=== PATIENT | male | born 1945 | race Caucasian/White ===

== ENCOUNTER → 2016-09-26 | Outpatient (CLI) | payer BC ==
[~2016-09-26] MED LIST: ADVICOR PO; ASPI81TA28 PO; FENO145T26 PO; FLUT0.15 NAE; INSDGI SC; LEVO75TA33 PO; LISI-787 PO; LISI40TA PO; LOVA20TA4 PO; METF-384 PO; METO25TA3 PO; METO25TA56 PO; NTRGSL/4 SL; NVLGI SQ; OXYC-57 PO; PRLSR20 PO
--- NOTE | 2016-09-26 08:46 | DIAGNOSTIC IMAGING REPORT ---
CT ANGIO ABD/PELVIS COMBO CT DOSE: 3469.07 mGy.cm CLINICAL HISTORY: Abdominal aortic aneurysm TECHNIQUE: Unenhanced images were obtained through the abdomen and pelvis. Images were then reacquired in a dynamic helical fashion during intravenous administration 119 cc Optiray 320. COMPARISON STUDY: May 2010 FINDINGS: The heart is enlarged. Subtle increased groundglass attenuation the lungs, is likely atelectatic. No hepatic masses are visualized this arterial phase study. The gallbladder is surgically absent. No splenic masses are visualized. Masses are visualized. No adrenal masses are visualized. No renal masses are visualized. There is no hydronephrosis. There is no evidence of hemodynamically significant celiac, superior mesenteric artery stenosis, or renal artery stenosis. There are 2 left renal arteries. The inferior mesenteric artery is patent. There is no evidence of pathologic bowel dilatation. There is a fusiform infrarenal abdominal aortic aneurysm which measures 4.2 x 3.9 cm in maximal transverse and AP diameter. The aneurysm has no true proximal neck as it gradually tapers. The diameter of the aorta 2 cm inferior to the left renal artery is 25 mm. The aneurysm extends to the bifurcation. There is aneurysmal dilatation left common iliac artery which measures 3 cm. The right common iliac artery measures 21 mm. The external iliac and common femoral arteries are without evidence of focal stenosis. No abnormal pelvic masses are visualized. Left internal iliac lymph nodes are at the upper limits of normal in diameter. IMPRESSION: Fusiform infrarenal abdominal aortic aneurysm measuring 4.2 x 3.9 cm in maximal transverse and AP diameter. The aneurysm extends to the bifurcation, with dilatation of the left common iliac artery measuring 3 cm, and mild dilatation right common iliac artery which measures 2.1 cm. Electronically signed by: Salo Andrea M.D. 09/26/2016 8:44 AM Dictated Date/Time: 09/26/2016 8:35 AM
== END | disposition home or self-care (01) ==
LOC: C.CTS 07:11
PROVIDERS: ATTEND Surgery Vascular Surgery
DX: I71.4 Abdominal aortic aneurysm, without rupture (principal)

== ENCOUNTER 2016-10-24 05:14 | Inpatient (IN) | payer BC, OTHER ==
[2016-10-16 08:55] VITALS: BMI 39.0
--- NOTE | 2016-10-16 09:38 | PAT Medication Instructions ---
Service Date Oct 16, 2016. Current Home Medication List Aspirin (Aspirin Ec), 81 MG PO QAM Fenofibrate (Tricor ), 145 MG PO QAM Fluticasone Propionate (Nasal) (Flonase Allergy Relief), 1 SPRAY LAVERNE BID Insulin Aspart (Novolog), 0 SQ UD Insulin Glargine (Lantus), 80 U SC BID Levothyroxine (Levoxyl), 0.075 MG PO QAM Lisinopril/Hctz (Zestoretic 20MG/12.5MG), 2 TAB PO QAM Lovastatin (Mevacor), 20 MG PO HS Metformin Hcl (Glucophage), 1,000 MG PO BID Metoprolol Succinate (Toprol Xl), 25 MG PO QAM Nitroglycerin (Nitrostat), 1 TAB SL UD PRN for CHEST PAIN Omeprazole (Prilosec), 20 MG PO QAM Medication Instructions For Your Scheduled Surgery - Continue as directed: Nitroglycerin (Nitrostat), 1 TAB SL UD PRN for CHEST PAIN - Hold the following medications 48 hours prior to surgery: Metformin Hcl (Glucophage), 1,000 MG PO BID - Hold the following medications the morning of surgery: Fenofibrate (Tricor ), 145 MG PO QAM Insulin Aspart (Novolog), 0 SQ UD Lisinopril/Hctz (Zestoretic 20MG/12.5MG), 2 TAB PO QAM - Take the following medications the morning of surgery with a sip of water: Fluticasone Propionate (Nasal) (Flonase Allergy Relief), 1 SPRAY LAVERNE BID Aspirin (Aspirin Ec), 81 MG PO QAM (okay to continue per surgeon) Levothyroxine (Levoxyl), 0.075 MG PO QAM Omeprazole (Prilosec), 20 MG PO QAM Metoprolol Succinate (Toprol Xl), 25 MG PO QAM - Take the following medications as scheduled the night before surgery: Fluticasone Propionate (Nasal) (Flonase Allergy Relief), 1 SPRAY LAVERNE BID Insulin Glargine (Lantus), 80 U SC BID Lovastatin (Mevacor), 20 MG PO HS - For Insulin Dependent Diabetic patients: Test blood sugar A.M. of surgery. - If Blood Sugar is GREATER THAN 150, take HALF of your regular dose of: Insulin Glargine (Lantus) - If Blood Sugar is LESS THAN 150, DO NOT TAKE ANY: Insulin Glargine ( Lantus) If you have any questions please call us at [phone] or [phone] or [phone]
--- NOTE | 2016-10-16 10:19 | DIAGNOSTIC IMAGING REPORT ---
CHEST PREADMISSION(PA/LAT) CLINICAL HISTORY: Preoperative evaluation. COMPARISON STUDY: Chest radiograph June 02, 2010. FINDINGS: There are median sternotomy wires and clips from bypass grafting. Moderate cardiomegaly is noted. There is no evidence of pulmonary edema. No consolidation is evident. There is no pneumothorax or pleural effusion. IMPRESSION: 1. No acute cardiopulmonary findings. 2. Moderate cardiomegaly. Electronically signed by: Raulito Edouard M.D. 10/16/2016 10:17 AM Dictated Date/Time: 10/16/2016 10:16 AM
[2016-10-16 10:25] LABS: BASO % 0.4 %; BASO ABS # 0.03 K/uL (0-0.2); COMPLETE YES; EOS % 2.4 %; HEMATOCRIT 37.1 % (42-52); IG% 0.7 %; LYMPH % 17.9 %; LYMPH ABS # 1.24 K/uL (1.2-3.4); MEAN CELL VOLUME 79.4 fL (80-100); MEAN CORPUSCULAR HEMOGLOBIN 26.8 pg (25-34); MEAN CORPUSCULAR HGB CONC 33.7 g/dl (32-36); MEAN PLATELET VOLUME 12.1 fL (7.4-10.4); MONO % 7.9 %; NEUT % 70.7 %; PLATELET COUNT 168 K/uL (130-400); RED BLOOD COUNT 4.67 M/uL (4.7-6.1); WHITE BLOOD COUNT 6.94 K/uL (4.8-10.8)
[2016-10-16 10:39] LABS: PROTHROMBIN TIME (PATIENT) 10.9 SECONDS (9.0-12.0)
[2016-10-16 10:50] LABS: BUN/CREATININE RATIO 15.2 (10-20); CALCIUM 9.6 mg/dl (8.5-10.1); CREATININE 1.1 mg/dl (0.60-1.40); POTASSIUM 4.2 mmol/L (3.5-5.1)
[~2016-10-24] VITALS: Ht 177.8 cm; Wt 121.0 kg
[2016-10-24] VITALS (10 sets, daily range): BP systolic 122–165; BP diastolic 56–81; PULSE 67–84; TEMP 36.6–37.2; O2SAT 93–96; Ht 177.8 cm; Wt 121.0 kg
[~2016-10-24 05:14] MED LIST changes: -ADVICOR PO; -LISI40TA PO; -METO25TA56 PO; -OXYC-57 PO
[2016-10-24] MEDS ORDERED: LACTATED RINGER'S 1000ML 1,000 ML IV SCH (06:00)
--- NOTE | 2016-10-24 06:22 | History and Physical ---
History & Physical Date Oct 24, 2016. Chief Complaint Abdominal aortic and iliac aneurysms History of Present Illness The patient is a 71 year old male we have been following for an abdominal aortic and iliac artery aneurysms. He did have a CTA which showed his left iliac to be 3-3.2 cm in size. The aorta itself was only 4.2. Being that the left iliac has grown and is significantly dilated, we recommend that we repair this via the endovascular technique. We will fix the aorta at the same time using the regular endograft. We will unfortunately have to embolize the left internal iliac artery. We will keep you informed as to his results. Allergies Coded Allergies: No Known Allergies (Verified , 10/24/16) Home Medications Scheduled Aspirin (Aspirin Ec), 81 MG PO QAM Fenofibrate (Tricor ), 145 MG PO QAM Fluticasone Propionate (Nasal) (Flonase Allergy Relief), 1 SPRAY LAVERNE BID Insulin Aspart (Novolog), 0 SQ UD Insulin Glargine (Lantus), 80 U SC BID Levothyroxine (Levoxyl), 0.075 MG PO QAM Lisinopril/Hctz (Zestoretic 20MG/12.5MG), 2 TAB PO QAM Lovastatin (Mevacor), 20 MG PO HS Metformin Hcl (Glucophage), 1,000 MG PO BID Metoprolol Succinate (Toprol Xl), 25 MG PO QAM Omeprazole (Prilosec), 20 MG PO QAM Scheduled PRN Nitroglycerin (Nitrostat), 1 TAB SL UD PRN for CHEST PAIN Surgical / Medical History Hx Cardiac Surgery: Yes (CATH...TRIPLE BYPASS ) Hx Abdominal Surgery: Yes (LAP BAKARI AND HERNIA REPAIR, APPENDECTOMY ) Hx Cancer Surgery: No Hx Thoracic Surgery: No Hx Orthopedic: No Hx Urinary Tract Surgery: No HX Other Surgery: Yes Past Medical/Surgical History: Diabetes, Heart Disease, High Cholesterol, Hypertension, Kidney Disease, Neurological Disorder, Thyroid Disease, Other ([place]) Social History Smoking Status: Never Smoker Hx Tobacco Use In Past Year?: No (QUIT 40 YRS, SMOKED FOR 15 YRS ) Hx Alcohol Use - Type & Amnt: No Hx Substance Use -Type & Amnt: No Review of Systems Constitutional: No chills, No diaphoresis, No fatigue, No fever, No malaise, No problem reported, No sweats, No weakness, No weight gain, No weight loss ENMT: No dental pain, No ear discharge, No ear pain, No epistaxis, No gum swelling, No loss of hearing, No mouth pain, No mouth swelling, No nasal congestion, No nasal pain, No problem reported, No rhinorrhea, No sore throat, No stridor, No throat swelling, No tinnitus Respiratory: No NIELSEN, No PND, No cough, No cyanosis, No dyspnea, No hemoptysis, No orthopnea, No problem reported, No short of breath, No sputum production, No stridor, No wheezing Cardiovascular: No chest pain, No chest pressure, No chest tightness, No cyanosis, No diaphoresis, No edema, No intermittent claudication, No lightheadedness, No mumur, No orthopnea, No palpitations, No paroxysmal nocturnal dyspnea, No problem reported, No syncope Gastrointestinal: + heartburn, + indigestion Genitourinary - Male: No difficulty urinating, No hematuria, No impotence, No penile discharge, No penile itching, No problem reported, No rash, No testicular pain, No testicular swelling Musculoskeletal: No back pain, No gout, No joint pain, No joint swelling, No muscle pain, No muscle stiffness, No muscle weakness, No neck pain, No problem reported Neurologic: + problem reported (peripheral neuropathy) Psychiatric: No alcohol abuse, No anxiety, No auditory hallucinations, No depression, No drug abuse, No homicidal ideation, No mood changes, No problem reported, No suicidal ideation, No visual hallucinations Physical Exam Constitutional: General Apperance: heathly-appearing, well-nourished, well-developed Level of Distress: NAD Ambulation: ambulating normally Psychiatric: Mental Status: active & alert, normal mood, normal affect Orientation: oriented except where noted, to time, to place, to person Memory: recent memory normal, remote memory normal Head: normocephalic ENMT: normal ENT inspection Neck: supple Lungs: Auscultation: breath sounds normal Cardiovascular: Heart Auscultation: RRR Peripheral Pulses: Radial Pulse: normal on the left, normal on the right Femoral Pulse: normal on the left, normal on the right Posterior Tibialis Pulse: decreased on the left, decreased on the right Dorsalis Pedis Pulse: decreased on the left, decreased on the right Abdomen: Inspection & Palpation: soft Musculoskeletal: normal Extremities: Upper Right: no cyanosis, no edema, no varicosities, no palpable cord, no clubbing, no ulcers, no mottling Upper Left: no cyanosis, no edema, no varicosities, no palpable cord, no clubbing, no ulcers, no mottling Lower Right: no cyanosis, no edema, no varicosities, no palpable cord, no clubbing, no ulcers, no mottling Lower Left: no cyanosis, no edema, no varicosities, no palpable cord, no clubbing, no ulcers, no mottling Neurologic: Cranial Nerves: grossly intact Sensation: grossly intact Assessment and Plan Imp: Abdominal aortic and iliac artery aneurysms. Plan: Patient is admitted for an endovascular repair of his aneurysms. I have discussed the risks options and benefits of the procedure with the patient. The patient understands the risks options and benefits and agrees to the procedure.
[2016-10-24] MEDS: SODIUM CHLORIDE 0.9% 1000ML 1,000 ML IV SCH ×2 (06:27→15:54)
[2016-10-24] MEDS ORDERED: PROPOFOL IV EMULSION 10 MG/ML 20 ML VIAL IV ONE ×2 (06:54→09:26)
[2016-10-24] MEDS ORDERED: FENTANYL CITRATE INJ 50 MCG/1 ML 2 ML VIAL ONE ×2 (06:54→08:51)
[2016-10-24] MEDS ORDERED: MIDAZOLAM HCL 1 MG/ML 2ML VIAL ONE ×2 (06:54→08:45)
[2016-10-24] MEDS ORDERED: HEPARIN SOD (PORCINE) 5000 UNIT/ML 1 ML VIAL ONE (07:03)
[2016-10-24] MEDS ORDERED: SODIUM CHLORIDE 0.9% INJ 10 ML VIAL ONE (07:04)
[2016-10-24] MEDS ORDERED: BUPIVACAINE/EPINEPHRINE 0.5% MPF 1:200,000 30 ML VIAL ONE (07:09)
[2016-10-24] MEDS ORDERED: LIDOCAINE HCL 2% JELLY 30 ML TUBE EXT ONE (07:22)
[2016-10-24] MEDS: CEFAZOLIN 3000 MG/65 ML D5W IV SCH ×2 (07:57→08:40)
[2016-10-24] MEDS ORDERED: LIDOCAINE 2% TOP ONE (08:37)
[2016-10-24] MEDS ORDERED: [UNRECOGNIZED DRUG - OTHER] TOP ONE (08:37)
[2016-10-24] MEDS ORDERED: HydrALAZINE HCL 20 MG/ML VIAL ONE (08:54)
[2016-10-24] MEDS ORDERED: LABETALOL HCL IV 5 MG/ML 20ML ONE (08:54)
[2016-10-24] MEDS ORDERED: ESMOLOL HCL 10 MG/ML 10 ML VIAL ONE (09:26)
[2016-10-24] MEDS: D5W AND 1/2NSS 1,000 ML IV SCH ×2 (09:37→15:57)
[2016-10-24] MEDS ORDERED: MoRPHine SULFATE 4 MG/ML 1 ML CARP\\VIAL IV PRN ×2 (09:45→10:00)
[2016-10-24] MEDS ORDERED: GLUCOSE 10 TABS/TUBE PO PRN (09:45)
[2016-10-24] MEDS ORDERED: GLUCAGON FOR INJ 1 MG VIAL SQ PRN (09:45)
[2016-10-24] MEDS ORDERED: DEXTROSE 50% 50 ML SYR IV PRN (09:45)
[2016-10-24] MEDS ORDERED: OXYCODONE/ACETAMINOPHEN 5-325 TAB PO PRN (09:45)
[2016-10-24] MEDS ORDERED: ONDANSETRON INJ 2 MG/ML 2 ML VIAL IV PRN (09:45)
[2016-10-24] MEDS ORDERED: GLUCOSE 40% GEL 15 GM TUBE PO PRN (09:45)
[2016-10-24] MEDS ORDERED: NITROGLYCERIN 0.4 MG SL PER TAB CHARGE SL PRN (09:45)
[2016-10-24] MEDS ORDERED: IODIXANOL (VISIPAQUE) 270 MG/ML 150ML XX ONE (09:47)
[2016-10-24] MEDS ORDERED: BUPIVACAINE/EPINEPHRINE 0.25% 1:200,000 30 ML VIAL INFIL ONE (09:49)
--- NOTE | 2016-10-24 09:49 | [facility] Post Operative Brief Note ---
Immediate Operative Summary Operative Date Oct 24, 2016. Pre-Operative Diagnosis Abdominal Aortic Aneurysm Post-Operative Diagnosis Same Procedure(s) Performed Percutaneous Endovascular Aneurysm Repair, Right Distal Iliac Extension, Left Distal Iliac Extension, Bilateral Cannulation of Aorta, Mechanical closure of Bilateral Femoral Arteries Surgeon Dr. Montalvo Manager Technical Support Surgeon(s) None Estimated Blood Loss 50 Findings no endoleak seen Specimens None Anesthesia MAC Complication(s) None Disposition Recovery Room / PACU
[2016-10-24] MEDS ORDERED: MoRPHine SULFATE 2 MG/ML CARP IV PRN ×2 (10:00)
--- NOTE | 2016-10-24 10:10 | Anesthesiology Progress Note ---
Anesthesia Post Op Note Date & Time Oct 24, 2016 at 10:10 Vital Signs Pain Intensity: 0 Vital Signs Past 12 Hours Date Time Temp Pulse Resp B/P Pulse Ox O2 Delivery O2 Flow Rate FiO2 10/24/16 06:03 36.6 67 18 148/81 94 Room Air 155/76 Notes Mental Status: alert / awake / arousable, participated in evaluation Pt Amnestic to Procedure: Yes Nausea / Vomiting: adequately controlled Pain: adequately controlled Airway Patency, RR, SpO2: stable & adequate BP & HR: stable & adequate Hydration State: stable & adequate Anesthetic Complications: no major complications apparent
[2016-10-24] MEDS ORDERED: ATROPINE SULFATE 0.1 MG/ML 5ML SYR IV PRN (10:15)
[2016-10-24] MEDS ORDERED: EpHEDrine SULFATE INJ 50 MG/ML AMP IV PRN (10:15)
[2016-10-24 10:39] LABS: HEMATOCRIT 30.8 % (42-52)
[2016-10-24] MEDS ORDERED: PANTOprazole INJ 40 MG in SYRINGE 0 ML IV SCH (11:00)
[2016-10-24] MEDS: ACETAMINOPHEN 325 MG TAB PO PRN ×2 (15:42→23:29)
[2016-10-24] MEDS: CEFAZOLIN IV 3,000 MG in DEXTROSE 5% 50ML 50 ML IV SCH ×2 (16:20→23:29)
[2016-10-24] MEDS: INSULIN HUMAN REGULAR SC SCH ×2 (17:19→20:42)
--- NOTE | 2016-10-24 19:14 | CRITICAL CARE CONSULTATION ---
DATE OF CONSULTATION: 10/24/2016 CHIEF COMPLAINT: Aneurysm. HISTORY OF PRESENT ILLNESS: The patient is a very nice 71-year-old gentleman with a known left iliac artery aneurysm. He underwent CT angiogram on September 26 of this year, which showed a fusiform infrarenal abdominal aortic aneurysm measuring 4.2 x 3.9 cm extending to the bifurcation with dilatation of the left common iliac artery measuring 3 cm and mild dilatation of the right common iliac artery measuring 2.1 cm. He was seen by Dr. Montalvo who took him to the operating room for a percutaneous endovascular aneurysm repair with right and left distal iliac extension. There were no reported intraoperative complications and he received 1.3 liters of IV fluids, had 50 mL of blood loss and 225 mL of urine output. He was not intubated for the procedure, which lasted about an hour and 45 minutes. He was transferred to the PACU and remained there for many hours because there were no beds in the intensive care unit. He has an arterial line, but has not had any blood pressure issues. Prior to seeing him, he had already eaten lunch and was out of bed and into the chair. He denies pain, shortness of breath, nausea or vomiting. He says he feels good and is ready to go home. PAST MEDICAL HISTORY: Diabetes mellitus, hypothyroidism, hypertension, hyperlipidemia, coronary artery disease status post myocardial infarction. Preoperative stress echocardiogram on 10/11/2016 was negative. Hyperlipidemia, peripheral neuropathy, nephrolithiasis, gastroesophageal reflux disease. PAST SURGICAL HISTORY: Status post CABG x3 in 1976, laparoscopic cholecystectomy, hernia repair, appendectomy, cystoscopy with TURP. ALLERGIES: No known drug allergies. OUTPATIENT MEDICATIONS: Aspirin 81 mg daily, Tricor 145 mg every morning, Flonase 1 spray b.i.d., sliding scale insulin, Lantus 80 units subQ b.i.d., levothyroxine 0.075 mg daily, lisinopril/hydrochlorothiazide 20 mg/12.5 mg 2 tabs in the morning, lovastatin 20 mg at bedtime, metformin 1 gram b.i.d., Toprol-XL 25 mg q.a.m., Nitrostat p.r.n., omeprazole 20 mg q.a.m. SOCIAL HISTORY: He quit smoking in 1976 after a [id number]-[id number] history. He does not drink any alcohol. FAMILY HISTORY: Significant for coronary artery disease. REVIEW OF SYSTEMS: He reports that he gets an earache in his right ear when there is too much wind or breeze, outside or if he is near a vent inside. For that reason, he is actually wearing an earmuff. He denies visual changes, weight loss, weight gain, nausea, vomiting, shortness of breath, chest pain, abdominal pain, diarrhea, hematochezia, melena, falls, bruising, bleeding. Additional review of systems is negative or noncontributory in a 12-point system. PHYSICAL EXAMINATION: VITAL SIGNS: Temperature 37.2, heart rate 88, respiratory rate 17, blood pressure 122/66, oxygen saturation 94% on 1 liter nasal cannula. HEENT: Pupils are equally round and reactive to light. Oral mucosa is moist. Posterior pharynx is clear. NECK: No adenopathy, trachea midline. LUNGS: Clear to auscultation. No rales, rhonchi or wheezes. HEART: Regular rate and rhythm. No murmurs, gallops, rubs. Chest has symmetric expansion. ABDOMEN: Limited due to his seated position but is obese, firm, nontender. Active bowel sounds. Groin dressings are clean, dry and intact. EXTREMITIES: Warm. No edema. POSTOPERATIVE LABORATORY DATA: White blood cell count 6.94, hemoglobin 12.5, hematocrit 37.1, and platelets 168; follow up hemoglobin 10.2, hematocrit 30.8. Sodium 141, potassium 4.2, chloride 104, CO2 26, BUN 17, creatinine 1.1. Blood sugar 165-187. PT, PTT, INR within normal limits. IMAGING DATA: Preoperative chest x-ray done on October 16 shows no acute cardiopulmonary findings and moderate cardiomegaly. IMPRESSION: 1. Status post percutaneous endovascular aneurysm repair with right and left distal iliac extension. 2. History of myocardial infarction and coronary artery bypass grafting x3 with negative stress echo preop. 3. History of hypertension. 4. Diabetes mellitus with hyperglycemia. 5. History of hyperlipidemia. 6. Anemia, no signs of active bleeding presently. PLAN: 1. Continue neurovascular checks. 2. Resume postop medications, consider holding the metformin until discharge. 3. Provide adequate analgesia should he require it. 4. Consider discontinuing the arterial line tonight. 5. Follow up labs in the morning. Thank you for asking me to see this nice gentleman. Please call me with any questions or concerns.
[2016-10-24] MEDS: ENOXAPARIN 30 MG/0.3 ML SYR SQ SCH (20:40)
[2016-10-24] MEDS: FLUTICASONE PROPIONATE NA SPR 16 GM BTL NAE SCH (20:40)
[2016-10-24] MEDS ORDERED: LOVASTATIN 20 MG TAB PO SCH (21:00)
[2016-10-24] MEDS ORDERED: NURSING VERBAL MED ORDER ONE (23:30)
[2016-10-25] VITALS (12 sets, daily range): BP systolic 133–178; BP diastolic 55–88; PULSE 63–88; TEMP 36.7–36.8; O2SAT 92–96
[2016-10-25] MEDS ORDERED: LEVOTHYROXINE 75 MCG TAB PO SCH (06:00)
[2016-10-25 06:40] LABS: HEMATOCRIT 34.6 % (42-52)
[2016-10-25 07:18] LABS: BUN/CREATININE RATIO 12.8 (10-20); CALCIUM 8.8 mg/dl (8.5-10.1); CREATININE 1.1 mg/dl (0.60-1.40); POTASSIUM 3.9 mmol/L (3.5-5.1)
[2016-10-25] MEDS: ENOXAPARIN 30 MG/0.3 ML SYR SQ SCH (07:30)
[2016-10-25] MEDS: FLUTICASONE PROPIONATE NA SPR 16 GM BTL NAE SCH (07:30)
[2016-10-25] MEDS: INSULIN HUMAN REGULAR SC SCH (07:35)
--- NOTE | 2016-10-25 07:41 | Anesthesiology Progress Note ---
Anesthesia Post Op Note Date & Time Oct 25, 2016 at 07:41 Vital Signs Pain Intensity: 3.0 Vital Signs Past 12 Hours Date Time Temp Pulse Resp B/P Pulse Ox O2 Delivery O2 Flow Rate FiO2 10/25/16 06:32 78 14 133/70 93 10/25/16 06:30 83 27 163/65 93 10/25/16 05:58 75 25 178/88 92 173/68 10/25/16 05:00 78 30 176/66 92 10/25/16 04:00 36.8 10/25/16 04:00 94 Humidified Oxygen 1.5 10/25/16 03:58 77 20 161/72 95 159/61 10/25/16 03:00 63 18 152/55 96 10/25/16 01:58 74 24 163/65 96 169/67 10/25/16 01:00 72 22 152/64 94 10/25/16 00:00 73 24 160/62 94 10/24/16 23:59 93 Humidified Oxygen 2.0 10/24/16 23:58 71 18 157/66 95 165/65 10/24/16 23:27 37.2 10/24/16 23:00 81 18 159/56 95 10/24/16 22:00 78 22 155/59 93 Nasal Cannula 2.0 10/24/16 20:00 36.9 69 14 129/64 95 Nasal Cannula 2.0 10/24/16 20:00 96 Nasal Cannula 2.0 Notes Mental Status: alert / awake / arousable, participated in evaluation Pt Amnestic to Procedure: Yes Nausea / Vomiting: adequately controlled Pain: adequately controlled Airway Patency, RR, SpO2: stable & adequate BP & HR: stable & adequate Hydration State: stable & adequate Anesthetic Complications: no major complications apparent
[2016-10-25] MEDS ORDERED: OXYC-57 PO (08:53)
[2016-10-25] MEDS ORDERED: PANTOprazole SOD 40 MG TAB PO SCH (09:00)
[2016-10-25] MEDS ORDERED: ASPIRIN 81 MG ECTAB PO SCH (09:00)
[2016-10-25] MEDS ORDERED: LISINOPRIL/HCTZ 20/12.5MG TAB PO SCH (09:00)
[2016-10-25] MEDS ORDERED: FENOFIBRATE 145 MG TAB PO SCH (09:00)
[2016-10-25] MEDS ORDERED: METOPROLOL SUCC 25MG EXT REL TAB PO SCH (09:00)
--- NOTE | 2016-10-25 09:05 | Discharge Instructions ---
Discharge Instructions Admission Reason for Admission: Abdominal Aortoiliac Aneruysm Discharge Discharge Diagnosis / Problem: s/p Endovascular Aneurysm Repair, AAA Discharge Goals Goal(s): Therapeutic intervention Activity Recommendations Activity Limitations: per Instructions/Follow-up section Lifting Limitations: gradually increase as tolerated Exercise/Sports Limitations: rest today May Resume Sexual Activity: when tolerated . Instructions / Follow-Up Instructions / Follow-Up PT to follow up with Dr Montalvo or Mishel Webb PA-C in 2 weeks. Call [phone] for appt. SPECIAL CARE INSTRUCTIONS: Medications: * Continue to take your medications as directed. Incision/Puncture Site Care: * You will have an incision or puncture in each of your groins. Liquid glue will be used to seal your incisions/puncture site. This will lift off as the incisions/ puncture sites heal. * If Liquid glue is not used, there will be small dressings covering your incisions. After you get home, you may remove the dressings and shower - allowing the warm soapy water to run over it. * Be sure to dry the sites well and keep them dry. * DO NOT SOAK IN A TUB/POOL/etc. UNTIL ALL SURGICAL SITES ARE HEALED. DO NOT REMOVE THE GLUE UNTIL THE INCISIONS HEAL. Restrictions: * Limit yourself to chemist organic activity for the first week. * You may walk and go up and down steps. * Avoid excessive bending or movement at the level of the incisions or punctures. Risks and Possible Complications: * Infection/Drainage/Bleeding - Drainage or bleeding from the incisions/ puncture site should be minimal. If you have excessive bleeding or drainage, call our office ([phone]) right away. * Pain/Numbness - You may experience some mild pain or soreness at your incision sites. You may also have some numbness around the incisions or into the insides of your thighs. Bruising is normal and should resolve within 2 weeks. * Changes in Appetite or Bowel Habits - Mostly related to anesthesia and pain medication, some patients have reported decreased appetite and/or problems with constipation. These symptoms usually improve over a few weeks. Remembering to take an [id number] stool softener, as directed, will help you to avoid constipation. Call our office and seek emergent treatment if you develop: * Fever or chills * Have a temperature greater than 101 degrees F * Any redness or purulent drainage from your incisions or punctures * Severe abdominal, chest or back pain SKIN IRRITATION: * You may experience some redness and/or swelling in the area where radiation was administered. If any skin irritation occurs, please contact your family physician. You will be receiving a call from the Vascular Surgery Nurse after you are discharged. FOLLOW UP VISIT: It is important for you to keep your follow up appointments with your medical provider. Keep any scheduled doctor appointments. Current Hospital Diet Patient's current hospital diet: AHA Diet (Heart Healthy), Diabetes Type 2 Diet Discharge Diet Recommended Diet: AHA Diet (Heart Healthy) Procedures Procedures Performed: Percutaneous Endovascular Aneurysm Repair, Right Distal Iliac Extension, Left Distal Iliac Extension, Bilateral Cannulation of Aorta, Mechanical closure of Bilateral Femoral Arteries Pending Studies Studies pending at discharge: no Medical Emergencies . Who to Call and When: Medical Emergencies: If at any time you feel your situation is an emergency, please call 911 immediately. . Non-Emergent Contact Non-Emergency issues call your: Primary Care Provider . "Provider Documentation" section prepared by Mishel Webb. VTE Core Measure Inpt VTE Proph given/why not?: Enoxaparin (Lovenox)SQ, SCD's [place] Drug Monitoring Program Search Results: patient reviewed within database, no issues identified
--- NOTE | 2016-10-25 09:15 | Progress Note ---
Progress Note Date of Service: Oct 25, 2016. Subjective 71 yo m POD #1 after uncomplicated PEVAR, seen in f/u today. Pt states feeling well. Admits mild groin discomfort. Ambulating well. Taking PO. Denies dizziness, chest pain, SOB, abd pain, N/V, leg pain, other complaints. Objective Vital Signs Vital Signs Past 12 Hours Date Time Temp Pulse Resp B/P Pulse Ox O2 Delivery O2 Flow Rate FiO2 10/25/16 08:00 Room Air 10/25/16 07:41 36.7 88 22 146/75 93 Room Air 10/25/16 06:32 78 14 133/70 93 10/25/16 06:30 83 27 163/65 93 10/25/16 05:58 75 25 178/88 92 173/68 10/25/16 05:00 78 30 176/66 92 10/25/16 04:00 36.8 10/25/16 04:00 94 Humidified Oxygen 1.5 10/25/16 03:58 77 20 161/72 95 159/61 10/25/16 03:00 63 18 152/55 96 10/25/16 01:58 74 24 163/65 96 169/67 10/25/16 01:00 72 22 152/64 94 10/25/16 00:00 73 24 160/62 94 10/24/16 23:59 93 Humidified Oxygen 2.0 10/24/16 23:58 71 18 157/66 95 165/65 10/24/16 23:27 37.2 10/24/16 23:00 81 18 159/56 95 10/24/16 22:00 78 22 155/59 93 Nasal Cannula 2.0 Exam CONST: A&O x 4, NAD, obese, generally healthy appearing male CHEST: RRR lungs decreased, but ctab ABD: soft, nontender, + bs x 4 quad EXT: BL groin punctures C/D/I. + mild local ecchymosis, soft edema, and tenderness. + distal pulses. Intake & Output 8-Hour Column 10/24/16 10/25/16 10/25/16 16:00 00:00 08:00 Intake Total 1700 ml 450 ml 550 ml Output Total 750 ml 750 ml 1450 ml Balance 950 ml -300 ml -900 ml 24-Hour Column 10/25/16 08:00 Intake Total 2700 ml Output Total 2950 ml Balance -250 ml Laboratory and Microbiology Results Past 24 Hours Test 10/24/16 09:59 10/24/16 10:32 10/24/16 12:15 10/24/16 16:18 Range/Units Bedside Glucose 238 230 187 70-99 mg/dl Hemoglobin 10.2 14.0-18.0 g/dL Hematocrit 30.8 42-52 % Test 10/24/16 20:34 10/25/16 06:05 Range/Units Bedside Glucose 204 288 70-99 mg/dl Hemoglobin 11.4 14.0-18.0 g/dL Hematocrit 34.6 42-52 % Sodium Level 136 136-145 mmol/L Potassium Level 3.9 3.5-5.1 mmol/L Chloride Level 102 98-107 mmol/L Carbon Dioxide Level 22 21-32 mmol/L Anion Gap 12.0 3-11 mmol/L Blood Urea Nitrogen 14 7-18 mg/dl Creatinine 1.10 0.60-1.40 mg/dl Est Creatinine Clear Calc Drug Dose 82.7 ml/min Estimated GFR () 79.0 Estimated GFR (Non- 68.1 BUN/Creatinine Ratio 12.8 10-20 Random Glucose 286 70-99 mg/dl Calcium Level 8.8 8.5-10.1 mg/dl Hepatitis C Antibody Screen NEG NEG Microbiology Results 10/24/16 MRSA DNA Surveillance Screen - Final, Complete Specimen Negative for MRSA by DNA Probe ASSESSMENT and PLAN: s/p PEVAR AAA Pt doing well post op. D/C home today. Will see in office in 2 weeks.
--- NOTE | 2016-10-27 15:07 | DISCHARGE SUMMARY ---
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 DISCHARGE DIAGNOSES: 1. Status post percutaneous endovascular aneurysm repair with bilateral iliac artery extension. 2. 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 DISCHARGE CONDITION: Stable. CONSULTATIONS IN THE HOSPITAL: Included critical care. PROCEDURES IN THE HOSPITAL: Included his percutaneous endovascular aneurysm repair with the bilateral iliac artery extensions performed on 10/24/2016 without any significant complications and an EBL of 50 mL. HISTORY OF PRESENT ILLNESS: Mr. Cope is a 71-year-old male who had been followed by Dr. Montalvo for a period of time regarding his aortoiliac artery aneurysms. He had a CTA which demonstrated a large left iliac aneurysm which had grown significantly. The aortic aneurysm was 4.2 cm. Due to the significant increase in size and his iliac artery and the fact that he also had abdominal aorta enlargement, he was recommended to undergo percutaneous endovascular aneurysm repair. The procedure, risks, benefits and alternatives were discussed at length with the patient. He expressed understanding and agreement to proceed. HOSPITAL COURSE: The patient was admitted on 10/24/2016 after undergoing his percutaneous endovascular aneurysm repair. As I said, this was performed without significant complications and an EBL of 50 mL. His hemoglobin remained essentially stable. Chemistries remained stable as well. His vital signs were stable. Postoperatively, the patient was eating, drinking and ambulating without significant difficulty and was felt to be stable enough for discharge on postop day 1. PHYSICAL EXAMINATION: VITAL SIGNS: On day of discharge, vital signs as follows: Temperature of 36.7, pulse of 88, respiratory rate of 22, blood pressure of 146/75 with a pulse oximetry of 93% on room air. CONSTITUTIONAL AND GENERAL: The patient is an obese, but generally healthy for age appearing, well-nourished, well-developed elderly male in no acute distress. He ambulated without assistance and is active, alert and oriented x4 with normal recent and remote memory. HEAD: Normocephalic and atraumatic. EYES: EOMI. ENMT: Exam demonstrates no hearing loss, rhinorrhea or pharyngeal erythema. NECK: Supple, nontender with a midline trachea without masses or crepitus. LUNGS: Exam demonstrated no dyspnea. They are decreased throughout but clear bilaterally. ABDOMEN: Soft, nontender with normoactive bowel sounds in all 4 quadrants without guarding or rebound. There is no flank or CVA tenderness. EXTREMITIES: The patient demonstrates normal pulses unless otherwise noted. Specifically, they are normal in his carotid, brachial, and radial pulses. His femorals are tender but palpable and his lower extremity distal pulses were +1 and easily found with Doppler. His bilateral upper extremities demonstrate no cyanosis, edema, clubbing, varicosities or ulcers. His bilateral lower extremities demonstrate some mild edema at his sides and groin area. His puncture sites are mildly tender to palpation and appear to have some mild local ecchymosis. There does not appear to be any large hematoma and there is no active bleeding noted. There is no pulsatile mass there and no erythema. NEUROLOGIC: The patient has grossly intact cranial nerves and grossly intact sensation. DIET UPON DISCHARGE: Should be a low-cholesterol AHA diet. MEDICATIONS UPON DISCHARGE: Were reconciled in the chart and are as per his discharge instructions. FOLLOWUP: Should be with Dr. Montalvo or his PA, Mishel Webb, in the office within 2 weeks for evaluation. Advised to call the office with any other questions.
--- NOTE | 2016-11-08 08:55 | OPERATIVE REPORT ---
DATE OF OPERATION: 10/24/2016 PREOPERATIVE DIAGNOSIS: Abdominal aortic aneurysm. POSTOPERATIVE DIAGNOSIS: Same. PROCEDURE: 1. Percutaneous endovascular repair of abdominal aortic aneurysm. 2. Bilateral cannulation of the aorta. 3. Right iliac extension. 4. Left iliac extension. 5. Mechanical closure of bilateral femoral arteries. SURGEON: Dr. Montalvo. ANESTHETIC: MAC. PROCEDURE INDICATIONS: The patient is a 71-year-old gentleman with a large abdominal aortic aneurysm. Repair was recommended. He understood the risks, options and benefits, and agreed to have this procedure. The patient was taken to the operating room and placed in supine position. After both groins and abdomen were prepped and draped in a sterile manner, local anesthetic was administered to both groins. Percutaneous puncture was then made of the right common femoral artery. A 5-Sammarinese sheath was inserted. Injection through the sheath showed the cannulation to be anterior and in the common femoral artery. A 0.035 wire was inserted. Two Perclose devices were used to preclose the right groin puncture site and then an 8-Sammarinese sheath was inserted. Same procedure was done on the left side until the 8-Sammarinese sheath was inserted on the left side. A 0.035 guidewire was then passed up through the sheaths. Once they were in place in the suprarenal aorta, Kumpe catheter was used to exchange for a Lunderquist wire. At that point, a pigtail was inserted through the left. At that point, the 8-Sammarinese sheaths were exchanged. On the right side, the puncture site was dilated and an 18-Sammarinese DrySeal was inserted. On the left side, the puncture site was dilated and a 16-Sammarinese DrySeal sheath was inserted. Once they were in place, the pigtail was passed up the left side. A 28.5 x 14-1/2 x 12 C3 aortic graft trunk was then inserted through the right. Arteriography was performed marking the renal arteries. The graft was then deployed. Once the graft was opened, another injection was done confirming that the graft was just below the renal artery on the left side. On the right side, the renal artery was higher. The hooks were then deployed. The graft was deployed down to the gate. The pigtail was then pulled down into the aneurysm sac. Using the Kumpe catheter and 0.035 wire, the gate was cannulated. Once it was cannulated, the pigtail was reinserted. Hand injection was performed. The length of the contralateral limb was determined. We used a 27 x 14-1/2 contra limb. The pigtail was removed. The dilator was reinserted and the sheath was advanced up into the gate. The limb was then inserted through the sheath. It was deployed without difficulty. The right limb was then further deployed. We then placed a 23 x 10 extension on the right side. This landed flush with the bifurcation. Q50 balloon was then used to expand all overlaps and junctions. Completion angiogram was then performed which showed a type 1 endoleak through the left side. This left limb was then extended with a 32 x 4-1/2 aortic cuff. This came right down to the iliac bifurcation. It was then ballooned with the Q50. Completion angio showed no endoleaks at that time. Graft looked good with again no endoleaks noted. The sheaths were then pulled. Perclose devices were tied and adequate hemostasis was seen in both groins. Dressings were applied and the patient left the operating room in satisfactory condition, having tolerated the procedure well. I attest to the content of the Intraoperative Record and any orders documented therein. Any exceptio ns are noted below.
== END 2016-10-25 09:45 | disposition home or self-care (01) | DRG 269 ==
LOC: ENRESERVTM → ENRESERVDT → C.ACU 05:14 → C.MSICU 09:47
PROVIDERS: ADMIT Surgery Vascular Surgery; ATTEND Surgery Vascular Surgery
PROC: 04V03DZ Restriction of Abdominal Aorta with Intraluminal Device, Percutaneous Approach (ICD-10-PCS; principal; 2016-10-24 07:30)
DX: I71.4 Abdominal aortic aneurysm, without rupture (principal); I72.3 Aneurysm of iliac artery; E11.9 Type 2 diabetes mellitus without complications; E03.9 Hypothyroidism, unspecified; I10 Essential (primary) hypertension; E78.5 Hyperlipidemia, unspecified; I25.10 Atherosclerotic heart disease of native coronary artery without angina pectoris; K21.9 Gastro-esophageal reflux disease without esophagitis; Z79.4 Long term (current) use of insulin; Z79.82 Long term (current) use of aspirin; Z79.899 Other long term (current) drug therapy; I25.2 Old myocardial infarction; Z95.1 Presence of aortocoronary bypass graft; Z87.891 Personal history of nicotine dependence; Z82.49 Family history of ischemic heart disease and other diseases of the circulatory system

== ENCOUNTER → 2016-12-21 | Outpatient (CLI) | payer BC ==
[~2016-12-21] MED LIST changes: +OPTIRAY 320 IV PRN; +OXYC-57 PO
--- NOTE | 2016-12-21 09:01 | DIAGNOSTIC IMAGING REPORT ---
CT ANGIOGRAM OF THE ABDOMEN AND PELVIS COMBO CLINICAL HISTORY: Abdominal aortic aneurysm status post endovascular repair. COMPARISON STUDY: CT angiogram of the abdomen and pelvis dated 09/26/2016. TECHNIQUE: Before and following the IV administration of 118 cc of Optiray 320, CT angiogram of the abdomen and pelvis was performed from the lung bases the proximal femora using a stent graft protocol. Images are reviewed in the axial, sagittal, and coronal planes. 3-D MIPS images are created and assessed. IV contrast was administered without complication. CT DOSE: 5032.96 mGy.cm FINDINGS: Lower chest: The patient is status post midline sternotomy. The heart is enlarged and without pericardial effusion. The coronary arteries are densely calcified. There is diminished attenuation of the cardiac blood pool as compared to the myocardium suggesting anemia. No airspace consolidation or pleural effusion is identified. There is a small hiatal hernia. Liver: The contrast-enhanced liver is enlarged, measuring 22 cm in length. The liver demonstrates diffusely diminished attenuation consistent with severe hepatic steatosis. There is no intrahepatic or ductal dilatation. The main portal veins appear patent. Gallbladder: Surgically absent noting clips in the gallbladder fossa. Spleen: The spleen is mildly enlarged, measuring 14.0 cm in length. Pancreas: Unremarkable. Adrenal glands: Unremarkable. Kidneys: No renal calculi are identified on the unenhanced series. The contrast enhanced kidneys are normal in size and without hydronephrosis. The kidneys enhance symmetrically. Abdominal aorta and iliac arteries: There is advanced atherosclerotic calcification of the abdominal aorta. There are postoperative changes from aortobiiliac stent graft repair of an infrarenal abdominal aortic aneurysm. The residual aneurysm sac measures 4.2 cm in AP diameter and 4.2 cm in transverse diameter. No endoleak is identified. The stent graft is widely patent, as are the iliac arteries. A small left internal iliac artery aneurysm measures up to 1.5 cm as seen on image #368. There is mild aneurysmal dilatation of the right common femoral artery as seen on image #456. This measures up to 1.7 cm. Major branches of the abdominal aorta: The celiac trunk and superior mesenteric arteries are widely patent. 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 This fills via retrograde flow. Hepatic arterial anatomy is conventional. The splenic artery is patent. The renal arteries are widely patent bilaterally. A small accessory renal artery seen on the left on axial image #175. Bowel: The small bowel and colon are normal in course and caliber. There is mild to moderate colonic fecal retention. The appendix is not identified and reported surgically absent. Peritoneum: There is no intraperitoneal free air or abdominal ascites. Lymphadenopathy: None. Pelvic viscera: There is mild median lobe hypertrophy of the prostate gland. The bladder wall appears thickened and trabeculated suggesting chronic bladder outlet obstruction. Skeletal structures: There is mild lumbosacral spondylosis. No destructive bony lesions are seen. IMPRESSION: 1. There are postoperative changes from aortobiiliac stent graft repair of an infrarenal abdominal aortic aneurysm. The residual aneurysm sac measures 4.2 x 4.2 cm, and no endoleak is identified. The stent graft is widely patent. 2. There are small aneurysms of the left internal iliac artery and the right common femoral artery as above. 3. Hepatomegaly and severe hepatic steatosis. 4. Splenomegaly. 5. Cardiomegaly. 6. The appearance of the bladder is consistent with chronic outlet obstruction. 7. Additional findings as above. Electronically signed by: Sam Brock M.D. 12/21/2016 8:59 AM Dictated Date/Time: 12/21/2016 8:45 AM
== END | disposition home or self-care (01) ==
LOC: C.CTS 08:09
PROVIDERS: ATTEND Physician Assistant
DX: I71.4 Abdominal aortic aneurysm, without rupture (principal); I72.3 Aneurysm of iliac artery; Z95.828 Presence of other vascular implants and grafts; R16.2 Hepatomegaly with splenomegaly, not elsewhere classified; K76.0 Fatty (change of) liver, not elsewhere classified; I51.7 Cardiomegaly

== ENCOUNTER → 2017-04-05 | Day surgery (SDC) | payer BC ==
[~2017-04-05] VITALS: Ht 177.8 cm; Wt 122.3 kg
[~2017-04-05] MED LIST changes: +FENTANYL CITRATE INJ 50 MCG/1 ML 2 ML VIAL ONE; +LIDOCAINE HCL 2% 2 ML VIAL (20MG/ML) ONE; -OPTIRAY 320 IV PRN; +PROPOFOL IV EMULSION 10 MG/ML 20 ML VIAL IV ONE; +SODIUM CHLORIDE 0.9% 500ML 500 ML IV ONE
[2017-04-05 12:31] VITALS: Ht 177.8 cm; Wt 122.3 kg
--- NOTE | 2017-04-05 13:20 | Endo History and Physical ---
History & Physical Date of Service: Apr 05, 2017. Chief Complaint: HX OF POLYPS >10 YEARS Referring Physician: DR. ROSSI History of Present Illness hx polyp Past Surgical History Hx Cardiac Surgery: Yes Hx Internal Defibrillator: No Hx Pacemaker: No Hx Abdominal Surgery: Yes (APPENDIX GALL BLADDER AAA CABG HERNIA) Hx of Implantable Prosthesis: No Hx Post-Op Nausea and Vomiting: No Hx Cancer Surgery: No Hx Thoracic Surgery: No Hx Orthopedic: No Hx Urinary Tract Surgery: Yes Family History Polyp Social History Smoking Status: Former Smoker Hx Substance Use: No Hx Alcohol Use: No Allergies Coded Allergies: No Known Allergies (Verified , 04/05/17) Current Medications Reported Home Medications Medications Dose Route/Sig Max Daily Dose Days Date Category Dose Instructions Nitrostat (Nitroglycerin) 0.4 Mg Tab 1 Tab SL UD PRN 10/16/16 Reported Toprol Xl (Metoprolol Succinate) 25 Mg Tabcr 25 Mg PO QAM 10/16/16 Reported Glucophage (Metformin Hcl) 1,000 Mg Tab 1,000 Mg PO BID 10/16/16 Reported restart tomorrow Mevacor (Lovastatin) 20 Mg Tab 20 Mg PO HS 10/16/16 Reported Flonase Allergy Relief (Fluticasone Propionate (Nasal)) 50 Mcg/Act Spr 1 [place] LAVERNE BID 10/16/16 Reported Aspirin Ec (Aspirin) 81 Mg Tab 81 Mg PO QAM 10/16/16 Reported Zestoretic 20MG/12.5MG (HCTZ/Lisinopril) Tab 2 Tab PO QAM 10/16/16 Reported Prilosec (Omeprazole) 20 Mg Capcr 20 Mg PO QAM 06/01/10 Reported Novolog (Insulin Aspart) Inj 0 SQ UD 03/31/09 Reported SLIDING SCALE COVERAGE Lantus (Insulin Glargine) Vial 80 U SC BID 03/29/09 Reported Levoxyl (Levothyroxine Sodium) 0.075 Mg Tab 0.075 Mg PO QAM 03/29/09 Reported Tricor (Fenofibrate) 145 Mg Tab 145 Mg PO QAM 03/29/09 Reported Vital Signs Weight (Kilograms): 122.27 Height (Feet): 5 Height (Inches): 10 Date Time Temp Pulse Resp B/P (MAP) Pulse Ox O2 Delivery O2 Flow Rate FiO2 04/05/17 12:58 36.6 97 20 132/78 (96) 96 Room Air Physical Exam AAOx3 Nls1s2 CTA Abd soft NT/ND + BS -CCE Assessment and Plan colonoscopy
--- NOTE | 2017-04-05 13:49 | Discharge Instructions ---
Endoscopy Patient Instructions Date / Procedure(s) Performed Apr 05, 2017. Colonoscopy Allergy Information Coded Allergies: No Known Allergies (Verified , 04/05/17) Discharge Date / Findings Apr 05, 2017. polyps removed by snare Medication Instructions Stopped Medication(s): NO NATHAN SOLO OFFICE STATED TO STOP ASA Restart Stopped Medication(s): Reported Home Medications Medications Dose Route/Sig Max Daily Dose Days Date Category Dose Instructions Nitrostat (Nitroglycerin) 0.4 Mg Tab 1 Tab SL UD PRN 10/16/16 Reported Toprol Xl (Metoprolol Succinate) 25 Mg Tabcr 25 Mg PO QAM 10/16/16 Reported Glucophage (Metformin Hcl) 1,000 Mg Tab 1,000 Mg PO BID 10/16/16 Reported restart tomorrow Mevacor (Lovastatin) 20 Mg Tab 20 Mg PO HS 10/16/16 Reported Flonase Allergy Relief (Fluticasone Propionate (Nasal)) 50 Mcg/Act Spr 1 [place] LAVERNE BID 10/16/16 Reported Aspirin Ec (Aspirin) 81 Mg Tab 81 Mg PO QAM 10/16/16 Reported Zestoretic 20MG/12.5MG (HCTZ/Lisinopril) Tab 2 Tab PO QAM 10/16/16 Reported Prilosec (Omeprazole) 20 Mg Capcr 20 Mg PO QAM 06/01/10 Reported Novolog (Insulin Aspart) Inj 0 SQ UD 03/31/09 Reported SLIDING SCALE COVERAGE Lantus (Insulin Glargine) Vial 80 U SC BID 03/29/09 Reported Levoxyl (Levothyroxine Sodium) 0.075 Mg Tab 0.075 Mg PO QAM 03/29/09 Reported Tricor (Fenofibrate) 145 Mg Tab 145 Mg PO QAM 03/29/09 Reported Reported Home Medications Medications Dose Route/Sig Max Daily Dose Days Date Category Dose Instructions Nitrostat (Nitroglycerin) 0.4 Mg Tab 1 Tab SL UD PRN 10/16/16 Reported Toprol Xl (Metoprolol Succinate) 25 Mg Tabcr 25 Mg PO QAM 10/16/16 Reported Glucophage (Metformin Hcl) 1,000 Mg Tab 1,000 Mg PO BID 10/16/16 Reported restart tomorrow Mevacor (Lovastatin) 20 Mg Tab 20 Mg PO HS 10/16/16 Reported Flonase Allergy Relief (Fluticasone Propionate (Nasal)) 50 Mcg/Act Spr 1 [place] LAVERNE BID 10/16/16 Reported Aspirin Ec (Aspirin) 81 Mg Tab 81 Mg PO QAM 10/16/16 Reported Zestoretic 20MG/12.5MG (HCTZ/Lisinopril) Tab 2 Tab PO QAM 10/16/16 Reported Prilosec (Omeprazole) 20 Mg Capcr 20 Mg PO QAM 06/01/10 Reported Novolog (Insulin Aspart) Inj 0 SQ UD 03/31/09 Reported SLIDING SCALE COVERAGE Lantus (Insulin Glargine) Vial 80 U SC BID 03/29/09 Reported Levoxyl (Levothyroxine Sodium) 0.075 Mg Tab 0.075 Mg PO QAM 03/29/09 Reported Tricor (Fenofibrate) 145 Mg Tab 145 Mg PO QAM 03/29/09 Reported Provider Instructions Activity Restrictions - No exercising or heavy lifting for 24 hours. - Do not drink alcohol the day of the procedure. - Do not drive a car or operate machinery until the day after the procedure. - Do not make any important decisions or sign important papers in 24 hours after the procedure. Following Day: - Return to full activity which may include returning to work/school. Diet Start your diet with liquids and light foods (jello, soup, juice, toast). Then eat your usual diet if not nauseated. Treatment For Common After Affects For mild abdominal pain, bloating, or excessive gas: - Rest - Eat lightly - Lie on right side Follow-Up Information Follow-up with DR. ROSSI as scheduled Anesthesia Information What You Should Know You have had a procedure that required some medicine to reduce anxiety and discomfort. This treatment is called moderate sedation. After receiving the treatment, you may be sleepy, but you will be able to breathe on your own. The effects of the treatment may last for several hours. Follow these instructions along with Activity/Diet recommendations noted above: * Do NOT do anything where dizziness or clumsiness would be dangerous. * Rest quietly at home today, then you can be up and about tomorrow. * Have a responsible person stay with you the rest of today. * You may have had an I.V. today. If so, you may take the dressing off later today. Recommendations Call your doctor if: * Trouble breathing * Continuous vomiting for more than 24 hours * Temperature above 101 degrees * Severe abdominal pain or bloating * Pain not relieved by pain medicine ordered * There is increased drainage or redness from any incision * A large amount of rectal bleeding greater than 2-3 tablespoons. (If you had a polyp/s removed or have hemorrhoids, a small amount of blood - from the rectum is to be expected.) * You have any unanswered questions or concerns. IN THE EVENT OF A SERIOUS EMERGENCY, GO TO THE NEAREST EMERGENCY ROOM Your discharge instructions were prepared by provider Randy Serrato. Patient Instructions Signature Page Sage Cope Patient (or Guardian) Signature/Date: I have read and understand the instructions given to me by my caregivers. Caregiver/RN/Doctor Signature/Date: The above-named patient and/or guardian has received patient instructions on this date. + Original Patient Signature Page (only) stays with chart. Please make copy for patient.
--- NOTE | 2017-04-05 13:53 | GI REPORT ---
Procedure Date: 04/05/2017 1:06 PM Procedure: Colonoscopy Indications: High risk colon cancer surveillance: Personal history of colonic polyps Medicines: Propofol per Anesthesia Complications: No immediate complications. Estimated blood loss: Minimal. Estimated Blood Loss: Estimated blood loss was minimal. Procedure: Pre-Anesthesia Assessment: - Prior to the procedure, a History and Physical was performed, and patient medications and allergies were reviewed. The patient's tolerance of previous anesthesia was also reviewed. The risks and benefits of the procedure and the sedation options and risks were discussed with the patient. All questions were answered, and informed consent was obtained. Prior Anticoagulants: The patient has taken no previous anticoagulant or antiplatelet agents. ASA Grade Assessment: III - A patient with severe systemic disease. After reviewing the risks and benefits, the patient was deemed in satisfactory condition to undergo the procedure. After I obtained informed consent, the scope was passed under direct vision. Throughout the procedure, the patient's blood pressure, pulse, and oxygen saturations were monitored continuously. The scope was introduced through the anus and advanced to the terminal ileum, with identification of the appendiceal orifice and IC valve. The colonoscopy was performed without difficulty. The patient tolerated the procedure well. The quality of the bowel preparation was good. Findings: The perianal and digital rectal examinations were normal. Pertinent negatives include normal sphincter tone, no palpable rectal lesions and no anal lesion or abnormality was detected. A 3 mm polyp was found in the cecum. The polyp was sessile. The polyp was removed with a cold snare. Resection and retrieval were complete. Estimated blood loss was minimal. Verification of patient identification for the specimen was done by the physician and cytogenetic technician using the patient's name and medical record number. Two sessile polyps were found at 30 cm proximal to the anus. The polyps were 4 to 6 mm in size. These polyps were removed with a cold snare. Resection and retrieval were complete. Estimated blood loss was minimal. Verification of patient identification for the specimen was done by the physician and cytogenetic technician using the patient's name and medical record number. A 6 mm polyp was found in the rectum. The polyp was sessile. The polyp was removed with a cold snare. Resection and retrieval were complete. Estimated blood loss was minimal. Verification of patient identification for the specimen was done by the physician and cytogenetic technician using the patient's name and medical record number. A few small-mouthed diverticula were found in the sigmoid colon. The retroflexed view of the distal rectum and anal verge was normal and showed no anal or rectal abnormalities. The terminal ileum appeared normal. Impression: - One 3 mm polyp in the cecum, removed with a cold snare. Resected and retrieved. - Two 4 to 6 mm polyps at 30 cm proximal to the anus, removed with a cold snare. Resected and retrieved. - One 6 mm polyp in the rectum, removed with a cold snare. Resected and retrieved. - Diverticulosis in the sigmoid colon. - The distal rectum and anal verge are normal on retroflexion view. - The examined portion of the ileum was normal. Recommendation: - Discharge patient to home (ambulatory). - Resume regular diet. - Continue present medications. - Await pathology results. - Repeat colonoscopy for surveillance based on pathology results. - Return to referring physician as previously scheduled. MD Randy Gambino MD 04/05/2017 1:53:31 PM This report has been signed electronically. Note Initiated On: 04/05/2017 1:06 PM I attest to the content of the Intraoperative Record and orders documented therein, exceptions below
[2017-04-05 14:06] VITALS: BP 113/66; PULSE 86; O2SAT 94
--- NOTE | 2017-04-05 14:20 | Anesthesiology Progress Note ---
Anesthesia Post Op Note Date & Time Apr 05, 2017 at 14:20 Vital Signs Pain Intensity: 0 Vital Signs Past 12 Hours Date Time Temp Pulse Resp B/P (MAP) Pulse Ox O2 Delivery O2 Flow Rate FiO2 04/05/17 14:06 86 20 113/66 (82) 94 Room Air 04/05/17 13:59 84 20 121/68 (85) 95 Room Air 04/05/17 13:49 88 20 108/63 (78) 94 Room Air 04/05/17 12:58 36.6 97 20 132/78 (96) 96 Room Air Notes Mental Status: alert / awake / arousable, participated in evaluation Pt Amnestic to Procedure: Yes Nausea / Vomiting: adequately controlled Pain: adequately controlled Airway Patency, RR, SpO2: stable & adequate BP & HR: stable & adequate Hydration State: stable & adequate Anesthetic Complications: no major complications apparent
== END | disposition home or self-care (01) ==
LOC: C.GI 12:09
PROVIDERS: ATTEND Internal Medicine Gastroenterology
DX: Z12.11 Encounter for screening for malignant neoplasm of colon (principal); D12.0 Benign neoplasm of cecum; K62.0 Anal polyp; K62.1 Rectal polyp; K57.30 Diverticulosis of large intestine without perforation or abscess without bleeding; Z86.010 Personal history of colon polyps; Z83.79 Family history of other diseases of the digestive system; Z87.891 Personal history of nicotine dependence; Z79.4 Long term (current) use of insulin; Z79.899 Other long term (current) drug therapy

== ENCOUNTER → 2018-01-01 | Outpatient (CLI) | payer BC ==
[~2018-01-01] MED LIST changes: -FENTANYL CITRATE INJ 50 MCG/1 ML 2 ML VIAL ONE; -LIDOCAINE HCL 2% 2 ML VIAL (20MG/ML) ONE; -METO25TA3 PO; +METO25TA4 PO; -OXYC-57 PO; -PROPOFOL IV EMULSION 10 MG/ML 20 ML VIAL IV ONE; -SODIUM CHLORIDE 0.9% 500ML 500 ML IV ONE
== END | disposition home or self-care (01) ==
LOC: C.PATHSPEC 17:07
PROVIDERS: ATTEND Dentist Oral and Maxillofacial Surgery
DX: L43.9 Lichen planus, unspecified (principal)

== ENCOUNTER 2024-04-16 14:07 | Inpatient (IN) ==
--- NOTE | 2024-04-16 14:25 | Emergency Department Note ---
Impression & Plan ACS (acute coronary syndrome), Elevated troponin ED Provider Note CHIEF COMPLAINT: Chest pain, through to the back. HISTORY OF PRESENT ILLNESS: This 78-year-old male patient presents to the emergency department with complaints of chest pain that started about an hour ago while driving. He states the pain radiates through to his upper back and between his shoulder blades. He complains of numbness in the right palm of his hand but no other arm discomfort. He is not experiencing jaw pain or shortness of breath. He does have a history of triple bypass procedure 30 years ago. He is a type II diabetic with history of AAA, hypertension, dyslipidemia, obesity. He denies any other intervention since his bypass procedure, denies any coronary stents in place. Of note he states his is admitted to the hospital at this time. patient did arrive by ambulance, received aspirin prior to arrival as well as 2 nitroglycerin tablets. REVIEW OF SYSTEMS: A review of systems was performed with positives and pertinent negatives listed in the history of present illness. 10 systems were reviewed and are otherwise negative. ALLERGIES: see below MEDICATIONS: see below PMH: see below SOCIAL HISTORY: see below DDx: acute coronary syndrome, congestive heart failure, pneumonia, cardiac arrhythmia, PE, pleural effusion, aortic dissection, among others. PHYSICAL EXAM: Vital signs reviewed. General: Well-appearing 78-year-old male, in no significant distress. HEENT: No scleral icterus, PERRLA, neck supple. Atraumatic. Cardiovascular: Regular rate and rhythm, no extra sounds. Pulmonary: Clear to auscultation bilaterally, normal work of breathing. Abdomen: Soft, obese, nontender, nondistended, positive bowel sounds. Musculoskeletal: Atraumatic, no peripheral edema. Neurologic: Patient awake alert and oriented x 3, speech is clear Skin: Warm, dry, no rash EMERGENCY DEPARTMENT COURSE/MDM: This patient was evaluated and appeared to be in no significant distress. IV access was obtained and laboratory work was drawn. The patient was placed on the rn cardiac cath and noted to be in a NSR. Initial EKG reveals a RBBB with repolarization changes when compared to previous in 2017. Initial HS trop is negative. Pt was given ASA in route by KAY. Pt was Medicated with IV morphine 4 mg Times to, IV Zofran 4 mg times one. He continue to complain of pain fair he did receive 10 mg of IV hydralazine for hypertension. Patient did have improvement in his pain, but it was not resolved. Case was discussed for the hospitalist service who agreed to evaluate the patient for admission. Dr. Hester repeated an EKG during his evaluation and there was concern for STEMI, although the RBBB muddies the picture. Case was discussed with Dr. Milton of Interventional cardiology was contacted and wanted to take the patient to the catheterization lab. A heart alert was called. Second troponin is 1200. Patient was informed on the findings and plan at the bedside. He was taken to the laborer cheesemaking for further management. MONITORING: An order for cardiac monitoring was placed and the patient is noted to be in a NSR at 65 beats per minute. RADIOLOGY: chest x-ray to my interpretation reveals cardiomegaly without significant focal lung consolidation or failure. Post-sternotomy changes noted. Chest CT per radiology reveals no evidence of PE or dissection. EKG: to my interpretation reveals a normal sinus rhythm at 74 bpm. Right bundle branch block. Repolarization abnormality in the anterior leads. When compared to previous dated October 16, 2016, RBBB is new. EKG #2 to my interpretation reveals a normal sinus rhythm at 70 bpm. Right bundle branch block. Repolarization changes noted, ST depression in the anterior leads, ST elevation noted in 1 and aVL EKG #3 to my interpretation reveals a normal sinus rhythm at 72 bpm with a right bundle branch block, continued ST depression in the anterior leads, ST elevation noted in 1 and aVL. No significant changes when compared to Most recent previous. DISPOSITION: Admit I have personally spent 40 minutes of critical care time in the direct management of this patient. This was a life/limb threatening event. This 40 minutes is in excess of all separately billable procedures. 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 STAGE "WORKING 40%" GERD (gastroesophageal reflux disease) Diabetes mellitus, type 2 Hypothyroidism Peripheral neuropathy Myocardial Infarction 30+YEARS AGO Hypertension Hyperlipidemia Chronic obstructive pulmonary disease Vitamin D deficiency Surgical History History of cataract surgery RT H/O colonoscopy with polypectomy History of AAA (abdominal aortic aneurysm) repair H/O hernia repair History of tooth extraction History of tonsillectomy History of cardiac cath + 30 YEARS AGO/NO STENTS Hx of cholecystectomy Hx of CABG 3 VESSELS 30+ YEARS AGO AT [place] Hx of appendectomy Family History Mother Diabetes Hypertension Father Diabetes Heart disease Hypertension Grandfather (Paternal) Heart disease Other No family history of adverse response to anesthesia Social History Smoking Status: Former smoker Tobacco Type: Cigarettes Cigarettes Per Day: 45+ YEARS AGO; Smoking End Date: 40 yrs ago; Second Hand Exposure: No; Do You Dip or Chew Tobacco: No; Tobacco Cessation Education Requested by Patient: No Hx Alcohol Use: Yes Alcohol type: beer Hx Substance Use: No Preferred Language: [place] Islander Communication Ability: Effective Clinical Lab Specialist Required: No Beliefs That Will Affect Care: None marital status: Current Living Situation: Alone current occupational status: retired Other Information That Helps Us Care for You: No Feels Safe at Home: Yes Safety Concerns: Feels Safe At This Time Assistive Devices: Cane and Walker Allergies Allergies Allergy/AdvReac Type Severity Reaction Status Date / Time canagliflozin [From Invokana] Allergy Mild rash Verified 04/16/24 18:57 semaglutide [From Ozempic] AdvReac Mild Altered Verified 04/16/24 18:57 Sense of Taste Home Meds Home Medications Medication Instructions Recorded Confirmed aspirin 81 mg tablet,delayed 81 mg PO QAM 05/08/19 04/16/24 release cyanocobalamin (vitamin B-12) 1,000 mcg PO DAILY 05/08/19 04/16/24 1,000 mcg tablet,extended release fluticasone propionate 50 2 sprays intranasal DAILY 05/08/19 04/16/24 mcg/actuation nasal spray,suspension metoprolol tartrate 25 mg tablet 25 mg PO BID 05/08/19 04/16/24 omeprazole 20 mg capsule,delayed 20 mg PO QAM 05/08/19 04/16/24 release cholecalciferol (vitamin D3) 125 2,500 unit PO DAILY 05/11/23 04/16/24 mcg (5,000 unit) capsule Previous Rx's Medication Instructions Recorded blood sugar diagnostic (Prodigy No #200 ea 07/11/21 Coding strips) lisinopril 20 1 tab PO HS #30 tabs 07/24/22 mg-hydrochlorothiazide 12.5 mg tablet pen needle, diabetic 31 gauge x #100 ea 10/02/2209/06" (Comfort EZ Pen [place]) levothyroxine 125 mcg tablet 125 mcg PO .COMPLEX 30 days #30 05/16/23 tabs fenofibrate micronized 134 mg 134 mg PO DAILY 30 days #30 caps 09/06/23 capsule insulin regular hum U-500 conc 500 See Rx Instructions .Route 01/31/24 unit/mL(3 mL) subcut pen (Humulin .COMPLEX #60 mL R U-500 (Conc) Insulin Kwikpen) atorvastatin 80 mg tablet 80 mg PO DAILY #30 tabs 03/17/24 metformin 1,000 mg tablet 1,000 mg PO BID 30 days #60 tabs 04/15/24 spironolactone 25 mg tablet 25 mg PO DAILY #30 tabs 04/15/24 (Aldactone) Results & Data (ED) Vital Signs Vital Signs - 24 hr 04/16/24 14:20 04/16/24 14:20 04/16/24 14:20 Temperature 36.8 C Temperature Source Oral Pulse Rate 72 Pulse Rate [Finger] 72 Pulse Rate from SpO2 Sensor Pulse Rhythm Regular Pulse Strength Normal Respiratory Rate 20 20 Respiratory Effort / Characteristics Non-Labored Spontaneous Respiratory Depth Normal Blood Pressure 144/70 H Blood Pressure [Left Arm] 148/70 H Blood Pressure Mean 94 Blood Pressure Mean [Left Arm] 96 Blood Pressure Position Sitting Pulse Oximetry 95 95 95 Oxygen Delivery Method Room Air Room Air Room Air Sepsis Recent Fever Within 48 Hours No Sepsis New/Unexplained Change in Mental Status N/A Sepsis Action Taken by Nursing No Action Required 04/16/24 14:31 04/16/24 14:47 04/16/24 14:47 Temperature Temperature Source Pulse Rate 65 Pulse Rate [Finger] Pulse Rate from SpO2 Sensor Pulse Rhythm Pulse Strength Respiratory Rate Respiratory Effort / Characteristics Respiratory Depth Blood Pressure 193/107 H 193/107 H Blood Pressure [Left Arm] Blood Pressure Mean 131 131 Blood Pressure Mean [Left Arm] Blood Pressure Position Pulse Oximetry Oxygen Delivery Method Sepsis Recent Fever Within 48 Hours Sepsis New/Unexplained Change in Mental Status Sepsis Action Taken by Nursing 04/16/24 14:51 04/16/24 15:03 04/16/24 15:12 Temperature Temperature Source Pulse Rate 71 Pulse Rate [Finger] Pulse Rate from SpO2 Sensor 71 73 67 Pulse Rhythm Pulse Strength Respiratory Rate 14 Respiratory Effort / Characteristics Respiratory Depth Blood Pressure Blood Pressure [Left Arm] Blood Pressure Mean Blood Pressure Mean [Left Arm] Blood Pressure Position Pulse Oximetry 96 97 98 Oxygen Delivery Method Sepsis Recent Fever Within 48 Hours Sepsis New/Unexplained Change in Mental Status Sepsis Action Taken by Nursing 04/16/24 15:15 04/16/24 15:15 04/16/24 15:30 Temperature Temperature Source Pulse Rate Pulse Rate [Finger] Pulse Rate from SpO2 Sensor 60 Pulse Rhythm Pulse Strength Respiratory Rate Respiratory Effort / Characteristics Respiratory Depth Blood Pressure 179/95 H 179/95 H Blood Pressure [Left Arm] Blood Pressure Mean 103 103 Blood Pressure Mean [Left Arm] Blood Pressure Position Pulse Oximetry 99 Oxygen Delivery Method Sepsis Recent Fever Within 48 Hours Sepsis New/Unexplained Change in Mental Status Sepsis Action Taken by Nursing 04/16/24 15:31 04/16/24 15:31 04/16/24 15:31 Temperature Temperature Source Pulse Rate Pulse Rate [Finger] Pulse Rate from SpO2 Sensor Pulse Rhythm Pulse Strength Respiratory Rate Respiratory Effort / Characteristics Respiratory Depth Blood Pressure 202/130 H 202/130 H 202/130 H Blood Pressure [Left Arm] Blood Pressure Mean 156 156 156 Blood Pressure Mean [Left Arm] Blood Pressure Position Pulse Oximetry Oxygen Delivery Method Sepsis Recent Fever Within 48 Hours Sepsis New/Unexplained Change in Mental Status Sepsis Action Taken by Nursing 04/16/24 15:36 04/16/24 15:36 04/16/24 15:36 Temperature Temperature Source Pulse Rate 64 Pulse Rate [Finger] Pulse Rate from SpO2 Sensor 66 Pulse Rhythm Pulse Strength Respiratory Rate 11 L Respiratory Effort / Characteristics Respiratory Depth Blood Pressure 158/80 H 158/80 H Blood Pressure [Left Arm] Blood Pressure Mean 110 110 Blood Pressure Mean [Left Arm] Blood Pressure Position Pulse Oximetry 98 Oxygen Delivery Method Sepsis Recent Fever Within 48 Hours Sepsis New/Unexplained Change in Mental Status Sepsis Action Taken by Nursing 04/16/24 15:45 04/16/24 16:00 04/16/24 16:01 Temperature Temperature Source Pulse Rate 66 Pulse Rate [Finger] Pulse Rate from SpO2 Sensor 61 Pulse Rhythm Pulse Strength Respiratory Rate 22 Respiratory Effort / Characteristics Respiratory Depth Blood Pressure 144/102 H 164/79 H Blood Pressure [Left Arm] Blood Pressure Mean 113 109 Blood Pressure Mean [Left Arm] Blood Pressure Position Pulse Oximetry 100 Oxygen Delivery Method Sepsis Recent Fever Within 48 Hours Sepsis New/Unexplained Change in Mental Status Sepsis Action Taken by Nursing 04/16/24 16:01 04/16/24 16:06 04/16/24 16:15 Temperature Temperature Source Pulse Rate 66 Pulse Rate [Finger] Pulse Rate from SpO2 Sensor 55 L Pulse Rhythm Pulse Strength Respiratory Rate 10 L Respiratory Effort / Characteristics Respiratory Depth Blood Pressure 164/79 H 174/94 H Blood Pressure [Left Arm] Blood Pressure Mean 109 134 Blood Pressure Mean [Left Arm] Blood Pressure Position Pulse Oximetry 100 Oxygen Delivery Method Sepsis Recent Fever Within 48 Hours Sepsis New/Unexplained Change in Mental Status Sepsis Action Taken by Nursing 04/16/24 16:15 04/16/24 18:05 04/16/24 18:22 Temperature Temperature Source Pulse Rate 83 Pulse Rate [Finger] 70 Pulse Rate from SpO2 Sensor Pulse Rhythm Pulse Strength Respiratory Rate 20 Respiratory Effort / Characteristics Non-Labored Spontaneous Respiratory Depth Normal Blood Pressure 174/94 H Blood Pressure [Left Arm] 119/53 L Blood Pressure Mean 134 Blood Pressure Mean [Left Arm] 75 Blood Pressure Position Pulse Oximetry 95 Oxygen Delivery Method Room Air Sepsis Recent Fever Within 48 Hours Sepsis New/Unexplained Change in Mental Status Sepsis Action Taken by [facility] Medications Current Medication List: was personally reviewed by me Laboratory Data Attestation: I reviewed the patient's lab results. 04/19/24 05:36 04/19/24 05:36 Lab Results 04/16/24 04/16/24 04/16/24 Range/Units 14:25 14:28 18:03 WBC 8.34 (4.8-10.8) K/ul RBC 4.66 L (4.70-6.10) M/uL Hgb 12.5 L (14.0-18.0) g/dl POC Hgb 12.2 L (14.0-18.0) g/dl Hct 38.4 L (42.0-52.0) % POC Hct 36 L (42-52) % MCV 82.4 (80.0-100.0) fL MCH 26.8 (25.0-34.0) pg MCHC 32.6 (32.0-36.0) g/dL RDW Std Deviation 42.7 (36.4-46.3) fL RDW Coeff of Isaac 14.4 (11.5-14.5) % Plt Count 185 (130-400) K/uL MPV 12.4 (9.4-12.4) fL Immature Gran % (Auto) 1.3 % Neut % (Auto) 72.9 % Lymph % (Auto) 13.5 % [place] % (Auto) 8.6 % Eos % (Auto) 3.1 % Baso % (Auto) 0.6 % Neut # (Auto) 6.07 (1.40-6.50) K/uL Lymph # (Auto) 1.13 L (1.20-3.40) K/uL [place] # (Auto) 0.72 H (0.11-0.59) K/uL Eos # (Auto) 0.26 (0.00-0.50) K/uL Baso # (Auto) 0.05 (0.00-0.20) K/uL Immature Gran # (Auto) 0.11 (0.01-0.20) K/uL PT 10.9 (9.0-12.0) Seconds INR 1.0 (0.9-1.1) APTT 24 (21-31) Seconds PTT Ratio 0.9 POC Sodium 137 (135-144) mmol/L Sodium 135 L (136-145) mmol/L POC Potassium 4.5 (3.3-5.0) mmol/L Potassium 4.0 (3.5-5.1) mmol/L POC Chloride 101 (101-112) mmol/L Chloride 102 (98-107) mmol/L Carbon Dioxide 24 (21-32) mmol/L POC Total CO2 24 (24-31) mmol/L Anion Gap 9 (3-11) POC Anion Gap 17.0 (16-25) mmol/L POC BUN 20 H (7-18) mg/dl BUN 18 (6-23) mg/dl Creatinine 1.15 (0.6-1.4) mg/dl POC Creatinine 1.2 (0.6-1.3) mg/dl Est Cr Clr Drug Dosing 72.7 ml/min Est GFR ( Amer) 71.2 ml/min Est GFR (Non-Af Amer) 61.5 ml/min BUN/Creatinine Ratio 15.7 (10-20) Glucose 261 H (70-99(Fasting)) mg/dl POC Glucose (other) 253 H (70-99) mg/dl Calcium 9.8 (8.6-10.3) mg/dl POC Ioniz Calcium Tone 1.23 (1.12-1.32) mmol/l Total Bilirubin 0.5 (0.2-1.0) mg/dl AST 25 (13-39) U/L ALT 20 (7-52) U/L Alkaline Phosphatase 61 (34-104) U/L Troponin I High Sens 10.1 1156.4 H* D (0-20) pg/ml Total Protein 6.6 (6.0-8.3) gm/dl Albumin 4.3 (3.4-5.0) gm/dl Globulin 2.3 L (2.5-4.0) gm/dl Albumin/Globulin Ratio 1.9 (0.9-2) Lipase 13 (11-82) U/L Administered Medications Acetaminophen (Acetaminophen 325 Mg Tab) 650 mg PO Q4H PRN PRN Reason: Pain or Fever Stop: 05/16/24 20:22 Last Admin: 04/17/24 04:44 Dose: 650 mg Documented By: Admin: 04/16/24 22:30 Dose: 650 mg Documented By: JOSELUIS Atorvastatin Calcium (Atorvastatin 40 Mg Tab) 80 mg PO DAILY [facility] Stop: 05/17/24 08:59 Last Admin: 04/19/24 08:48 Dose: 80 mg Documented By: Admin: 04/18/24 08:53 Dose: 80 mg Documented By: Admin: 04/17/24 09:09 Dose: 80 mg Documented By: SHANA Clopidogrel Bisulfate (Clopidogrel Bisulfate 75 Mg Tab) [facility] Stop: 05/17/24 08:59 Last Admin: 04/19/24 08:48 Dose: 75 mg Documented By: Admin: 04/18/24 08:52 Dose: 75 mg Documented By: Admin: 04/17/24 09:10 Dose: 75 mg Documented By: SHANA Lisinopril/HCTZ (Lisinopril/Hctz 20/12.5mg 1 Tab Tab) 1 tab PO QAM [facility] Stop: 05/17/24 13:29 Last Admin: 04/19/24 08:48 Dose: 1 tab Documented By: Admin: 04/18/24 08:52 Dose: 1 tab Documented By: Admin: 04/17/24 14:37 Dose: 1 tab Documented By: SHANA Insulin Aspart (Insulin Aspart Per Unit Charge) 0 units SC ACHS [facility] Stop: 05/16/24 20:59 Last Admin: 04/19/24 11:52 Dose: 26 units Documented By: SHANA Co-signed By: Admin: 04/19/24 07:58 Dose: 40 units Documented By: SHANA Co-signed By: CLEO Admin: 04/18/24 21:50 Dose: 10 units Documented By: JAROD Co-signed By: JUAN Admin: 04/18/24 16:53 Dose: 9 units Documented By: SHANA Co-signed By: MARISSA Admin: 04/18/24 11:48 Dose: 22 units Documented By: SHANA Co-signed By: MARISSA Admin: 04/18/24 08:04 Dose: 22 units Documented By: SHANA Co-signed By: MARISSA Admin: 04/17/24 21:45 Dose: 8 units Documented By: HM Co-signed By: CR Admin: 04/17/24 16:46 Dose: 7 units Documented By: SHANA Co-signed By: MARISSA Admin: 04/17/24 11:56 Dose: 7 units Documented By: SHANA Co-signed By: CA Admin: 04/17/24 09:08 Dose: 6 units Documented By: SHANA Co-signed By: MARISSA Admin: 04/16/24 21:52 Dose: Not Given Documented By: AMM Levothyroxine Sodium (Levothyroxine Sodium 125 Mcg Tablet) 125 mcg PO DAILYBB [facility] Stop: 05/17/24 06:29 Last Admin: 04/19/24 06:47 Dose: 125 mcg Documented By: Admin: 08/16/24 06:07 Dose: 125 mcg Documented By: Admin: 04/17/24 04:45 Dose: 125 mcg Documented By: JOSELUIS Metoprolol Tartrate (Metoprolol Tartrate 25 Mg Tab) 25 mg PO Q8H [facility] Stop: 05/18/24 15:29 Last Admin: 04/19/24 08:48 Dose: 25 mg Documented By: Admin: 04/18/24 21:51 Dose: 25 mg Documented By: Admin: 04/18/24 16:52 Dose: 25 mg Documented By: SHANA Pantoprazole Sodium (Pantoprazole 40 Mg Tab) 40 mg PO QAM [facility]; Protocol Stop: 05/17/24 08:59 Last Admin: 04/19/24 08:48 Dose: 40 mg Documented By: Admin: 04/18/24 08:53 Dose: 40 mg Documented By: Admin: 04/17/24 09:09 Dose: 40 mg Documented By: SHANA Spironolactone (Spironolactone 25 Mg Tab) 25 mg PO DAILY [facility] Stop: 05/17/24 08:59 Last Admin: 04/19/24 08:48 Dose: 25 mg Documented By: Admin: 04/18/24 08:53 Dose: 25 mg Documented By: Admin: 04/17/24 09:10 Dose: 25 mg Documented By: SHANA Discontinued Medications Fentanyl Citrate (Fentanyl Citrate Pf 100 Mcg/2 Ml Vial) Confirm Administered Dose 100 mcg .ROUTE .STK-MED ONE Stop: 04/16/24 18:38 Last Increment: 04/16/24 20:00 Dose: 50 mcg Documented By: ART Furosemide (Furosemide 40 Mg/4 Ml Vial) 40 mg IV ONE ONE Stop: 04/17/24 13:27 Last Admin: 04/17/24 14:37 Dose: 40 mg Documented By: SHANA Gadoxetate Disodium (Gadoxetate Disodium) 10 ml IV ONCE ONE Stop: 04/18/24 20:36 Last Admin: 04/18/24 20:36 Dose: 10 ml Documented By: Heparin Sodium (Porcine) (Heparin (Porcine) 1000 Unit/Ml 10 Ml (Automation Software Engineer Use Only)) Confirm Administered Dose 10,000 units .ROUTE .STK-MED ONE Stop: 04/16/24 18:38 Last Admin: 04/16/24 20:00 Dose: 9,000 units Documented By: ART Heparin Sodium/Dextrose (Heparin Iv Adult Wt-Based Standard *No* Initial Bolus Protocol) 1 each IV NOW STA; Protocol Stop: 04/16/24 20:50 Last Admin: 04/16/24 22:28 Dose: 1 each Documented By: JOSELUIS Heparin Sodium/Sodium Chloride (Heparin In Nss Infusion 1000 Unit/500 Ml (2 U/Ml) Bag) Confirm Administered Dose 3,000 units IV .STK-MED ONE Stop: 04/16/24 18:39 Last Admin: 04/16/24 19:12 Dose: 3,000 units Documented By: ART Hydralazine HCl (Hydralazine Hcl 25 Mg Tab) 25 mg PO NOW STA Stop: 04/16/24 16:57 Last Admin: 04/16/24 17:18 Dose: Not Given Documented By: GARTH Hydralazine HCl (Hydralazine Hcl 20 Mg/Ml Vial) 10 mg IV NOW STA Stop: 04/16/24 17:00 Last Admin: 04/16/24 17:04 Dose: 10 mg Documented By: AKHIL Famotidine (Pepcid 20mg Iv Push) 20 mg in 5 mls @ 2.5 mls/min IV NOW STA Stop: 04/16/24 15:50 Last Admin: 04/16/24 15:55 Dose: 2.5 mls/min Documented By: AKHIL Heparin Sodium/Dextrose (Heparin Sodium/Dextrose) 25,000 units in 500 mls @ 34 mls/hr IV .[id number] [facility]; Protocol Stop: 05/16/24 20:59 Last Titration: 04/18/24 19:48 Dose: Infused Documented By: JAROD Co-signed By: JUAN Titration: 04/18/24 15:22 Dose: 0 units/hr, 0 mls/hr Documented By: SHANA Co-signed By: MARISSA Titration: 04/18/24 06:52 Dose: 1,700 units/hr, 34 mls/hr Documented By: SHANA Co-signed By: HEIDI Admin: 04/18/24 06:08 Dose: 1,700 units/hr, 34 mls/hr Documented By: HEIDI Co-signed By: LEVI Titration: 04/18/24 05:27 Dose: Infused Documented By: HEIDI Co-signed By: LEVI Titration: 04/17/24 19:12 Dose: 1,700 units/hr, 34 mls/hr Documented By: SHANA Co-signed By: SIOMARA Admin: 04/17/24 14:44 Dose: 1,700 units/hr, 34 mls/hr Documented By: SHANA Co-signed By: DTT Titration: 04/17/24 13:07 Dose: Infused Documented By: SHANA Co-signed By: DTT Titration: 04/17/24 07:07 Dose: 1,700 units/hr, 34 mls/hr Documented By: JOSELUIS Co-signed By: SHANA Titration: 04/17/24 05:26 Dose: 1,700 units/hr, 34 mls/hr Documented By: JOSELUIS Co-signed By: JIL Admin: 04/16/24 22:24 Dose: 1,700 units/hr, 34 mls/hr Documented By: JOSELUIS Co-signed By: JIL Insulin Glargine (Lantus Per Unit Charge) 8 units SQ BID [facility] Stop: 05/16/24 20:59 Last Admin: 04/16/24 21:52 Dose: 8 units Documented By: JOSELUIS Co-signed By: JIL Insulin Glargine (Lantus Per Unit Charge) 12 units SQ BID [facility] Stop: 05/17/24 08:59 Last Admin: 04/17/24 09:07 Dose: 12 units Documented By: SHANA Co-signed By: MARISSA Insulin Glargine (Lantus Per Unit Charge) 20 units SQ BID [facility] Stop: 05/17/24 20:59 Last Admin: 04/18/24 08:04 Dose: 20 units Documented By: SHANA Co-signed By: MARISSA Admin: 04/17/24 21:46 Dose: 20 units Documented By: SIOMARA Co-signed By: JIL Insulin Glargine (Lantus Per Unit Charge) 30 units SQ BID [facility] Stop: 05/18/24 08:59 Last Admin: 04/18/24 09:20 Dose: 30 units Documented By: SHANA Co-signed By: MARISSA Insulin Glargine (Lantus Per Unit Charge) 50 units SQ BID [facility] Stop: 05/18/24 20:59 Last Admin: 04/19/24 08:13 Dose: 50 units Documented By: SHANA Co-signed By: CLEO Admin: 04/18/24 21:50 Dose: 50 units Documented By: JAROD Co-signed By: JUAN Insulin Glargine (Lantus Per Unit Charge) 20 units SQ ONCE ONE Stop: 04/18/24 12:14 Last Admin: 04/18/24 12:48 Dose: 20 units Documented By: SHANA Co-signed By: MARISSA Insulin Glargine (Lantus Per Unit Charge) 10 units SC NOW ONE Stop: 04/19/24 08:31 Last Admin: 04/19/24 09:20 Dose: Not Given Documented By: SHANA Ioversol (Optiray 320 125ml) 120 ml IV ONCE ONE Stop: 04/16/24 15:03 Last Admin: 04/16/24 15:02 Dose: 120 ml Documented By: PEACE Ioversol (Optiray 350) Confirm Administered Dose 1 ml .ROUTE .STK-MED ONE Stop: 04/16/24 18:39 Last Admin: 04/16/24 20:01 Dose: 140 ml Documented By: ART Metoprolol Tartrate (Metoprolol Tartrate 25 Mg Tab) 25 mg PO BID [facility] Stop: 05/16/24 20:59 Last Admin: 04/18/24 08:52 Dose: 25 mg Documented By: Admin: 04/17/24 21:39 Dose: 25 mg Documented By: Admin: 04/17/24 09:10 Dose: 25 mg Documented By: Admin: 04/16/24 21:52 Dose: 25 mg Documented By: JOSELUIS Midazolam HCl (Midazolam Hcl 1 Mg/Ml 2ml Vial) Confirm Administered Dose 2 mg .ROUTE .STK-MED ONE Stop: 04/16/24 18:38 Last Increment: 04/16/24 20:00 Dose: 1 mg Documented By: ART Morphine Sulfate (Morphine Sulfate 4 Mg/Ml 1 Ml Carp\\Vial) 4 mg IV NOW STA Stop: 04/16/24 14:36 Last Admin: 04/16/24 14:47 Dose: 4 mg Documented By: LEVI(2) Morphine Sulfate (Morphine Sulfate 4 Mg/Ml 1 Ml Carp\\Vial) 4 mg IV NOW STA Stop: 04/16/24 15:46 Last Admin: 04/16/24 15:55 Dose: 4 mg Documented By: NDW Nicardipine HCl (Nicardipine Hcl Inj 2.5 Mg/Ml 10 Ml Amp) Confirm Administered Dose 25 mg .ROUTE .STK-MED ONE Stop: 04/16/24 18:39 Last Admin: 04/16/24 19:12 Dose: 25 mg Documented By: ART Nitroglycerin (Nitroglycerin Sl 0.4 Mg/Tab Tab) 0.4 mg SL NOW STA Stop: 04/16/24 17:30 Last Admin: 04/16/24 17:50 Dose: 0.4 mg Documented By: GARTH Nitroglycerin (Nitroglycerin 2% Ointment 30gm Tube) 0.5 inch EXT NOW STA Stop: 04/16/24 17:59 Last Admin: 04/16/24 18:03 Dose: 0.5 inch Documented By: GARTH Nitroglycerin (Nitroglycerin 2% Ointment 30gm Tube) 0.5 inch EXT Q6H EVELYN Stop: 05/17/24 11:59 Last Admin: 04/18/24 11:49 Dose: 0.5 inch Documented By: Admin: 04/18/24 06:07 Dose: 0.5 inch Documented By: Admin: 04/18/24 00:24 Dose: 0.5 inch Documented By: Admin: 04/17/24 16:52 Dose: 0.5 inch Documented By: Admin: 04/17/24 12:20 Dose: 0.5 inch Documented By: SHANA Nitroglycerin/Dextrose (Nitroglycerin/D5w 100mcg/Ml 20ml Syr) Confirm Administered Dose 2,000 mcg .ROUTE .STK-MED ONE Stop: 04/16/24 18:39 Last Admin: 04/16/24 19:12 Dose: 2,000 mcg Documented By: ART Ondansetron HCl (Ondansetron Inj 2 Mg/Ml 2 Ml Vial) 4 mg IV NOW STA Stop: 04/16/24 14:36 Last Admin: 04/16/24 14:45 Dose: 4 mg Documented By: LEVI(2) Ticagrelor (Ticagrelor 90 Mg Tab) Confirm Administered Dose 180 mg .ROUTE .STK- MED ONE Stop: 04/16/24 18:52 Last Admin: 04/16/24 18:53 Dose: 180 mg Documented By: SIMÓN Imaging Data Radiologist's Impression: Chest X-Ray 04/16/24 14:16 XR chest 1V portable CLINICAL HISTORY: Chest pain, nonspecific COMPARISON STUDY: Chest radiograph October 16, 2016. FINDINGS: There are median sternotomy wires and mediastinal surgical clips. Cardiomegaly is unchanged. Mediastinal contours are stable. There is no pneumothorax or pleural effusion. No consolidation is present. No evidence for pulmonary edema. IMPRESSION: No acute cardiopulmonary findings. Stable cardiomegaly. ACT 112: Negative or not required by law. Electronically signed by: Raulito Edouard M.D. 04/16/2024 2:38 PM Chest CTA 04/16/24 14:36 CT ANGIOGRAPHY OF THE CHEST DISSECTION PROTOCOL CLINICAL HISTORY: chest pain through to back, h/o AAA w/o rupture COMPARISON STUDY: CTA of the abdomen and pelvis December 21, 2016. TECHNIQUE: Before and following the IV administration of 120 mL of Optiray, helical axial images of the chest were obtained. Maximal intensity projections and sagittal and coronal reformats were viewed on an independent 3D workstation. IV contrast was administered without complication. Automated exposure control was utilized for the study. A dose lowering technique was utilized adhering to the principles of ALARA. CT DOSE: 2001.64 mGy.cm FINDINGS: There are median sternotomy wires and postoperative findings consistent with bypass grafting. Caliber of the thoracic aorta is normal. There is no thoracic aortic dissection. There is no intramural hematoma within the thoracic aorta. The heart is mildly enlarged. There is no pericardial effusion. No pneumothorax or pleural effusion is present. There are no pulmonary emboli. There are mild groundglass opacities within the lower lobes. A few prominent right hilar lymph nodes are present. No acute fractures within the bony thorax are present. A subcapsular 4.3 cm peripherally enhancing lesion within the right hepatic lobe is present. There is mild associated capsular retraction. No additional lesions are identified within visualized portions of the liver. IMPRESSION: 1. No thoracic aortic dissection. 2. No pulmonary emboli. 3. Mild groundglass opacities within the lower lobes. The findings favor atelectasis. A mild infectious process could appear similar. No consolidation. 4. 4.3 cm peripherally enhancing right hepatic lobe lesion with mild associated capsular retraction. This is suspicious for a neoplasm such as cholangiocarcinoma. Metastatic disease is also within the differential. An abscess could appear similar although is considered less likely. Nonemergent liver protocol MRI is recommended. ACT 112: Positive. There are findings on this exam that require communication between the performing entity and the patient following Patient Test Result Information Act ([place] Act 112) guidelines. Electronically signed by: Raulito Edouard M.D. 04/16/2024 3:28 PM Discharge Plan Visit Data Chief Complaint: Chest Pain Stated Complaint: CHEST PAIN ED Provider: Lili Beck Discharge Problem: ACS (acute coronary syndrome), Elevated troponin Patient Disposition: Admitted As Inpatient Discharge Instructions Interventions: ED Discharge Assessment Last Done: 04/16/24 18:54
--- NOTE | 2024-04-16 14:32 | Electrocardiogram Report ---
Test Reason : Blood Pressure : */* mmHG Vent. Rate : 74 BPM Atrial Rate : 74 BPM P-R Int : 180 ms QRS Dur : 150 ms QT Int : 410 ms P-R-T Axes : 39 -29 18 degrees QTcB Int : 455 ms Normal sinus rhythm Right bundle branch block Abnormal ECG When compared with ECG of 16-Oct-2016 09:50, Right bundle branch block is now Present Confirmed by Rito Johnston ([id number]) on 04/16/2024 2:32:14 PM Referred By: Confirmed By: Rito Johnston
--- NOTE | 2024-04-16 14:39 | XRay Report ---
XR chest 1V portable CLINICAL HISTORY: Chest pain, nonspecific COMPARISON STUDY: Chest radiograph October 16, 2016. FINDINGS: There are median sternotomy wires and mediastinal surgical clips. Cardiomegaly is unchanged . Mediastinal contours are stable. There is no pneumothorax or pleural effusion. No consolidation is present. No evidence for pulmonary edema. IMPRESSION: No acute cardiopulmonary findings. Stable cardiomegaly. ACT 112: Negative or not required by law. Electronically signed by: Raulito Edouard M.D. 04/16/2024 2:38 PM
[2024-04-16 14:40] LABS: Basophils # (auto) 0.05 K/uL (0.00-0.20); Basophils % (auto) 0.6 %; Eosinophils # (auto) 0.26 K/uL (0.00-0.50); Eosinophils % (auto) 3.1 %; Hematocrit (blood only) 38.4 % (42.0-52.0); Hemoglobin 12.5 g/dl (14.0-18.0); Immature Granulocytes # (auto) 0.11 K/uL (0.01-0.20); Immature Granulocytes % (auto) 1.3 %; Lymphocytes # (auto) 1.13 K/uL (1.20-3.40); Lymphocytes % (auto) 13.5 %; Mean Corpuscular Hemoglobin 26.8 pg (25.0-34.0); Mean Corpuscular Hgb Conc 32.6 g/dL (32.0-36.0); Mean Corpuscular Volume 82.4 fL (80.0-100.0); Mean Platelet Volume 12.4 fL (9.4-12.4); Monocytes # (auto) 0.72 K/uL (0.11-0.59); Monocytes % (auto) 8.6 %; Neutrophils # (auto) 6.07 K/uL (1.40-6.50); Neutrophils % (auto) 72.9 %; Platelet Count 185 K/uL (130-400); RDW Coefficient of Variation 14.4 % (11.5-14.5); RDW Standard Deviation 42.7 fL (36.4-46.3); Red Blood Count 4.66 M/uL (4.70-6.10); White Blood Count 8.34 K/ul (4.8-10.8)
[2024-04-16 14:40] LABS: iSTAT Creatinine 1.2 mg/dl (0.6-1.3); iSTAT Hemoglobin 12.2 g/dl (14.0-18.0); iSTAT Ionized Calcium 1.23 mmol/l (1.12-1.32); iSTAT Potassium 4.5 mmol/L (3.3-5.0)
[2024-04-16] MEDS: ONDANSETRON INJ 2 MG/ML 2 ML VIAL IV STA (14:45)
[2024-04-16] MEDS: MoRPHine SULFATE 4 MG/ML 1 ML CARP\\VIAL IV STA ×2 (14:47→15:55)
[2024-04-16 14:57] LABS: Albumin Globulin Ratio 1.9 (0.9-2); Albumin Level 4.3 gm/dl (3.4-5.0); BUN Creatinine Ratio 15.7 (10-20); Bilirubin,Total 0.5 mg/dl (0.2-1.0); Calcium 9.8 mg/dl (8.6-10.3); Creatinine Clr Calc Pharmacy 72.7 ml/min; Est GFR (African American) 71.2 ml/min; Est GFR (Non-African American) 61.5 ml/min; Globulin 2.3 gm/dl (2.5-4.0); Total Protein 6.6 gm/dl (6.0-8.3)
[2024-04-16] MEDS: OPTIRAY 320 125ml IV ONE (15:02)
[2024-04-16 15:03] LABS: Troponin I High Sensitivity 10.1 pg/ml (0-20)
[2024-04-16 15:26] LABS: Partial Thromboplastin Ratio 0.9; Partial Thromboplastin Time 24 Seconds (21-31); Prothrombin Time 10.9 Seconds (9.0-12.0)
--- NOTE | 2024-04-16 15:30 | CT Scan Report ---
CT ANGIOGRAPHY OF THE CHEST DISSECTION PROTOCOL CLINICAL HISTORY: chest pain through to back, h/o AAA w/o rupture COMPARISON STUDY: CTA of the abdomen and pelvis December 21, 2016. TECHNIQUE: Before and following the IV administration of 120 mL of Optiray, helical axial images of t he chest were obtained. Maximal intensity projections and sagittal and coronal reformats were viewed on an independent 3D workstation. IV contrast was administered without complication. Automated exp osure control was utilized for the study. A dose lowering technique was utilized adhering to the [facility] leyda DELACRUZ. CT DOSE: 2001.64 mGy.cm FINDINGS: There are median sternotomy wires and postoperative findings consistent with bypass grafti ng. Caliber of the thoracic aorta is normal. There is no thoracic aortic dissection. There is no intr amural hematoma within the thoracic aorta. The heart is mildly enlarged. There is no pericardial effu jethro. No pneumothorax or pleural effusion is present. There are no pulmonary emboli. There are mild g roundglass opacities within the lower lobes. A few prominent right hilar lymph nodes are present. No acute fractures within the bony thorax are present. A subcapsular 4.3 cm peripherally enhancing lesio n within the right hepatic lobe is present. There is mild associated capsular retraction. No addition al lesions are identified within visualized portions of the liver. IMPRESSION: 1. No thoracic aortic dissection. 2. No pulmonary emboli. 3. Mild groundglass opacities within the lower lobes. The findings favor atelectasis. A mild infectio us process could appear similar. No consolidation. 4. 4.3 cm peripherally enhancing right hepatic lobe lesion with mild associated capsular retraction. This is suspicious for a neoplasm such as cholangiocarcinoma. Metastatic disease is also within the d ifferential. An abscess could appear similar although is considered less likely. Nonemergent liver pr otocol MRI is recommended. ACT 112: Positive. There are findings on this exam that require communication between the performing entity and the patient following Patient Test Result Information Act ([place] Act 112) guidelines. Electronically signed by: Raulito Edouard M.D. 04/16/2024 3:28 PM
[2024-04-16] MEDS: FAMOTIDINE 20MG IV PUSH 20 MG/5 ML SYR IV STA (15:55)
[2024-04-16] MEDS: hydrALAZINE HCL 20 MG/ML VIAL IV STA (17:04)
[2024-04-16] MEDS: hydrALAZINE HCL 25 MG TAB PO STA (17:18)
--- NOTE | 2024-04-16 17:31 | History & Physical Report ---
Date of Service April 16, 2024 Assessment & Plan (1) Chest pain: Plan: Consulted for admission for chest pain evaluation, new right bundle branch block with repolarization abnormalities but without significant ST change sat time of initial eval, normal troponin. Pt seen at the bedside. Patient remains with 45/10 pain. Initial EKG with new right bundle branch block compared to 2017. Patient does feel he had improvement following nitro and with blood pressure control however does feel his pain is painting to worsen back to 5/10 at time of hospitalist evaluation. Stat troponin repeat ordered. additional nitro x 1, Nitropaste ordered. STAT Repeat EKG attained at bedside --> progressive lateral ST elevation with reciprocal change . ER notified and interventional cardiology paged. Heart alert called. ASA full dose previously given by EMS. Troponin subsequently 1156. Brilinta/heparin bolus pending. Patient taken emergently to [facility] [place] reviewed, no copies of prior CABG op report available at time of admission Patient denies preceding anginal pain at rest and with activity before the episode that brought him in today Echo pending, troponin trended overnight. (2) Diabetes type 2, uncontrolled: Plan: A1c pending Basal bolus insulin while admitted Home metformin held (3) Chronic kidney disease, stage I: Plan: BMP daily, no SUKHJINDER on admission (4) AAA (abdominal aortic aneurysm) without rupture: Plan: S/p TEVAR 10/24/2016. Stable on serial ultrasounds, no longer on annual follow-up per patient [place] records pending No abdominal pain. CTA of the chest is without evidence of dissection or vascular abnormality (5) Dyslipidemia: Plan: Statin as noted (6) Liver lesion: Plan: Chest CTA with 4.3 cm peripherally enhancing right hepatic lobe lesion with capsular retraction. Suspicious for neoplasm/cholangiocarcinoma. Differential includes metastatic disease and abscess. Patient has not had fever, abdominal pain, or leukocytosis. Liver protocol MRI ordered, this will not be able to be completed until 04/17 at the earliest. Plan DVT prophylaxis: Heparin bolus pending, taken to the [facility] CODE STATUS: Full code Diet: N.p.o. pending cath, heart healthy post cath Disposition: PCU versus ICU pending cath History of Present Illness Primary Care Provider: Jonathan Swanson MD Sage Cope is a 78-year-old male who presents with chest pain which began while driving which radiates to the upper back and into the shoulder blades. Had associated numbness of his right palm. Prior history of triple bypass, type II DM, AAA, hypertension, hyperlipidemia, obesity. Per ER sign out EKG right bundle branch block, repolarization abnormalities Chest pain acute onset while driving. Nitro x2, ASA full dose pre-hospital given. Some improvement without resolution of pain Hypertensive on admission, initially systolic [id number]. CTAchest obtained for dissection/AAA rupture rule out shows no thoracic aortic dissection, no PE, mild GGO in the lower lobes bilaterally, and 4.3 cm peripherally enhancing right liver lobe lesion? Neoplasm versus metastatic disease, abscess is not excluded. High sensitive troponin normal. Per Pt: Sage is seen at the bedside. Shoulder blade and chest pain acute onset while driving this afternoon. No prior hx of chest pain since his CABG >2 decades before at [facility]. No chest pain with exertion preceding this Was driving went to pay bills when he had chest pain which seemed to start in the from of his chest and then spread into his back Thinks it was an 8-9/10 when it occured, has improved and is now ~4/10. Does not worsen with movement. Nonreproducible on palpation. Finds movement makes the sensation better. Pressing on the chest seem sot help a little No abdominal pain. No epigastric pain Has had heartburn before, never that spread to his back +Hx DM, controlled +Hx HTN. BP normally 150-160s at home. Took his metoprolol this morning. Takes lisinopril-hctz HS, used to be BID but had orthostatic sx. Took his spironolactone this AM as well. Takes 1 25mg pill qAM Hx AAA repair thinks 5-7 years ago. Gets annual ultrasounds, last was a few years ago. as was stable and was told he no longer needed followup Medical History: Reviewed Medications: Reviewed Surgical History: Reviewed Family history: Reviewed Allergies: Reviewed. Allergic to ozempic (lost taste) and invokana (rash) Social History: No tobacco use. Very rare ETOH use Code Status: Full Allergies Allergy/AdvReac Type Severity Reaction Status Date / Time canagliflozin [From Invokana] Allergy Mild rash Verified 04/16/24 18:57 semaglutide [From Ozempic] AdvReac Mild Altered Verified 04/16/24 18:57 Sense of Taste Home Medications Medication Instructions Recorded Confirmed Type aspirin 81 mg tablet,delayed 81 mg PO QAM 05/08/19 04/16/24 History release cyanocobalamin (vitamin B-12) 1,000 mcg PO DAILY 05/08/19 04/16/24 History 1,000 mcg tablet,extended release fluticasone propionate 50 2 sprays intranasal DAILY 05/08/19 04/16/24 History mcg/actuation nasal spray,suspension metoprolol tartrate 25 mg tablet 25 mg PO BID 05/08/19 04/16/24 History omeprazole 20 mg capsule,delayed 20 mg PO QAM 05/08/19 04/16/24 History release blood sugar diagnostic (Prodigy No #200 ea 07/11/21 12/03/23 Rx Coding strips) lisinopril 20 1 tab PO HS #30 tabs 07/24/22 04/16/24 Rx mg-hydrochlorothiazide 12.5 mg tablet pen needle, diabetic 31 gauge x #100 ea 10/02/22 12/03/23 Rx 1/4" (Comfort EZ Pen [place]) cholecalciferol (vitamin D3) 125 2,500 unit PO DAILY 05/11/23 04/16/24 History mcg (5,000 unit) capsule levothyroxine 125 mcg tablet 125 mcg PO .COMPLEX 30 days #30 05/16/23 04/16/24 Rx tabs fenofibrate micronized 134 mg 134 mg PO DAILY 30 days #30 caps 09/06/23 04/16/24 Rx capsule insulin regular hum U-500 conc 500 See Rx Instructions .Route 01/31/24 04/16/24 Rx unit/mL(3 mL) subcut pen (Humulin .COMPLEX #60 mL R U-500 (Conc) Insulin Kwikpen) atorvastatin 80 mg tablet 80 mg PO DAILY #30 tabs 03/17/24 04/16/24 Rx metformin 1,000 mg tablet 1,000 mg PO BID 30 days #60 tabs 04/15/24 04/16/24 Rx spironolactone 25 mg tablet 25 mg PO DAILY #30 tabs 04/15/24 04/16/24 Rx (Aldactone) Past Med/Surg History Problem List (Updated 04/16/24 @ 19:19 by Mina Ricardo MD) Liver lesion Chest pain AAA (abdominal aortic aneurysm) without rupture (Chronic) Obesity (Chronic) Loss of protective sensation of skin of foot (Chronic) Hypothyroidism (Chronic) Hypertension (Chronic) Dyslipidemia (Chronic) Dysesthesia (Chronic) 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 STAGE "WORKING 40%" GERD (gastroesophageal reflux disease) Diabetes mellitus, type 2 Hypothyroidism Peripheral neuropathy Myocardial Infarction 30+YEARS AGO Hypertension Hyperlipidemia Chronic obstructive pulmonary disease Vitamin D deficiency Surgical History History of cataract surgery RT H/O colonoscopy with polypectomy History of AAA (abdominal aortic aneurysm) repair H/O hernia repair History of tooth extraction History of tonsillectomy History of cardiac cath + 30 YEARS AGO/NO STENTS Hx of cholecystectomy Hx of CABG 3 VESSELS 30+ YEARS AGO AT [facility] Hx of appendectomy Family History Mother Diabetes Hypertension Father Diabetes Heart disease Hypertension Grandfather (Paternal) Heart disease Other No family history of adverse response to anesthesia Social History Smoking Status: Former smoker Cigarettes Per Day: 45+ YEARS AGO; Second Hand Exposure: Yes (IN THE PAST); Do You Dip or Chew Tobacco: No; Hx Alcohol Use: Yes Alcohol type: beer Preferred Language: Belarusian Communication Ability: Effective Administrative Support Technician Required: No Beliefs That Will Affect Care: None marital status: Current Living Situation: Spouse current occupational status: retired Feels Safe at Home: Yes Assistive Devices: Glasses Physical Exam Physical Exam: General: A&Ox3. NAD. Cooperative. HEENT: Atraumatic, normocephalic. Vision and hearing grossly intact Pulm: CTAB A&P. -wheezes, -rales, -rhonchi. Symmetrical chest rise. No increased work of breathing. No respiratory distress. Cardiac: RRR, -mrg. Radial pulses intact and symmetrical. No reproducible chest wall tenderness Abdominal: Nontender, nondistended, soft. BS present. No right upper quadrant pain Extremities: Warm, dry Results & Data Results & Data Vital Signs (Past 12 Hours) Vital Signs Temp Pulse Pulse Resp BP BP Pulse Ox 04/16/24 16:15 174/94 H 04/16/24 16:15 174/94 H 04/16/24 16:06 66 10 L 100 04/16/24 16:01 164/79 H 04/16/24 16:01 164/79 H 04/16/24 16:00 66 22 100 04/16/24 15:45 144/102 H 04/16/24 15:36 64 11 L 98 04/16/24 15:36 158/80 H 04/16/24 15:36 158/80 H 04/16/24 15:31 202/130 H 04/16/24 15:31 202/130 H 04/16/24 15:31 202/130 H 04/16/24 15:30 99 04/16/24 15:15 179/95 H 04/16/24 15:15 179/95 H 04/16/24 15:12 98 04/16/24 15:03 97 04/16/24 14:51 71 14 96 04/16/24 14:47 193/107 H 04/16/24 14:47 193/107 H 04/16/24 14:31 65 04/16/24 14:20 95 04/16/24 14:20 72 20 148/70 H 95 04/16/24 14:20 36.8 C 72 20 144/70 H 95 O2 Del Method 04/16/24 16:15 04/16/24 16:15 04/16/24 16:06 04/16/24 16:01 04/16/24 16:01 04/16/24 16:00 04/16/24 15:45 04/16/24 15:36 04/16/24 15:36 04/16/24 15:36 04/16/24 15:31 04/16/24 15:31 04/16/24 15:31 04/16/24 15:30 04/16/24 15:15 04/16/24 15:15 04/16/24 15:12 04/16/24 15:03 04/16/24 14:51 08/14/24 14:47 04/16/24 14:47 04/16/24 14:31 04/16/24 14:20 Room Air 04/16/24 14:20 Room Air 04/16/24 14:20 Room Air PG Care Time/CCT Total # of Minutes Spent Total Time Spent with Patient: Total time spent is greater than 50% in coordination of care (as documented) at patient's floor/unit and/or counseling patient: Coding Level of Care Code 46017 INT INP/OBS CARE 3/75MIN Diagnoses Chest pain R07.9 Diabetes type 2, uncontrolled E11.65 Chronic kidney disease, stage I N18.1 AAA (abdominal aortic aneurysm) without rupture I71.4 Dyslipidemia E78.5 Liver lesion K76.9
[2024-04-16] MEDS: NITROGLYCERIN SL 0.4 MG/TAB TAB SL STA (17:50)
[2024-04-16] MEDS: NITROGLYCERIN 2% OINTMENT 30GM TUBE EXT STA (18:03)
[2024-04-16] MEDS: TICAGRELOR 90 MG TAB ONE (18:53)
--- NOTE | 2024-04-16 18:59 | Pre Anesthesia Assessment ---
Date of Service April 16, 2024 Pre Sedation Assessment Vital Signs Temp Pulse Pulse Resp BP BP Pulse Ox 04/16/24 18:30 74 19 144/66 H 99 04/16/24 18:22 83 04/16/24 18:15 70 20 133/55 L 97 04/16/24 18:05 70 20 119/53 L 95 04/16/24 17:45 72 18 145/74 H 97 04/16/24 17:30 71 18 137/61 98 04/16/24 17:30 67 13 127/60 99 04/16/24 16:48 64 16 100 04/16/24 16:15 174/94 H 04/16/24 16:15 174/94 H 04/16/24 16:06 66 10 L 100 04/16/24 16:01 164/79 H 04/16/24 16:01 164/79 H 04/16/24 16:00 66 22 100 04/16/24 15:45 144/102 H 04/16/24 15:36 64 11 L 98 04/16/24 15:36 158/80 H 04/16/24 15:36 158/80 H 04/16/24 15:31 202/130 H 04/16/24 15:31 202/130 H 04/16/24 15:31 202/130 H 04/16/24 15:30 99 04/16/24 15:15 179/95 H 04/16/24 15:15 179/95 H 04/16/24 15:12 98 04/16/24 15:03 97 04/16/24 14:51 71 14 96 04/16/24 14:47 193/107 H 04/16/24 14:47 193/107 H 04/16/24 14:31 65 04/16/24 14:20 95 04/16/24 14:20 72 20 148/70 H 95 04/16/24 14:20 98.2 F 72 20 144/70 H 95 O2 Del Method 04/16/24 18:30 Room Air 04/16/24 18:22 04/16/24 18:15 Room Air 04/16/24 18:05 Room Air 04/16/24 17:45 Room Air 04/16/24 17:30 Room Air 04/16/24 17:30 Room Air 04/16/24 16:48 04/16/24 16:15 04/16/24 16:15 04/16/24 16:06 04/16/24 16:01 04/16/24 16:01 04/16/24 16:00 04/16/24 15:45 04/16/24 15:36 04/16/24 15:36 04/16/24 15:36 04/16/24 15:31 04/16/24 15:31 04/16/24 15:31 04/16/24 15:30 04/16/24 15:15 04/16/24 15:15 04/16/24 15:12 04/16/24 15:03 04/16/24 14:51 04/16/24 14:47 04/16/24 14:47 04/16/24 14:31 04/16/24 14:20 Room Air 04/16/24 14:20 Room Air 04/16/24 14:20 Room Air Cardiovascular RRR, no murmur, no edema Respiratory + respiratory effort normal Pre-Sedation Airway Assessment Smoking Status: Former smoker Hx Sleep Apnea: No Hx Difficult Intubation: No Short, Thick Neck: No Oral Cavity: + Dental Abnormalities Mallampati Class: III ASA: ASA3 Procedure Planning Contraindications for Sedation: none Current Medications Reviewed: Yes Notes The planned sedation has been discussed with the patient. Informed Consent was obtained. I have identified the patient, determined the appropriateness of sedation and have assessed the patient immediately prior to the procedure. All medicine(s) and interventions are by my order.
--- NOTE | 2024-04-16 19:08 | Cardiology Consultation ---
Date of Consultation April 16, 2024 Assessment & Plan (1) ACS (acute coronary syndrome): Plan Presentation concerning for high risk ACS and recommend proceeding with urgent cardiac catheterization and possible PCI. No apparent contraindications to procedure. Discussed risks, benefits, alternatives of procedure with patient and they are willing to proceed. Given IV heparin and ticagrelor 180 mg in the ED. Further recommendations pending findings of coronary angiography. History of Present Illness History of Present Illness 78-year-old male here with acute chest pain and ECG concerning for acute MS. Patient seen emergently in the ED after heart alert activated after involving ECG changes. Past cardiac history remarkable for remote CABG (three-vessel, ?1976). Reportedly had an MS around 1999. Patient denies repeat cardiac catheterization or prior stenting. He has a history of AAA post endovascular repair with known residual bilateral iliac artery aneurysms. Other medical issues include type 2 diabetes with peripheral neuropathy, hypertension, dyslipidemia, GERD, COPD. Chest pain began approximately 1-2 hours prior to arrival while driving. Describes substernal chest pain with associated nausea. Reports prior chest pain with remote MS was more burning. On arrival to ED hypertensive with blood pressures up to the 190s. Initial ECG showed right bundle branch block without significant ST abnormalities. Subsequent EKGs showed ST elevation in 1, aVL and ST depression in V2 through V4. Continues to have mild chest pain despite morphine, sublingual nitroglycerin and heart alert activated. Current chest pain 3 out of 10. Initial HS TropI 10, follow-up 1100. Allergies Allergy/AdvReac Type Severity Reaction Status Date / Time canagliflozin [From Invokana] Allergy Mild rash Verified 04/16/24 18:57 semaglutide [From Ozempic] AdvReac Mild Altered Verified 04/16/24 18:57 Sense of Taste Home Medications Medication Instructions Recorded Confirmed Type aspirin 81 mg tablet,delayed 81 mg PO QAM 05/08/19 04/16/24 History release cyanocobalamin (vitamin B-12) 1,000 mcg PO DAILY 05/08/19 04/16/24 History 1,000 mcg tablet,extended release fluticasone propionate 50 2 sprays intranasal DAILY 05/08/19 04/16/24 History mcg/actuation nasal spray,suspension metoprolol tartrate 25 mg tablet 25 mg PO BID 05/08/19 04/16/24 History omeprazole 20 mg capsule,delayed 20 mg PO QAM 05/08/19 04/16/24 History release blood sugar diagnostic (Prodigy No #200 ea 07/11/21 12/03/23 Rx Coding strips) lisinopril 20 1 tab PO HS #30 tabs 07/24/22 04/16/24 Rx mg-hydrochlorothiazide 12.5 mg tablet pen needle, diabetic 31 gauge x #100 ea 10/02/22 12/03/23 Rx 1/4" (Comfort EZ Pen [place]) cholecalciferol (vitamin D3) 125 2,500 unit PO DAILY 05/11/23 04/16/24 History mcg (5,000 unit) capsule levothyroxine 125 mcg tablet 125 mcg PO .COMPLEX 30 days #30 05/16/23 04/16/24 Rx tabs fenofibrate micronized 134 mg 134 mg PO DAILY 30 days #30 caps 09/06/23 04/16/24 Rx capsule insulin regular hum U-500 conc 500 See Rx Instructions .Route 01/31/24 04/16/24 Rx unit/mL(3 mL) subcut pen (Humulin .COMPLEX #60 mL R U-500 (Conc) Insulin Kwikpen) atorvastatin 80 mg tablet 80 mg PO DAILY #30 tabs 03/17/24 04/16/24 Rx metformin 1,000 mg tablet 1,000 mg PO BID 30 days #60 tabs 04/15/24 04/16/24 Rx spironolactone 25 mg tablet 25 mg PO DAILY #30 tabs 04/15/24 04/16/24 Rx (Aldactone) Patient History Medical History Chronic kidney disease ? STAGE "WORKING 40%" GERD (gastroesophageal reflux disease) Diabetes mellitus, type 2 Hypothyroidism Peripheral neuropathy Myocardial Infarction 30+YEARS AGO Hypertension Hyperlipidemia Chronic obstructive pulmonary disease Vitamin D deficiency Surgical History History of cataract surgery RT H/O colonoscopy with polypectomy History of AAA (abdominal aortic aneurysm) repair H/O hernia repair History of tooth extraction History of tonsillectomy History of cardiac cath + 30 YEARS AGO/NO STENTS Hx of cholecystectomy Hx of CABG 3 VESSELS 30+ YEARS AGO AT [facility] Hx of appendectomy Family History Mother Diabetes Hypertension Father Diabetes Heart disease Hypertension Grandfather (Paternal) Heart disease Other No family history of adverse response to anesthesia Social History Smoking Status: Former smoker Cigarettes Per Day: 45+ YEARS AGO; Second Hand Exposure: Yes (IN THE PAST); Do You Dip or Chew Tobacco: No; Hx Alcohol Use: Yes Alcohol type: beer Preferred Language: Greenlandic Communication Ability: Effective 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 Vascular: 2+ left radial Abdomen: Soft, nontender Extremities: Well perfused, no peripheral edema Neuro: Nonfocal Psych: Alert orient x3, normal affect and mood Results & Data Vital Signs (Past 12 Hours) Vital Signs Temp Pulse Pulse Resp BP BP Pulse Ox 04/16/24 18:30 74 19 144/66 H 99 04/16/24 18:22 83 04/16/24 18:15 70 20 133/55 L 97 04/16/24 18:05 70 20 119/53 L 95 04/16/24 17:45 72 18 145/74 H 97 04/16/24 17:30 71 18 137/61 98 04/16/24 17:30 67 13 127/60 99 04/16/24 16:48 64 16 100 04/16/24 16:15 174/94 H 04/16/24 16:15 174/94 H 04/16/24 16:06 66 10 L 100 04/16/24 16:01 164/79 H 04/16/24 16:01 164/79 H 04/16/24 16:00 66 22 100 04/16/24 15:45 144/102 H 04/16/24 15:36 64 11 L 98 04/16/24 15:36 158/80 H 04/16/24 15:36 158/80 H 04/16/24 15:31 202/130 H 04/16/24 15:31 202/130 H 04/16/24 15:31 202/130 H 04/16/24 15:30 99 04/16/24 15:15 179/95 H 04/16/24 15:15 179/95 H 04/16/24 15:12 98 04/16/24 15:03 97 04/16/24 14:51 71 14 96 04/16/24 14:47 193/107 H 04/16/24 14:47 193/107 H 04/16/24 14:31 65 04/16/24 14:20 95 04/16/24 14:20 72 20 148/70 H 95 04/16/24 14:20 98.2 F 72 20 144/70 H 95 O2 Del Method 04/16/24 18:30 Room Air 04/16/24 18:22 04/16/24 18:15 Room Air 04/16/24 18:05 Room Air 04/16/24 17:45 Room Air 04/16/24 17:30 Room Air 04/16/24 17:30 Room Air 04/16/24 16:48 04/16/24 16:15 04/16/24 16:15 04/16/24 16:06 04/16/24 16:01 04/16/24 16:01 04/16/24 16:00 04/16/24 15:45 04/16/24 15:36 04/16/24 15:36 04/16/24 15:36 04/16/24 15:31 04/16/24 15:31 04/16/24 15:31 04/16/24 15:30 04/16/24 15:15 04/16/24 15:15 04/16/24 15:12 04/16/24 15:03 04/16/24 14:51 04/16/24 14:47 04/16/24 14:47 04/16/24 14:31 04/16/24 14:20 Room Air 04/16/24 14:20 Room Air 04/16/24 14:20 Room Air PG Care Time/CCT Total # of Minutes Spent Total Time Spent with Patient: Total time spent is greater than 50% in coordination of care (as documented) at patient's floor/unit and/or counseling patient: Coding Level of Care Code 97704 INT INP/OBS CARE 2/55MIN Diagnoses ACS (acute coronary syndrome) I24.9
[2024-04-16] MEDS: niCARdipine HCL INJ 2.5 MG/ML 10 ML AMP ONE (19:12)
[2024-04-16] MEDS: NITROGLYCERIN/D5W 100MCG/ML 20ML SYR ONE (19:12)
[2024-04-16] MEDS: fentaNYL citrate PF 100 MCG/2 ML VIAL ONE (20:00)
[2024-04-16] MEDS: MIDAZOLAM HCL 1 MG/ML 2ML VIAL ONE (20:00)
[2024-04-16] MEDS: HEPARIN (PORCINE) 1000 UNIT/ML 10 ML (CATH LAB USE ONLY) ONE (20:00)
[2024-04-16] MEDS: OPTIRAY 350 ONE (20:01)
--- NOTE | 2024-04-16 20:19 | Post Anesthesia Assessment ---
Date of Service April 16, 2024 Post Sedation Assessment Vital Signs Temp Pulse Pulse Resp BP BP Pulse Ox 04/16/24 18:30 74 19 144/66 H 99 04/16/24 18:22 83 04/16/24 18:15 70 20 133/55 L 97 04/16/24 18:05 70 20 119/53 L 95 04/16/24 17:45 72 18 145/74 H 97 04/16/24 17:30 71 18 137/61 98 04/16/24 17:30 67 13 127/60 99 04/16/24 16:48 64 16 100 04/16/24 16:15 174/94 H 04/16/24 16:15 174/94 H 04/16/24 16:06 66 10 L 100 04/16/24 16:01 164/79 H 04/16/24 16:01 164/79 H 04/16/24 16:00 66 22 100 04/16/24 15:45 144/102 H 04/16/24 15:36 64 11 L 98 04/16/24 15:36 158/80 H 04/16/24 15:36 158/80 H 04/16/24 15:31 202/130 H 04/16/24 15:31 202/130 H 04/16/24 15:31 202/130 H 04/16/24 15:30 99 04/16/24 15:15 179/95 H 04/16/24 15:15 179/95 H 04/16/24 15:12 98 04/16/24 15:03 97 04/16/24 14:51 71 14 96 04/16/24 14:47 193/107 H 04/16/24 14:47 193/107 H 04/16/24 14:31 65 04/16/24 14:20 95 04/16/24 14:20 72 20 148/70 H 95 04/16/24 14:20 98.2 F 72 20 144/70 H 95 O2 Del Method 04/16/24 18:30 Room Air 04/16/24 18:22 04/16/24 18:15 Room Air 04/16/24 18:05 Room Air 04/16/24 17:45 Room Air 04/16/24 17:30 Room Air 04/16/24 17:30 Room Air 04/16/24 16:48 04/16/24 16:15 04/16/24 16:15 04/16/24 16:06 04/16/24 16:01 04/16/24 16:01 04/16/24 16:00 04/16/24 15:45 04/16/24 15:36 04/16/24 15:36 04/16/24 15:36 04/16/24 15:31 04/16/24 15:31 04/16/24 15:31 04/16/24 15:30 04/16/24 15:15 04/16/24 15:15 04/16/24 15:12 04/16/24 15:03 04/16/24 14:51 04/16/24 14:47 04/16/24 14:47 04/16/24 14:31 04/16/24 14:20 Room Air 04/16/24 14:20 Room Air 04/16/24 14:20 Room Air Recovery Score Activity: Moves 4 extremities Respiration: Deep Breath/Cough Circulation: +/-20% PreAnes Value Consciousness: Fully Awake Oxygen Saturation: O2 needed for >90% Discharge Sedation Level of Care: Fast Track Phase II Post Sedation Plan On clinical assessment, the patient appears to have tolerated the sedation without complications. Patient is recovering as anticipated. Patient will continue to be monitored by nursing and may be discharged when sedation discharge criteria are met per below protocol. Upon Completions of procedure up to 15 minutes continue every 5 minute vital signs and the P.A.R. score; then discharge to a Phase I or Fast Track to Phase II per the following guidelines: * Discharge Patient to appropriate Phase II area if PAR is 8 or greater or return to pre- procedure baseline. The post - procedure orders will be as directed. * If PAR score is less than 8 or not return to pre-procedure baseline then patient will follow Phase I monitoring till PAR is reached for Phase II. The Phase I may be done in procedure room or may call to secure a Phase I area. * If naloxone or flumazenil are used for reversal, hold in Phase I for continued monitoring from when last reversal dose was given for a minimum of 60 minutes or longer pending the nurse and/or physician discretion of patient condition before discharge to Phase II. Please call the Sedation Physician to re-evaluate and complete post-note for discharge to Phase II area. Do NOT discharge from procedure sedation or Phase 1 until post- sedation evaluation note is complete by procedure /sedation MD Sedation Discharge Instructions to be given to the patient at discharge to home.
[2024-04-16] MEDS ORDERED: GLUCAGON FOR INJ 1 MG VIAL SQ PRN (20:23)
[2024-04-16] MEDS ORDERED: GLUCOSE 10 TAB/TUBE PO PRN (20:23)
[2024-04-16] MEDS ORDERED: CARBOHYDRATES FOR HYPOGLYCEMIA PO PRN (20:23)
[2024-04-16] MEDS ORDERED: DEXTROSE 50% 50 ML SYRINGE IV PRN (20:23)
[2024-04-16] MEDS ORDERED: GLUCOSE 40% GEL 15 GM TUBE PO PRN (20:23)
--- NOTE | 2024-04-16 20:41 | Cardiac Catheterization ---
[facility] Data: Case Manager Cardiac Status Clinical evaluation leading to the procedure CAD Presenation: Non STEMI Anginal Classification: CCS IV Diagnostic Physicians Name: Elias Milton MD Closure Device Recommendations: Medical Therapy and/or Counseling Cardiac Cath Procedure Full Procedure Date April 16, 2024 Pre-Procedure Diagnosis Pre-Procedure Diagnosis: Acute Coronary Syndrome AUC Score AUC Score: 8 Post-Procedure Diagnosis Post-Procedure Diagnosis: Severe CAD, Unsuccessful PCI and Elevated Intracardiac Pressures Procedure(s) Performed Procedure(s) Performed: Coronary Angiography, Left Heart Cath and Bypass Graft Angiography Photo Cartographer Elias Milton MD Oil Dispenser(s) 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 History of coronary disease post three-vessel CABG more than 40 years ago Access: 6 Fr left radial artery Catheters: JL 3.5, JR4, EBU 3.5 guide Findings: LM -Short, normal caliber, calcified, distal 20 to 30% disease LAD -medium caliber, sequential mid segment lesions 70-80% just after takeoff of D1 and that takeoff of second septal. Competitive flow in latemid and distal LAD. Distal LAD wraps around apex. Small D1 with mild diffuse disease. Medium D2 with 40% proximal disease. Circumflex -small to medium caliber, 40% diffuse mid to distal disease. High OM1 calcified and occluded proximally. Very small OM 2 with 90% ostial stenosis. Small left PLB patent RCA -dominant, medium caliber, calcified, diffuse severe proximal to mid disease. 100% mid chronic total occlusion LIMALADwidely patent SVG to OMoccluded Graft (? Arterial) widely patent to PDA retrofills back to mid RCA and fills terminal right PLB (posterior AV branch with 95% stenosis after PDA). 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 Arterial Closure: TR band Summary: 1. Widely patent PINON to LAD and graft to RPDA. 2. Occluded SVG-OM. Suspected acute occlusion of inupiat OM. Attempt made at intervention to OM1 but appeared more chronic. 3. 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 Elevated intracardiac filling pressure Recommendations: Patient with minimal residual chest pain and hemodynamically and electrically stable. 2 out of 3 grafts widely patent. Recommend medical management of occluded OM/vein graft and chronic multivessel disease. Continue heparin infusion overnight Transition to clopidogrel and continue DAPT with aspirin, clopidogrel for ideally 1 year Trend troponin until peak, repeat echo in a.m. Continue home beta-tigre, IRA, MRA and statin Diuretics as needed for dyspnea Hemodynamics Rest Ao:: 116/70/24 Final Ao: 147/67/97 LV: 147/24 Recommendations Recommendations: Medical Therapy and/or Counseling Radiation Exposure (mGy) 4584 Contrast (mls) 140 Anesthesia Moderate 2534-9070 Procedural Complication(s) None Disposition PCU I attest to the content of the Intraoperative Record and any orders documented therein. Any exceptions are noted below. [facility] Procedure Codes Cardiac Catheterization Procedure 1: Cardiovascular Cath Procedures: 76021 Coronaries & LHC (+/-LV) & Grafts/IM (arterial & venous) Moderate Sedation Procedure 1: Sedation/Anesthesia: 22543 Mod Sedation by the same physician;Init15 Min Child Age 5 & Up Procedure 2: Sedation/Anesthesia: 11128 Mod Sedation by the same physician; Ea [id number] Minutes PG Care Time/CCT Total # of Minutes Spent Total Time Spent with Patient: Total time spent is greater than 50% in coordination of care (as documented) at patient's floor/unit and/or counseling patient:
[2024-04-16] MEDS: INSULIN ASPART PER UNIT CHARGE SC SCH (21:52)
[2024-04-16] MEDS: LANTUS PER UNIT CHARGE SQ SCH (21:52)
[2024-04-16] MEDS: METOPROLOL TARTRATE 25 MG TAB PO SCH (21:52)
[2024-04-16] MEDS: HEPARIN SODIUM/DEXTROSE 25,000 UNITS/500 ML BAG IV SCH (22:24)
[2024-04-16] MEDS: Heparin IV Adult Wt-Based Standard *NO* INITIAL Bolus Protocol IV STA (22:28)
[2024-04-16] MEDS: ACETAMINOPHEN 325 MG TAB PO PRN (22:30)
--- OUTSIDE RECORDS SUMMARY | 2024-04-16 23:34 | External Medical Summary | Continuity of Care Document ---
Author Name Unknown Organization [address] Address [address] [place], [place] [id number] Care Team Providers Care Foam Tank Laminator Name Role Phone Jonathan Swanson Primary Care Physician [phone] [facility]counter [id number] Date(s): 03/26/24 - 03/26/[address] [place] [address] [address] [phone] Encounter Diagnosis Moderate major depression(Discharge Diagnosis) - 03/26/24 Discharge Disposition: Home or Self Care Attending Physician: MD Swanson Juan Allergies, Adverse Reactions, Alerts Substance Criticality Severity Reaction Reaction Severity Status Ozempic loss of taste Active Assessment and Plan Extracted from: Title:TeleHealth Visit Note Author:MD Swanson Juan Date:03/26/24 1.Moderate major depressio n Not interested in SSRI due to concernabout potential SE despite my explanation that the benefit out weight the risk of SE. Pt has been making positive changes towards feeling better and getting himself out of depression. Pt agreed to contact me if he does not feel better beforehis next appt with me in 09/2024. Immunizations Given and Recorded Vaccine Date Status Refusal Reason influenza virus vaccine, inactivated 06/20/23 Give n influenza virus vaccine, inactivated 05/12/22 Give n influenza virus vaccine, inactivated 06/13/21 Give n influenza virus vaccine, inactivated 05/26/20 Give n influenza virus vaccine, inactivated 06/16/19 Give n influenza virus vaccine, inactivated 06/11/18 Give n influenza virus vaccine, inactivated 05/24/17 Give n influenza virus vaccine, inactivated 05/22/16 Give n influenza virus vaccine, inactivated 05/18/15 Give n influenza virus vaccine, inactivated 06/17/14 Give n influenza virus vaccine, inactivated 05/23/13 Give n influenza virus vaccine, inactivated 06/20/12 Give n zoster vaccine, inactivated 06/27/22 Recorded zoster vaccine, inactivated 03/03/19 Recorded tetanus/diphtheria/pertuss, acel (Tdap) 04/12/20 G iven tetanus/diphtheria/pertuss, acel (Tdap) 09/22/09 R ecorded pneumococcal 23-valent vaccine 08/14/19 Given pneumococcal 23-valent vaccine 09/18/00 Recorded pneumococcal 13-valent vaccine 05/18/15 Given zoster vaccine live 06/24/12 Recorded Medications aspirin 81 mg oral tablet Start: 06/20/12 10:22:00 AM EDT, 1 tab, PO, Daily Start Date: 06/20/12 Status: Ordered atorvastatin 20 mg oral tablet Start: 08/10/21 9:40:00 AM EST, 1 tab, PO, qhs Start Date: 08/10/21 Status: Ordered fenofibrate 160 mg oral tablet Start: 09/19/19 12:35:19 PM EST, See Instructions, Disp# 30, Refills: 5, TAKE 1 TABLET DAILY FOR 30 DAYS., Pharmacy: [facility] @[facility], TAKE 1 TABLET DAILY FOR 30 DAYS. Start Date: 09/19/19 Status: Ordered fluticasone 50 mcg/inh nasal spray Start: 10/05/23 8:22:00 AM EST, 2 spray, intranasal, Daily, Disp# 16 g, Refills: 11, Pharmacy: [facility] ([facility]) Start Date: 10/05/23 Status: Ordered FreeStyle Gabrielle 2 - 14 day reader Start: 12/05/23 10:57:00 AM EDT Start Date: 12/05/23 Status: Ordered FreeStyle Gabrielle 2 - 14 day sensor Start: 12/05/23 10:57:00 AM EDT Start Date: 12/05/23 Status: Ordered HumuLIN R U500 KwikPen CONCENTRATED 500 units/mL human recombinant subcutaneous solution Start: 08/22/23 1:52:00 PM EST, See Instructions, 200 units in the Am 110 units in the afternoon 40units in the evening Start Date: 08/22/23 Status: Ordered hydrochlorothiazide-lisinopril 12.5 mg-20 mg oral tablet Start: 10/04/23 2:34:00 PM EST, See Instructions, Disp# 30 tab, Refills: 11, TAKE 1 TABLETS BY MOUTH DAILY, Pharmacy: [facility] AT [facility]) Start Date: 10/04/23 Status: Ordered levothyroxine 100 mcg (0.1 mg) oral tablet Start: 07/23/19 10:15:00 AM EST, 1 tab, PO, Daily Start Date: 07/23/19 Status: Ordered metFORMIN 1000 mg oral tablet Start: 04/17/18 8:19:00 AM EDT, See Instructions, Disp# 60 tab, Refills: 10, TAKE (1) TABLET TWICE ADAY, Pharmacy: [facility] @[facility] Start Date: 04/17/18 Status: Ordered Metoprolol Tartrate 25 mg oral tablet Start: 09/05/23 11:52:00 AM EST, 1 tab, PO, bid, Disp# 60 tab, Refills: 11, Pharmacy: [facility] ([facility] Start Date: 09/05/23 Status: Ordered omeprazole 20 mg oral delayed release capsule Start: 05/15/23 4:05:00 PM EDT, See Instructions, Disp# 30 cap, Refills: 11, TAKE 1 CAPSULE BY MOUTHONCE A DAY., Pharmacy: [facility] AT [facility] Start Date: 05/15/23 Status: Ordered spironolactone 25 mg oral tablet Start: 12/05/23 10:59:00 AM EDT, 1 tab, PO, Daily Start Date: 12/05/23 Status: Ordered Vitamin B12 Start: 01/10/18 11:45:00 AM EDT, 500 mcg =, PO, Daily Start Date: 01/10/18 Status: Ordered Vitamin D3 1000 intl units oral capsule Start: 01/10/18 11:45:00 AM EDT, 1 cap, PO, Daily Start Date: 01/10/18 Status: Ordered Mental Status 03/26/24 Barriers to Learning one year None evide nt Mandatory Health Literacy Documentation Yes Health Literacy Communication Barriers N ever Primary Language Australian Problem List Condition Confirmation Course Effective Dates Status H ealth Status Informant Allergic rhinitis Confirmed Active Aneurysm artery, iliac 1 Confirmed Active Peripheral artery aneurysm Confirmed Active CAD Confirmed Active Diabetic nephropathy 2 Confirmed Active Caregiver burden Confirmed Active GERD Confirmed 10/31/10 Active S/P AAA repair using bifurcation graft Confirmed Active HYPERTENSION Confirmed 10/31/10 Active Intertrigo Confirmed Active Microalbuminuria Confirmed Active MIXED HYPERLIPIDEMIA Confirmed 10/31/10 Active Moderate major depression Confirmed Active MORBID OBESITY Confirmed 10/31/10 Active Colon polyps 3 Confirmed Active Small airways disease Confirmed Active Right carotid bruit Confirmed Active Type 2 diabetes with complication 4 Confirmed Active UNSPECIFIED HYPOTHYROIDISM Confirmed 10/31/10 Active Urticaria due to cold Confirmed Active Venous stasis dermatitis Confirmed Active 13.2cm on 02/04/[address] Santos [id number]: tubular adenoma 4sees Dr. Omalley Diagnosis Diagnosis Type Effective Dates Health Status Clinical Service Informant Moderate major depression Discharge Diagnosis 03/26/24 Non-Specified Procedures Procedure Date Related Diagnosis Body Site Status Extraction of cataract of right eye 08/01/22 Completed Colonoscopy 1 06/19/22 Completed Eye examination 2 03/28/19 Complet ed Pathology report 3 01/01/18 Comple jarvis Colonoscopy 4, 5 04/05/17 Complete d Pathology 6 04/05/[address] angiography abdomen, and pelvis combo 7 12/21/16 Completed PEVAR 10/24/16 Completed CXR - Chest X-ray 8 10/16/[address] angiography abd/pelvis combo 9 09/26/16 Completed Punch biopsy 10 05/24/16 Completed X-ray 11 03/31/16 Completed Colonoscopy 12 10/27/09 Completed Colonoscopy 2007 Completed Appendectomy Completed Cholecystectomy Completed Exercise stress echocardiography Completed Triple Heart Bypass Compl eted 1Impression: Six 2 to 6 mm polyps in the sigmoid colon and in the asceinding colon, removed witha cold snare. Resected and retrieved. Diverticulosis in the sigmoid colon. Non-bleeding internal hemorrhoids 2Cataracts in both eyes No other concerns annual check up 31. 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 2. Negative for dysplasia. 4Repeat in 5 years--04/2022 5Pathology results: A) Rectum, polypectomy: hyperplastic polyp B) Colon, cecum, polypectomy: 1) Benign colonic mucosa 2) No hyperplastic or adenomatous change identified. 3) Negative for malignancy. C) Colon, 30cm, polypectomies: tubular adenoma 6A. Rectum,polypectomy: Hyperplastic polyp B. Colon, cecum, polypectomy: 1. Benign colonic mucosa 2. No hyperplastic or adenomatous change identified. 3. Negative for malignancy C. Colon, 30cm, polypectomies: tubular adenomas. 71. There are postoperative changes from aortobiliac stent graft repair of an infrarenal abdominal aortic aneurysm. The residual aneurysm sac measures 4.2x4.x2 cm, and no endoleak is identified. The stent graft is widely patent. 2. There are small aneurysms of the left internal iliac artery and the right common femoral artery as above. 3. Hepatomegaly and severe hepatic steastosis. 4. Splenomegaly. 5. Cardiomegaly 6. The appearance of the bladder is consistent with chronic outlet obstruction. 7. Additional findings as above. 81. No acute cardiopulmonary findings. 2. Moderate cardiomegaly. 9Fuiform intrarenal abdominal aortic aneurysm measuring 4.2x3.9 cm in maximal transverse and AP diameter. The aneurysm extens to the bifurcation with dilatation of the left common iliac artery measuring 3 cm and mild dilatation right common iliac artery which measures 2.1 cm 10left axilla 11Right shoulder Degeneratve changes within the acromioclavicular joint. No fx or disloactions indentified. 127 small polyps - 5 descending, 1 ascending, 1 transverse, none larger than 5 mm Repeat colonoscopy 1-3 yr. PATHOLOGY: A. COLON appendiceal orifice, biopsies 1. Benign colonic tissue without pathologic chane. 2. No acute or chronic colitis identified. 3. No hyperplastic or adenomatous change seen. 4. Negative for malignancy. B. COLON, ascending, polypectomy: tubular adenoma C. COLON, transverse, polypectomy: hyperplastic polyp D. COLON, descending polypectomies: 1. tubular adenomas 2. benign colonic mucosa 3. negative for malignancy. Social History Social History Type Response Smoking Status Former Smoker, quit > 1 yr Sex Male Sex Representation Male (finding) FCM Outpt Note * MD Swanson Juan: PERFORM Event Display: FCM Outpt Note Authored Date: [id number] TeleHealth Visit Note I have confirmed the patients name and date of . The patient has consented to this service,and I have advised the patient that this is a billable visit for which they may be subject to a copay. The patient initiated this visit after they were informed of the availability of TeleHealth for this medically necessary visit. I am located at home. The patient is located at home. This visit was conducted via telephone, and was not related to a visit or procedure that occurred within the past 7 days, due to no internet connection availability. TOTAL TIME SPENT COMMUNICATING WITH THE PATIENT, IN MINUTES: 25 minutes Chief Complaint 1 month follow up. Patient did not start medication from last visit due to concerns with side effects History of Present Illness f/u depression. Rx'edprozac 10mg daily 1 month ago, but pt did not start it due to concern about potentialSE suchas increasingrisk of suicide, etc. tried to make appt with therapist but none are accepting new patients. Has come to realized and accept that his decision to put his in residential is the right decision for her and himself. "I just have to believe that and not feel bad about it." Physical Exam GENERAL: A&Ox3. No acute distress. speech appropriate. Assessment/Plan 1.Moderate major depression Not interested in SSRI due to concernabout potential SE despite my explanation that the benefitout weight the risk of SE. Pt has been making positive changes towards feeling better and getting himself out of depression. Pt agreed to contact me if he does not feel better beforehis next appt with me in 09/2024. Attestation Pre-visit plannin min Ytol-fr-cxey visit:25 min Post-visit:0 min Total visit time:28 min Problem List/Past Medical History Ongoing Allergic rhinitis Aneurysm artery, iliac CAD Caregiver burden Colon polyps Diabetic nephropathy GERD HYPERTENSION Intertrigo Microalbuminuria MIXED HYPERLIPIDEMIA Moderate major depression MORBID OBESITY Peripheral artery aneurysm Right carotid bruit S/P AAA repair using bifurcation graft Small airways disease Type 2 diabetes with complication UNSPECIFIED HYPOTHYROIDISM Urticaria due to cold Venous stasis dermatitis Resolved AAA (Abdominal Aortic Aneurysm without Rupture) Depression DIABETIC RETINOPATHY Encounter for hepatitis C virus screening test for high risk patient Myocardial infarction Procedure/Surgical History Extraction of cataract of right eye| Service Date: 2Colonoscopy| Service Date: 06/19/2022Eye examination| Service Date: 03/28/2019Pathology report| Service Date: 01/01/2018Pathology| Service Date: 04/05/2017Colonoscopy| Service Date: 04/05/2017CT angiography abdomen, and pelvis combo| Service Date: 12/21/2016PEVAR| Service Date: 10/24/2016CXR - Chest X-ray| Service Date: 10/16/2016CT angiography abd/pelvis combo| Service Date: 09/26/2016Punch biopsy| Service Date: 05/24/2016X-ray| Service Date: 03/31/2016Colonoscopy| Service Date: 10/27/2009Colonoscopy| Service Date: 2007Exercise stress echocardiographyAppendectomyCholecystectomy Triple Heart Bypass Medications aspirin(aspirin 81 mg oral tablet), 81 mg= 1 tab, PO, Daily atorvastatin(atorvastatin 20 mg oral tablet), 20 mg= 1 tab, PO, qhs cholecalciferol(Vitamin D3 1000 intl units oral capsule), 1000 Int_Unit= 1 cap, PO, Daily cyanocobalamin(Vitamin B12), 500 mcg, PO, Daily diabetes supplies(FreeStyle Gabrielle 2 - 14 day sensor) diabetes supplies(FreeStyle Gabrielle 2 - 14 day reader) fenofibrate(fenofibrate 160 mg oral tablet), See Instructions, 5 refills fluticasone nasal(fluticasone 50 mcg/inh nasal spray), 2 spray, intranasal, Daily hydrochlorothiazide-lisinopril(hydrochlorothiazide-lisinopril 12.5 mg-20 mg oral tablet), See Instructions, 11 refills insulin regular(HumuLIN R U500 KwikPen CONCENTRATED 500 units/mL human recombinant subcutaneous solution), See Instructions levothyroxine(levothyroxine 100 mcg (0.1 mg) oral tablet), 100 mcg= 1 tab, PO, Daily metFORMIN(metFORMIN 1000 mg oral tablet), See Instructions, 10 refills metoprolol(Metoprolol Tartrate 25 mg oral tablet), 1 tab, PO, bid omeprazole(omeprazole 20 mg oral delayed release capsule), See Instructions, 11 refills spironolactone(spironolactone 25 mg oral tablet), 25 mg= 1 tab, PO, Daily Allergies Ozempicloss of taste Social History Smoking Status Former Smoker, quit > 1 yr Alcohol - Denies Alcohol Use Exercise - 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 Heart attack: Father. Health Status Family Member(s) Immunizations Vaccine Date Status influenza virus vaccine, inactivated 06/20/2023 Given zoster vaccine, inactivated 06/27/2022 Recorded influenza virus vaccine, inactivated 05/12/2022 Given influenza virus vaccine, inactivated 06/13/2021 Given influenza virus vaccine, inactivated 05/26/2020 Given tetanus/diphtheria/pertuss, acel (Tdap) 04/12/2020 Given pneumococcal 23-valent vaccine 08/14/2019 Given influenza virus vaccine, inactivated 06/16/2019 Given zoster vaccine, inactivated 03/2019 Recorded influenza virus vaccine, inactivated 06/11/2018 Given influenza virus vaccine, inactivated 05/24/2017 Given influenza virus vaccine, inactivated 05/22/2016 Given pneumococcal 13-valent vaccine 05/18/2015 Given influenza virus vaccine, inactivated 05/18/2015 Given influenza virus vaccine, inactivated 06/17/2014 Given influenza virus vaccine, inactivated 05/23/2013 Given zoster vaccine live 06/24/2012 Recorded influenza virus vaccine, inactivated 06/20/2012 Given tetanus/diphtheria/pertuss, acel (Tdap) 09/22/2009 Recorded pneumococcal 23-valent vaccine 09/18/2000 Recorded Recommendations Health Maintenance Pending(in the next year) OverDue Medicare Annual Wellness Visit due09/27/23and every 1year Due Diabetes Management A1c due01/26/24and every 366day Adult Influenza Vaccine due03/02/24and every 1year Adult COVID-19 Vaccination due03/26/24Unknown Frequency Adult Social Determinants of Health Screening due03/26/24Unknown Frequency Hepatitis C Screening due03/26/24One-time only Due In Future Diabetic Eye Exam not due until11/02/24and every 366day Body Mass Index not due until02/27/25and every 366day Satisfied(in the past 1 year) Satisfied Adult Influenza Vaccine on06/20/23.Satisfied by NORMAN Pinto Erin Body Mass Index on02/27/24.Satisfied by PÉREZ Bhagat, Lesia Diabetic Eye Exam on10/24/23.Satisfied by DIMITRY Longo, Naty Electronic Signature on File Electronically Reviewed/Signed by: Jonathan Swanson MD Author Signature Dt/Tm:03/26/2024 02:12 PM Department of Family Medicine [facility] Patient Care team information Care Team Personnel Name: MD Daron, Tanner Tripp Position: Physician - Family Med Member Role: Lifetime Relationship Address: [address] [place] [address] Name: REBECCA Webb Lynn Position: Physician Help Desk Supervisor Exempt - Vasc Surg Member Role: Lifetime Relationship Address: [address] [address] [place] Name: MD Swanson Juan Position: Physician - Family Med Member Role: Primary Care Provider Address: [address] [place] [address] Name: MD Montalvo Eugene J Position: Physician - Vascular Surg Member Role: Lifetime Relationship Address: [address] [address] Care Team Related Persons Name: MAURI PABLO Name: TITO LEMUS
--- OUTSIDE RECORDS SUMMARY | 2024-04-16 23:34 | External Medical Summary | Continuity of Care Document ---
Author Name Unknown Organization [address] Address [address] [place], [place] [id number] Care Team Providers Care Station Operator Name Role Phone Jonathan Swanson Primary Care Physician [phone] [facility]counter [facility] [id number] Date(s): 02/27/24 - 02/27/[address] [address] [phone] Encounter Diagnosis Neck pain(Discharge Diagnosis) - 12/12/23 GERD(Discharge Diagnosis) - 02/26/24 HYPERTENSION(Discharge Diagnosis) - 02/26/24 MORBID OBESITY(Discharge Diagnosis) - 02/26/24 Caregiver burden(Discharge Diagnosis) - 02/26/24 MIXED HYPERLIPIDEMIA(Discharge Diagnosis) - 02/26/24 UNSPECIFIED HYPOTHYROIDISM(Discharge Diagnosis) - 02/26/24 Type 2 diabetes with complication(Discharge Diagnosis) - 02/26/24 S/P AAA repair using bifurcation graft(Discharge Diagnosis) - 02/26/24 Body mass index [BMI] 39.0-39.9, adult(Discharge Diagnosis) - 02/27/24 Fatigue(Discharge Diagnosis) - 02/27/24 Moderate major depression(Discharge Diagnosis) - 02/27/24 Venous stasis(Discharge Diagnosis) - 02/27/24 Muscle spasms of neck(Discharge Diagnosis) - 02/27/24 Discharge Disposition: Home or Self Care Attending Physician: MD Swanson Juan Referring Physician: MD Swanson Juan Allergies, Adverse Reactions, Alerts Substance Criticality Severity Reaction Reaction Severity Status Ozempic loss of taste Active Assessment and Plan Extracted from: Title:Office Visit Note Author:MD Swanson Juan Cheko e:02/27/24 1.GERD Status: chronic, controlled. Data: EMR. Goal: controlled and stable. Plan: continue current treatment plan. 2.HYPERTENSION Status: chronic, controlled. Data: EMR. Goal: controlled and stable. Plan: continue current treatment plan. 3.MORBID OBESITY improving. 4.Type 2 diabetes with complication Status: chronic, controlled. Data: EMR. Goal: controlled and stable. Plan: continue current treatment plan. 5.UNSPECIFIED HYPOTHYROIDISM Status: chronic, controlled. Data: EMR. Goal: controlled and stable. Plan: continue current treatment plan. 6.MIXED HYPERLIPIDEMIA Status: chronic, controlled. Data: EMR. Goal: controlled and stable. Plan: continue current treatment plan. 7.S/P AAA repair using bifurcation graft Status: chronic, controlled. Data: EMR. Goal: controlled and stable. Plan: continue current treatment plan. 8.Caregiver burden improved. 9.Fatigue likely due to depression 10.Moderate major depression Rxfluoxetine 10mg daily. alsorecommend therapy. BTO 1 month 11.Venous stasis recommend compression everyday. 12.Muscle spasms of neck [id number] exercise taught and info given. BTO 6 months for HM Immunizations Given and Recorded Vaccine Date Status [...] DAILY FOR 30 DAYS., Pharmacy: [facility], TAKE 1 TABLET DAILY FOR 30 DAYS. Start Date: 09/19/19 Status: Ordered FLUoxetine 10 mg oral tablet Start: 02/27/24 1:32:00 PM EDT, 1 tab, PO, Daily, Disp# 30 tab, Refills: 1, Pharmacy: [facility] Start Date: 02/27/24 Status: Ordered fluticasone 50 mcg/inh nasal spray Start: 10/05/23 8:22:00 AM EST, 2 spray, intranasal, Daily, Disp# 16 g, Refills: 11, Pharmacy: [facility] Start Date: 10/05/23 Status: Ordered FreeStyle Gabrielle [...] TAKE 1 TABLETS BY MOUTH DAILY, Pharmacy: [facility]) Start Date: 10/04/23 Status: Ordered levothyroxine 100 mcg (0.1 mg) oral tablet Start: 07/23/19 10:15:00 AM EST, 1 tab, PO, Daily Start Date: 07/23/19 Status: Ordered metFORMIN 1000 mg oral tablet Start: 04/17/18 8:19:00 AM EDT, See Instructions, Disp# 60 tab, Refills: 10, TAKE (1) TABLET TWICE ADAY, Pharmacy: [facility] Start Date: 04/17/18 Status: Ordered Metoprolol Tartrate 25 mg oral tablet Start: 09/05/23 11:52:00 AM EST, 1 tab, PO, bid, Disp# 60 tab, Refills: 11, Pharmacy: [facility] Start Date: 09/05/23 Status: Ordered omeprazole 20 mg oral delayed release capsule Start: 05/15/23 4:05:00 PM EDT, See Instructions, Disp# 30 cap, Refills: 11, TAKE 1 CAPSULE BY MOUTHONCE A DAY., Pharmacy: [facility] Start Date: 05/15/23 Status: Ordered spironolactone 25 [...] Start Date: 01/10/18 Status: Ordered Mental Status 02/27/24 Barriers to Learning one year None evide nt Mandatory Health Literacy Documentation Yes Health Literacy Communication Barriers N ever Primary Language Yemeni Problem List Condition Confirmation Course Effective Dates [...] Confirmed Active MIXED HYPERLIPIDEMIA Confirmed 10/31/10 Active MORBID OBESITY Confirmed 10/31/10 Active Colon polyps 3 Confirmed Active Small airways disease Confirmed Active Right carotid bruit Confirmed Active Type 2 diabetes with complication 4 Confirmed Active UNSPECIFIED HYPOTHYROIDISM Confirmed 10/31/10 Active Urticaria due to cold Confirmed Active Venous stasis dermatitis Confirmed Active 13.2cm on 02/04/[address] Santos [id number]: tubular adenoma 4sees Dr. Omalley Diagnosis Diagnosis Type Effective Dates Health Status Clinical Service Informant Neck pain Discharge Diagnosis 12/12/23 Non-Specified HYPERTENSION Discharge Diagnosis 02/26/24 Non-Specified Caregiver burden Discharge Diagnosis 02/26/24 Non-Specified GERD Discharge Diagnosis 02/26/24 Non-Specified MIXED HYPERLIPIDEMIA Discharge Diagnosis 02/26/24 Non-Specified MORBID OBESITY Discharge Diagnosis 02/26/24 Non-Specified UNSPECIFIED HYPOTHYROIDISM Discharge Diagnosis 02/26/24 Non-Specified Type 2 diabetes with complication Discharge Diagnosis 02/26/24 Non-Specified S/P AAA repair using bifurcation graft Discharge Diagnosis 02/26/24 Non-Specified Body mass index [BMI] 39.0-39.9, adult Discharge Diagnosis 02/27/24 Non-Specified Fatigue Discharge Diagnosis 02/27/24 Non-Specified Moderate major depression Discharge Diagnosis 02/27/24 Non-Specified Muscle spasms of neck Discharge Diagnosis 02/27/24 Non-Specified Venous stasis Discharge Diagnosis 02/27/24 Non-Specified Procedures Procedure Date Related Diagnosis Body [...] benign colonic mucosa 3. negative for malignancy. Vital Signs Most recent to oldest [Reference Range]: 1 Height 177 cm (02/27/24 12:55 PM) Patient Weight 122.2 kg (02/27/24 12:55 PM) Body Mass Index 39.01 kg/m2 (02/27/24 12:55 PM) Temperature [36.5-37.9 DegC] 36.5 DegC (02/27/24 12:55 PM) Heart Rate 79 bpm (02/27/24 12:55 PM) Respiratory Rate 18 br/min (02/27/24 12:55 PM) Blood Pressure 116/56mmHg (02/27/24 12:55 PM) Social History Social History Type Response Smoking Status Never smoked cigaret elaine Sex Male [facility] Outpt Note * MD Sky, Jonathan: PERFORM Event Display: [facility] Outpt Note Authored Date: [id number] Chief Complaint lack of energy and head buzzing. History of Present Illness c/o lack of energy and head buzzing. feels guilty after placing in [facility] in 09/2023. has been happy there. but pt feels guilty and fatigue, not eating normally - more night snack. feels down. SI/SA. lost 6-7lb over past 6 months. PHQ9 is 13.GAD2is 2 andGAD7 is 0. Saw [facility] recently for tinglingonneck and scalp. xrayshowed DJD. Had PT - was told to do stretch exercise. leg swelling better with compression stocking, wears it 5days a week. eating more soup. Sees Dr. Fernandez for DM, hypothyroidism., hyperlipidemia.Dr. Omalley orders labs regularly: cmp, lipid, A1C, TSh and microalb/cr ratio. GERD controlled with omeprazole. caring for - feels the burden. daughters periodically help out and give him opportunities out of home. Exercises in Y regularly and also treadmill at home. YearlyDM eye exam. Hx of diabetic retinopathy. Sees Dr. Montalvo for Hx of AAA. Physical Exam Vitals & Measurements T:36.5C HR:79(Monitored) RR:18 BP:116/56 SpO2:95% HT:177cm WT:122.2kg WT:122.200kg(Dosing) BMI:39.01 PHQ2 Data(Data Documented on:02/27/2024 12:55) Emotional health assessment POSITIVE PHQ-9 Data(Data Documented on:02/27/2024 12:56) PHQ-9 Severity Score:13 Thoughts that you would be better off or of hurting yourself in some way?Not at All Depression Risk:Elevated General Anxiety Disorder Screening: MEGHNA-7 Score:0 MEGHNA-7 Problem Severity:Not at all GENERAL: A&Ox3. No acute distress. Affect and speech appropriate. HEENT: PERRLA, EOMI, Conjunctivae clear. NECK: FROM.Supple,+ trep spasm. No lymphadenopathy. No carotid bruits. HEART: RRR, normal S1, S2. No murmurs, gallops or clicks. LUNGS: breathing not labored, breathing sound clear, breathing sound equal bilaterally, no rales, no wheezing. ABDOMEN: Positive bowel sound, soft, nontender, non-distended. No hepatosplenomegaly noted. No mass. EXTREMITIES: + trace edema with stasis changes. L>R. Assessment/Plan 1.GERD Status: chronic, controlled. Data: EMR. Goal: controlled and stable. Plan: continue current treatment plan. 2.HYPERTENSION Status: chronic, controlled. Data: EMR. Goal: controlled and stable. Plan: continue current treatment plan. 3.MORBID OBESITY improving. 4.Type 2 diabetes with complication Status: chronic, controlled. Data: EMR. Goal: controlled and stable. Plan: continue current treatment plan. 5.UNSPECIFIED HYPOTHYROIDISM Status: chronic, controlled. Data: EMR. Goal: controlled and stable. Plan: continue current treatment plan. 6.MIXED HYPERLIPIDEMIA Status: chronic, controlled. Data: EMR. Goal: controlled and stable. Plan: continue current treatment plan. 7.S/P AAA repair using bifurcation graft Status: chronic, controlled. Data: EMR. Goal: controlled and stable. Plan: continue current treatment plan. 8.Caregiver burden improved. 9.Fatigue likely due to depression 10.Moderate major depression Rxfluoxetine 10mg daily. alsorecommend therapy. BTO 1 month 11.Venous stasis recommend compression everyday. 12.Muscle spasms of neck [id number] exercise taught and info given. BTO 6 months for HM Attestation Pre-visit plannin min [id number] visit:20 min Post-visit:0 min Total visit time: 30 min Problem List/Past Medical History Ongoing Allergic rhinitis Aneurysm artery, iliac CAD Caregiver burden Colon polyps Diabetic nephropathy GERD HYPERTENSION Intertrigo Microalbuminuria MIXED HYPERLIPIDEMIA MORBID OBESITY Peripheral artery aneurysm Right carotid [...] mg oral tablet), See Instructions, 5 refills FLUoxetine(FLUoxetine 10 mg oral tablet), 10 mg= 1 tab, PO, Daily, 1 refills fluticasone nasal(fluticasone 50 mcg/inh nasal spray), [...] Ozempicloss of taste Social History Smoking Status Never smoked cigarettes Alcohol - Denies Alcohol Use Exercise - [...] Diabetes Management A1c due01/26/24and every 366day Adult COVID-19 Vaccination due02/27/24Unknown Frequency Adult Social Determinants of Health Screening due02/27/24Unknown Frequency Hepatitis C Screening due02/27/24One-time only Due In Future Adult Influenza Vaccine not due until03/02/24and every 1year Diabetic Eye Exam not due until11/02/24and every 366day Satisfied(in the past 1 year) Satisfied Adult Influenza Vaccine on06/20/23.Satisfied by NORMAN Pinto Erin Body Mass Index on02/27/24.Satisfied by PÉREZ Bhagat, Lesia Diabetic Eye Exam on10/24/23.Satisfied by DIMITRY Longo Lynnae Electronic Signature on File Electronically Reviewed/Signed by: Jonathan Swanson MD Author Signature Dt/Tm:02/27/2024 01:43 PM Department of Family Medicine [facility] Patient Care team information Care Team Personnel Name: MD Daron, Tanner Tripp Position: Physician - Family Med Member Role: Lifetime Relationship Address: Address: [address] [place] [address] [place] Name: REBECCA Webb Lynn Position: Physician Lip Cutter Exempt - Vasc Surg Member Role: Lifetime Relationship Address: Address: [address] [place] [address] [place] Name: MD Swanson Juan Position: Physician - Family Med Member Role: Primary Care Provider Address: Address: [address] [place] [address] [place] Name: MD Selvin, Ralf Mac Position: Physician - Vascular Surg Member Role: Lifetime Relationship Address: Address: [address] [place] [address] Care Team Related Persons Name: MAURI PABLO Address: [employer] [address] [place], [place] [id number] Name: TITO LEMUS Address: [facility] Address: home [address] [facility] [place] [id number]"
--- OUTSIDE RECORDS SUMMARY | 2024-04-16 23:34 | External Medical Summary | Continuity of Care Document ---
Author Name Unknown Organization [address] Address [address] [place], [place] [id number] Care Team Providers Care Supervisor Pleating Name Role Phone Jonathan Swanson Primary Care Physician [phone] [id number] Date(s): 12/05/23 - 12/05/[address] [address] [phone] Encounter Diagnosis Cervical radiculopathy(Discharge Diagnosis) - 12/05/23 Discharge Disposition: Home or Self Care Attending Physician: MADI Engle Tara Referring Physician: MADI Engle Tara Allergies, Adverse Reactions, Alerts Substance Reaction Severity Status Ozempic loss of taste Active Assessment and Plan Extracted from: Title:neck pain Author:MADI Engle Tara Date:12/05/23 1.Cervical radiculopathy Acute/Chronic: acute Goal:Resolution/ control Status:ongoing Data: records/pt report Plan:Symptoms are consistent with cervical radiculopathy. No red flags. Will order xray of cervical spine. He has renal insufficiency so would not recommend use of oral NSAIDs. Can use tylenol. Can try using voltaren gel. Will await for xrays to see if can go back to chiropractor or possible referral to PT. time spent reviewing chart, face to face visit, ordersand documentation: 32 min Immunizations Given and Recorded Vaccine Date Status Refusal Reason influenza virus vaccine, inactivated 06/20/23 Give n influenza virus vaccine, inactivated 05/12/22 Give n influenza virus vaccine, inactivated 06/13/21 Give n influenza virus vaccine, inactivated 05/26/20 Give n influenza virus vaccine, inactivated 06/16/19 Give n influenza virus vaccine, inactivated 06/11/18 Give n influenza virus vaccine, inactivated 9/21/17 Give n influenza virus vaccine, inactivated 05/22/16 [...] aspirin 81 mg oral tablet Start: 06/20/12 10:22:00, 1 tab, PO, Daily Start Date: 06/20/12 Status: Ordered atorvastatin 20 mg oral tablet Start: 08/10/21 9:40:00 EST, 1 tab, PO, qhs Start Date: 08/10/21 Status: Ordered fenofibrate 160 mg oral tablet Start: 09/19/19 12:35:19 EST, See Instructions, Disp# 30, Refills: 5, TAKE 1 TABLET DAILY FOR 30 DAYS., Pharmacy: [facility], TAKE 1 TABLET DAILY FOR 30 DAYS. Start Date: 09/19/19 Status: Ordered fluticasone 50 mcg/inh nasal spray Start: 10/05/23 8:22:00 EST, 2 spray, intranasal, Daily, Disp# 16 g, Refills: 11, Pharmacy: [facility] ([facility]) Start Date: 10/05/23 Status: Ordered FreeStyle Gabrielle 2 - 14 day reader Start: 12/05/23 10:57:00 EDT Start Date: 12/05/23 Status: Ordered FreeStyle Gabrielle 2 - 14 day sensor Start: 12/05/23 10:57:00 EDT Start Date: 12/05/23 Status: Ordered HumuLIN R U500 KwikPen CONCENTRATED 500 units/mL human recombinant subcutaneous solution Start: 08/22/23 13:52:00 EST, See Instructions, 200 units in the Am 110 units in the afternoon 40 units in the evening Start Date: 08/22/23 Status: Ordered hydrochlorothiazide-lisinopril 12.5 mg-20 mg oral tablet Start: 10/04/23 14:34:00 EST, See Instructions, Disp# 30 tab, Refills: 11, TAKE 1 TABLETS BY MOUTH DAILY, Pharmacy: [facility]) Start Date: 10/04/23 Status: Ordered levothyroxine 100 mcg (0.1 mg) oral tablet Start: 07/23/19 10:15:00 EST, 1 tab, PO, Daily Start Date: 07/23/19 Status: Ordered metFORMIN 1000 mg oral tablet Start: 04/17/18 8:19:00 EDT, See Instructions, Disp# 60 tab, Refills: 10, TAKE (1) TABLET TWICE A DAY, Pharmacy: [facility] Start Date: 04/17/18 Status: Ordered Metoprolol Tartrate 25 mg oral tablet Start: 09/05/23 11:52:00 EST, 1 tab, PO, bid, Disp# 60 tab, Refills: 11, Pharmacy: [facility] Start Date: 09/05/23 Status: Ordered omeprazole 20 mg oral delayed release capsule Start: 05/15/23 16:05:00 EDT, See Instructions, Disp# 30 cap, Refills: 11, TAKE 1 CAPSULE BY MOUTH ONCE A DAY., Pharmacy: [facility] Start Date: 05/15/23 Status: Ordered spironolactone 25 mg oral tablet Start: 12/05/23 10:59:00 EDT, 1 tab, PO, Daily Start Date: 12/05/23 Status: Ordered Vitamin B12 Start: 01/10/18 11:45:00 EDT, 500 mcg =, PO, Daily Start Date: 01/10/18 Status: Ordered Vitamin D3 1000 intl units oral capsule Start: 01/10/18 11:45:00 EDT, 1 cap, PO, Daily Start Date: 01/10/18 Status: Ordered Mental Status 12/05/23 Barriers to Learning one year None evide nt Mandatory Health Literacy Documentation Yes Health Literacy Communication Barriers N ever Primary Language Greek Problem List Condition Confirmation Course Effective Dates Status H ealth Status Informant Allergic rhinitis Confirmed Active Aneurysm artery, iliac 1 Confirmed Active Peripheral artery aneurysm Confirmed Active CAD Confirmed Active Diabetic nephropathy 2 Confirmed Active DIABETIC RETINOPATHY Confirmed Active Caregiver burden Confirmed Active GERD [...] Active 13.2cm on 02/04/[address] Santos [address]: tubular adenoma 4sees Dr. Omalley Diagnosis Diagnosis Type Effective Dates Health Status Clinical Service Informant Cervical radiculopathy Discharge Diagnosis 12/05/23 Procedures Procedure Date Related Diagnosis Body Site [...] oldest [Reference Range]: 1 Height 177 cm (12/05/23 11:00 AM) Patient Weight 125 kg (12/05/23 11:00 AM) Body Mass Index 39.9 kg/m2 (12/05/23 11:00 AM) Heart Rate 60 bpm (12/05/23 11:00 AM) Respiratory Rate 20 br/min (12/05/23 11:00 AM) Blood Pressure 128/60mmHg (12/05/23 11:00 AM) Cuff Pulse Pressure 68 mmHg (12/05/23 11:00 AM) Social History Social History Type Response Smoking Status Former Smoker, quit > 1 yr Sex Male [facility] Outpt Note * MADI Engle Tara: PERFORM Event Display: [facility] Outpt Note Authored Date: [id number] Chief Complaint tingling left ear that travels side of neck and headache back side of head. Had "whip lash" 1-1.5years ago when he first noticed. Chiropractor will not see until seen by provider d/t adjustment not working last time History of Present Illness A few years ago he fell and had whiplash as per chiropractor. Approx 3 weeks ago developed tinglingfeeling in left side of left neck and pressure in mid base of skull. Left hand will tingle at times. If he holds his head forward the tingling will resolved. No bowel or bladder dysfunction, saddle anesthesia, fevers or unintentional weight loss. No rashes,vision changes or loss, headaches, jaw claudication. family chiropractic scipioni Review of Systems Constitutional: No fever, chills, sweats Pulmonary: No shortness of breath, dyspnea with exertion, cough, hemoptysis, wheezing, chest pain. Cardiovascular: No chest pain, palpitations, syncope, edema, cyanosis, claudication, orthopnea. GI: No nausea, vomiting, diarrhea, melena, hematochezia, change in appetite, abdominal pain, changein bowel habits or stools : No dysuria, frequency, urgency, urinary incontinence, hematuria, nocturia. Musculoskeletal: as per HPI Neurologic: No headache, lightheadedness, dizziness. See HPI Physical Exam Vitals & Measurements HR:60(Monitored) RR:20 BP:128/60 SpO2:96% HT:177cm WT:125.000kg(Dosing) WT:125kg BMI:39.9 head- normocephalic Pulmonary- chest expansion symmetric, CTA (clear to auscultation), eupnea, no adventitious sounds (rales, crackles, wheezes) CV (cardiovascular)- RRR no m/r/g (systolic ejection murmur, rubs, gallops), good peripheral perfusion extremitiesNo edema or erythema. skin- good turgor w/o lesions, redness, cyanosis, edema nails- no clubbing or deformities w good cap refill musculoskeletal- strength in upper ext 5/5. ROM of neck limited with rotation to left. Neg Lhermitte and Spurling. Neuro:Alert, Oriented Assessment/Plan 1.Cervical radiculopathy Acute/Chronic: acute Goal:Resolution/ control Status:ongoing Data: records/pt report Plan:Symptoms are consistent with cervical radiculopathy. No red flags. Will order xray of cervical spine. He has renal insufficiency so would not recommend use of oral NSAIDs. Can use tylenol. Cantry using voltaren gel. Will await for xrays to see if can go back to chiropractor or possible referral to PT. time spent reviewing chart, face to face visit, ordersand documentation: 32 min Problem List/Past Medical History Ongoing Allergic rhinitis Aneurysm artery, iliac CAD Caregiver burden Colon polyps Diabetic nephropathy DIABETIC RETINOPATHY GERD HYPERTENSION Intertrigo Microalbuminuria MIXED HYPERLIPIDEMIA MORBID OBESITY Peripheral artery aneurysm Right carotid bruit S/P AAA repair using bifurcation graft Small airways disease Type 2 diabetes with complication UNSPECIFIED HYPOTHYROIDISM Urticaria due to cold Venous stasis dermatitis Historical AAA (Abdominal Aortic Aneurysm without Rupture) Depression Encounter for hepatitis C virus screening test [...] Health Maintenance Pending(in the next year) OverDue Diabetic Eye Exam due08/08/23and every 366day Medicare Annual Wellness Visit due09/27/23and every 1year Due Adult COVID-19 Vaccination due12/05/23Unknown Frequency Adult Social Determinants of Health Screening due12/05/23Unknown Frequency Hepatitis C Screening due12/05/23One-time only Due In Future Diabetes Management A1c not due until01/26/24and every 366day Adult Influenza Vaccine not due until03/02/24and every 1year Satisfied(in the past 1 year) Satisfied Adult Influenza Vaccine on06/20/23.Satisfied by NORMAN Pinto Erin Body Mass Index on12/05/23.Satisfied by NORMAN Angela Bobbi Diabetes Management A1c on01/25/23.Satisfied by NORMAN Mcmahon Amber Electronic Signature on File Electronically Reviewed/Signed by: MADI Gamez Author Signature Dt/Tm:12/05/2023 12:56 PM Department of Family Medicine [facility] Patient Care team information Care Team Personnel Name: MD Daron, Tanner Tripp Position: Physician - Family Med Member Role: Lifetime Relationship Address: Address: [address] [place] [address] [place] Name: REBECCA Webb Lynn Position: Physician Help Desk Manager Exempt - Vasc Surg Member Role: Lifetime Relationship Address: Address: [address] [place] [address] [place] Name: MD Swanson Juan Position: Physician - Family Med Member Role: Primary Care Provider Address: Address: [address] [place] [address] [place] Name: MD Montalvo Eugene J Position: Physician - Vascular Surg Member Role: Lifetime Relationship Address: Address: [address] [place] [address] [place] Care Team Related Persons Name: MAURI PABLO Address: home [address] [facility] [place] [phone]
[2024-04-17] MEDS: LEVOTHYROXINE SODIUM 125 MCG TABLET PO SCH (04:45)
[2024-04-17 05:15] LABS: BUN Creatinine Ratio 15.2 (10-20); Calcium 8.9 mg/dl (8.6-10.3); Chol HDL Ratio 4.5 (0-5); Creatinine Clr Calc Pharmacy 77.9 ml/min; Est GFR (African American) 79.5 ml/min; Est GFR (Non-African American) 68.6 ml/min
[2024-04-17 05:21] LABS: Basophils # (auto) 0.05 K/uL (0.00-0.20); Basophils % (auto) 0.5 %; Eosinophils # (auto) 0.22 K/uL (0.00-0.50); Hematocrit (blood only) 35.5 % (42.0-52.0); Hemoglobin 11.6 g/dl (14.0-18.0); Immature Granulocytes # (auto) 0.13 K/uL (0.01-0.20); Immature Granulocytes % (auto) 1.2 %; Lymphocytes % (auto) 10.1 %; Mean Corpuscular Hemoglobin 26.6 pg (25.0-34.0); Mean Corpuscular Hgb Conc 32.7 g/dL (32.0-36.0); Mean Corpuscular Volume 81.4 fL (80.0-100.0); Mean Platelet Volume 12.8 fL (9.4-12.4); Monocytes % (auto) 8.3 %; Neutrophils # (auto) 8.45 K/uL (1.40-6.50); Neutrophils % (auto) 77.9 %; Platelet Count 170 K/uL (130-400); RDW Coefficient of Variation 14.5 % (11.5-14.5); RDW Standard Deviation 42.6 fL (36.4-46.3); Red Blood Count 4.36 M/uL (4.70-6.10); White Blood Count 10.85 K/ul (4.8-10.8)
[2024-04-17 05:23] LABS: ANTI-Xa, UFH(UnfractionatedHep 0.48 IU/ml (0.3-0.7)
[2024-04-17 05:47] LABS: Troponin I High Sensitivity 67373.6 pg/ml (0-20)
[2024-04-17 07:06] LABS: Estimated Average Glucose 214 mg/dl; Hemoglobin A1C 9.1 % (4.5-5.6)
[2024-04-17] MEDS ORDERED: hydroCHLOROthiazide 25 MG TAB PO SCH (09:00)
[2024-04-17] MEDS: LANTUS PER UNIT CHARGE SQ SCH ×2 (09:07→21:46)
[2024-04-17] MEDS: PANTOprazole 40 MG TAB PO SCH (09:09)
[2024-04-17] MEDS: ATORVASTATIN 40 MG TAB PO SCH (09:09)
[2024-04-17] MEDS: SPIRONOLACTONE 25 MG TAB PO SCH (09:10)
[2024-04-17] MEDS: CLOPIDOGREL BISULFATE 75 MG TAB PO SCH (09:10)
--- NOTE | 2024-04-17 11:54 | Electrocardiogram Report ---
Test Reason : Blood Pressure : */* mmHG Vent. Rate : 72 BPM Atrial Rate : 72 BPM P-R Int : 190 ms QRS Dur : 148 ms QT Int : 432 ms P-R-T Axes : 46 -27 7 degrees QTcB Int : 473 ms Normal sinus rhythm Right bundle branch block ST elevation consider lateral injury or acute infarct ACUTE GA / STEMI Abnormal ECG When compared with ECG of 16-Apr-2024 14:11, ST changes more pronounced Confirmed by Rito Johnston ([id number]) on 04/17/2024 11:53:45 AM Referred By: REFERRED SELF Confirmed By: Rito Johnston
[2024-04-17] MEDS: NITROGLYCERIN 2% OINTMENT 30GM TUBE EXT SCH (12:20)
--- NOTE | 2024-04-17 13:25 | Cardiology Progress Note ---
Date of Service April 17, 2024 Assessment & Plan (1) ACS (acute coronary syndrome): Plan: Patent PINON to LAD, graft to PDA Occluded SVG to LCx, possibly acutely occluded OM 2. ICMEF 35-40%, lateral/inferolateral wall motion abnormality 3. Type 2 diabetes 4. Hypertension 5. History of AAA post EVAR, known bilateral iliac aneurysms Still with some ongoing chest pain today. Suspect related to medically managed NH. Troponin downtrending. With new LV dysfunction and elevated LVEDP on cath question if mild heart failure contributing to symptoms although minimal congestion on exam today. Chest pain also positional and possibility of some post NH pericarditis. Trial of Lasix 40 mg IV x 1 Continue DAPT with aspirin, clopidogrel Continue heparin infusion until tomorrow morning Agree with Nitropaste. Would give evening lisinopril/HCTZ now Continue current Toprol-XL, spironolactone Long-term consider retrial of SGLT2 If continued positional chest pain will consider NSAIDs/colchicine Will follow Admission and Anticipated Discharge Date Admission Date: April 16, 2024 Subjective Was able to sleep overnight. This morning had recurrent chest pain similarly had on presentation. Also some associated shortness of breath. Pain somewhat relieved if sits up. No palpitations. No presyncope. Telemetry reviewedno events. Review of Systems Review of Systems: All systems reviewed & are unremarkable except as noted in HPI & below Physical Exam Physical Exam: General: Comfortable HEENT: Sclerae anicteric Lungs: Clear anteriorly Cardiac: Regular rate and rhythm, no murmurs. No JVD Vascular: Left radial artery access site with no ecchymosis, hematoma. Distal pulse and sensation intact. Abdomen: Soft, nontender Extremities: Well perfused, no peripheral edema Neuro: Nonfocal Psych: Alert orient x3, normal affect and mood Results & Data Vital Signs (Past 12 Hours) Vital Signs Temp Pulse Resp BP Pulse Ox O2 Del Method O2 Flow Rate 04/17/24 11:27 97.9 F 68 20 150/65 H 96 Nasal Cannula 2 04/17/24 10:39 Nasal Cannula 2 04/17/24 08:18 97.9 F 77 20 167/83 H 96 Room Air 04/17/24 03:32 98.2 F 55 L 18 158/81 H 98 Nasal Cannula 2 PG Care Time/CCT Total # of Minutes Spent Total Time Spent with Patient: Total time spent is greater than 50% in coordination of care (as documented) at patient's floor/unit and/or counseling patient: Coding Level of Care Code 33679 SUB INP/OBS CARE 350MIN Diagnoses ACS (acute coronary syndrome) I24.9
[2024-04-17] MEDS: FUROSEMIDE 40 MG/4 ML VIAL IV ONE (14:37)
[2024-04-17] MEDS: LISINOPRIL/HCTZ 20/12.5MG 1 TAB TAB PO SCH (14:37)
--- NOTE | 2024-04-17 16:45 | Hospitalist Progress Note ---
Date of Service April 17, 2024 Assessment & Plan (1) ACS (acute coronary syndrome): Plan: - Trial of Lasix 40 mg IV x 1 for dyspnea/pulmonary congestion - Continue DAPT with aspirin, clopidogrel likely for 1 year - Continue heparin infusion until tomorrow morning - Nitropaste for ongoing chest pain, can resume lisinopril/HCTZ - Continue current Toprol-XL, spironolactone - If continued positional chest pain will consider NSAIDs/colchicine (2) Hyperglycemia: Plan: - Patient had fasting BS today, 261 yesterday - Non-fasting BS, 295, and 297 04/17 - Adjusted Insulin Glargine 20 units, with correction factor at 20 and carb ratio of 5 - Patient normally takes approximately 350 units at home, 200 with breakfast, 100 with lunch and 40 with dinner - will continue to monitor (3) Liver lesion: Plan: - CT chest showed liver lesion, 4.3 cm enhancing right hepatic lobe lesion, suspicious for neoplasm such as cholangiocarcinoma - Non-emergent liver protocol MRI recommended (4) Chronic obstructive pulmonary disease: Plan: - Chest CT: No PE, pleural effusion, or pneumothorax. few prominent right hilar lymph nodes and mild groundglass opacities in lower lobes favoring atelectasis, possibly infection - Patient labs, signs, and symptoms do not favor acute infection - Patient with mild SOB, improving with 1 dose IV Lasix 40 mg - Patient to continue home regimen of fluticasone propionate 50mcg/actuation 2 sprays daily on discharge Admission and Anticipated Discharge Date Admission Date: April 16, 2024 Supervising Physician Co-Signing Physician Notes I personally examined the patient and verified all limon points of history and exam, discussed case, and agree with decision making with Dr Hillman discussed multiple times today w dr hillman. when i see pt he is finally resting comfortably. vitals noted nad breathing unlabored no accessory muscles good effort skin no rashes no pallor or icterus NSTEMI - med management, supportive care DM - escalate basal/bolus insulins otherwise as above Subjective Sage Cope is a 78 y/o M with a past medical history of 3 vessel CABG, MO in 1999 w/o previous catheterization or stenting, AAA s/p endovascular repair, T2D, HTN, HLD, and COPD presenting to the ED due to substernal chest pain 8-9/10 intensity radiating to his shoulder blades while he was driving. This pain was relieved to a 4/10 with Nitro x2 and ASA. EKG was positive for right bundle branch block with second EKG showing evidence of ST elevation in leads [address] depressions in leads V2-V4. Initial HS troponin was 10 with follow-up at 1100 and repeats around 67,000. The patient was taken into the [facility]il[facility] operator and i ntervention to OM-1 was attempted but PCI was unsuccessful. The patient was evaluated in the afternoon 04/17 and had increased chest pain 7/10 and dyspnea, repeat EKG was not concerning for a new infarct and the patient is being managed medically with heparin, DAPT therapy, beta tigre, IRA, MRA, and statin. The patient denies fevers, chills, cough, wheeze, abdominal pain, headache and palpitations. Nitropaste and trial of Lasix were used for patients chest pain and dyspnea and later patient reported a reduction in the severity of these symptoms. Physical Exam Physical Exam: General: patient resting comfortably, NAD, non-toxic in appearance, answers questions appropriately. Skin: warm, dry, intact HEENT: NC/AT, anicteric sclera, conjunctiva without injection, moist mucus membranes. Heart: +S1/S2, regular, no m/r/g Lungs: equal air entry bilaterally, no rales/rhonchi/wheezes Abd: +BS, soft, NT/ND Ext: warm, no clubbing/cyanosis or edema Neuro: nonfocal, speech intact, no facial droop, moving all extremities. Results & Data Results & Data Vital Signs (Past 12 Hours) Vital Signs Temp Pulse Resp BP Pulse Ox O2 Del Method O2 Flow Rate 04/17/24 15:27 37.0 C 84 20 154/77 H 96 Nasal Cannula 2 04/17/24 11:27 36.6 C 68 20 150/65 H 96 Nasal Cannula 2 04/17/24 10:39 Nasal Cannula 2 04/17/24 08:18 36.6 C 77 20 167/83 H 96 Room Air Resident Activity Tracking Resident Involvement: Resident Care Provided Care Provided: Adult [facility] Medicine (4) Chronic obstructive pulmonary disease COPD type: unspecified COPD Qualified Code(s): J44.9 - Chronic obstructive pulmonary disease, unspecified
--- NOTE | 2024-04-17 18:33 | Billing Data ---
Date of Service April 17, 2024 Coding Level of Care Code 23348 SUB INP/OBS CARE
[2024-04-17] MEDS ORDERED: ENOXAPARIN INJ 40 MG/0.4 ML SYR SQ SCH (21:00)
[2024-04-17] MEDS ORDERED: LISINOPRIL/HCTZ 20/12.5MG 1 TAB TAB PO SCH (21:00)
--- NOTE | 2024-04-17 23:09 | XCELERA ---
[id number]
[2024-04-18 06:37] LABS: Basophils # (auto) 0.04 K/uL (0.00-0.20); Basophils % (auto) 0.3 %; Eosinophils # (auto) 0.06 K/uL (0.00-0.50); Eosinophils % (auto) 0.5 %; Hematocrit (blood only) 35.5 % (42.0-52.0); Hemoglobin 11.8 g/dl (14.0-18.0); Immature Granulocytes # (auto) 0.08 K/uL (0.01-0.20); Immature Granulocytes % (auto) 0.7 %; Lymphocytes # (auto) 0.91 K/uL (1.20-3.40); Lymphocytes % (auto) 7.5 %; Mean Corpuscular Hemoglobin 26.8 pg (25.0-34.0); Mean Corpuscular Hgb Conc 33.2 g/dL (32.0-36.0); Mean Corpuscular Volume 80.7 fL (80.0-100.0); Mean Platelet Volume 12.8 fL (9.4-12.4); Monocytes % (auto) 12.3 %; Neutrophils # (auto) 9.56 K/uL (1.40-6.50); Neutrophils % (auto) 78.7 %; Platelet Count 155 K/uL (130-400); RDW Coefficient of Variation 14.6 % (11.5-14.5); RDW Standard Deviation 42.3 fL (36.4-46.3); White Blood Count 12.15 K/ul (4.8-10.8)
[2024-04-18 06:38] LABS: ANTI-Xa, UFH(UnfractionatedHep 0.41 IU/ml (0.3-0.7)
[2024-04-18 07:11] LABS: BUN Creatinine Ratio 11.8 (10-20); Calcium 9.1 mg/dl (8.6-10.3); Creatinine Clr Calc Pharmacy 63.2 ml/min; Est GFR (African American) 63.2 ml/min; Est GFR (Non-African American) 54.5 ml/min; Potassium 4.2 mmol/L (3.5-5.1)
[2024-04-18] MEDS: LANTUS PER UNIT CHARGE SQ SCH ×2 (09:20→21:50)
[2024-04-18] MEDS: LANTUS PER UNIT CHARGE SQ ONE (12:48)
--- NOTE | 2024-04-18 12:56 | Hospitalist Progress Note ---
Date of Service April 18, 2024 Assessment & Plan (1) ACS (acute coronary syndrome): Plan: - Continue DAPT with aspirin, clopidogrel likely for 1 year - Continue heparin infusion per cardiology recs - Nitropaste for ongoing chest pain, can resume lisinopril/HCTZ - Continue current Toprol-XL, spironolactone - If continued positional chest pain will consider NSAIDs/colchicine (2) Hyperglycemia: Plan: - Patient had fasting BS today, 261 yesterday - Non-fasting BS, 295, and 297 04/17 - Fasting blood glucose 344 and non-fasting 367 04/18 - Adjusted Insulin Glargine 50 units, with correction factor at 12 and carb ratio of 4 - Patient normally takes approximately 350 units at home, 200 with breakfast, 100 with lunch and 40 with dinner - will continue to monitor and adjust as necessary (3) Liver lesion: Plan: - CT chest showed liver lesion, 4.3 cm enhancing right hepatic lobe lesion, suspicious for neoplasm such as cholangiocarcinoma - Non-emergent liver protocol MRI recommended (4) Chronic obstructive pulmonary disease: Plan: - Chest CT: No PE, pleural effusion, or pneumothorax. few prominent right hilar lymph nodes and mild groundglass opacities in lower lobes favoring atelectasis, possibly infection - Patient labs, signs, and symptoms do not favor acute infection - Patient to continue home regimen of fluticasone propionate 50mcg/actuation 2 sprays daily on discharge Admission and Anticipated Discharge Date Admission Date: April 16, 2024 Supervising Physician Co-Signing Physician Notes I personally examined the patient and verified all limon points of history and exam, discussed case, and agree with decision making with Dr Hillman discussed multiple times today w dr hillman. when i see pt he is sleeping soundly. Cardiology input greatly appreciated as well.. vitals noted nad breathing unlabored no accessory muscles good effort skin no rashes no pallor or icterus NSTEMI - med management, supportive care, Hopefully home tomorrow DM - continue to escalate basal bolus insulin otherwise as above Subjective Sage Cope was seen this morning resting comfortably and reported no acute complaints or concerns. The patient denies fevers, chills, cough, wheeze, abdominal pain, headache and palpitations. The patient reports that he has not been requiring supplemental oxygen, and that he has not been getting short of breath. Patient also reports no chest pain or tightness since yesterday. Physical Exam Physical Exam: General: patient resting comfortably, NAD, non-toxic in appearance, answers questions appropriately. Skin: warm, dry, intact HEENT: NC/AT, anicteric sclera, conjunctiva without injection, moist mucus membranes. Heart: +S1/S2, regular, no m/r/g Lungs: equal air entry bilaterally, no rales/rhonchi/wheezes Abd: +BS, soft, NT/ND Ext: warm, no clubbing/cyanosis or edema Neuro: nonfocal, speech intact, no facial droop, moving all extremities. Results & Data Results & Data Vital Signs (Past 12 Hours) Vital Signs Temp Pulse Resp BP Pulse Ox O2 Del Method O2 Flow Rate 04/18/24 11:35 37.5 C 100 H 19 126/71 91 Room Air 04/18/24 07:59 36.8 C 90 16 123/67 93 Room Air 04/18/24 06:16 92 Room Air 04/18/24 03:45 37.7 C H 91 H 18 122/71 94 Nasal Cannula 2.0 Resident Activity Tracking Resident Involvement: Resident Care Provided Care Provided: Adult Hospital Medicine (4) Chronic obstructive pulmonary disease COPD type: unspecified COPD Qualified Code(s): J44.9 - Chronic obstructive pulmonary disease, unspecified
--- NOTE | 2024-04-18 15:19 | Electrocardiogram Report ---
Test Reason : Blood Pressure : */* mmHG Vent. Rate : 70 BPM Atrial Rate : 70 BPM P-R Int : 186 ms QRS Dur : 144 ms QT Int : 432 ms P-R-T Axes : 47 238 26 degrees QTcB Int : 466 ms Normal sinus rhythm Right bundle branch block Possible Lateral infarct , age undetermined Abnormal ECG When compared with ECG of 16-Apr-2024 17:51, QRS axis Shifted left Borderline criteria for Lateral infarct are now Present Confirmed by Rito Johnston ([id number]) on 04/18/2024 3:19:42 PM Referred By: REFERRED SELF Confirmed By: Rito Johnston
--- NOTE | 2024-04-18 15:23 | Cardiology Progress Note ---
Date of Service April 18, 2024 Assessment & Plan (1) ACS (acute coronary syndrome): Plan: Patent PINON to LAD, graft to PDA Occluded SVG to LCx, possibly acutely occluded OM 2. ICMEF 35-40%, lateral/inferolateral wall motion abnormality 3. Type 2 diabetes 4. Hypertension 5. History of AAA post EVAR, known bilateral iliac aneurysms 6. Liver lesionawaiting MRI Chest pain resolved today. -1 L yesterday. No significant congestion on exam today Remains electrically stable. Will discontinue heparin drip today. Discontinue Nitropaste. If chest pain recurs can consider trial of Imdur Continue DAPT with aspirin, clopidogrel Continue current lisinopril/HCTZ, spironolactone Increase metoprolol to 25 mg every 8. Toprol-XL on discharge Start SGLT2 From a cardiac standpoint if remains chest pain-free overnight okay with discharge tomorrow with follow-up with me in 1 to 2 weeks. Admission and Anticipated Discharge Date Admission Date: April 16, 2024 Subjective Sitting up in chair. Feeling well. Denies any chest pain. Breathing improved. Telemetry reviewedno events Review of Systems Review of Systems: All systems reviewed & are unremarkable except as noted in HPI & below Physical Exam Physical Exam: General: Comfortable HEENT: Sclerae anicteric Lungs: Clear anteriorly Cardiac: Regular rate and rhythm, no murmurs. No JVD Abdomen: Soft, nontender Extremities: Well perfused, no peripheral edema Neuro: Nonfocal Psych: Alert orient x3, normal affect and mood Results & Data Vital Signs (Past 12 Hours) Vital Signs Temp Pulse Resp BP Pulse Ox O2 Del Method O2 Flow Rate 04/18/24 11:35 99.5 F 100 H 19 126/71 91 Room Air 04/18/24 07:59 98.2 F 90 16 123/67 93 Room Air 04/18/24 06:16 92 Room Air 04/18/24 03:45 99.9 F H 91 H 18 122/71 94 Nasal Cannula 2.0 PG Care Time/CCT Total # of Minutes Spent Total Time Spent with Patient: Total time spent is greater than 50% in coordination of care (as documented) at patient's floor/unit and/or counseling patient: Coding Level of Care Code 69592 SUB INP/OBS CARE 2/35MIN Diagnoses ACS (acute coronary syndrome) I24.9
[2024-04-18] MEDS: METOPROLOL TARTRATE 25 MG TAB PO SCH (16:52)
--- NOTE | 2024-04-18 18:51 | Billing Data ---
Date of Service April 18, 2024 Coding Level of Care Code 31190 SUB INP/OBS CARE
[2024-04-18 19:14] VITALS: RESP 18
[2024-04-18] MEDS: GADOXETATE DISODIUM IV ONE (20:36)
--- NOTE | 2024-04-19 00:43 | Magnetic Resonance Report ---
Exam(s): MRI ABDOMEN W/WO Contrast IV Amt: 10cc eovist EXAM: MR Abdomen Without and With Intravenous Contrast CLINICAL HISTORY: Reason for exam: R liver lobe lesion, liver protocol MRI. TECHNIQUE: Multiplanar magnetic resonance images of the abdomen without and with intravenous contrast. CONTRAST: Patient received 10cc Eovist of IV contrast COMPARISON: CT scan dated 04/16/2024. FINDINGS: Lung bases: There is a trace left pleural effusion. Liver: The liver is enlarged and of diffuse signal abnormality. There is a 4.3 x 3.6 x 5.0 cm inhomogeneously enhancing mass noted in the right lobe of the liver.. Gallbladder/bile ducts: The patient is status post cholecystectomy.. No ductal dilatation is noted. Pancreas: No ductal dilation. No mass. Spleen: The spleen is enlarged.. Adrenals:. No mass. Kidneys and ureters: No hydronephrosis. No solid mass. Stomach and bowel: There is some air and fluid within the stomach. There is air and stool noted in the colon. Intraperitoneal space: No significant fluid collection. Soft tissues: Unremarkable. Vasculature: There is a 4 cm abdominal aortic aneurysm with an aortobiiliac stent. Lymph nodes:. No enlarged lymph nodes. IMPRESSION: The liver is enlarged and of diffuse signal abnormality which may be due to fatty infiltration. There is a 4.3 x 3.6 x 5.0 cm inhomogeneously enhancing mass noted in the right lobe of the liver.. This is suspicious for a neoplastic process such as a hepatocellular carcinoma Splenomegaly. Electronically signed by: Jose Salazar MD 04/19/24 00:42 AM
[2024-04-19 06:13] LABS: Basophils # (auto) 0.03 K/uL (0.00-0.20); Basophils % (auto) 0.3 %; Eosinophils # (auto) 0.08 K/uL (0.00-0.50); Eosinophils % (auto) 0.8 %; Hematocrit (blood only) 34.2 % (42.0-52.0); Hemoglobin 11.3 g/dl (14.0-18.0); Immature Granulocytes # (auto) 0.08 K/uL (0.01-0.20); Immature Granulocytes % (auto) 0.8 %; Lymphocytes # (auto) 0.99 K/uL (1.20-3.40); Lymphocytes % (auto) 10.1 %; Mean Corpuscular Hemoglobin 26.7 pg (25.0-34.0); Mean Corpuscular Volume 80.7 fL (80.0-100.0); Mean Platelet Volume 12.2 fL (9.4-12.4); Monocytes # (auto) 1.04 K/uL (0.11-0.59); Monocytes % (auto) 10.6 %; Neutrophils # (auto) 7.61 K/uL (1.40-6.50); Neutrophils % (auto) 77.4 %; Platelet Count 155 K/uL (130-400); RDW Coefficient of Variation 14.4 % (11.5-14.5); Red Blood Count 4.24 M/uL (4.70-6.10); White Blood Count 9.83 K/ul (4.8-10.8)
[2024-04-19 06:34] LABS: BUN Creatinine Ratio 13.9 (10-20); Creatinine Clr Calc Pharmacy 53.2 ml/min; Est GFR (African American) 51.3 ml/min; Est GFR (Non-African American) 44.2 ml/min; Potassium 3.9 mmol/L (3.5-5.1)
[2024-04-19] MEDS: LANTUS PER UNIT CHARGE SC ONE (09:20)
--- NOTE | 2024-04-19 09:53 | Hospitalist Progress Note ---
Date of Service April 19, 2024 Assessment & Plan (1) ACS (acute coronary syndrome): Plan: - Continue DAPT with aspirin, clopidogrel likely for 1 year - Continue heparin infusion per cardiology recs - Nitropaste for ongoing chest pain, can resume lisinopril/HCTZ - Continue current Toprol-XL, spironolactone - If continued positional chest pain will consider NSAIDs/colchicine (2) Hyperglycemia: Plan: - Patient had fasting BS today, 261 yesterday - Non-fasting BS, 295, and 297 04/17 - Fasting blood glucose 344 and non-fasting 367 04/18 - Adjusted Insulin Glargine 50 units, with correction factor at 12 and carb ratio of 4 - Patient normally takes approximately 350 units at home, 200 with breakfast, 100 with lunch and 40 with dinner - will continue to monitor and adjust as necessary (3) Liver lesion: Plan: - CT chest showed liver lesion, 4.3 cm enhancing right hepatic lobe lesion, suspicious for neoplasm such as cholangiocarcinoma - Non-emergent liver protocol MRI recommended (4) Chronic obstructive pulmonary disease: Plan: - Chest CT: No PE, pleural effusion, or pneumothorax. few prominent right hilar lymph nodes and mild groundglass opacities in lower lobes favoring atelectasis, possibly infection - Patient labs, signs, and symptoms do not favor acute infection - Patient to continue home regimen of fluticasone propionate 50mcg/actuation 2 sprays daily on discharge Admission and Anticipated Discharge Date Admission Date: April 16, 2024 Physical Exam Physical Exam: General: Comfortable HEENT: Sclerae anicteric Lungs: Clear anteriorly Cardiac: Regular rate and rhythm, no murmurs. No JVD Abdomen: Soft, nontender Extremities: Well perfused, no peripheral edema Neuro: Nonfocal Psych: Alert orient x3, normal affect and mood ENMT: Mallampati Class: III Respiratory: normal respiratory effort Cardiovascular: RRR, no murmur, no edema Results & Data Results & Data Vital Signs (Past 12 Hours) Vital Signs Temp Pulse Pulse Resp BP Pulse Ox O2 Del Method 04/19/24 07:50 37.1 C 77 18 119/68 90 Room Air 04/19/24 02:44 37.1 C 80 18 104/65 94 Room Air 04/19/24 00:00 95 H 04/18/24 22:44 37.3 C 73 18 110/64 93 Room Air (4) Chronic obstructive pulmonary disease COPD type: unspecified COPD Qualified Code(s): J44.9 - Chronic obstructive pulmonary disease, unspecified
[2024-04-19 15:39] VITALS: PULSE 92; TEMP 100; O2SAT 90
--- NOTE | 2024-04-19 16:05 | Discharge Summary ---
Date of Service April 19, 2024 Admission HPI Per Admitting Provider Sage Cope is a 78-year-old male who presents with chest pain which began while driving which radiates to the upper back and into the shoulder blades. Had associated numbness of his right palm. Prior history of triple bypass, type II DM, AAA, hypertension, hyperlipidemia, obesity. Per ER sign out EKG right bundle branch block, repolarization abnormalities Chest pain acute onset while driving. Nitro x2, ASA full dose pre-hospital given. Some improvement without resolution of pain Hypertensive on admission, initially systolic [id number]. CTAchest obtained for dissection/AAA rupture rule out shows no thoracic aortic dissection, no PE, mild GGO in the lower lobes bilaterally, and 4.3 cm peripherally enhancing right liver lobe lesion? Neoplasm versus metastatic disease, abscess is not excluded. High sensitive troponin normal. Per Pt: Sage is seen at the bedside. Shoulder blade and chest pain acute onset while driving this afternoon. No prior hx of chest pain since his [place] >2 [place] [facility] [place] No chest pain with exertion preceding this Was driving went to pay bills when he had chest pain which seemed to start in the from of his chest and then spread into his back Thinks it was an 8-9/10 when it occured, has improved and is now ~4/10. Does not worsen with movement. Nonreproducible on palpation. Finds movement makes the sensation better. Pressing on the chest seem sot help a little No abdominal pain. No epigastric pain Has had heartburn before, never that spread to his back +Hx DM, controlled +Hx HTN. BP normally 150-160s at home. Took his metoprolol this morning. Takes lisinopril-hctz HS, used to be BID but had orthostatic sx. Took his spironolactone this AM as well. Takes 1 25mg pill qAM Hx AAA repair thinks 5-7 years ago. Gets annual ultrasounds, last was a few years ago. as was stable and was told he no longer needed followup Medical History: Reviewed Medications: Reviewed Surgical History: Reviewed Family history: Reviewed Allergies: Reviewed. Allergic to ozempic (lost taste) and invokana (rash) Social History: No tobacco use. Very rare ETOH use Code Status: Full Admission Exam Per Admitting Provider General: A&Ox3. NAD. Cooperative. HEENT: Atraumatic, normocephalic. Vision and hearing grossly intact Pulm: CTAB A&P. -wheezes, -rales, -rhonchi. Symmetrical chest rise. No increased work of breathing. No respiratory distress. Cardiac: RRR, -mrg. Radial pulses intact and symmetrical. No reproducible chest wall tenderness Abdominal: Nontender, nondistended, soft. BS present. No right upper quadrant pain Extremities: Warm, dry Principal Diagnosis ACS Discharge Exam General: A&Ox3. NAD. Cooperative. HEENT: Atraumatic, normocephalic. Vision and hearing grossly intact Pulm: CTAB A&P. -wheezes, -rales, -rhonchi. Symmetrical chest rise. No increased work of breathing. No respiratory distress. Cardiac: RRR, S1S2. Radial pulses intact and symmetrical. No reproducible chest wall tenderness Abdominal: Nontender, nondistended, soft. BS present. No right upper quadrant pain Extremities: Warm, dry Skin: Left arm procedure site clean, no signs of bleeds hematoma or infection. Discharge Data Allergies Allergy/AdvReac Type Severity Reaction Status Date / Time canagliflozin [From Invokana] Allergy Mild rash Verified 04/16/24 18:57 semaglutide [From Ozempic] AdvReac Mild Altered Verified 04/16/24 18:57 Sense of Taste Consultations 04/16/24 17:45 ED Decision to Admit Stat 04/16/24 20:23 Consult Cardiology Routine Procedures Performed Operation Date: 04/16/24 18:30 Actual Procedures p Cineradiography w/Routine Exam - Elias Milton MD s Cath, Left w/Cors Vent Grafts - Elias Milton MD Ordered Studies 04/16/24 14:36 CT angio chest dissec wo/w con Stat 04/16/24 18:35 CL Cath Imgs for PACS use only Stat 04/18/24 19:40 MR abdomen wo/w con Routine Diabetes Follow up Diabetes Follow-up Needed for HgbA1c >9% Hospital Course (1) ACS (acute coronary syndrome): (2) Hyperglycemia: (3) Liver lesion: (4) Chronic obstructive pulmonary disease: Donna Cope is a 78-year-old male with history of triple bypass, type II DM, AAA, hypertension, hyperlipidemia, obesity presented with acute chest pain which began while driving that radiated to the upper back and into the shoulder blades. He was found to ACS under went PCI and stent placement. (1) ACS (acute coronary syndrome): - Aspirin 81mg daily -Clopidogrel 75mg daily -Llisinopril/HCTZ 20-12.5mg one tablet daily -Spironolactone 25mg daily -Continue Toprol-XL 25 TID -Jardiance 10mg daily (2) Incidental Liver lesion: - CT chest showed liver lesion, 4.3 cm enhancing right hepatic lobe lesion, suspicious for neoplasm such as cholangiocarcinoma -MRI abdo : There is a 4.3 x 3.6 x 5.0 cm inhomogeneously enhancing mass noted in the right lobe of the liver.. This is suspicious for a neoplastic process such as a hepatocellular carcinoma. Plan: To follow up for IR guided liver biopsy as OP. Nurse coordinator was made aware that patient desires biopsy.. Total Time Total Time Spent Total Time Spent (In Minutes): as per attending attestation Discharge Plan Discharge Items Patient Disposition: Home - Self-Care Reason For Visit: CHEST PAIN Discharge Diagnosis: Heart attack Activity: Per Instructions section Non-emergency contact: Primary Care Provider and Campaign Advisor Call non-emergency contact if: you have any medication questions, your symptoms worsen, your wound has increased redness and your wound has increased drainage Follow-up/Referrals: Jonathan Swanson MD [Primary Care Provider] - Diet: Heart Healthy Addtl Attending Provider Instructions: You were admitted to the hospital for a heart attack (also called a myocardial infarction.) You underwent a cardiac catheterization procedure and had 1 stent placed by our tying machine operator. Now, the important part is to continue the medications that cardiology recommend to protect the stent and prevent it from getting clogged, and to continue to be active and eat well. You should plan to do cardio exercises regularly (but as tolerated) to further strengthen the heart, and avoid fried, fatty, and processed foods. During your stay we also did your heart ultrasound (Echocardiogram) that showed reduced pumping function of your heart which we call heart failure. Heart failure does not mean that your heart is "failing", but it means the pumping function is less that what it was before. You should continue to follow up with cardiology for this reason. The tying machine operator has recommend you go home on the following medication regime: * Aspirin 81 mg daily + Clopidogrel 75 mg one daily for antiplatelet therapy to help stabilize the stent that was placed * Toprol-XL 25mg mg three times daily, this is for blood pressure but also is protective of heart tissue after a heart attack * Atorvastatin 80 mg daily, this is for stabilization of the stent that you have * Jardiance 10 mg daily, this is for heart failure. Please also continue taking Spironolactone + Lisinopril-HCTZ for your blood pressure. Please do not stop any of these medications without talking to your primary care physician or tying machine operator first. Also let them know if you have any issues getting or affording any of these medications. Please plan to follow up with cardiology in 1-2 weeks. Plan to follow up with your primary care physician at the start of this upcoming week, Sunday or Sunday. You will have to call their office Sunday morning to set up this appointment. In regards to Liver mass that we discussed that was found on MRI that we discussed. A biopsy was recommended to further evaluate what the mass is. We have have reached out to our nurse coordinator and she will help arrange this and you should expect a call in 1-2 weeks to setup an appointment and if you have not heard anything after 2 weeks please contact your PCP. Pending Studies at Discharge: No Stand-Alone Forms: [facility] [place], Smoking Cessation Medications and DC Order Prescriptions: New clopidogrel 75 mg Tablet 75 mg PO QAM 30 Days Qty: 30 1RF Jardiance 10 mg tablet 10 mg PO DAILY Qty: 30 1RF metoprolol succinate [Toprol XL] 25 mg tablet extended release 24 hr 25 mg PO TID 30 Days Qty: 90 1RF Continued lisinopril-hydrochlorothiazide 20-12.5 mg tablet 1 tab PO HS Qty: 30 2RF levothyroxine 125 mcg tablet 125 mcg PO .COMPLEX 30 Days Qty: 30 11RF Rx Instructions: 125 mcg orally TAKE ON AN EMPTY STOMACH WITH A FULL GLASS OF WATER, WAIT 30 MINUTES TO EAT, DRINK, OR TAKE MEDICATIONS; fenofibrate micronized 134 mg capsule 134 mg PO DAILY 30 Days Qty: 30 5RF Patient Comments: qam Humulin R U-500 (Conc) Kwikpen 500 unit/mL (3 mL) insulin pen See Rx Instructions .ROUTE .COMPLEX MDD 350 units Qty: 60 1RF Rx Instructions: Inject 200 units sq with breakfast and 10 100 units sq with lunch and 40 units sq with dinner. atorvastatin 80 mg tablet 80 mg PO DAILY Qty: 30 5RF spironolactone [Aldactone] 25 mg tablet 25 mg PO DAILY Qty: 30 2RF metformin 1,000 mg tablet 1,000 mg PO BID 30 Days Qty: 60 5RF aspirin 81 mg tablet,delayed release (DR/EC) 81 mg PO QAM fluticasone propionate 50 mcg/actuation spray,suspension 2 sprays intranasal DAILY omeprazole 20 mg capsule,delayed release(DR/EC) 20 mg PO QAM cyanocobalamin (vitamin B-12) 1,000 mcg tablet extended release 1,000 mcg PO DAILY cholecalciferol (vitamin D3) 125 mcg (5,000 unit) capsule 2,500 unit PO DAILY (DME) Prodigy No Coding Strip See Rx Instructions .Route Qty: 200 0RF Rx Instructions: test 2 times daily (DME) pen needle, diabetic [Comfort EZ Pen [place]] 31 gauge x 1/4" needle See Rx Instructions .Route Qty: 100 2RF Rx Instructions: Use three times a day with insulin pen. Discontinued metoprolol tartrate 25 mg tablet 25 mg PO BID Discharge Orders: Discharge Order (Routine); Ordered 04/19/24 Ordered By: Jovany Fair Admission Data Admit Date/Time: 04/16/24 18:49 Attending Provider: Charles Patino Admit Provider: Mina Ricardo Primary Care Provider: Jonathan Swanson Other Providers: Mina Ricardo; Elias Milton Other Interventions: Discharge Summary Assessment (RN) Last Done: 04/19/24 16:45 Supervising Physician Co-Signing Physician Notes I personally examined the patient and verified all limon points of history and exam, discussed case, and agree with decision making with Dr Manzo feels good. Feels up to going home. In discussion of liver lesion he is comfortable with getting biopsy done as an outpatient. Discussed with cardiology. Input greatly appreciated. Vitals noted, in general he is awake and alert pleasant no distress. HEENT normocephalic atraumatic mucous membranes moist. Breathing unlabored no accessory muscle use good effort. Skin shows no rashes no pallor or icterus. NSTEMI - med management, Stable for home. Outpatient follow-up DM - resume U-500 at home as per previous dosing. Liver lesionasked nurse navigator to assist in getting him set up with an IR biopsy next week. Discussed with him PCP will guide further management and follow-up based on biopsy results. otherwise as above, safe/stable for home Resident Activity Tracking Resident Involvement: Resident Care Provided Care Provided: Adult Hospital Medicine
[2024-04-19 16:47] VITALS: BP 154/77
--- NOTE | 2024-04-19 17:36 | Billing Data ---
Date of Service April 19, 2024 Coding Level of Care Code 89163 IN/OBS DISCH 30 MIN/LESS
[2024-04-19] MEDS ORDERED: LANTUS PER UNIT CHARGE SQ SCH (21:00)
--- NOTE | 2024-04-19 22:14 | Cardiology Progress Note ---
Date of Service April 19, 2024 Assessment & Plan (1) ACS (acute coronary syndrome): Plan: Patent PINON to LAD, graft to PDA Occluded SVG to LCx, possibly acutely occluded OM 2. ICMEF 35-40%, lateral/inferolateral wall motion abnormality 3. Type 2 diabetes 4. Hypertension 5. History of AAA post EVAR, known bilateral iliac aneurysms 6. Liver lesionMRI suspicious for malignancy Chest pain free. No congestion on exam. Remains electrically stable. Mild SUKHJINDER today. From a cardiac standpoint stable for discharge today. Continue DAPT with aspirin, clopidogrel Continue current lisinopril/HCTZ, spironolactone Transition to toprol XL Started on Jardiance Repeat BMP next week. Follow-up with me in 1-2 weeks. Will discuss cardiac rehab. Admission and Anticipated Discharge Date Admission Date: April 16, 2024 Subjective Feeling well. Denies any chest pain. Breathing improved. Telemetry reviewedno events Review of Systems Review of Systems: All systems reviewed & are unremarkable except as noted in HPI & below Physical Exam Physical Exam: General: Comfortable HEENT: Sclerae anicteric Lungs: Clear anteriorly Cardiac: Regular rate and rhythm, no murmurs. No JVD Abdomen: Soft, nontender Extremities: Well perfused, no peripheral edema Neuro: Nonfocal Psych: Alert orient x3, normal affect and mood Results & Data Vital Signs (Past 12 Hours) Vital Signs Temp Pulse Resp BP BP Pulse Ox O2 Del Method 04/19/24 16:45 100.0 F H 92 H 18 154/77 H 123/73 90 04/19/24 15:37 100.0 F H 92 H 18 123/73 90 Room Air 04/19/24 11:21 99.5 F 101 H 18 108/65 95 Room Air PG Care Time/CCT Total # of Minutes Spent Total Time Spent with Patient: Total time spent is greater than 50% in coordination of care (as documented) at patient's floor/unit and/or counseling patient: Coding Level of Care Code 29675 SUB INP/OBS CARE 235MIN Diagnoses ACS (acute coronary syndrome) I24.9
== END 2024-04-19 18:18 | disposition home or self-care (01) | DRG 281 ==
LOC: ED 14:07 → CC 18:46 → SUATTDRO 18:49 → 2S 18:49 → CC 19:12

== ENCOUNTER 2024-07-15 13:02 | Inpatient (IN) ==
[2024-07-15] MEDS: SODIUM CHLORIDE 0.9% 1,000 ML IV ONE (13:47)
[2024-07-15 13:50] LABS: Basophils # (auto) 0.06 K/uL (0.00-0.20); Basophils % (auto) 0.5 %; Eosinophils # (auto) 0.36 K/uL (0.00-0.50); Hemoglobin 12.2 g/dl (14.0-18.0); Immature Granulocytes # (auto) 0.16 K/uL (0.01-0.20); Immature Granulocytes % (auto) 1.3 %; Lymphocytes # (auto) 0.69 K/uL (1.20-3.40); Lymphocytes % (auto) 5.7 %; Mean Corpuscular Hemoglobin 25.7 pg (25.0-34.0); Mean Corpuscular Hgb Conc 32.1 g/dL (32.0-36.0); Mean Corpuscular Volume 80.2 fL (80.0-100.0); Mean Platelet Volume 12.4 fL (9.4-12.4); Monocytes # (auto) 1.38 K/uL (0.11-0.59); Monocytes % (auto) 11.5 %; Neutrophils # (auto) 9.36 K/uL (1.40-6.50); Platelet Count 270 K/uL (130-400); RDW Coefficient of Variation 14.9 % (11.5-14.5); RDW Standard Deviation 43.3 fL (36.4-46.3); Red Blood Count 4.74 M/uL (4.70-6.10); White Blood Count 12.01 K/ul (4.8-10.8)
[2024-07-15 14:06] LABS: Albumin Globulin Ratio 1.1 (0.9-2); Albumin Level 3.5 gm/dl (3.4-5.0); BUN Creatinine Ratio 32.3 (10-20); Bilirubin,Total 0.7 mg/dl (0.2-1.0); Calcium 9.7 mg/dl (8.6-10.3); Creatinine Clr Calc Pharmacy 21.4 ml/min; Globulin 3.2 gm/dl (2.5-4.0); Potassium 4.9 mmol/L (3.5-5.1); Total Protein 6.7 gm/dl (6.0-8.3)
--- NOTE | 2024-07-15 14:18 | Emergency Department Note ---
Impression & Plan SUKHJINDER (acute kidney injury) ED Provider Note Diagnosis: Acute kidney injury Disposition: Admission CHIEF COMPLAINT: Right flank pain HPI: Patient is a 79-year-old male with history of liver cancer presenting with right flank pain. Patient states he has had some pain in this region since he had a procedure done 10 days prior for localized injection of chemotherapy had to liver mass. Patient states they went in through his left arm. Patient states over the past 2 to 3 days time the flank pain has intensified. Patient denies fevers or chills. Patient denies nausea or vomiting. Patient states he has not been urinating as much is normal. Patient denies fevers or chills. PAST MEDICAL HISTORY: See Below PAST SURGICAL HISTORY: See Below SOCIAL HISTORY: See Below HOME MEDICATIONS: See Below ALLERGIES: See Below VITALS: See Below PHYSICAL EXAMINATION: GENERAL: Well appearing, well nourished, NAD, non-toxic. EYE EXAM: Normal conjunctiva. OROPHARYNX: Moist mucus membranes. Grossly normal dentition. NECK: Supple, LUNGS: Clear to auscultation. Normal chest wall mechanics. HEART: NSR ABDOMEN: Abdomen soft, non-tender, BACK: Tenderness right flank, no rashes over the area SKIN: No rashes and no bruising. UPPER EXTREMITIES: Upper extremities are grossly normal, chlorhexidine stain to left forearm region, 2+ radial pulse no signs of hematoma from recent procedure LOWER EXTREMITIES: Grossly normal, no edema. NEURO EXAM: A&O x3,, normal speech, moves all 4 extremities PSYCH: Cooperative MEDICAL DECISION MAKING: History obtained from: Patient ER Course: Patient is a 79-year-old male presenting with history of liver cancer with recent targeted chemotherapy of the liver. Patient states this was done approximately 10 days prior. Patient points to right flank region for acute pain today. Patient states he has not been urinating as much is normal. Patient's creatinine found to be 3.3 with a baseline of approximately 1.2. Patient has no fevers or chills. Patient's urinalysis does not show infection. Patient's CT of abdomen and pelvis shows changes to her liver of potential hepatic infarct in the region where the chemotherapy was injected. Please see discussion with pbx installer below. Patient admitted to our hospitalist service for treatment of his acute kidney injury. Labs (independently interpreted) are significant for: Acute kidney injury creatinine above 3 Medications given: Normal saline bolus Consultants: Discussion with pbx installer Dr. Cervantes of [facility], discussed patient CT scan findings states that this is most likely normal findings after the localized chemotherapy. Would just recommend conservative management nothing further to do about CT scan findings of liver. Okay to stay at our facility to treat acute kidney injury. Hospital service Chronic conditions affecting care: Liver cancer Triage Nursing notes reviewed and agree them. Vital Signs: reviewed and remarkable for: no significant abnormalities Past Med/Surg History Problem List (Updated 07/15/24 @ 17:00 by Masood Hood DO) SUKHJINDER (acute kidney injury) (Acute) Chemotherapy adverse reaction Hepatocellular carcinoma Chronic obstructive pulmonary disease Diabetes type 2, controlled CAD (coronary artery disease) Cardiomyopathy Liver lesion AAA (abdominal aortic aneurysm) without rupture (Chronic) Obesity (Chronic) Loss of protective sensation of skin of foot (Chronic) Hypothyroidism (Chronic) Hypertension (Chronic) Dyslipidemia (Chronic) Dysesthesia (Chronic) Diabetic peripheral neuropathy associated with type 2 diabetes mellitus (Chronic) Diabetic nephropathy associated with type 2 diabetes mellitus (Chronic) Chronic kidney disease, stage I (Chronic) Albuminuria (Chronic) History of colon polyps Medical History (Updated 07/15/24 @ 17:00 by Masood Hood DO) GERD (gastroesophageal reflux disease) Vitamin D deficiency Surgical History History of cataract surgery RT H/O colonoscopy with polypectomy History of AAA (abdominal aortic aneurysm) repair H/O hernia repair History of tooth extraction History of tonsillectomy History of cardiac cath + 30 YEARS AGO/NO STENTS Hx of cholecystectomy Hx of CABG 3 VESSELS 30+ YEARS AGO AT [facility] Hx of appendectomy Family History Mother Diabetes Hypertension Father Diabetes Heart disease Hypertension Grandfather (Paternal) Heart disease Other No family history of adverse response to anesthesia Social History Smoking Status: Former smoker Tobacco Type: Cigarettes Cigarettes Per Day: 45+ YEARS AGO; Second Hand Exposure: No; Do You Dip or Chew Tobacco: No; Hx Alcohol Use: Yes Alcohol type: beer Hx Substance Use: No Preferred Language: Turkish Communication Ability: Effective Photographic Aide Required: No Beliefs That Will Affect Care: None marital status: Current Living Situation: Family current occupational status: retired current occupation: Retired Feels Safe at Home: Yes Assistive Devices: Cane and Walker Allergies Allergies Allergy/AdvReac Type Severity Reaction Status Date / Time canagliflozin [From Invokana] Allergy Mild rash Verified 05/07/24 11:13 semaglutide [From Ozempic] AdvReac Mild Altered Verified 05/07/24 11:13 Sense of Taste Home Meds Home Medications Medication Instructions Recorded Confirmed aspirin 81 mg tablet,delayed 81 mg PO QAM 05/08/19 05/07/24 release cyanocobalamin (vitamin B-12) 1,000 mcg PO DAILY 05/08/19 05/07/24 1,000 mcg tablet,extended release fluticasone propionate 50 2 sprays intranasal DAILY 05/08/19 05/07/24 mcg/actuation nasal spray,suspension omeprazole 20 mg capsule,delayed 20 mg PO QAM 05/08/19 05/07/24 release cholecalciferol (vitamin D3) 125 2,500 unit PO DAILY 05/11/23 05/07/24 mcg (5,000 unit) capsule Previous Rx's Medication Instructions Recorded blood sugar diagnostic (Prodigy No #200 ea 07/11/21 Coding strips) lisinopril 20 1 tab PO HS #30 tabs 07/24/22 mg-hydrochlorothiazide 12.5 mg tablet pen needle, diabetic 31 gauge x #100 ea 10/02/22 1/" (Comfort EZ Pen Hudson) insulin regular hum U-500 conc 500 See Rx Instructions .Route 01/31/24 unit/mL(3 mL) subcut pen (Humulin .COMPLEX #60 mL R U-500 (Conc) Insulin Kwikpen) atorvastatin 80 mg tablet 80 mg PO DAILY #30 tabs 03/17/24 metformin 1,000 mg tablet 1,000 mg PO BID 30 days #60 tabs 04/15/24 spironolactone 25 mg tablet 25 mg PO DAILY #30 tabs 04/15/24 (Aldactone) metoprolol succinate 25 mg 25 mg PO TID 30 days #90 tabs 04/19/24 tablet,extended release 24 hr (Toprol XL) levothyroxine 125 mcg tablet 125 mcg PO .COMPLEX 30 days #30 05/23/24 tabs empagliflozin 10 mg tablet 10 mg PO DAILY #30 tabs 06/26/24 (Jardiance) fenofibrate micronized 134 mg 134 mg PO DAILY 30 days #30 caps 06/26/24 capsule clopidogrel 75 mg tablet 75 mg PO QAM #90 tabs 06/30/24 Results & Data (ED) Vital Signs Vital Signs - 24 hr 07/15/24 13:20 07/15/24 13:40 07/15/24 13:43 Temperature 36.5 C Temperature Source Oral Pulse Rate 75 75 Pulse Rate [Apical] 74 Respiratory Rate 19 18 Respiratory Effort / Characteristics Non-Labored Spontaneous Non-Labored Spontaneous Respiratory Depth Normal Normal Respiratory Pattern Regular Regular Blood Pressure 100/58 L Blood Pressure [Left Arm] 114/57 L Blood Pressure Mean 72 Blood Pressure Mean [Left Arm] 76 Blood Pressure Position Semi-fowlers Pulse Oximetry 98 96 Oxygen Delivery Method Room Air Room Air Sepsis Recent Fever Within 48 Hours No Sepsis New/Unexplained Change in Mental Status No Sepsis Action Taken by Nursing No Action Required 07/15/24 15:00 07/15/24 16:30 Temperature Temperature Source Pulse Rate Pulse Rate [Apical] 72 80 Respiratory Rate 18 14 Respiratory Effort / Characteristics Respiratory Depth Respiratory Pattern Blood Pressure Blood Pressure [Left Arm] 135/74 134/77 Blood Pressure Mean Blood Pressure Mean [Left Arm] 94 96 Blood Pressure Position Pulse Oximetry 98 98 Oxygen Delivery Method Room Air Room Air Sepsis Recent Fever Within 48 Hours Sepsis New/Unexplained Change in Mental Status Sepsis Action Taken by Nursing Laboratory Data 07/15/24 13:15 07/15/24 13:15 Lab Results 07/15/24 07/15/24 Range/Units 13:15 14:02 WBC 12.01 H (4.8-10.8) K/ul RBC 4.74 (4.70-6.10) M/uL Hgb 12.2 L (14.0-18.0) g/dl Hct 38.0 L (42.0-52.0) % MCV 80.2 (80.0-100.0) fL MCH 25.7 (25.0-34.0) pg MCHC 32.1 (32.0-36.0) g/dL RDW Std Deviation 43.3 (36.4-46.3) fL RDW Coeff of Isaac 14.9 H (11.5-14.5) % Plt Count 270 (130-400) K/uL MPV 12.4 (9.4-12.4) fL Immature Gran % (Auto) 1.3 % Neut % (Auto) 78.0 % Lymph % (Auto) 5.7 % Weber % (Auto) 11.5 % Eos % (Auto) 3.0 % Baso % (Auto) 0.5 % Neut # (Auto) 9.36 H (1.40-6.50) K/uL Lymph # (Auto) 0.69 L (1.20-3.40) K/uL Weber # (Auto) 1.38 H (0.11-0.59) K/uL Eos # (Auto) 0.36 (0.00-0.50) K/uL Baso # (Auto) 0.06 (0.00-0.20) K/uL Immature Gran # (Auto) 0.16 (0.01-0.20) K/uL Sodium 131 L (136-145) mmol/L Potassium 4.9 (3.5-5.1) mmol/L Chloride 98 (98-107) mmol/L Carbon Dioxide 19 L (21-32) mmol/L Anion Gap 14 H (3-11) BUN 114 H (6-23) mg/dl Creatinine 3.53 H (0.6-1.4) mg/dl Est Cr Clr Drug Dosing 21.4 ml/min eGFR 17.06 BUN/Creatinine Ratio 32.3 H (10-20) Glucose 249 H (70-99(Fasting)) mg/dl Calcium 9.7 (8.6-10.3) mg/dl Total Bilirubin 0.7 (0.2-1.0) mg/dl AST 61 H (13-39) U/L ALT 207 H (7-52) U/L Alkaline Phosphatase 145 H (34-104) U/L Total Protein 6.7 (6.0-8.3) gm/dl Albumin 3.5 (3.4-5.0) gm/dl Globulin 3.2 (2.5-4.0) gm/dl Albumin/Globulin Ratio 1.1 (0.9-2) Lipase 11 (11-82) U/L Urine Color Yellow Urine Appearance Clear (Clear) Urine pH 5.0 (4.5-7.5) Ur Specific [place] 1.019 (1.000-1.030) Urine Protein Negative (Negative) Urine Glucose (UA) 3+ H (Negative) Urine Ketones Trace H (Negative) Urine Blood Negative (Negative) Urine Nitrite Negative (Negative) Urine Bilirubin Negative (Negative) Urine Urobilinogen Negative (Negative) Ur Leukocyte Esterase Negative (Negative) Administered Medications Discontinued Medications Sodium Chloride (Nss) 1,000 mls @ 999 mls/hr IV .Q1H1M ONE Stop: 07/15/24 14:34 Last Infusion: 07/15/24 14:59 Dose: Infused Documented By: Admin: 07/15/24 13:47 Dose: 999 mls/hr Documented By: JACKIE Imaging Data Radiologist's Impression: Abdomen/Pelvis CT 07/15/24 14:[address] WITHOUT CONTRAST CT DOSE: 1586.39 mGy.cm HISTORY: Acute pain of the right flank/abdomen/chemoembolization. Atypical hepatocellular proliferation seen on pathology of right liver mass. SUKHJINDER, right flank pain, recent chemo to liver TECHNIQUE: Multiaxial CT images of the abdomen and pelvis were performed without contrast. A dose lowering technique was utilized adhering to the principles of ALARA. COMPARISON STUDY: Ultrasound guided liver biopsy 05/20/2024, MRI abdomen 04/18/2024, CTA chest 04/16/2024 FINDINGS: No acute process of the lower chest. No pneumoperitoneum. Spleen is mildly enlarged at 13.7 cm. Unremarkable pancreas and adrenal glands. Cholecystectomy. Cirrhotic liver with hepatic steatosis. Right hepatic lobe mass redemonstrated on image 103 measuring 5.0 x 4.4 cm. Intralesional air within the lesion is new from prior and may be secondary to prior chemoembolization. Large areas of decreased attenuation within the right hepatic lobe measure up to 10 cm on image 86 series 3 and within the inferior right hepatic lobe on image 156 measuring 5.8 cm. Moderate adjacent pericapsular edema to the liver. 4 mm calcification at the interpolar right kidney with 3 mm calcification of the interpolar left kidney. No ureteral calculi or hydronephrosis. Decompressed bladder with wall thickening. Severe atherosclerosis. Infrarenal abdominal aortic aneurysm measures 4.0 x 3.9 cm with aortobiiliac stent graft. Fusiform dilation of the common iliac arteries. No lymphadenopathy. No bowel obstruction or bowel wall thickening. No acute fracture. Degenerative changes of the spine, pelvis and hips. IMPRESSION: 1. Cirrhosis with right hepatic lobe mass redemonstrated, now with intralesional air which may be secondary to recent chemoembolization. 2. There are large confluent wedge-shaped hypodense areas within the right hepatic lobe measuring up to 10 cm suggestive of posttreatment related hepatic infarcts. Hepatic abscesses or less likely new areas of multifocal malignancy considered less likely. Findings could be correlated with Doppler ultrasound to assess for portal vein patency. 3. No bowel obstruction or bowel wall thickening. 4. No ureteral calculi or hydronephrosis. 5. Additional findings as above. ACT 112: Negative or not required by law. The above report was generated using voice recognition software. It may contain grammatical, syntax or spelling errors. Electronically signed by: Grant Snyder M.D. 07/15/2024 3:55 PM Discharge Plan Visit Data Chief Complaint: Abdominal Pain Stated Complaint: Abdominal Pain ED Provider: Masood Hood Discharge Problem: SUKHJINDER (acute kidney injury) Forms Stand Alone Forms: [facility] [email or web address] Prescriptions Prescriptions: No Action lisinopril-hydrochlorothiazide 20-12.5 mg tablet 1 tab PO HS Qty: 30 2RF Humulin R U-500 (Conc) Kwikpen 500 unit/mL (3 mL) insulin pen See Rx Instructions .ROUTE .COMPLEX MDD 350 units Qty: 60 1RF Rx Instructions: Inject 200 units sq with breakfast and 10 100 units sq with lunch and 40 units sq with dinner. atorvastatin 80 mg tablet 80 mg PO DAILY Qty: 30 5RF spironolactone [Aldactone] 25 mg tablet 25 mg PO DAILY Qty: 30 2RF metformin 1,000 mg tablet 1,000 mg PO BID 30 Days Qty: 60 5RF levothyroxine 125 mcg tablet 125 mcg PO .COMPLEX 30 Days Qty: 30 11RF Rx Instructions: 125 mcg orally TAKE ON AN EMPTY STOMACH WITH A FULL GLASS OF WATER, WAIT 30 MINUTES TO EAT, DRINK, OR TAKE MEDICATIONS; fenofibrate micronized 134 mg capsule 134 mg PO DAILY 30 Days Qty: 30 5RF Patient Comments: qam Jardiance 10 mg tablet 10 mg PO DAILY Qty: 30 5RF clopidogrel 75 mg tablet 75 mg PO QAM Qty: 90 3RF aspirin 81 mg tablet,delayed release (DR/EC) 81 mg PO QAM fluticasone propionate 50 mcg/actuation spray,suspension 2 sprays intranasal DAILY omeprazole 20 mg capsule,delayed release(DR/EC) 20 mg PO QAM cyanocobalamin (vitamin B-12) 1,000 mcg tablet extended release 1,000 mcg PO DAILY cholecalciferol (vitamin D3) 125 mcg (5,000 unit) capsule 2,500 unit PO DAILY (DME) Prodigy No Coding Strip See Rx Instructions .Route Qty: 200 0RF Rx Instructions: test 2 times daily (DME) pen needle, diabetic [Comfort EZ Pen Hudson] 31 gauge x 1/4" needle See Rx Instructions .Route Qty: 100 2RF Rx Instructions: Use three times a day with insulin pen. metoprolol succinate [Toprol XL] 25 mg tablet extended release 24 hr 25 mg PO TID 30 Days Qty: 90 1RF Referrals Referrals: Jonathan Swanson MD [Primary Care Provider] -
[2024-07-15 14:41] LABS: Appearance Urine Clear (Clear); Bilirubin Urine Negative (Negative); Blood Urine Negative (Negative); Color Urine Yellow; Glucose Urine UA 3+ (Negative); Ketones Urine Trace (Negative); Leukocyte Esterase Urine Negative (Negative); Nitrite Urine Negative (Negative); Protein Urine Negative (Negative); Specific Gravity Urine 1.019 (1.000-1.030); Urobilinogen Urine Negative (Negative)
--- NOTE | 2024-07-15 15:57 | CT Scan Report ---
ABDOMEN AND PELVIS CT WITHOUT CONTRAST CT DOSE: 1586.39 mGy.cm HISTORY: Acute pain of the right flank/abdomen/chemoembolization. Atypical hepatocellular proliferati on seen on pathology of right liver mass. SUKHJINDER, right flank pain, recent chemo to liver TECHNIQUE: Multiaxial CT images of the abdomen and pelvis were performed without contrast. A dose lo wering technique was utilized adhering to the principles of ALARA. COMPARISON STUDY: Ultrasound guided liver biopsy 05/20/2024, MRI abdomen 04/18/2024, CTA chest 4 FINDINGS: No acute process of the lower chest. No pneumoperitoneum. Spleen is mildly enlarged at 13.7 cm. Unremarkable pancreas and adrenal glands. Cholecystectomy. Cirrhotic liver with hepatic steatosi s. Right hepatic lobe mass redemonstrated on image 103 measuring 5.0 x 4.4 cm. Intralesional air with in the lesion is new from prior and may be secondary to prior chemoembolization. Large areas of decre ased attenuation within the right hepatic lobe measure up to 10 cm on image 86 series 3 and within th e inferior right hepatic lobe on image 156 measuring 5.8 cm. Moderate adjacent pericapsular edema to the liver. 4 mm calcification at the interpolar right kidney with 3 mm calcification of the interpolar left kidn ey. No ureteral calculi or hydronephrosis. Decompressed bladder with wall thickening. Severe atherosc lerosis. Infrarenal abdominal aortic aneurysm measures 4.0 x 3.9 cm with aortobiiliac stent graft. Fu siform dilation of the common iliac arteries. No lymphadenopathy. No bowel obstruction or bowel wall thickening. No acute fracture. Degenerative changes of the spine, pelvis and hips. IMPRESSION: 1. Cirrhosis with right hepatic lobe mass redemonstrated, now with intralesional air which may be sec ondary to recent chemoembolization. 2. There are large confluent wedge-shaped hypodense areas within the right hepatic lobe measuring up to 10 cm suggestive of posttreatment related hepatic infarcts. Hepatic abscesses or less likely new a reas of multifocal malignancy considered less likely. Findings could be correlated with Doppler ultra sound to assess for portal vein patency. 3. No bowel obstruction or bowel wall thickening. 4. No ureteral calculi or hydronephrosis. 5. Additional findings as above. ACT 112: Negative or not required by law. The above report was generated using voice recognition software. It may contain grammatical, syntax o r spelling errors. Electronically signed by: Grant Snyder M.D. 07/15/2024 3:55 PM
--- NOTE | 2024-07-15 16:48 | History & Physical Report ---
Date of Service July 15, 2024 Assessment & Plan (1) Chemotherapy adverse reaction: Plan: Pt is a 79 yo male with PMH of HCC, cirrhosis, DM, HTN, HLD, and CAD presenting to the hospital d/t increasing abdominal pain. Abdominal pain secondary to recent TACE/transaminitis - pt with recent TACE in [facility] 07/07; suspect pt's current symptoms of pain and subsequent PO poor intake/weakness, etc secondary to recent chemotherapy (ER physician did discuss case with pt's [facility] who recommended continued pain control, conservative measures, etc) - will avoid tylenol d/t new transaminitis; trend CMP in AM - will avoid NSAIDs d/t SUKJHINDER as below - ordered dilaudid 0.25mg q6hr PRN for pain - PT/OT consulted d/t increased weakness (pt lives at home alone) SUKHJINDER on CKD - baseline Cr ~1.2; Cr on admission 3.53 - suspect pre-renal in the setting of poor PO intake - avoid NSAIDs; hold home lisinopril/HCTZ and spironolactone - s/p 1L NS in ER; will continue IVF at 80 mL/hr x1L (cautious with fluids d/t EF 35-40%); encourage PO intake - f/u BMP DM - hold home metformin; will continue jardiance d/t HF benefit - will start with insulin glargine 12u BID; SSI PRN HTN/CAD/ICM - will hold home lisinopril/HCTZ and spironolactone in the setting of SUKHJINDER as above - continue home jardiance, metoprolol, aspirin/plavix, atorvastatin, and fenofibrate - last echo 04/2024 showing EF 35-40% secondary to ischemia; cautious IVF as above Hypothyroidism - continue home levothyroxine Diet: carb consistent as tolerated VTE ppx: heparin BID Code: full Dispo: admit to med/surg (2) Diabetes type 2, controlled: (3) CAD (coronary artery disease): (4) Hypertension: (5) Hypothyroidism: (6) Dyslipidemia: (7) Chronic kidney disease, stage I: (8) Hepatocellular carcinoma: (9) Transaminitis: (10) SUKHJINDER (acute kidney injury): History of Present Illness Chief Complaint: abdominal pain Primary Care Provider: Jonathan Swanson MD Pt is a 79 yo male with PMH of HCC, cirrhosis, DM, HTN, HLD, and CAD presenting to the hospital d/t increasing abdominal pain. Pt recently (07/07) had TACE procedure at [facility] for his HCC. This was his first treatment like this. He notes about a day afterwards he noticed decreased appetite. He did try to eat some but he would throw up. He ended up taking some pink pills that helped with the vomiting and he hasn't thrown up since. However, his appetite has remained poor for the entire week. A few days ago, he started with right sided abdominal pain. It is worst when he is moving- especially from laying down to standing. When he lays still, the pain is minimal. He denies SOB/chest pain. He notes some dizziness while initially standing but once he stands for a bit the dizziness goes away. In the ER, pt was given 1L of NS. Allergies Allergy/AdvReac Type Severity Reaction Status Date / Time canagliflozin [From Invokana] Allergy Mild rash Verified 05/07/24 11:13 semaglutide [From Ozempic] AdvReac Mild Altered Verified 05/07/24 11:13 Sense of Taste Home Medications Medication Instructions Recorded Confirmed Type aspirin 81 mg tablet,delayed 81 mg PO QAM 05/08/19 07/15/24 History release cyanocobalamin (vitamin B-12) 1,000 mcg PO DAILY 05/08/19 07/15/24 History 1,000 mcg tablet,extended release fluticasone propionate 50 2 sprays intranasal DAILY 05/08/19 07/15/24 History mcg/actuation nasal spray,suspension omeprazole 20 mg capsule,delayed 20 mg PO QAM 05/08/19 07/15/24 History release blood sugar diagnostic (Prodigy No #200 ea 07/11/21 05/07/24 Rx Coding strips) lisinopril 20 1 tab PO HS #30 tabs 07/24/22 07/15/24 Rx mg-hydrochlorothiazide 12.5 mg tablet pen needle, diabetic 31 gauge x #100 ea 10/02/22 05/07/24 Rx 1/4" (Comfort EZ Pen [place]) cholecalciferol (vitamin D3) 125 2,500 unit PO DAILY 05/11/23 07/15/24 History mcg (5,000 unit) capsule insulin regular hum U-500 conc 500 See Rx Instructions .Route 01/31/24 07/15/24 Rx unit/mL(3 mL) subcut pen (Humulin .COMPLEX #60 mL R U-500 (Conc) Insulin Kwikpen) atorvastatin 80 mg tablet 80 mg PO DAILY #30 tabs 03/17/24 07/15/24 Rx metformin 1,000 mg tablet 1,000 mg PO BID 30 days #60 tabs 04/15/24 07/15/24 Rx spironolactone 25 mg tablet 25 mg PO DAILY #30 tabs 04/15/24 07/15/24 Rx (Aldactone) metoprolol succinate 25 mg 25 mg PO TID 30 days #90 tabs 04/19/24 07/15/24 Rx tablet,extended release 24 hr (Toprol XL) levothyroxine 125 mcg tablet 125 mcg PO .COMPLEX 30 days #30 05/23/24 07/15/24 Rx tabs empagliflozin 10 mg tablet 10 mg PO DAILY #30 tabs 06/26/24 07/15/24 Rx (Jardiance) fenofibrate micronized 134 mg 134 mg PO DAILY 30 days #30 caps 06/26/24 07/15/24 Rx capsule clopidogrel 75 mg tablet 75 mg PO QAM #90 tabs 06/30/24 07/15/24 Rx Past Med/Surg History Problem List (Updated 07/15/24 @ 17:42 by Pamela Moreno DO) Transaminitis SUKHJINDER (acute kidney injury) (Acute) Chemotherapy adverse reaction Hepatocellular carcinoma Chronic obstructive pulmonary disease Diabetes type 2, controlled CAD (coronary artery disease) Cardiomyopathy Liver lesion AAA (abdominal aortic aneurysm) without rupture (Chronic) Obesity (Chronic) Loss of protective sensation of skin of foot (Chronic) Hypothyroidism (Chronic) Hypertension (Chronic) Dyslipidemia (Chronic) Dysesthesia (Chronic) Diabetic peripheral neuropathy associated with type 2 diabetes mellitus (Chronic) Diabetic nephropathy associated with type 2 diabetes mellitus (Chronic) Chronic kidney disease, stage I (Chronic) Albuminuria (Chronic) History of colon polyps Medical History (Updated 07/15/24 @ 17:42 by Pamela Moreno DO) GERD (gastroesophageal reflux disease) Vitamin D deficiency Surgical History History of cataract surgery RT H/O colonoscopy with polypectomy History of AAA (abdominal aortic aneurysm) repair H/O hernia repair History of tooth extraction History of tonsillectomy History of cardiac cath + 30 YEARS AGO/NO STENTS Hx of cholecystectomy Hx of CABG 3 VESSELS 30+ YEARS AGO AT [facility] Hx of appendectomy Family History Mother Diabetes Hypertension Father Diabetes Heart disease Hypertension Grandfather (Paternal) Heart disease Other No family history of adverse response to anesthesia Social History Smoking Status: Former smoker Tobacco Type: Cigarettes Cigarettes Per Day: 45+ YEARS AGO; Second Hand Exposure: No; Do You Dip or Chew Tobacco: No; Hx Alcohol Use: Yes Alcohol type: beer Hx Substance Use: No Preferred Language: Malian Communication Ability: Effective 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 Eyes: Conjunctivae normal. Respiratory: CTA bilaterally. Non labored breathing. No rhonchi, wheezing, or crackles. Cardiovascular: RRR. No murmurs noted. No LE edema. Gastrointestinal (Abdomen): Distended, tender on posterior right flank, +BS. No guarding. No masses noted. Skin: No rashes or skin lesions noted. Neurologic: Sensation grossly intact. No FND appreciated. Psychiatric: Speech of normal pace and content. Mood and affect congruent. Results & Data Results & Data Vital Signs (Past 12 Hours) Vital Signs Temp Pulse Pulse Resp BP BP Pulse Ox 07/15/24 16:30 80 14 134/77 98 07/15/24 15:00 72 18 135/74 98 07/15/24 13:43 75 07/15/24 13:40 74 18 114/57 L 96 07/15/24 13:20 36.5 C 75 19 100/58 L 98 O2 Del Method 07/15/24 16:30 Room Air 07/15/24 15:00 Room Air 07/15/24 13:43 07/15/24 13:40 Room Air 07/15/24 13:20 Room Air Supervising Physician Co-Signing Physician Notes Sage Cope is a 79-year-old male with a past medical history of COPD, type 2 diabetes mellitus, CAD, AAA, and liver cancer who presents with right flank pain after localized injection of chemotherapy to his liver mass 10 days ago. Patient had left arm access, and has had intensifying pain over 2 to 3 days. CTA/P: Cirrhosis of the right hepatic lobe, now with intralesional air which may be second to recent chemoembolization Large confluent wedge-shaped hypodense areas in the right hepatic lobe up to 10 cm suggestive of posttreatment hepatic infarcts. Hepatic abscesses are less likely new areas of multifocal malignancy less likely. Doppler recommended for protal vein patency Has an SUKHJINDER with increased renal function from 1.51 now 3.53 Last [facility] hepatology note reviewed. 06/23/2024. MRI follow-up showed enlarged liver with 4.3 x 3.6 x 5 cm enhancing mass in the right lower lobe suspicious for neoplasm/HCC Ultrasound-guided liver biopsy 05/20/2024 was initially read as HCC. Outside consultation with [facility] pathology diagnosed lesion is well-differentiated hepatocellular lesion differential diagnosis including reactive change, dysplastic nodule, and well-differentiated hepatocellular neoplasm. This was subsequently sent to [facility] for review who noted atypical hepatocellular prophy liberation in a background of cirrhosis Patient was reviewed at multidisciplinary liver tumor board. Was anticipated to pursue TACE Follow-up 07/03/2024 tumor conference universal consensus is that the mass in the liver is hepatocellular carcinoma clearly meeting a lie RADS 5 criteria. TACE treatment arranged at [facility] 07/07/2024 07/07/2024 IR note, s/p Patient underwent transcatheter arterial chemoembolization Case was reviewed with [facility] hepatology prior to admission consultation, and findings on CT were reviewed by [facility] Hepatology Dr. Cervantes (Office # [phone]). Was noted that patient would not typically have imaging this soon all findings, but above are expected and suspected to be normal postprocedural f indings. Recommended pain control, no additional imaging at this time, conservative care. Even if patient were to be transferred they would not do any type of other intervention at this time. Right flank pain is suspected to be referred from his liver postprocedure.Patient will be admitted for hydration and pain control as above. Resident Activity Tracking Resident Involvement: Resident Care Provided Care Provided: [facility]
[2024-07-15] MEDS ORDERED: ONDANSETRON INJ 2 MG/ML 2 ML VIAL IV PRN (17:21)
[2024-07-15] MEDS ORDERED: MELATONIN 3 MG TAB PO PRN (17:21)
[2024-07-15] MEDS: LACTATED RINGER'S 1,000 ML IV SCH (17:42)
[2024-07-15] MEDS ORDERED: DEXTROSE 50% 50 ML SYRINGE IV PRN (20:19)
[2024-07-15] MEDS ORDERED: CARBOHYDRATES FOR HYPOGLYCEMIA PO PRN (20:19)
[2024-07-15] MEDS ORDERED: GLUCOSE 10 TAB/TUBE PO PRN (20:19)
[2024-07-15] MEDS ORDERED: GLUCAGON FOR INJ 1 MG VIAL SQ PRN (20:19)
[2024-07-15] MEDS ORDERED: GLUCOSE 40% GEL 15 GM TUBE PO PRN (20:19)
[2024-07-15] MEDS: METOPROLOL SUCC 25MG EXT REL TAB PO SCH (21:27)
[2024-07-15] MEDS: HEPARIN SOD 5,000 UNIT/0.5 ML VIAL SQ SCH (21:28)
[2024-07-15] MEDS: INSULIN ASPART PER UNIT CHARGE SC SCH (22:03)
[2024-07-15] MEDS: LANTUS PER UNIT CHARGE SQ SCH (22:04)
[2024-07-16] MEDS: INSULIN ASPART PER UNIT CHARGE SC STA (00:26)
--- OUTSIDE RECORDS SUMMARY | 2024-07-16 02:54 | External Medical Summary | Continuity of Care Document ---
Author Name Unknown Organization [facility] Address [address] [place] [id number] Care Team Providers Care School Examiner Name Role Phone Sky, Jonathan Primary Care Physician [phone] Encounter [facility] [id number] Date(s): 07/07/24 - 07/07/[address] [phone] Discharge Disposition: Home or Self Care Attending Physician: MD Veronica, Dawna Corado Referring Physician: MD Brittni, Handy Hilario Allergies, Adverse Reactions, Alerts Substance Criticality Severity Reaction Reaction Severity Status Ozempic loss of taste Active Functional Status 07/07/24 History of Fall in Last 3 Months Paul N o Presence of Secondary Diagnosis Paul No Use of Ambulatory Aid Paul None/bedrest /nurse assist IV/Heparin Lock Fall Risk Paul No Gait/Transferring Fall Risk Paul Normal /bedrest/immobile Mental Status Fall Risk Paul Oriented t o own ability Paul Fall Risk Score 0 Paul Fall Risk No Risk Immunizations Given and Recorded Vaccine Date Status Refusal Reason SARS-CoV-2 (COVID-19) mRNA-vacc - [id number] 05/29/24 Recorded SARS-CoV-2 (COVID-19) mRNA-vacc - [id number] 09/14/23 Recorded influenza virus vaccine, inactivated 05/12/24 Give n influenza virus vaccine, inactivated 06/20/23 Give n [...] influenza virus vaccine, inactivated 06/20/12 Give n RSV vaccine, preF A-preF B, recombinant 10/04/23 R ecorded SARS COVID Vaccine Unspecified 1 09/14/23 Recorded SARS-CoV-2 mRNA-1273 (6y+ bivalent) 07/06/22 Recor ded zoster vaccine, inactivated 06/27/22 Recorded zoster vaccine, inactivated 08/14/19 Recorded zoster vaccine, inactivated 03/03/19 Recorded SARS-CoV-2 (COVID-19) mRNA-1273 vaccine 01/10/22 R ecorded SARS-CoV-2 (COVID-19) mRNA BNT-162b2 vax 06/21/21 Recorded SARS-CoV-2 (COVID-19) mRNA BNT-162b2 vax 12/08/20 Recorded SARS-CoV-2 (COVID-19) mRNA BNT-162b2 vax 11/10/20 Recorded tetanus/diphtheria/pertuss, acel (Tdap) 04/12/20 G iven tetanus/diphtheria/pertuss, acel (Tdap) 12/21/09 R ecorded tetanus/diphtheria/pertuss, acel (Tdap) 09/22/09 R ecorded pneumococcal 23-valent vaccine 08/14/19 Given pneumococcal 23-valent vaccine 01/14/01 Recorded pneumococcal 23-valent vaccine 09/18/00 Recorded pneumococcal 13-valent vaccine 05/18/15 Given zoster vaccine live 06/24/12 Recorded 1Result Comment: Digitizer: [employer] Medications aspirin 81 mg oral tablet Start: 06/20/12 10:22:00 AM EDT, 1 tab, PO, Daily Start Date: 06/20/12 Status: Ordered atorvastatin 20 mg oral tablet Start: 08/10/21 9:40:00 AM EST, 1 tab, PO, qhs Start Date: 08/10/21 Status: Ordered atorvastatin 80 mg oral tablet Start: 07/03/24 1:42:00 PM EDT, 30 tab, 0 Refill(s) Start Date: 07/03/24 Status: Ordered clopidogrel 75 mg oral tablet Start: 04/28/24 2:10:00 PM EDT, 1 tab, PO, Daily Start Date: 04/28/24 Status: Ordered fenofibrate 134 mg oral capsule Start: 07/03/24 1:43:00 PM EDT, 1 cap, PO, Daily Start Date: 07/03/24 Status: Ordered fenofibrate 160 mg oral tablet Start: 09/19/19 12:35:19 PM EST, See Instructions, Disp# 30, Refills: 5, TAKE 1 TABLET DAILY FOR 30 DAYS., [facility]acy: [facility], TAKE 1 TABLET DAILY FOR 30 DAYS. Start Date: 09/19/19 Status: Ordered fluticasone 50 mcg/inh nasal spray Start: 10/05/23 8:22:00 AM EST, 2 spray, intranasal, Daily, Disp# 16 g, Refills: 11, Pharmacy: [facility] Start Date: 10/05/23 Status: Ordered FreeStyle Gabrielle [...] TAKE 1 TABLETS BY MOUTH DAILY, Pharmacy: [facility]) Start Date: 10/04/23 Status: Ordered Jardiance 10 mg oral tablet Start: 04/28/24 2:10:00 PM EDT, 1 tab, PO, Daily Start Date: 04/28/24 Status: Ordered levothyroxine 100 mcg (0.1 mg) oral tablet Start: 07/23/19 10:15:00 AM EST, 1 tab, PO, Daily Start Date: 07/23/19 Status: Ordered levothyroxine 125 mcg (0.125 mg) oral tablet Start: 07/03/24 1:42:00 PM EDT, 30 tab, 0 Refill(s) Start Date: 07/03/24 Status: Ordered metFORMIN 1000 mg oral tablet Start: 04/17/18 8:19:00 AM EDT, See Instructions, Disp# 60 tab, Refills: 10, TAKE (1) TABLET TWICE ADAY, Pharmacy: [facility] Start Date: 04/17/18 Status: Ordered Metoprolol Tartrate 25 mg oral tablet Start: 09/05/23 11:52:00 AM EST, 1 tab, PO, tid, Disp# 60 tab, Refills: 11, Pharmacy: [facility] Start Date: 09/05/23 Status: Ordered omeprazole 20 mg oral delayed release capsule Start: 05/21/24 5:14:00 PM EDT, 1 cap, PO, Daily, Disp# 30 cap, Refills: 11, Pharmacy: [facility] Start Date: 05/21/24 Status: Ordered spironolactone 25 mg oral tablet Start: 12/05/23 10:59:00 AM EDT, 1 tab, PO, Daily Start Date: 12/05/23 Status: Ordered Vitamin B12 Start: 01/10/18 11:45:00 AM EDT, 500 mcg =, PO, Daily Start Date: 01/10/18 Status: Ordered Vitamin D3 1000 intl units oral capsule Start: 01/10/18 11:45:00 AM EDT, 1 cap, PO, Daily Start Date: 01/10/18 Status: Ordered Problem List Condition Confirmation Course Effective Dates Status H ealth Status Informant Allergic rhinitis Confirmed Active Aneurysm artery, iliac 1 Confirmed Active Peripheral artery aneurysm Confirmed Active CAD Confirmed Active Diabetic nephropathy 2 Confirmed Active Caregiver burden Confirmed Active GERD Confirmed 10/31/10 Active S/P AAA repair using bifurcation graft Confirmed Active HYPERTENSION Confirmed 10/31/10 Active Intertrigo Confirmed Active Liver lesion Confirmed Active Microalbuminuria Confirmed Active MIXED HYPERLIPIDEMIA Confirmed 10/31/10 Active Moderate major depression Confirmed Active MORBID OBESITY Confirmed 10/31/10 Active STEMI (ST elevation myocardial infarction) Confirmed Active Colon polyps 3 Confirmed Active Small airways disease Confirmed Active Right carotid bruit Confirmed Active Type 2 diabetes with complication 4 Confirmed Active UNSPECIFIED HYPOTHYROIDISM Confirmed 10/31/10 Active Urticaria due to cold Confirmed Active Venous stasis dermatitis Confirmed Active 13.2cm on 02/04/[address] Santos [id number]: tubular adenoma 4sees Dr. Omalley Procedures Procedure Date Related Diagnosis Body Site Status Cardiac catheterization 04/16/24 C ompleted Extraction of cataract of right eye 08/01/22 [...] benign colonic mucosa 3. negative for malignancy. Results Laboratory List Name Date Glucose Level 07/07/24 Most recent to oldest [Reference Range]: 1 Glu [74-109 mg/dL] 155 mg/dL 1 *HI* (07/07/24 9:33 AM) 1Result Comment: ADA recommendation for FASTING Serum/Plasma Glucose: Normal: 70-100 mg/dL Prediabetes: 100-125 mg/dL Diabetes: 126 mg/dL or higher Vital Signs Most recent to oldest [Reference Range]: 1 2 3 Temperature [36.5-37.9 DegC] 35.9 DegC *LOW* (07/07/24 2:34 PM) 35.9 DegC *LOW* (07/07/24 9:16 AM) Heart Rate 63 bpm (07/07/24 4:15 PM) 75 bpm (07/07/24 4:04 PM) 73 bpm (07/07/24 3:45 PM) Respiratory Rate 18 br/min (07/07/24 4:15 PM) 21 br/min (07/07/24 4:04 PM) 19 br/min (07/07/24 3:45 PM) Blood Pressure 132/63mmHg (07/07/24 4:04 PM) 135/61mmHg (07/07/24 3:45 PM) 131/61mmHg (07/07/24 3:30 PM) Mean Blood Pressure 83 mmHg (07/07/24 4:04 PM) 83 mmHg (07/07/24 3:45 PM) 82 mmHg (07/07/24 3:30 PM) Cuff Pulse Pressure 69 mmHg (07/07/24 4:04 PM) 74 mmHg (07/07/24 3:45 PM) 70 mmHg (07/07/24 3:30 PM) BP Location # 1 Right Arm, Non-invasive (07/07/24 4:04 PM) Right Arm, Non-invasive (07/07/24 3:45 PM) Right Arm, Non-invasive (07/07/24 3:30 PM) Social History Social History Type Response Smoking Status Former Smoker, quit > 1 yr Sex Male Sex Representation Male (finding) Pre-OP H & P * MD Veronica, Dawna Corado: PERFORM Event Display: Pre-OP H & P Authored Date: [id number] Interventional Radiology Pre-procedure History and Physical Patient Name: KAJAL PABLO Date Of : 1945 Medical Record: [id number] Date of Service: 2024-07-07 Planned Procedure: IR Transarterial Chemoembolization Reason For Consult: Arteriogram: Chemoembolization History of Present Illness: 79Mw/CAD s/p CABG w/recurrent [place] unamenable to PCI on DAPT,AAA s/p repair,COPD,DM,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 5 liver mass for TACEnot a candidate for either liver t-plant/surgical resection Past Medical and Surgical History: Diabetic nephropathy, Aneurysm artery, iliac, Peripheral artery aneurysm, Moderate major depression, STEMI (ST elevation myocardial infarction), Type 2 diabetes with complication, Liver lesion, CAD, Caregiver burden, S/P AAA repair using bifurcation graft, Allergic rhinitis, Urticaria due to cold, Colon polyps, Intertrigo, Right carotid bruit, Venous stasis dermatitis, Small airways disease, Microalbuminuria, MORBID OBESITY, MIXED HYPERLIPIDEMIA, UNSPECIFIED HYPOTHYROIDISM, HYPERTENSION, GERD, 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 Resected and retrieved.Diverticulosis in the sigmoid colon.Non-bleeding internal hemorrhoids, Colonoscopy 04/05/2017 - Repeat in 5 years--04/2022, - Pathology results:A) Rectum, polypectomy: hyperplastic polypB) Colon, cecum, polypectomy:1) Benign colonic mucosa2) No hyperplastic or adenomatous change identified. 3) Negative for malignancy. C) Colon, 30cm, polypectomies: tubular adenoma, PEVAR 10/24/2016, Punch biopsy 05/24/2016 - left axilla, Colonoscopy 10/27/2009, - 7 small polyps - 5 descending, 1 ascending, 1 transverse, none larger than 5 mmRepeat colonoscopy 1-3 yr. PATHOLOGY:A. COLON appendiceal orifice, biopsies1. Benign colonic tissue without pathologic chane.2. No acute or chronic colitis identified.3. No hyperplastic or adenomatous change seen.4. Negative for malignancy.B. COLON, ascending, polypectomy: tubular adenomaC. COLON, transverse, polypectomy: hyperplastic polypD. COLON, descending polypectomies:1. tubular adenomas2. benign colonicmucosa3. negative for malignancy., Colonoscopy 2007, , Allergies: Ozempic-loss of taste Medications: Current Home Meds: (Last Updated 07/04 15:55) , aspirin (aspirin 81 mg oral tablet) 81 mg PO Daily,atorvastatin (atorvastatin 80 mg oral tablet) 30 tab, 0 Refill(s) Responsible Provider: Syed Omalley 07/03 13:42 , atorvastatin (atorvastatin 20 mg oral tablet) 20 mg PO qhs, cholecalciferol (Vitamin D3 1000 intl units oral capsule) 1,000 Int_Unit PO Daily, clopidogrel (clopidogrel 75 mg oral tablet) 75 mg PO Daily, cyanocobalamin (Vitamin B12) 500 mcg PO Daily, diabetes supplies (FreeStyle Gabrielle 2 - 14 day sensor), diabetes supplies (FreeStyle Gabrielle 2 - 14 day reader), empagliflozin (Jardiance 10 mg oral tablet) 10 mg PO Daily, fenofibrate (fenofibrate 134 mg oral capsule) 134 mg PO Daily, fenofibrate (fenofibrate 160 mg oral tablet) TAKE 1 TABLET DAILY FOR 30 DAYS., fluticasone nasal (fluticasone 50 mcg/inh nasal spray) 2 spray intranasal Daily, hydrochlorothiazide-lisinopril (hydrochlorothiazide-lisinopril 12.5 mg-20 mg oral tablet) TAKE 1 TABLETS BY MOUTH DAILY, insulinregular (HumuLIN R U500 KwikPen CONCENTRATED 500 units/mL human recombinant subcutaneous solution) 200 units in the Am110 units in the [id number] units in the evening, levothyroxine (levothyroxine 125 mcg (0.125 mg) oral tablet) 30 tab, 0 Refill(s) Responsible Provider: Syed Omalley 07/03 13:42 , levothyroxine (levothyroxine 100 mcg (0.1 mg) oral tablet) 100 mcg PO Daily, metFORMIN ( metFORMIN 1000 mg oral tablet) TAKE (1) TABLET TWICE A DAY, metoprolol (Metoprolol Tartrate 25 mg oral tablet) 1 tab PO tid, omeprazole (omeprazole 20 mg oral delayed release capsule) 1 cap PO Daily,spironolactone (spironolactone 25 mg oral tablet) 25 mg PO Daily, Labs: Date: 06/23/2024 Time: 08:10 BUN 27 Cr 1.76 INR 1.1 PT 14.1 Hct 38.1 Hgb 12 Plats 199 WBC 7.6 Other Studies: 04/18/24 OS MRI, 06/23/24 lft's:, ALT-17, T. bili 0.5, D. 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 Anesthesia records * Services, CPDI: PERFORM Event Display: Sedation & Analgesia Record Authored Date: [id number] Patient Care team information Care Team Personnel Name: MD Daron, Tanner Tripp Position: Physician - Family Med Member Role: Lifetime Relationship Address: [address] [place] [address] [place] Name: REBECCA Webb Lynn Position: Physician [employer] Exempt - Vasc Surg Member Role: Lifetime Relationship Address: [address] [place] [address] [place] Name: MD Swanson Juan Position: Physician - Family Med Member Role: Primary Care Provider Address: [address] [place] [address] [place] Name: MD Montalvo Eugene J Position: Physician - Vascular Surg Member Role: Lifetime Relationship Address: [address] [place] [address] [place] Name: MD Galo Ying Position: Physician - Pathologist Member Role: Lifetime Relationship Address: [address] [place] [address] Care Team Related Persons Name: TITO LEMUS
--- OUTSIDE RECORDS SUMMARY | 2024-07-16 02:54 | External Medical Summary | Continuity of Care Document ---
Author Name Unknown Organization [facility] [address] [place] [id number] Care Team Providers Care Camp Advisor Name Role Phone Jonathan Swanson Primary Care Physician [phone] Encounter [facility] [id number] Date(s): 06/23/24 - 06/23/24 [facility] [address] [facility] [address], [address], [address] [place] [address] [phone] Encounter Diagnosis Liver mass(Discharge Diagnosis) - 06/23/24 Discharge Disposition: Home or Self Care Attending Physician: MD Elkins Ian R Referring Physician: MD Swanson Juan Allergies, Adverse Reactions, Alerts Substance Criticality Severity Reaction Reaction Severity Status Ozempic loss of taste Active Assessment and Plan Extracted from: Title:TACE 07/07/24. Author:REBECCA Tavares Holly Date:06/25/24 INTERVENTIONAL RADIOLOGY OUTPATIENT NOTE Name: KAJAL PABLO Patient Number: [id number] : 1945 Date of Service: 06/25/2024 PROCEDURE: IR Transarterial Chemoembolization SCHEDULED DATE: 07/07/2024 Diet and Medications: No food after midnight except for clear non-carbonated liquids up to 1 hour prior to arrival time. Take all prescribed medications with small sips of water except as directed below. Hold the following oral hypoglycemics the morning of the procedure: Glucophage (metformin). Hold short-acting / all other forms of insulin the morning of the procedure. Hold the following prior the procedure: Jardiance for 4 days Other Orders: Okay to continue Aspirin/Plavix for arterial interventions. Extracted from: Title:Hepatology Office Visit Note Author:Kyle hardwick MD, Bienvenido Date:06/23/24 79-year-old manwith metabo lic syndrome and multiplecardiovascular comorbiditieson dual antiplatelet therapypresentingfor referralforliver mass. Biopsy of this mass has revealed evidence of cirrhosiswhich is most likely secondary toMASLD/MASH given his medical comorbiditiesandlimited alcohol consumption. Given the radiographic appearanceandpathologic examination,we feel close is certain that this does representaneoplasm, most likely HCC. We discussed thisextensively with the patient and his daughter. In addition, we discussedthe main treatment pathwaysif this is in fact HCC, including liver transplant (not a candidate due to age and comorbidities),surgical resection (notlikely a candidatedue to age and comorbidities), TACE,oral chemotherapy, radiationor no therapy. We [facility]. In regard to his cirrhosis,he has no evidence ofascites, edema, varicesor hepatic encephalopathy at this time. Liver mass - Multidisciplinary discussion atliver tumor board tomorrow - Obtain repeat labs (CBC, CMP, PT-INR,AFP) - Anticipate recommendation from tumor boardwill be to pursue TACEbut we will update the patientfollowing that discussion - Imaging unavailable for review at time of clinic visit and we will coordinate obtaining imaging for multidisciplinary review Bienvenido Fall MD Gastroenterology and Hepatology Fellow, PGY-5 [facility] Immunizations Given and Recorded Vaccine Date Status Refusal Reason influenza virus vaccine, inactivated 05/12/24 Give n [...] PO, qhs Start Date: 08/10/21 Status: Ordered clopidogrel 75 mg oral tablet Start: 04/28/24 2:10:00 PM EDT, 1 tab, PO, Daily Start Date: 04/28/24 Status: Ordered fenofibrate 160 mg oral tablet Start: 09/19/19 12:35:19 PM EST, See Instructions, Disp# 30, Refills: 5, TAKE 1 TABLET DAILY FOR 30 DAYS., Pharmacy: [facility] @[facility], TAKE 1 TABLET DAILY FOR 30 DAYS. Start Date: 09/19/19 Status: Ordered fluticasone 50 mcg/inh nasal spray Start: 10/05/23 8:22:00 AM EST, 2 spray, intranasal, Daily, Disp# 16 g, Refills: 11, Pharmacy: [facility] ([facility]) Start Date: 10/05/23 Status: Ordered FreeStyle [...] TAKE 1 TABLETS BY MOUTH DAILY, Pharmacy: [facility] AT [facility] ([facility]) Start Date: 10/04/23 Status: Ordered Jardiance [...] tab, Refills: 10, TAKE (1) TABLET TWICE VALARIE, Pharmacy: [facility] @[facility] Start Date: 04/17/18 Status: Ordered Metoprolol Tartrate 25 mg oral tablet Start: 09/05/23 11:52:00 AM EST, 1 tab, PO, tid, Disp# 60 tab, Refills: 11, Pharmacy: [facility] AT [facility] ([facility]) Start Date: 09/05/23 Status: Ordered omeprazole 20 mg oral delayed release capsule Start: 05/21/24 5:14:00 PM EDT, 1 cap, PO, Daily, Disp# 30 cap, Refills: 11, Pharmacy: [facility] AT [facility] ([facility] Start Date: 05/21/24 Status: Ordered spironolactone [...] Start Date: 01/10/18 Status: Ordered Mental Status 06/23/24 Barriers to Learning one year None evide nt Mandatory Health Literacy Documentation Yes Health Literacy Communication Barriers N ever Primary Language Vietnamese Problem List Condition Confirmation Course Effective Dates [...] Active 13.2cm on 02/04/[address] Santos [id number]: tubular adenoma 4sees Dr. Omalley Diagnosis Diagnosis Type Effective Dates Health Status [facility] Service Informant Liver mass Discharge Diagnosis 06/23/24 Non-Specified Procedures Procedure Date Related Diagnosis Body [...] for malignancy. Results Laboratory List Name Date Alpha Fetoprotein (ALPHA FETOPROTEIN) Basic Metabolic Panel (BASIC METAB PANEL ) 06/23/24 Complete Blood Count w Differential (CBC ,DIFFH) 06/23/24 Hepatic Function Panel (HEPATIC FUNCT PA ERICA) 06/23/24 Prothrombin Time w/ INR (PROTIME WITH IN R) 06/23/24 Most recent to oldest [Reference Range]: 1 eGFR CKD-EPI [>60 mL/min/1.73 m2] 39 mL/ min/1.73 m2 *LOW* (06/23/24 4:07 PM) AFP. [<8.4 ng/mL] 4.3 ng/mL (06/23/24 4:07 PM) Estimated CrCl 45.14 mL/min (06/23/24 5:32 PM) MPV [9.0-12.2 fL] 11.8 fL (06/23/24 4:07 PM) Immature Gran% 1.3 % (06/23/24 4:07 PM) Neut% 73.9 % (06/23/24 4:07 PM) Lymph% 10.9 % (06/23/24 4:07 PM) [facility]% 10.3 % (06/23/24 4:07 PM) Baso% 0.7 % (06/23/24 4:07 PM) Eos% 2.9 % (06/23/24 4:07 PM) Immat Gran, Abs [0-0.4 K/uL] 0.10 K/uL (06/23/24 4:07 PM) Neut, Abs [2.0-7.7 K/uL] 5.68 K/uL (06/23/24 4:07 PM) Lymph, Abs [1.0-3.4 K/uL] 0.84 K/uL *LOW* (06/23/24 4:07 PM) [facility], Abs [0-1.0 K/uL] 0.79 K/uL (06/23/24 4:07 PM) Baso, Abs [0-0.1 K/uL] 0.05 K/uL (06/23/24 4:07 PM) Eos, Abs [0-0.5 K/uL] 0.22 K/uL (06/23/24 4:07 PM) Type of Diff: AUTO *Unknown* (06/23/24 4:07 PM) RDW [11.5-14.2 %] 15.1 % *HI* (06/23/24 4:07 PM) Anion Gap [5-14 mmol/L] 16 mmol/L *HI* (06/23/24 4:07 PM) Alb [3.5-5.2 g/dL] 4.2 g/dL (06/23/24 4:07 PM) Alk Phos [40-130 unit/L] 64 unit/L 1 (06/23/24 4:07 PM) ALT [0-41 unit/L] 17 unit/L (06/23/24 4:07 PM) AST [0-40 unit/L] 18 unit/L (06/23/24 4:07 PM) BUN [6-23 mg/dL] 27 mg/dL *HI* (06/23/24:07 PM) Ca [8.4-10.2 mg/dL] 9.9 mg/dL (06/23/24 4:07 PM) Cl- [98-107 mmol/L] 102 mmol/L (06/23/24 4:07 PM) HCO3 [22-29 mmol/L] 20 mmol/L *LOW* (06/23/24: PM) Cret [0.70-1.30 mg/dL] 1.76 mg/dL *HI* (06/23/24 4:07 PM) D Bili [0.0-0.3 mg/dL] 0.2 mg/dL (06/23/24 4:07 PM) Glu [74-109 mg/dL] 124 mg/dL 2 *HI* (06/23/24 4:07 PM) Hct [39-48 %] 38.1 % *LOW* (06/23/24 4:07 PM) Hgb [13.0-17.0 g/dL] 12.0 g/dL *LOW* (06/23/24 4:07 PM) INR [0.9-1.1] 1.1 3 (06/23/24 4:07 PM) K [3.5-5.1 mmol/L] 4.8 mmol/L (06/23/24 4:07 PM) MCH [28-33 pg] 26.4 pg *LOW* (06/23/24 4:07 PM) MCHC [32-36 g/dL] 31.5 g/dL *LOW* (06/23/24 4:07 PM) MCV [81-96 fL] 83.9 fL (06/23/24 4:07 PM) Na [136-145 mmol/L] 138 mmol/L (06/23/24 4:07 PM) Plts [150-350 K/uL] 199 K/uL (06/23/24 4:07 PM) PT [12.0-14.2 seconds] 14.1 seconds (06/23/24 4:07 PM) RBC [4.40-5.60 M/uL] 4.54 M/uL (06/23/24 4:07 PM) T Bili [0.0-1.2 mg/dL] 0.5 mg/dL (06/23/24 4:07 PM) Prot [6.4-8.3 g/dL] 6.9 g/dL (06/23/24 4:07 PM) WBC [4.0-10.4 K/uL] 7.68 K/uL (06/23/24 4:07 PM) 1Result Comment: Low levels of ALKP may indicate a deficiency in zinc, magnesium, or malnutritionbutcan also be an indicator of a rare genetic disease hypophosphatasia (HPP). 2Result Comment: ADA recommendation for FASTING Serum/Plasma Glucose: Normal: 70-100 mg/dL Prediabetes: 100-125 mg/dL Diabetes: 126 mg/dL or higher 3Result Comment: Suggested therapeutic range for low-intensity Coumadin therapy for venous thromboembolism is INR 2.0-3.0 (ex: atrial fibrillation, history of TIA/stroke). For high risk patients, the suggested therapeutic range is INR 2.5-3.5 (ex: mechanical prosthetic valves). Vital Signs Most recent to oldest [Reference Range]: 1 Patient Weight 118.6 kg (06/23/24 1:55 PM) Temperature [36.5-37.9 DegC] 36.7 DegC (06/23/24 1:55 PM) Blood Pressure 104/53mmHg (06/23/24 1:55 PM) Mean Blood Pressure 65 mmHg (06/23/24 1:55 PM) Cuff Pulse Pressure 51 mmHg (06/23/24 1:55 PM) BP Location # 1 Left Arm (06/23/24 1:55 PM) Social History Social History Type Response Smoking Status Former Smoker, quit > 1 yr Sex Male Sex Representation Male (finding) Interventional Rad Outpt Note * REBECCA Tavares, Mireille: PERFORM Event Display: Interventional Rad Outpt Note Authored Date: INTERVENTIONAL RADIOLOGY OUTPATIENT NOTE Name: KAJAL PABLO Patient Number: [id number] : 1945 Date of Service: 06/25/2024 PROCEDURE: IR Transarterial Chemoembolization SCHEDULED DATE: 07/07/2024 Diet and Medications: No food after midnight except for clear non-carbonated liquids up to 1 hour prior to arrival time. Take all prescribed medications with small sips of water except as directed below. Hold the following oral hypoglycemics the morning of the procedure: Glucophage (metformin). Hold short-acting / all other forms of insulin the morning of the procedure. Hold the following prior the procedure: Jardiance for 4 days Other Orders: Okay to continue Aspirin/Plavix for arterial interventions. Electronic Signature on File Electronically Reviewed/Signed by: IKE Aldridge Author Signature Dt/Tm:06/25/2024 12:33 PM [facility] [place] PATEL Hepatology Outpatient Note * MD Juan David, Bienvenido: PERFORM, MODIFY MD Brittni, Handy R: MODIFY Event Display: Hepatology Outpt Note Authored Date: [id number] Chief Complaint liver mass History of Present Illness 79 year old man CAD s/p CABG with recurrent MS unamenable to PCI on DAPT, AAA s/p repair, COPD, DM who presents to Hepatology clinic as a new referral for liver mass. He was initially told that he had a liver lesion during admission for MS that was incidentally found on CTA chest to rule out aortic dissection which incidentally identified a 4.3 cm peripherally enhancing right hepatic lobe lesion with mild associated capsular retraction suspicious for neoplasm such as cholangiocarcinoma, metastatic disease also within the differential, abscess less likely. This was followed up with an MRI of the liver which showed an enlarged liver with diffuse signal abnormality possibly due to fatty infiltration and a 4.3 x 3.6 x 5 cm inhomogeneously enhancing mass in the right lobe of the liver suspicious for a neoplastic process such as HCC. He then underwent ultrasound-guided liver biopsy which was completed on 05/20/2024. [facility] initially called hepatocellular carcinoma and received outside consultation with [facility] pathology which diagnosed lesion as well- differentiated hepatocellular lesion, differential diagnosis including reactive change, dysplastic nodule and well-differentiated hepatocellular neoplasm. Therefore, it was sent to [facility] for additional review, who commented atypical hepatocellular proliferation in a background of cirrhosis. Patient has never been told that he was were disease in the past. He has never been informed of elevated liver enzymes in the past. There is no family history of liver disease. His last alcohol and tobacco use were 25-30 years ago and did not have excessive use of alcohol at that time. He denies any ascites, encephalopathy, melena, hematochezia, abdominal pain, fever or chills. His surgical history includes: cholecystectomy,appendectomy, CABG, cataracts. His last colonoscopy was1-2 years ago which found1-2 polyps. He has never had an EGD. Review of Systems ROS negative except for what is noted above in HPI. Physical Exam Vitals & Measurements T:36.7C BP:104/53 WT:118.6kg WT:118.600kg(Dosing) General: NAD. HEENT: EOMI, no scleral icterus, vision grosslyintact Cardiac: RRR Lungs: Breathing comfortably on RA. Abdomen: Soft, nontender, nondistended. No guarding or rebound. No masses. Extremities: No significant deformity or joint abnormality. Neurological: AAOx3. No focal neurological deficits. No asterixis. Skin: Skin normal color, texture and turgor with no lesions or rashes Psychiatric: Appropriate mood and affect. Diagnostic Results US guided liver biopsy: [facility] pathology - hepatocellular carcinomasee comment (lesion has unusual, cirrhosis like architecture but overall histology and imaging findings are not consistent with a dysplastic nodule.. Cirrhotomimetic HCC is a consideration) [facility] pathology - Well-differentiated hepatocellular lesion,see microscopic description (Sectionsof the liver biopsy show nodular configuration, consistent with cirrhosis (confirmed by submitted trichrome and reticulin stains). Submitted reticulin shows focal disruption. Hepatocytes show mild to severe cytologic atypia. Submitted immunostains show atypical hepatocytes are positive for HepPar and arginase 1, while are mostly negative for glypican-3. CK7 highlights bile ductular proliferation and intermediate hepatocytes. The overall findings are not entirely specific. The differential diagnosis include reactive changes, dysplastic nodule, well-differentiated hepatocellular neopla sm. Repeat biopsy may be considered if clinically indicated.) [facility] pathology - atypical hepatocellular proliferation in a background of cirrhosis, see comment(regenerative nodules, some with marked atypia in the form of disorder plate organization and enlarged atypical nuclear I. However the overall cirrhotic liver structure remains with residual portal tracts and fibrous septa) Images MRI Liver - enlarged liver with diffuse signal abnormality possibly due to fatty infiltration and a4.3 x 3.6 x 5 cm inhomogeneously enhancing mass in the right lobe of the liver suspicious for a neoplastic process such as HCC. Assessment/Plan 79-year-old manwith metabolic syndrome and multiplecardiovascular comorbiditieson dual antiplatelet therapypresentingfor referralforliver mass. Biopsy of this mass has revealed evidence of cirrhosiswhich is most likely secondary toMASLD/MASH given his medical comorbiditiesandlimited alcohol consumption. Given the radiographic appearanceandpathologic examination,we feel close is certain that this does representaneoplasm, most likely HCC. We discussed thisextensively with the patient and his daughter. In addition, we discussedthe main treatment pathwaysif this is in fact HCC, including liver transplant (not a candidate due to age and comorbidities),surgical resection (notlikely a candidatedue to age and comorbidities), TACE,oral chemotherapy, radiationor no therapy. We will plan to discuss his case at [facility] tumor[facility]. In regard to his cirrhosis,he has no evidence ofascites, edema, varicesor hepatic encephalopathy at this time. Liver mass - Multidisciplinary discussion atliver tumor board tomorrow - Obtain repeat labs (CBC, CMP, PT-INR,AFP) - Anticipate recommendation from tumor boardwill be to pursue TACEbut we will update the patientfollowing that discussion - Imaging unavailable for review at time of clinic visit and we will coordinate obtaining imaging for multidisciplinary review Bienvenido Fall MD Gastroenterology and Hepatology Fellow, PGY-5 [facility] Attestation I HAVE SEEN AND EXAMINED THE PATIENT IN THE PRESENCE OF DR. FALL. I AGREE WITH HIS FINDINGS AND PLAN OF CARE DOCUMENTED. Problem List/Past Medical History Ongoing Allergic rhinitis Aneurysm artery, iliac CAD Caregiver burden Colon polyps Diabetic nephropathy GERD HYPERTENSION Intertrigo Liver lesion Microalbuminuria MIXED HYPERLIPIDEMIA Moderate major depression MORBID OBESITY Peripheral artery aneurysm Right carotid bruit S/P AAA repair using bifurcation graft Small airways disease STEMI (ST elevation myocardial infarction) Type 2 diabetes with complication UNSPECIFIED HYPOTHYROIDISM Urticaria due to cold Venous stasis dermatitis Resolved AAA (Abdominal Aortic Aneurysm without Rupture) Depression DIABETIC RETINOPATHY Encounter for hepatitis C virus screening test for high risk patient Myocardial infarction Procedure/Surgical History Cardiac catheterization| Service Date: 04/16/2024Extraction of cataract of right eye| ServiceDate: 08/01/2022olonoscopy| Service Date: 06/19/2022Eye examination| Service Date: 03/28/2019Pathology report| Service Date: 01/01/2018Pathology| Service Date: 04/05/2017Colonoscopy| Service Date: 04/05/2017CT angiography abdomen, and pelvis combo| Service Date: 12/21/2016PEVAR| Service Date: 10/24/2016CXR - Chest X-ray| Service Date: 10/16/2016CT angiography abd/pelvis combo| Service Date: 09/26/2016Punch biopsy| Service Date: 05/24/2016X-ray| Service Date: Colonoscopy| Service Date: 10/27/2009Colonoscopy| Service Date: 2007Exercise stressechocardiographyAppendectomyCholecystectomyTriple Heart Bypass Medications aspirin(aspirin 81 mg oral tablet), 81 mg= 1 tab, PO, Daily atorvastatin(atorvastatin 20 mg oral tablet), 20 mg= 1 tab, PO, qhs cholecalciferol(Vitamin D3 1000 intl units oral capsule), 1000 Int_Unit= 1 cap, PO, Daily clopidogrel(clopidogrel 75 mg oral tablet), 75 mg= 1 tab, PO, Daily cyanocobalamin(Vitamin B12), 500 mcg, PO, Daily diabetes supplies(FreeStyle Gabrielle 2 - 14 day sensor) diabetes supplies(FreeStyle Gabrielle 2 - 14 day reader) empagliflozin(Jardiance 10 mg oral tablet), 10 mg= 1 tab, PO, Daily fenofibrate(fenofibrate 160 mg oral tablet), See Instructions, [...] 25 mg oral tablet), 1 tab, PO, tid omeprazole(omeprazole 20 mg oral delayed release capsule), 1 cap, PO, Daily spironolactone(spironolactone 25 mg oral tablet), 25 mg= [...] Vaccine Date Status influenza virus vaccine, inactivated 05/12/2024 Given influenza virus vaccine, inactivated 06/20/2023 Given zoster [...] Medicare Annual Wellness Visit due09/27/23and every 1year Diabetes Management A1c due01/26/24and every 366day Due Adult COVID-19 Vaccination due06/23/24Unknown Frequency Adult Social Determinants of Health Screening due06/23/24Unknown Frequency Due In Future Diabetic Eye Exam not due until11/02/24and every 366day Adult Influenza Vaccine not due until06/30/25and every 1year Satisfied(in the past 1 year) Satisfied Adult Influenza Vaccine on05/12/24.Satisfied by NORMAN Maxwell Sharon Body Mass Index on02/27/24.Satisfied by PÉREZ Bhagat, Lesia Diabetic Eye Exam on10/24/23.Satisfied by DIMITRY Longo Lynnae Electronic Signature on File Electronically Reviewed/Signed by: Bienvenido Fall MD Author Signature Dt/Tm:06/23/2024 06:13 PM Resident Division of Gastroenterology Electronically Reviewed/Signed by: Handy Elkins MD, AGAF, FACG, FACP, FAASLD Cosigner Signature Dt/Tm: 06/24/2024 10:31 AM pottery kiln builder Division of Gastroenterology & Hepatology [facility] [address], [place] [address], [place] [address] BR Patient Care team information Care Team Personnel Name: MD Daron, Tanner Tripp Position: Physician - Family Med Member Role: Lifetime Relationship Address: [address] [place] [address] [place] Name: REBECCA Webb Lynn Position: Physician Back Tacker Exempt - Vasc Surg Member Role: Lifetime Relationship Address: [address] [place] [address] Name: MD Swanson Juan Position: Physician - Family Med Member Role: Primary Care Provider Address: [address] [place] [address] [place] Name: MD Montalvo Eugene J Position: Physician - Vascular Surg Member Role: Lifetime Relationship Address: [address] [place] [address] [place] Name: MD Iraj, Maddie Position: Physician - Pathologist Member Role: Lifetime Relationship Address: [address] [place] [address] [place] Care Team Related Persons Name: TITO LEMUS"
--- OUTSIDE RECORDS SUMMARY | 2024-07-16 02:54 | External Medical Summary | Continuity of Care Document ---
Author Name Unknown Organization [address] Address [address] [place], [place] [id number] Care Team Providers Care Truck Driver Teamster Name Role Phone Jonathan Swanson Primary Care Physician [phone] [id number] Date(s): 07/03/24 - 07/03/[address] [address] [phone] Encounter Diagnosis HCC (hepatocellular carcinoma)(Discharge Diagnosis) - 07/02/24 Aneurysm artery, iliac(Discharge Diagnosis) - 07/02/24 Diabetic nephropathy(Discharge Diagnosis) - 07/02/24 Discharge Disposition: Home or Self Care Attending Physician: MD Swanson Juan Referring Physician: MD Swanson Juan Allergies, Adverse Reactions, Alerts Substance Criticality Severity Reaction Reaction Severity Status Ozempic loss of taste Active Assessment and Plan Extracted from: Title:Office Visit Note Author:MD Swanson Juan Cheko e:07/03/24 1.HCC (hepatocellular carc inoma) TACE scheduled on 07/07/2024. Has family support. 2.Aneurysm artery, iliac Status: chronic, controlled. Data: EMR. Goal: controlled and stable. Plan: continue current treatment plan. f/u with Dr. Montalvo. 3.Diabetic nephropathy Status: chronic, uncontrolled. Data: EMR. Goal: controlled and stable. Plan: continue current treatment plan. f/u with Dr. Lyssa Santos. BTO as schedule din 09/2024. 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 Start Date: 09/19/19 Status: Ordered fluticasone 50 mcg/inh nasal spray Start: 10/05/23 8:22:00 AM EST, 2 spray, intranasal, Daily, Disp# 16 g, Refills: 11, Pharmacy: [facility] Start Date: 10/05/23 Status: Ordered FreeStyle Gabrielle [...] TAKE 1 TABLETS BY MOUTH DAILY, Pharmacy: [facility] Start Date: 10/04/23 Status: Ordered Jardiance 10 [...] (1) TABLET TWICE ADAY, Pharmacy: [facility] @[facility] Start Date: 04/17/18 Status: Ordered Metoprolol Tartrate 25 mg oral tablet Start: 09/05/23 11:52:00 AM EST, 1 tab, PO, tid, Disp# 60 tab, Refills: 11, Pharmacy: [facility] ([facility] Start Date: 09/05/23 Status: Ordered omeprazole 20 mg oral delayed release capsule Start: 05/21/24 5:14:00 PM EDT, 1 cap, PO, Daily, Disp# 30 cap, Refills: 11, Pharmacy: [facility] ([facility]) Start Date: 05/21/24 Status: Ordered spironolactone 25 [...] Start Date: 01/10/18 Status: Ordered Mental Status 07/03/24 Barriers to Learning one year None evide nt Mandatory Health Literacy Documentation Yes Health Literacy Communication Barriers N ever Primary Language Hebrew Problem List Condition Confirmation Course Effective Dates [...] Active 13.2cm on 02/04/[address] Santos [id number]: tubular adenoma 4sees Dr. Omalley Diagnosis Diagnosis Type Effective Dates Health Status Clinical Service Informant HCC (hepatocellular carcinoma) Discharge Diagnosis 07/02/24 Non-Specified Aneurysm artery, iliac Discharge Diagnosis 07/02/24 Non-Specified Diabetic nephropathy Discharge Diagnosis 07/02/24 Non-Specified Procedures Procedure Date Related Diagnosis Body [...] to oldest [Reference Range]: 1 Patient Weight 117.4 kg (07/03/24 1:44 PM) Heart Rate 86 bpm (07/03/24 1:44 PM) Respiratory Rate 18 br/min (07/03/24 1:44 PM) Blood Pressure 122/54mmHg (07/03/24 1:44 PM) Social History Social History Type Response Smoking Status Former Smoker, quit > 1 yr Sex Male Sex Representation Male (finding) FCM Outpt Note * MD Swanson Juan: PERFORM Event Display: FCM Outpt Note Authored Date: [id number] Chief Complaint 4-6 wk f/u from liver bx- pt states is scheduled for TACE procedure on 07/07/24 in [place] History of Present Illness f/u liver mass biopsy. According toDr. Diego's hxustn31/22, Tumor board conference at [facility] last week:Velma consensus is that the mass in the liver is hepatocellular carcinoma. It clearly meets LiRADS5 criteria. The biopsy which shows atypical cells further supports this conclusion.Pt has been informed and Tace treatmenthas been arranged for him at [facility] on 07/07/2024. Physical Exam Vitals & Measurements HR:86(Monitored) RR:18 BP:122/54 SpO2:94% WT:117.400kg(Dosing) WT:117.4kg PHQ2 Data(Data Documented on:07/03/2024 13:44) Emotional health assessment NEGATIVE GENERAL: A&Ox3. No acute distress. Affect and speech appropriate. HEENT: PERRLA, EOMI, Conjunctivae clear. NECK: Supple, No lymphadenopathy. No carotid bruits. HEART: RRR, normal S1, S2. No murmurs, gallops or clicks. LUNGS: breathing not labored, breathing sound clear, breathing sound equal bilaterally, no rales, no wheezing. Assessment/Plan 1.HCC (hepatocellular carcinoma) TACE scheduled on 07/07/2024. Has family support. 2.Aneurysm artery, iliac Status: chronic, controlled. Data: EMR. Goal: controlled and stable. Plan: continue current treatment plan. f/u with Dr. Montalvo. 3.Diabetic nephropathy Status: chronic, uncontrolled. Data: EMR. Goal: controlled and stable. Plan: continue current treatment plan. f/u with Dr. Lyssa Santos. BTO as schedule din 09/2024. Attestation Pre-visit plannin min Vatk-et-solx visit:20 min Post-visit:0 min Total visit time:25 min Problem List/Past Medical History Ongoing Allergic [...] 81 mg= 1 tab, PO, Daily atorvastatin(atorvastatin 80 mg oral tablet) atorvastatin(atorvastatin 20 mg oral tablet), 20 mg= [...] 10 mg= 1 tab, PO, Daily fenofibrate(fenofibrate 134 mg oral capsule), 134 mg= 1 cap, PO, Daily fenofibrate(fenofibrate 160 mg oral tablet), See Instructions, 5 refills fluticasone nasal(fluticasone 50 mcg/inh nasal spray), 2 spray, intranasal, Daily hydrochlorothiazide-lisinopril(hydrochlorothiazide-lisinopril 12.5 mg-20 mg oral tablet), See Instructions, 11 refills insulin regular(HumuLIN R U500 KwikPen CONCENTRATED 500 units/mL human recombinant subcutaneous solution), See Instructions levothyroxine(levothyroxine 125 mcg (0.125 mg) oral tablet) levothyroxine(levothyroxine 100 mcg (0.1 mg) oral tablet), [...] Status Family Member(s) Immunizations Vaccine Date Status SARS-CoV-2 (COVID-19) mRNA-vacc - [id number] 05/29/2024 Recorded influenza virus vaccine, inactivated 05/12/2024 Given RSV vaccine, preF A-preF B, recombinant 10/04/2023 Recorded SARS COVID Vaccine Unspecified 09/14/2023 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[email or web address] SARS-CoV-2 (COVID-19) mRNA-vacc - [id number] 09/14/2023 Recorded influenza virus vaccine, inactivated 06/20/2023 Given SARS-CoV-2 mRNA-1273 (6y+ bivalent) 07/06/2022 Recorded zoster vaccine, inactivated 06/27/2022 Recorded influenza virus vaccine, inactivated 05/12/2022 Given SARS-CoV-2 (COVID-19) mRNA-1273 vaccine 01/10/2022 Recorded SARS-CoV-2 (COVID-19) mRNA BNT-162b2 vax 06/21/2021 Recorded influenza virus vaccine, inactivated 06/13/2021 Given SARS-CoV-2 (COVID-19) mRNA BNT-162b2 vax 12/08/2020 Recorded SARS-CoV-2 (COVID-19) mRNA BNT-162b2 vax 11/10/2020 Recorded influenza virus vaccine, inactivated 05/26/2020 Given tetanus/diphtheria/pertuss, acel (Tdap) 04/12/2020 Given pneumococcal 23-valent vaccine 08/14/2019 Given zoster vaccine, inactivated 08/14/2019 Recorded influenza virus vaccine, inactivated 06/16/2019 Given zoster [...] vaccine, inactivated 06/20/2012 Given tetanus/diphtheria/pertuss, acel (Tdap) 12/21/2009 Recorded tetanus/diphtheria/pertuss, acel (Tdap) 09/22/2009 Recorded pneumococcal 23-valent vaccine 01/14/2001 Recorded pneumococcal 23-valent vaccine 09/18/2000 Recorded Recommendations Health Maintenance Pending(in the next year) OverDue Medicare Annual Wellness Visit due09/27/23and every 1year Diabetes Management A1c due01/26/24and every 366day Due Adult Social Determinants of Health Screening due07/03/24Unknown Frequency Due In Future Diabetic Eye Exam not due until11/02/24and every 366day Adult Influenza Vaccine not due until03/02/25and every 1year Satisfied(in the past 1 year) Satisfied Adult Influenza Vaccine on05/12/24.Satisfied by NORMAN Maxwell Sharon Body Mass Index on02/27/24.Satisfied by PÉREZ Bhagat Jenna Diabetic Eye Exam on10/24/23.Satisfied by DIMITRY Longo, Naty Electronic Signature on File Electronically Reviewed/Signed by: Jonathan Swanson MD Author Signature Dt/Tm:07/03/2024 02:31 PM Department of Family Medicine JQ * Event Display: .Outpt Note Authored Date: [id number] Patient Care team information Care Team Personnel Name: MD Daron, Tanner Tripp Position: Physician - Family Med Member Role: Lifetime Relationship Address: [address] [place] [address] [place] Name: REBECCA Webb Lynn Position: Physician Corporate Communications Specialist Exempt - Vasc Surg Member Role: Lifetime Relationship Address: [address] [place] [address] [place] Name: MD Swanson Juan Position: Physician - Family Med Member Role: Primary Care Provider Address: [address] [place] [address] Name: MD Selvin, Ralf Mac Position: Physician - Vascular Surg Member Role: Lifetime Relationship Address: [address] [place] [address] [place] Name: MD Iraj, Maddie Position: Physician - Pathologist Member Role: Lifetime Relationship Address: [address] [place] [address] Care Team Related Persons Name: TITO LEMUS"
--- OUTSIDE RECORDS SUMMARY | 2024-07-16 02:55 | External Medical Summary | Continuity of Care Document ---
Author Name Unknown Organization [facility] Address [address] [place] [id number] Care Team Providers Care Associate Java Developer Name Role Phone SkyJonathan Primary Care Physician [phone] [id number] Date(s): 05/26/24 - 05/26/[address] [phone] Discharge Disposition: Home or Self Care Attending Physician: MD Javier, Mina Dempsey Referring Physician: MD Herrera Paul Dennis Allergies, Adverse Reactions, Alerts Substance Criticality Severity Reaction Reaction Severity Status Ozempic loss of taste Active Immunizations Given and Recorded Vaccine Date Status [...] DAILY FOR 30 DAYS., Pharmacy: [facility] @[facility], TAKE 1 TABLET DAILY FOR 30 DAYS. Start Date: 09/19/19 Status: Ordered fluticasone 50 mcg/inh nasal spray Start: 10/05/23 8:22:00 AM EST, 2 spray, intranasal, Daily, Disp# 16 g, Refills: 11, Pharmacy: [facility] Start Date: 10/05/23 Status: Ordered FreeStyle Gabrielle [...] TAKE 1 TABLETS BY MOUTH DAILY, Pharmacy: [facility] AT [facility]) Start Date: 10/04/23 Status: Ordered Jardiance [...] (1) TABLET TWICE ADAY, Pharmacy: [facility] @[facility] Start Date: 04/17/18 Status: Ordered Metoprolol Tartrate 25 mg oral tablet Start: 09/05/23 11:52:00 AM EST, 1 tab, PO, tid, Disp# 60 tab, Refills: 11, Pharmacy: [facility] Start Date: 09/05/23 Status: Ordered omeprazole 20 mg oral delayed release capsule Start: 05/21/24 5:14:00 PM EDT, 1 cap, PO, Daily, Disp# 30 cap, Refills: 11, Pharmacy: [facility] AT [facility] ([facility] Start Date: 05/21/24 Status: Ordered spironolactone [...] Active 13.2cm on 02/04/[address] Santos [address]: tubular adenoma 4sees Dr. Omalley Procedures Procedure [...] colonic mucosa 3. negative for malignancy. Results Anatomic Pathology Reports * Report Case Number Specimen Responsible Pathologist Report Status Surgical Pathology Consult Report [id number] MD Galo Ying; Final * Event Display: CO Clinical History Solitary 5.0 cm liver mass on MRI. Cirrhosis not mentioned on imaging. Procedure performed: Core biopsy. MD Galo Ying:VERIFY; Authored Date: [id number] * Event Display: CO Dx 1. Liver, ultrasound-guided core biopsy; ([id number]; 05/20/2024): - Well-differentiated hepatocellular lesion (see microscopic description). Maddie Galo MD (Electronically signed by) Verified: 05/28/2024 08:00 EDT Performing Location: [facility] MD Galo Ying:VERIFY; Authored Date: [id number] * Event Display: CO Disclaimer The following statement applies to flow cytometry, immunohistochemical, histochemical, molecular genetics, immunofluorescence, and in situ hybridization assays. These tests were developed and their performance characteristics determined by a [facility] Department of Pathology Laboratory. All controls show appropriate reactivity. Not all tests have been cleared or approved by the U.S. Food and Drug Administration. The FDA has determined that such clearance or approval is not necessary. For decalcified specimen types, focused validation may have been done that may or may not apply to all decalcified specimen types. Results should be interpreted with caution. MD Galo Ying:VERIFY; Authored Date: * Event Display: SC Slide/Block Desc 1 Liver, ultrasound-guided core biopsy; ([id number]; 05/20/2024) Received in consultation from Mina Herrera MD are 16 slides and pathology report. Slides will be returned. [facility] Department of Pathology [address] [place] [address] [phone] Fax MD Galo Ying:VERIFY; Authored Date: * Event Display: SC Micro 1. The patient's clinical history of liver mass is noted. Sections of the liver biopsy show nodularconfiguration, consistent with cirrhosis (confirmed by submitted trichrome and reticulin stains). Submitted reticulin shows focal disruption. Hepatocytes show mild to severe cytologic atypia. Submitted immunostains show atypical hepatocytes are positive for HepPar and arginase 1, while are mostly negative for glypican-3. CK7 highlights bile ductular proliferation and intermediate hepatocytes. Theoverall findings are not entirely specific. The differential diagnosis include reactive changes, dysplastic nodule, well-differentiated hepatocellular neoplasm. Repeat biopsy may be considered if clinically indicated. This case was reviewed intra-departmentally (IC). MD Galo Ying:VERIFY; Authored Date: [id number] Social History Social History Type Response Smoking Status Former Smoker, quit > 1 yr Sex Male Sex Representation Male (finding) Patient Care team information Care Team Personnel Name: MD Neri Jonathan D Position: Physician - Family Med Member Role: Lifetime Relationship Address: [address] [address] Name: REBECCA Webb Lynn Position: Physician Fisheries Director Exempt - Vasc Surg Member Role: Lifetime Relationship Address: [address] [place] [address] Name: MD Swanson Juan Position: Physician - Family Med Member Role: Primary Care Provider Address: [address] [place] [address] [place] Name: MD Montalvo Eugene J Position: Physician - Vascular Surg Member Role: Lifetime Relationship Address: [address] [address] Name: MD Galo Ying Position: Physician - Pathologist Member Role: Lifetime Relationship Address: [address] [place] [address] [place] Care Team Related Persons Name: TITO LEMUS
[2024-07-16] MEDS: LEVOTHYROXINE SODIUM 125 MCG TABLET PO SCH (05:29)
--- NOTE | 2024-07-16 07:27 | Hospitalist Progress Note ---
Date of Service July 16, 2024 Assessment & Plan (1) Chemotherapy adverse reaction: (2) Diabetes type 2, controlled: (3) CAD (coronary artery disease): (4) Hypertension: (5) Hypothyroidism: (6) Dyslipidemia: (7) Chronic kidney disease, stage I: (8) Hepatocellular carcinoma: (9) Transaminitis: (10) SUKHJINDER (acute kidney injury): Plan #Abdominal/ backpain pain secondary to recent TACE /transaminitis Recent TACE in [facility] 07/07; suspect symptom secondary to this. CTA/P: Cirrhosis of the right hepatic lobe, now with intralesional air which may be second to recent chemoembolization Large confluent wedge-shaped posttreatment hepatic infarcts. Hepatic abscesses are less likely. Avoid Tylenol d/t new transaminitis Avoid NSAIDs d/t SUKHJINDER Dilaudid 0.5 mg PRN 6 hours started this afternoon PT/OT on board #SUKHJINDER on CKD Baseline Cr ~1.2---> 2.19(07/16) Suspect pre-renal in the setting of poor PO intake IV fluid 1 L added; will trend AM Cr tomorrow Avoid NSAIDs; hold home lisinopril/HCTZ and spironolactone #DM Hold home metformin; will continue jardiance d/t HF benefit Insulin glargine 12u BID; SSI PRN Pharm consulted #HTN/CAD/ICM Hold home lisinopril/HCTZ and spironolactone in the setting of SUKHJINDER as above Continue home jardiance, metoprolol, aspirin/plavix, atorvastatin, and fenofibrate Echo 04/2024 showing EF 35-40% secondary to ischemia; cautious IVF as above Hypothyroidism - continue home levothyroxine Diet: carb consistent as tolerated VTE ppx: heparin BID Code: full Dispo: admit to med/surg Admission and Anticipated Discharge Date Admission Date: July 15, 2024 Supervising Physician Co-Signing Physician Notes Attending Physician Supervision Note: I independently interviewed and examined the patient and verified the limon history and physical, reviewed labs and image studies and agree with findings and care plan noted above. 79 y/o M, PMHx COPD, type 2 diabetes mellitus, CAD, AAA, and liver cancer Here with right flank pain after localized injection of chemotherapy to his liver mass 10 days ago. This am - reported persistent pain in the right flank. Sitting in chair. Pain with mobility. Intractable right flank pain - s/p chemoembolization of liver mass on 07/07. CT findings reviewed. No obstructive uropathy. Stable aneurysm. Liver likely etiology of pain with pain persistent since procedure. -continue pain control. Reach [facility] in am for any added input. SUKHJINDER - bun/creatinine with some improvement. will give 1L fluid again today. follow bmp. Heparin SQ Subjective Today morning Sgae was frustrated with pain at bedside. He says his pain in intense when he tries to move, challenging to go to bathroom by self due to pain. He is not sure if he want to take pain medicine as he does not want to deal with any side effects. I tried to answer his queries. Issue with Bowel movement. Bladder normal. No fever, nausea, vomiting, is able to eat baseline Review of Systems Review of Systems: As per HPI Physical Exam Physical Exam: Constitutional: Well appearing, Anxious HEENT: Atraumatic, Normocephalic, No conjunctival injection CVS: S1 S2 no murmur, Regular Rhythm, no LE edema Respiratory: BL equal air entry with NVBS. No rhonchi, wheezes, or crackles. No increased work of breathing GI: Soft, Nondistended, Nontender, Normal Bowel sounds + MSK: No gross deformities noted, mild tenderness in back Skin: Warm, Dry, No rashes Neuro: Alert, Oriented to TPP, No Focal deficit Psych: Mood and Affect congruent, Cooperative on exam Results & Data Results & Data Vital Signs (Past 12 Hours) Vital Signs Temp Pulse Pulse Resp BP Pulse Ox O2 Del Method 07/15/24 20:45 36.3 C L 93 H 16 151/75 H 97 Room Air 07/15/24 20:30 81 20 126/83 99 07/15/24 20:00 80 18 119/67 99 Resident Activity Tracking Resident Involvement: Resident Care Provided Care Provided: Adult Hospital Medicine
[2024-07-16] MEDS: POLYETHYLENE (MIRALAX) 17 GM PACK PO PRN (08:05)
[2024-07-16] MEDS: FENOFIBRATE NANOCRYSTALLIZED 145 MG TABLET PO SCH (08:05)
[2024-07-16] MEDS: CLOPIDOGREL BISULFATE 75 MG TAB PO SCH (08:05)
[2024-07-16] MEDS: ATORVASTATIN 40 MG TAB PO SCH (08:06)
[2024-07-16] MEDS: ASPIRIN 81 MG ECTAB PO SCH (08:06)
[2024-07-16] MEDS: FLUTICASONE PROPIONATE NA SPR 16 GM BTL SCH (08:07)
[2024-07-16] MEDS: PANTOprazole 40 MG TAB PO SCH (08:07)
[2024-07-16] MEDS: EMPAGLIFLOZIN 10 MG TAB PO SCH (08:07)
[2024-07-16] MEDS: HYDROmorphone INJ 0.5 MG/0.5 ML SYR IV PRN ×2 (10:01→22:04)
[2024-07-16 10:06] LABS: Hematocrit (blood only) 36.8 % (42.0-52.0); Hemoglobin 11.9 g/dl (14.0-18.0); Mean Corpuscular Hemoglobin 26.2 pg (25.0-34.0); Mean Corpuscular Hgb Conc 32.3 g/dL (32.0-36.0); Mean Corpuscular Volume 80.9 fL (80.0-100.0); Mean Platelet Volume 12.1 fL (9.4-12.4); Platelet Count 253 K/uL (130-400); RDW Coefficient of Variation 15.1 % (11.5-14.5); RDW Standard Deviation 44.5 fL (36.4-46.3); Red Blood Count 4.55 M/uL (4.70-6.10); White Blood Count 9.61 K/ul (4.8-10.8)
[2024-07-16 10:25] LABS: Albumin Globulin Ratio 1.1 (0.9-2); Albumin Level 3.4 gm/dl (3.4-5.0); BUN Creatinine Ratio 38.4 (10-20); Bilirubin,Total 0.9 mg/dl (0.2-1.0); Calcium 9.8 mg/dl (8.6-10.3); Creatinine Clr Calc Pharmacy 35.1 ml/min; Potassium 4.5 mmol/L (3.5-5.1); Total Protein 6.4 gm/dl (6.0-8.3)
[2024-07-16] MEDS ORDERED: PHARMACY GLYCEMIC MGMT CONSULT PRN (15:13)
--- NOTE | 2024-07-16 16:23 | Pharmacy Report ---
Pharmacy Glycemic Short Note 2 - Date of Service July 16, 2024 - Glycemic Short BSG Results (Last 24 hours): 07/15/24 07/15/24 07/15/24 21:24 21:27 23:52 Glucose POC Glucose 350 H* 369 H* 357 H* 07/15/24 07/16/24 07/16/24 23:54 02:25 07:58 Glucose POC Glucose 367 H* 239 H 203 H 07/16/24 07/16/24 09:39 11:28 Glucose 292 H POC Glucose 270 H OUTPATIENT ANTIDIABETIC REGIMEN: * Jardiance 10mg po daily * metformin 1000mg po bid * U-500 with meals (~200 units with breakfast and lunch and ~100 units with supper) HbA1c 9.1% on 04/17/24 ...next ordered 07/17 ASSESSMENT: * 79 y ear old male admitted 07/15 due a ADR from his chemotherapy and an SUKHJINDER. Patient is on large doses of U-500 with meals as an outpatient. * BSGs have been very elevated since admission. Yesterday all BSG were > 300. The BSG have improved some, but are still elevated (203mg/dl fasting and 270mg/dL at lunch) * He was ordered lantus 12 units bid. This has been increased to 20 units bid starting with the HS dose tonight. * He was ordered bolus coverage with a CF of 20 and a CHO of 10. These were tightened starting with the dinner dose tonight in order to better control prandial glucose readings. PLAN FOR INPATIENT GLYCEMIC CONTROL: * Hold outpatient diabetes medications * Basal insulin * Lantus 20 units SQ BID * Bolus insulin * NovoLog per scale ACHS or Q6hrs while NPO * Goal Range: Low 110 mg/dL - High 150 mg/dL * Correction Factor: 15 mg/dL/unit * Nutritional / Prandial insulin per carb ratio of 1 unit per 5 grams CHO consumed
[2024-07-16] MEDS: LACTATED RINGER'S 1,000 ML IV SCH (16:53)
[2024-07-16] MEDS: LANTUS PER UNIT CHARGE SQ SCH (22:02)
[2024-07-17 08:28] LABS: Basophils # (auto) 0.07 K/uL (0.00-0.20); Basophils % (auto) 0.9 %; Eosinophils # (auto) 0.32 K/uL (0.00-0.50); Eosinophils % (auto) 3.9 %; Hematocrit (blood only) 35.5 % (42.0-52.0); Hemoglobin 11.6 g/dl (14.0-18.0); Immature Granulocytes # (auto) 0.16 K/uL (0.01-0.20); Immature Granulocytes % (auto) 1.9 %; Lymphocytes # (auto) 0.63 K/uL (1.20-3.40); Lymphocytes % (auto) 7.7 %; Mean Corpuscular Hemoglobin 26.2 pg (25.0-34.0); Mean Corpuscular Hgb Conc 32.7 g/dL (32.0-36.0); Mean Corpuscular Volume 80.1 fL (80.0-100.0); Mean Platelet Volume 11.9 fL (9.4-12.4); Monocytes # (auto) 1.19 K/uL (0.11-0.59); Monocytes % (auto) 14.5 %; Neutrophils # (auto) 5.86 K/uL (1.40-6.50); Neutrophils % (auto) 71.1 %; Platelet Count 241 K/uL (130-400); RDW Coefficient of Variation 15.2 % (11.5-14.5); RDW Standard Deviation 43.8 fL (36.4-46.3); Red Blood Count 4.43 M/uL (4.70-6.10); White Blood Count 8.23 K/ul (4.8-10.8)
[2024-07-17] MEDS ORDERED: PHARMACY GLYCEMIC MGMT CONSULT PRN (08:29)
[2024-07-17] MEDS: INSULIN HUMAN NPH SC SCH ×2 (08:35→17:14)
[2024-07-17 08:36] LABS: Estimated Average Glucose 183 mg/dl
[2024-07-17 08:49] LABS: Calcium 9.7 mg/dl (8.6-10.3); Creatinine Clr Calc Pharmacy 46.9 ml/min; Potassium 5.1 mmol/L (3.5-5.1)
[2024-07-17] MEDS: OPTIRAY 320 125ml IV ONE (09:30)
--- NOTE | 2024-07-17 10:05 | CT Scan Report ---
CT ANGIOGRAPHY OF THE ABDOMEN AND PELVIS CLINICAL HISTORY: Abdominal pain, rule out mesenteric ischemia. COMPARISON STUDY: CT of the abdomen and pelvis July 05, 2024. MRI of the abdomen April 18, 2024. CTA of the abdomen and pelvis December 21, 2016. TECHNIQUE: Helical axial images of the abdomen and pelvis were obtained during arterial phase followi ng intravenous injection of 119 cc of Optiray 320 IV. Sagittal and coronal reconstructions were viewe d as well as maximal intensity projections on an independent 3-D workstation. Automated exposure cont rol was utilized for the study. A dose lowering technique was utilized adhering to the principles of ALARA. FINDINGS: No pneumatosis, free air or portal venous gas is present. A 4.3 cm segment 7 hypodense hepa tic lesion which contains foci of gas is unchanged since CT of July 15, 2024. A 8.2 cm hypodense segment 7 focus on image 69 as well as a 5.3 cm inferior right hepatic lobe focus on image 170 with m ild adjacent stranding are also unchanged and CT of July 15, 2024. These are new since MRI of Apr. The celiac axis is patent. Of note, there is occlusion of a branch of the right hepatic artery, best shown on axial image 101 of 397. Although suboptimally opacified on this arterial phase exam, the portal veins appear patent. There is no biliary ductal dilatation status post cholecystect dana. Bifurcated aortoiliac stent graft is in place. Aneurysms sac size is unchanged since CTA of 2016, measuring 4.1 cm. Dilatation of the bilateral common iliac arteries, left greater than ri ght, is unchanged. There is no evidence for rupture. Iliac limbs are patent. There is mild atheroscle rotic plaque within the proximal celiac axis and superior mesenteric artery. There is mild stenosis a t the origin the celiac axis. The superior mesenteric artery is patent without stenosis. There is no evidence for a bowel obstruction. No bowel wall thickening is present. Colonic diverticulosis is note d without evidence for acute diverticulitis. There are no fluid collections. There is no lymphadenopa thy. IMPRESSION: 1. Redemonstration of two large hypodense right hepatic lobe foci which are unchanged since CT of Jul but new since MRI of April 18, 2024. Occlusion of a branch of the right hepatic arter y, as described above. Therefore, these foci favor hepatic infarct. Hepatic abscesses are considered less likely. 2. 4.3 cm segment 7 lesion which contains foci of gas which represents the recently treated mass. 3. Mild atherosclerotic plaque within the celiac axis and superior mesenteric artery without high-gra de stenosis. Mild narrowing at the origin the celiac axis. The CT findings do not strongly suggest me senteric ischemia. No bowel wall thickening. 4. No change in appearance of the bifurcated aortoiliac stent graft and aneurysm sac since CT of 2016. ACT 112: Negative or not required by law. Electronically signed by: Raulito Edouard M.D. 07/17/2024 10:03 AM
--- NOTE | 2024-07-17 12:21 | Communication Note ---
Date of Service: July 17, 2024 GI received a consult for this 79 yo male due to being acutely hospitalized for abdominal pain 10 days after TACE procedure at for his hepatocellular carcinoma. CT abdomen/pelvis: 1. Redemonstration of two large hypodense right hepatic lobe foci which are unchanged since CT of July 15, 2024 but new since MRI of April 18, 2024. Occlusion of a branch of the right hepatic artery, as described above. Therefore, these foci favor hepatic infarct. Hepatic abscesses are considered less likely. 2. 4.3 cm segment 7 lesion which contains foci of gas which represents the recently treated mass. 3. Mild atherosclerotic plaque within the celiac axis and superior mesenteric artery without high-grade stenosis. Mild narrowing at the origin the celiac axis. The CT findings do not strongly suggest mesenteric ischemia. No bowel wall thickening. 4. No change in appearance of the bifurcated aortoiliac stent graft and aneurysm sac since CT of December 21, 2016.
[2024-07-17] MEDS: oxyCODONE HCL IR 5 MG TAB (IMMEDIATE RELEASE) PO STA (12:43)
--- NOTE | 2024-07-17 12:56 | Gastrointestinal Consultation ---
Date of Consultation July 17, 2024 Assessment & Plan (1) Hepatocellular carcinoma: From a general GI standpoint, not much to offer in this situation. Would advise pain control and ongoing follow-up with hepatology/oncology team at [facility]. Would ensure patient is on an adequate bowel regimen. He notes pain is improving and he is tolerating liquids today. Supervising Physician Co-Signing Physician Notes I saw and examined this patient with our nurse practitioner and agree with her assessment and plan. Pain on presentation is consistent with post TACE procedure. Embolization causes acute inflammation within the liver and the liver tumor which can radiate to the shoulder to the right side of the chest and also to the lower abdomen. Hemodynamically stable. No signs of significant hepatic decompensation. Imaging did not show any significant new inflammatory changes. Continue symptomatic relief with analgesics. Recommend checking an INR and repeat liver enzymes in the morning. History of Present Illness Reason for Consultation: HCC, pain s/p TACE at [facility] Attending Physician: Adele Ahmadi MD History of Present Illness Pt is a 79 yo male with PMH of HCC, cirrhosis, DM, HTN, HLD, and CAD presenting to the hospital d/t increasing abdominal pain. Pt recently (07/07) [place] [facility] [place] This was his first treatment like this. He notes about a day afterwards he noticed decreased appetite and abdominal pain. He notes to me that he wasn't eating or drinking at home. ED made contact with his batter scaler from [facility] (Dr. Henderson) who reviewed imaging and felt that everything was as expected. GI has now been consulted for this issue. He notes better control of pain since being at the hospital. He notes he has been able to tolerate liquids which is improvement based on what he was doing at home. AST 63, ALT 164, AP 145 CTA: 1. Redemonstration of two large hypodense right hepatic lobe foci which are unchanged since CT of July 15, 2024 but new since MRI of April 18, 2024. Occlusion of a branch of the right hepatic artery, as described above. Therefore, these foci favor hepatic infarct. Hepatic abscesses are considered less likely. 2. 4.3 cm segment 7 lesion which contains foci of gas which represents the recently treated mass. 3. Mild atherosclerotic plaque within the celiac axis and superior mesenteric artery without high-grade stenosis. Mild narrowing at the origin the celiac axis. The CT findings do not strongly suggest mesenteric ischemia. No bowel wall thickening. 4. No change in appearance of the bifurcated aortoiliac stent graft and aneurysm sac since CT of December 21, 2016. CT: IMPRESSION: 1. Cirrhosis with right hepatic lobe mass re-demonstrated, now with intralesional air which may be secondary to recent chemoembolization. 2. There are large confluent wedge-shaped hypodense areas within the right hepatic lobe measuring up to 10 cm suggestive of posttreatment related hepatic infarcts. Hepatic abscesses or less likely new areas of multifocal malignancy considered less likely. Findings could be correlated with Doppler ultrasound to assess for portal vein patency. 3. No bowel obstruction or bowel wall thickening. 4. No ureteral calculi or hydronephrosis. 5. Additional findings as above. Allergies Allergy/AdvReac Type Severity Reaction Status Date / Time canagliflozin [From Invokana] Allergy Mild rash Verified 05/07/24 11:13 semaglutide [From Ozempic] AdvReac Mild Altered Verified 05/07/24 11:13 Sense of Taste Home Medications Medication Instructions Recorded Confirmed Type aspirin 81 mg tablet,delayed 81 mg PO QAM 05/08/19 07/15/24 History release cyanocobalamin (vitamin B-12) 1,000 mcg PO DAILY 05/08/19 07/15/24 History 1,000 mcg tablet,extended release fluticasone propionate 50 2 sprays intranasal DAILY 05/08/19 07/15/24 History mcg/actuation nasal spray,suspension omeprazole 20 mg capsule,delayed 20 mg PO QAM 05/08/19 07/15/24 History release blood sugar diagnostic (Prodigy No #200 ea 07/11/21 05/07/24 Rx Coding strips) lisinopril 20 1 tab PO HS #30 tabs 07/24/22 07/15/24 Rx mg-hydrochlorothiazide 12.5 mg tablet pen needle, diabetic 31 gauge x #100 ea 10/02/22 05/07/24 Rx 1/4" (Comfort EZ Pen Ericson) cholecalciferol (vitamin D3) 125 2,500 unit PO DAILY 05/11/23 07/15/24 History mcg (5,000 unit) capsule insulin regular hum U-500 conc 500 See Rx Instructions .Route 01/31/24 07/15/24 Rx unit/mL(3 mL) subcut pen (Humulin .COMPLEX #60 mL R U-500 (Conc) Insulin Kwikpen) atorvastatin 80 mg tablet 80 mg PO DAILY #30 tabs 03/17/24 07/15/24 Rx metformin 1,000 mg tablet 1,000 mg PO BID 30 days #60 tabs 04/15/24 07/15/24 Rx spironolactone 25 mg tablet 25 mg PO DAILY #30 tabs 04/15/24 07/15/24 Rx (Aldactone) metoprolol succinate 25 mg 25 mg PO TID 30 days #90 tabs 04/19/24 07/15/24 Rx tablet,extended release 24 hr (Toprol XL) levothyroxine 125 mcg tablet 125 mcg PO .COMPLEX 30 days #30 05/23/24 07/15/24 Rx tabs empagliflozin 10 mg tablet 10 mg PO DAILY #30 tabs 06/26/24 07/15/24 Rx (Jardiance) fenofibrate micronized 134 mg 134 mg PO DAILY 30 days #30 caps 06/26/24 07/15/24 Rx capsule clopidogrel 75 mg tablet 75 mg PO QAM #90 tabs 06/30/24 07/15/24 Rx Patient History Medical History GERD (gastroesophageal reflux disease) Vitamin D deficiency Surgical History History of cataract surgery RT H/O colonoscopy with polypectomy History of AAA (abdominal aortic aneurysm) repair H/O hernia repair History of tooth extraction History of tonsillectomy History of cardiac cath + 30 YEARS AGO/NO STENTS Hx of cholecystectomy Hx of CABG 3 VESSELS 30+ YEARS AGO AT [place] Hx of appendectomy Family History Mother Diabetes Hypertension Father Diabetes Heart disease Hypertension Grandfather (Paternal) Heart disease Other No family history of adverse response to anesthesia Social History Smoking Status: Former smoker Tobacco Type: Cigarettes Cigarettes Per Day: 45+ YEARS AGO; Second Hand Exposure: No; Do You Dip or Chew Tobacco: No; Tobacco Cessation Education Requested by Patient: No Hx Alcohol Use: No Hx Substance Use: No Preferred Language: Setswana Communication Ability: Effective Grocery Stocker Required: No Beliefs That Will Affect Care: None marital status: Current Living Situation: Alone current occupational status: retired current occupation: Retired Other Information That Helps Us Care for You: No Feels Safe at Home: Yes Safety Concerns: Feels Safe At This Time Assistive Devices: Cane and Walker Review of Systems Gastrointestinal: + abdominal pain Physical Exam Constitutional: well developed Respiratory: normal respiratory effort Gastrointestinal (Abdomen): Inspection/Auscultation: abdomen normal to inspection; abdomen not distended Percussion/Palpation: + abdomen tender and abdomen soft Psychiatric: Orientation: alert and oriented x 3 Results & Data Vital Signs (Past 12 Hours) Vital Signs Temp Pulse Resp BP Pulse Ox O2 Del Method 07/17/24 08:04 37 C 69 18 122/67 94 Room Air PG Care Time/CCT Total # of Minutes Spent Total Time Spent with Patient: Total time spent is greater than 50% in coordination of care (as documented) at patient's floor/unit and/or counseling patient: Coding Level of Care Code 91755 INT INP/OBS CARE 3/75MIN Diagnoses Hepatocellular carcinoma C22.0
--- NOTE | 2024-07-17 13:27 | Hospitalist Progress Note ---
Date of Service July 17, 2024 Assessment & Plan (1) Chemotherapy adverse reaction: (2) Diabetes type 2, controlled: (3) CAD (coronary artery disease): (4) Hypertension: (5) Hypothyroidism: (6) Dyslipidemia: (7) Chronic kidney disease, stage I: (8) Hepatocellular carcinoma: (9) Transaminitis: (10) SUKHJINDER (acute kidney injury): Plan #Abdominal/ backpain pain secondary to recent TACE /transaminitis Recent TACE in [facility] [place] 07/07 CTA/P: Cirrhosis of the right hepatic lobe, now with intralesional air which may be second to recent chemoembolization Large confluent wedge-shaped posttreatment hepatic infarcts. Hepatic abscesses are less likely. CT angio repeated today: No new changes Dilaudid 0.5 mg PRN 4 hours: received 2 doses yesterday; last dose 10 pm Dilaudid 0.5 mg Stat ordered this AM; reassessed-- pain still persistent after an hour--- Oxycodone 5 mg STAT-- Tolerated well Oxycodone 5 mg TID added. PT/OT on board: Except good mobility after pain management. GI consult: No additional recs; continue pain management #SUKHJINDER on CKD Baseline Cr ~1.2---> 2.19(07/16)----1.64 Today Suspect pre-renal; IV LR 80ml/hr ongoing. Avoid NSAIDs; hold home lisinopril/HCTZ and spironolactone #DM HBA1C: 8.0, RBS as high as 300 despite insulin management. Consulted pharm today #HTN/CAD/ICM Hold home lisinopril/HCTZ and spironolactone in the setting of SUKHJINDER as above Continue home jardiance, metoprolol, aspirin/plavix, atorvastatin, and fenofibrate Echo 04/2024 showing EF 35-40% secondary to ischemia; cautious IVF as above Hypothyroidism - continue home levothyroxine Diet: carb consistent as tolerated VTE ppx: heparin BID Code: full Dispo: admit to med/surg Admission and Anticipated Discharge Date Admission Date: July 15, 2024 Supervising Physician Co-Signing Physician Notes Attending Physician Supervision Note: I independently interviewed and examined the patient and verified the limon history and physical, reviewed labs and image studies and agree with findings and care plan noted above. 79 y/o M, PMHx COPD, type 2 diabetes mellitus, CAD, AAA, and liver cancer Here with right flank pain after localized injection of chemotherapy to his liver mass 10 days ago. still with same level of pain in the right flank. In bed. comfortable but in pain with movement. Intractable right flank pain - s/p chemoembolization of liver mass on 07/07. CT findings reviewed. No obstructive uropathy. Stable aneurysm. Liver likely etiology of pain with pain persistent since procedure. -continue pain control - will add scheduled oxycodone and follow. SUKHJINDER - bun/creatinine with continued improvement after fluid replacement. follow bmp. DM - adjust insulin regimen for hyperglycemia. Heparin SQ PT eval pending. OT recommends return home. Subjective Today morning he seems having pain still when he tries to move, challenging to go to bathroom by self due to pain. He does not prefer pain medicine, and says medicine he was given is not that helpful for him. He is just skeptical of side effects like sleepiness, drowsiness because of meds. Pain is still 8-9/10 when he tries to move. Issue with Bowel movement. Last BM yesterday. Bladder normal. No fever, nausea, vomiting, is able to eat baseline Review of Systems Review of Systems: As per HPI Physical Exam Physical Exam: Constitutional: Well appearing, Anxious HEENT: Atraumatic, Normocephalic, No conjunctival injection CVS: S1 S2 no murmur, Regular Rhythm, no LE edema Respiratory: BL equal air entry with NVBS. No rhonchi, wheezes, or crackles. No increased work of breathing GI: Soft, Nondistended, tender RUQ, Normal Bowel sounds + MSK: No gross deformities noted, mild tenderness in right back Skin: Warm, Dry, No rashes Neuro: Alert, Oriented to TPP, No Focal deficit Psych: Mood and Affect congruent, Cooperative on exam Results & Data Results & Data Vital Signs (Past 12 Hours) Vital Signs Temp Pulse Resp BP Pulse Ox O2 Del Method 07/17/24 13:00 80 18 109/65 95 Room Air 07/17/24 08:04 37 C 69 18 122/67 94 Room Air Resident Activity Tracking Resident Involvement: Resident Care Provided Care Provided: Adult [facility]
--- NOTE | 2024-07-17 15:16 | Pharmacy Report ---
Pharmacy Glycemic Short Note 2 - Date of Service July 17, 2024 - Glycemic Short BSG Results (Last 24 hours): 07/16/24 07/16/24 07/17/24 16:36 20:56 07:43 POC Glucose 234 H 202 H 325 H* Fasting Glucose 07/17/24 07/17/24 07/17/24 07:45 07:54 11:37 POC Glucose 314 H* 177 H Fasting Glucose 341 H* OUTPATIENT ANTIDIABETIC REGIMEN: * Jardiance 10mg po daily * metformin 1000mg po bid * U-500 with meals (~200 units with breakfast and lunch and ~100 units with supper) HbA1c 9.1% on 04/17/24 ...next ordered 07/17 ASSESSMENT: 07/17 * Patient received total of 78 units of insulin yesterday, of which 32 units were basal * Fasting BSG>300 - will transition to NPH which will allow for easier transition to U-500 on discharge * Will give NPH 35 units x 1 now, and scale for dinner 07/16 * 79 y ear old male admitted 07/15 due a ADR from his chemotherapy and an SUKHJINDER. Patient is on large doses of U-500 with meals as an outpatient. * BSGs have been very elevated since admission. Yesterday all BSG were > 300. The BSG have improved some, but are still elevated (203mg/dl fasting and 270mg/dL at lunch) * He was ordered lantus 12 units bid. This has been increased to 20 units bid starting with the HS dose tonight. * He was ordered bolus coverage with a CF of 20 and a CHO of 10. These were tightened starting with the dinner dose tonight in order to better control pr andial glucose readings. PLAN FOR INPATIENT GLYCEMIC CONTROL: * Hold outpatient diabetes medications * Basal insulin * NPH 35 units daily with breakfast * NPH 10-20 units daily at dinner * Bolus insulin * NovoLog per scale ACHS or Q6hrs while NPO * Goal Range: Low 110 mg/dL - High 150 mg/dL * Correction Factor: 15 mg/dL/unit * Nutritional / Prandial insulin per carb ratio of 1 unit per 6 grams CHO consumed
[2024-07-17] MEDS: POLYETHYLENE (MIRALAX) 17 GM PACK PO SCH (18:37)
[2024-07-18] MEDS: oxyCODONE HCL IR 5 MG TAB (IMMEDIATE RELEASE) PO STA (07:21)
[2024-07-18 07:31] VITALS: TEMP 98.8
[2024-07-18] MEDS: INSULIN HUMAN NPH SC SCH (08:17)
[2024-07-18 08:54] LABS: Basophils # (auto) 0.07 K/uL (0.00-0.20); Basophils % (auto) 0.8 %; Eosinophils # (auto) 0.26 K/uL (0.00-0.50); Hematocrit (blood only) 35.4 % (42.0-52.0); Hemoglobin 11.5 g/dl (14.0-18.0); Immature Granulocytes # (auto) 0.33 K/uL (0.01-0.20); Immature Granulocytes % (auto) 3.8 %; Lymphocytes # (auto) 0.76 K/uL (1.20-3.40); Lymphocytes % (auto) 8.7 %; Mean Corpuscular Hgb Conc 32.5 g/dL (32.0-36.0); Mean Corpuscular Volume 80.1 fL (80.0-100.0); Mean Platelet Volume 11.6 fL (9.4-12.4); Monocytes # (auto) 1.24 K/uL (0.11-0.59); Monocytes % (auto) 14.2 %; Neutrophils # (auto) 6.09 K/uL (1.40-6.50); Neutrophils % (auto) 69.5 %; Platelet Count 244 K/uL (130-400); RDW Coefficient of Variation 15.1 % (11.5-14.5); RDW Standard Deviation 43.7 fL (36.4-46.3); Red Blood Count 4.42 M/uL (4.70-6.10); White Blood Count 8.75 K/ul (4.8-10.8)
[2024-07-18 09:03] LABS: BUN Creatinine Ratio 30.5 (10-20); Calcium 9.7 mg/dl (8.6-10.3); Creatinine Clr Calc Pharmacy 60.1 ml/min; Potassium 5.1 mmol/L (3.5-5.1)
[2024-07-18 09:11] LABS: INR 1.2 (0.9-1.1); Prothrombin Time 12.5 Seconds (9.0-12.0)
--- NOTE | 2024-07-18 11:00 | Gastroenterology Progress Note ---
Date of Service July 18, 2024 Assessment & Plan (1) Hepatocellular carcinoma: Plan: -Continue pain management per primary team -Continue outpatient follow-up with hepatology/oncology team at [facility] -Trend LFTs while here; it is common to see hepatitis/elevations after TACE procedure -No further inpatient GI intervention planned Admission and Anticipated Discharge Date Admission Date: July 15, 2024 Supervising Physician Co-Signing Physician Notes I saw and examined this patient with our nurse practitioner and agree with her assessment and plan. Clinically improving less abdominal pain better controlled on analgesics. No fever less abdominal tenderness. Continue to monitor LFTs which have been trending in the right direction. INR is normal suggesting no significant hepatic dysfunction. Subjective Patient is a 79 yo male with HCC s/p TACE 11 days ago. He was hospitalized for severe abdominal pain. His pain is better controlled today. He has advanced his diet. He notes he will be discharged in the next day or so. No acute concerns. Review of Systems Gastrointestinal: + abdominal pain (improved ) Physical Exam Gastrointestinal (Abdomen): normal bowel sounds, soft, nontender, no hepatosplenomegaly Results & Data Results & Data Vital Signs (Past 12 Hours) Vital Signs Temp Pulse Resp BP Pulse Ox O2 Del Method 07/18/24 07:30 37.1 C 70 16 125/72 92 Room Air Laboratory Results Laboratory Results - last 48 hr 07/16/24 07/16/24 07/17/24 16:36 20:56 07:43 WBC RBC Hgb Hct MCV MCH MCHC RDW Std Deviation RDW Coeff of Isaac Plt Count MPV Immature Gran % (Auto) Neut % (Auto) Lymph % (Auto) Greer % (Auto) Eos % (Auto) Baso % (Auto) Neut # (Auto) Lymph # (Auto) Greer # (Auto) Eos # (Auto) Baso # (Auto) Immature Gran # (Auto) PT INR Sodium Potassium Chloride Carbon Dioxide Anion Gap BUN Creatinine Est Cr Clr Drug Dosing eGFR BUN/Creatinine Ratio Glucose POC Glucose 234 H 202 H 325 H* Fasting Glucose Estimat Average Glucose Hemoglobin A1c Calcium Total Bilirubin AST ALT Alkaline Phosphatase Total Protein Albumin Globulin Albumin/Globulin Ratio 07/17/24 07/17/24 07/17/24 07:45 07:54 11:37 WBC 8.23 RBC 4.43 L Hgb 11.6 L Hct 35.5 L MCV 80.1 MCH 26.2 MCHC 32.7 RDW Std Deviation 43.8 RDW Coeff of Isaac 15.2 H Plt Count 241 MPV 11.9 Immature Gran % (Auto) 1.9 Neut % (Auto) 71.1 Lymph % (Auto) 7.7 Greer % (Auto) 14.5 Eos % (Auto) 3.9 Baso % (Auto) 0.9 Neut # (Auto) 5.86 Lymph # (Auto) 0.63 L Greer # (Auto) 1.19 H Eos # (Auto) 0.32 Baso # (Auto) 0.07 Immature Gran # (Auto) 0.16 PT INR Sodium 133 L Potassium 5.1 Chloride 103 Carbon Dioxide 21 Anion Gap 9 BUN 63 H D Creatinine 1.64 H D Est Cr Clr Drug Dosing 46.9 eGFR 42.81 BUN/Creatinine Ratio Glucose POC Glucose 314 H* 177 H Fasting Glucose 341 H* Estimat Average Glucose 183 Hemoglobin A1c 8.0 H Calcium 9.7 Total Bilirubin AST ALT Alkaline Phosphatase Total Protein Albumin Globulin Albumin/Globulin Ratio 07/17/24 07/17/24 07/18/24 16:39 20:20 07:34 WBC RBC Hgb Hct MCV MCH MCHC RDW Std Deviation RDW Coeff of Isaac Plt Count MPV Immature Gran % (Auto) Neut % (Auto) Lymph % (Auto) Greer % (Auto) Eos % (Auto) Baso % (Auto) Neut # (Auto) Lymph # (Auto) Greer # (Auto) Eos # (Auto) Baso # (Auto) Immature Gran # (Auto) PT INR Sodium Potassium Chloride Carbon Dioxide Anion Gap BUN Creatinine Est Cr Clr Drug Dosing eGFR BUN/Creatinine Ratio Glucose POC Glucose 83 175 H 218 H Fasting Glucose Estimat Average Glucose Hemoglobin A1c Calcium Total Bilirubin AST ALT Alkaline Phosphatase Total Protein Albumin Globulin Albumin/Globulin Ratio 07/18/24 07/18/24 07/18/24 08:08 11:21 11:49 WBC 8.75 RBC 4.42 L Hgb 11.5 L Hct 35.4 L MCV 80.1 MCH 26.0 MCHC 32.5 RDW Std Deviation 43.7 RDW Coeff of Isaac 15.1 H Plt Count 244 MPV 11.6 Immature Gran % (Auto) 3.8 Neut % (Auto) 69.5 Lymph % (Auto) 8.7 Greer % (Auto) 14.2 Eos % (Auto) 3.0 Baso % (Auto) 0.8 Neut # (Auto) 6.09 Lymph # (Auto) 0.76 L Greer # (Auto) 1.24 H Eos # (Auto) 0.26 Baso # (Auto) 0.07 Immature Gran # (Auto) 0.33 H PT 12.5 H INR 1.2 H Sodium 135 L 134 L Potassium 5.1 4.7 Chloride 103 101 Carbon Dioxide 23 24 Anion Gap 9 9 BUN 39 H D 37 H Creatinine 1.28 D 1.40 Est Cr Clr Drug Dosing 60.1 54.9 eGFR 57.64 51.77 BUN/Creatinine Ratio 30.5 H 26.4 H Glucose 247 H 269 H POC Glucose 228 H Fasting Glucose Estimat Average Glucose Hemoglobin A1c Calcium 9.7 9.6 Total Bilirubin 0.8 AST 76 H ALT 113 H Alkaline Phosphatase 134 H Total Protein 6.1 Albumin 3.2 L Globulin 2.9 Albumin/Globulin Ratio 1.1 PG Care Time/CCT Total # of Minutes Spent Total Time Spent with Patient: Total time spent is greater than 50% in coordination of care (as documented) at patient's floor/unit and/or counseling patient: Coding Level of Care Code 40174 SUB INP/OBS CARE 3/50MIN Diagnoses Hepatocellular carcinoma C22.0
[2024-07-18 11:59] LABS: Albumin Globulin Ratio 1.1 (0.9-2); Albumin Level 3.2 gm/dl (3.4-5.0); BUN Creatinine Ratio 26.4 (10-20); Bilirubin,Total 0.8 mg/dl (0.2-1.0); Calcium 9.6 mg/dl (8.6-10.3); Creatinine Clr Calc Pharmacy 54.9 ml/min; Globulin 2.9 gm/dl (2.5-4.0); Potassium 4.7 mmol/L (3.5-5.1); Total Protein 6.1 gm/dl (6.0-8.3)
[2024-07-18 13:17] VITALS: BP 125/67; PULSE 87; RESP 18; O2SAT 93
[2024-07-18] MEDS: oxyCODONE HCL IR 5 MG TAB (IMMEDIATE RELEASE) PO SCH (13:18)
[2024-07-18] MEDS ORDERED: INSULIN HUMAN NPH SC SCH (17:30)
--- NOTE | 2024-07-18 17:58 | Discharge Summary ---
Date of Service July 18, 2024 Admission HPI Per Admitting Provider Pt is a 79 yo male with PMH of HCC, cirrhosis, DM, HTN, HLD, and CAD presenting to the hospital d/t increasing abdominal pain. Pt recently (07/07) had TACE procedure at [facility] for his HCC. This was his first treatment like this. He notes about a day afterwards he noticed decreased appetite. He did try to eat some but he would throw up. He ended up taking some pink pills that helped with the vomiting and he hasn't thrown up since. However, his appetite has remained poor for the entire week. A few days ago, he started with right sided abdominal pain. It is worst when he is moving- especially from laying down to standing. When he lays still, the pain is minimal. He denies SOB/chest pain. He notes some dizziness while initially standing but once he stands for a bit the dizziness goes away. In the ER, pt was given 1L of NS. Admission Exam Per Admitting Provider Constitutional: NAD, vitals WNL. Eyes: Conjunctivae normal. Respiratory: CTA bilaterally. Non labored breathing. No rhonchi, wheezing, or crackles. Cardiovascular: RRR. No murmurs noted. No LE edema. Gastrointestinal (Abdomen): Distended, tender on posterior right flank, +BS. No guarding. No masses noted. Skin: No rashes or skin lesions noted. Neurologic: Sensation grossly intact. No FND appreciated. Psychiatric: Speech of normal pace and content. Mood and affect congruent. Principal Diagnosis Post TACE Pain likely d/t Ischemic liver. Discharge Exam Constitutional: Well appearing, Anxious HEENT: Atraumatic, Normocephalic, No conjunctival injection CVS: S1 S2 no murmur, Regular Rhythm, no LE edema Respiratory: BL equal air entry with NVBS. No rhonchi, wheezes, or crackles. No increased work of breathing GI: Soft, Nondistended, tender RUQ, Normal Bowel sounds + MSK: No gross deformities noted, mild tenderness in right back Skin: Warm, Dry, No rashes Neuro: Alert, Oriented to TPP, No Focal deficit Psych: Mood and Affect congruent, Cooperative on exam Discharge Data Allergies Allergy/AdvReac Type Severity Reaction Status Date / Time canagliflozin [From Invokana] Allergy Mild rash Verified 05/07/24 11:13 semaglutide [From Ozempic] AdvReac Mild Altered Verified 05/07/24 11:13 Sense of Taste Consultations 07/15/24 16:56 ED Decision to Admit Stat 07/17/24 11:39 Consult Gastroenterology Routine Ordered Studies 07/15/24 14:09 CT abd pelvis wo con Stat 07/17/24 07:26 CTA abdomen pelvis w con [CT angio abdomen pelvis w con] Urgent Hospital Course (1) Chemotherapy adverse reaction: (2) Diabetes type 2, controlled: (3) CAD (coronary artery disease): (4) Hypertension: (5) Hypothyroidism: (6) Dyslipidemia: (7) Chronic kidney disease, stage I: (8) Hepatocellular carcinoma: (9) Transaminitis: (10) SUKHJINDER (acute kidney injury): Plan #Abdominal/ backpain pain secondary to recent TACE /transaminitis Recent TACE in [facility] 07/07 Admitted for pain control; Dilaudid and Oxycodone. GI : No additional recs. Oxycodone added on discharge #SUKHJINDER on CKD Improved on discharge #DM Previous regimen continued HBA1C: 8.8; He will need F/U with PCP for DM mgmt update. #HTN/CAD/ICM Stable Total Time Total Time Spent Total Time Spent (In Minutes): See attending's attestation Discharge Plan Discharge Items Patient Disposition: Home - Self-Care Reason For Visit: INTRACTABLE ABDOMINAL PAIN, SUKHJINDER Discharge Diagnosis: Post chemotherapy pain due to liver ischemia( controlled) Activity: Per Instructions section Non-emergency contact: Primary Care Provider Call non-emergency contact if: your symptoms worsen and your pain is not controlled Follow-up/Referrals: Jonathan Swanson MD [Primary Care Provider] - 07/23/24 3:25 pm (Appointment will be with Mora Berry) Diet: Regular Addtl Attending Provider Instructions: You were admitted to the hospital for Pain management following TACE procedure. You were treated with intravenous Dilaudid and oral Oxycodone for pain. Significant portion of your live is affected due to impaired blood supply because of chemotherapy. A discharge summary will be sent to your primary care physician to ensure continuity of care. Please bring this discharge summary with you to your next office appointment so that your provider can review it at that time. Follow-up appointments: Make a follow-up appointment with your PCP within the next week. It is very important that you follow up with them shortly after discharge from the hospital. Keep all your follow-up appointments as already scheduled. If you cannot make an appointment, notify your provider. You needed extra insulin for your blood sugar control, it could be because of admission stress however you may need increase dose of insulin on Outpatient basis. Follow up with PCP for blood sugar as well. Your HBA1C is 8.0. Medications: Your medication list has been reviewed and reconciled upon discharge to ensure accuracy and continuity of care. An updated list of all your medications is included with your hospital discharge paperwork. Please review this list closely, and make note of any changes. We sent a new medication called Oxycodone to your pharmacy. Take Oxycodone 5 mg 1 tab 8 hourly as per prescription. If you have any issues filling these prescriptions, please call [phone] and ask to leave a message for Dr. Lori Rosen. Take your medications as instructed; do not skip a dose of your medicines. Make sure all of your doctors know every medicine you are taking (including alqn-ybe-xgowsla medicines, vitamins, and supplements). Call your primary care provider before taking any new medicines (including over- the-counter medicines, vitamins, and supplements), because some of these may interact with your current medications, or may make your symptoms worse. Tell your primary care provider if you cannot afford your medications. CONTACT YOUR PRIMARY CARE PROVIDER if you experience any of the following: Worsening of symptoms Fever, chills, or fatigue Difficulty following your treatment plan, or difficulty taking medications CALL 911 OR GO TO THE EMERGENCY DEPARTMENT if you experience any of the following: Sudden, severe abdominal pain or nausea/vomiting Severe chest pain, or chest pain that radiates (moves) to your jaw or arm Sudden, severe shortness of breath or difficulty breathing Thank you for allowing us to participate in your care. Pending Studies at Discharge: No Stand-Alone Forms: My [employer], Pain - Opioid Pain Management, Smoking Cessation Medications and DC Order Prescriptions: New oxycodone 5 mg tablet 5 mg PO TID PRN (Reason: pain) Qty: 30 0RF Continued lisinopril-hydrochlorothiazide 20-12.5 mg tablet 1 tab PO HS Qty: 30 2RF Humulin R U-500 (Conc) Kwikpen 500 unit/mL (3 mL) insulin pen See Rx Instructions .ROUTE .COMPLEX MDD 350 units Qty: 60 1RF Rx Instructions: Inject 200 units sq with breakfast and 10 100 units sq with lunch and 40 units sq with dinner. atorvastatin 80 mg tablet 80 mg PO DAILY Qty: 30 5RF spironolactone [Aldactone] 25 mg tablet 25 mg PO DAILY Qty: 30 2RF metformin 1,000 mg tablet 1,000 mg PO BID 30 Days Qty: 60 5RF levothyroxine 125 mcg tablet 125 mcg PO .COMPLEX 30 Days Qty: 30 11RF Rx Instructions: 125 mcg orally TAKE ON AN EMPTY STOMACH WITH A FULL GLASS OF WATER, WAIT 30 MINUTES TO EAT, DRINK, OR TAKE MEDICATIONS; fenofibrate micronized 134 mg capsule 134 mg PO DAILY 30 Days Qty: 30 5RF Patient Comments: qam Jardiance 10 mg tablet 10 mg PO DAILY Qty: 30 5RF clopidogrel 75 mg tablet 75 mg PO QAM Qty: 90 3RF aspirin 81 mg tablet,delayed release (DR/EC) 81 mg PO QAM fluticasone propionate 50 mcg/actuation spray,suspension 2 sprays intranasal DAILY omeprazole 20 mg capsule,delayed release(DR/EC) 20 mg PO QAM cyanocobalamin (vitamin B-12) 1,000 mcg tablet extended release 1,000 mcg PO DAILY cholecalciferol (vitamin D3) 125 mcg (5,000 unit) capsule 2,500 unit PO DAILY (DME) Prodigy No Coding Strip See Rx Instructions .Route Qty: 200 0RF Rx Instructions: test 2 times daily (DME) pen needle, diabetic [Comfort EZ Pen [place]] 31 gauge x 1/4" needle See Rx Instructions .Route Qty: 100 2RF Rx Instructions: Use three times a day with insulin pen. metoprolol succinate [Toprol XL] 25 mg tablet extended release 24 hr 25 mg PO TID 30 Days Qty: 90 1RF Discharge Orders: Discharge Order (Routine); Ordered 07/18/24 Ordered By: Lori Edwards/Other Patient Handouts: High Blood Sugar (Hyperglycemia), Managing Type 2 Diabetes Admission Data Admit Date/Time: 07/15/24 17:22 Attending Provider: Adele Ahmadi Admit Provider: Pamela Moreno Primary Care Provider: Jonathan Swanson Other Providers: Mina Ricardo; Pedro Hector; Tomas Calhoun; Obdulia Sidhu; Marisa Trujillo; Tameka Summers; Cherie Yao; Debora Cuadra; Bienvenido Gage; Brigette Ferrell; Linda Card; Abdulaziz Light S; Ashleigh Garay; Savannah Luz.; Maryanne Trevino.; Reina Lay; Sandi Marrero; Roberto Arnold; Olena Cheema; Charlie Layne Jr; Wale Trevino; Boogie Camargo; Noel Jones; Lior Marroquin; Sarah Chao; Renato Elliott I; Aurora Jordan Other Interventions: Discharge Summary Assessment (RN) Last Done: 07/18/24 14:08 Supervising Physician Co-Signing Physician Notes Attending Physician Supervision Note: I independently interviewed and examined the patient and verified the limon history and physical, reviewed labs and image studies and agree with findings and care plan noted above. 79 y/o M, PMHx COPD, type 2 diabetes mellitus, CAD, AAA, and liver cancer Here with right flank pain after localized injection of chemotherapy to his liver mass 10 days ago. improvement in flank pain with adding oxycodone scheduled. In bed. comfortable. Intractable right flank pain - s/p chemoembolization of liver mass on 07/07. CT findings reviewed. No obstructive uropathy. Stable aneurysm. Pain persistent since the procedure so likely etiology. GI consulted - agreed with conservative management. -Pain better controlled with adding schedule oxycodone. d/c home with prescription. Outpt pcp f/u. SUKHJINDER - resolved. Resident Activity Tracking Resident Involvement: Resident Care Provided Care Provided: Adult Hospital Medicine
== END 2024-07-18 16:07 | disposition home or self-care (01) | DRG 682 ==
LOC: SUATTDRO → ED 13:02 → EDINP 17:22 → SUATTDRO 17:22 → 3N 20:20
DX: I25.2 Old myocardial infarction; Z79.890 Hormone replacement therapy; Z87.891 Personal history of nicotine dependence; E66.9 Obesity, unspecified; N18.1 Chronic kidney disease, stage 1; Z79.84 Long term (current) use of oral hypoglycemic drugs; I25.10 Atherosclerotic heart disease of native coronary artery without angina pectoris; I25.5 Ischemic cardiomyopathy; T45.1X5A Adverse effect of antineoplastic and immunosuppressive drugs, initial encounter; E11.22 Type 2 diabetes mellitus with diabetic chronic kidney disease; Z88.1 Allergy status to other antibiotic agents; G89.18 Other acute postprocedural pain; E03.9 Hypothyroidism, unspecified; C22.0 Liver cell carcinoma; Z79.899 Other long term (current) drug therapy; K76.3 Infarction of liver; Z88.8 Allergy status to other drugs, medicaments and biological substances; I12.9 Hypertensive chronic kidney disease with stage 1 through stage 4 chronic kidney disease, or unspecified chronic kidney disease; Z95.1 Presence of aortocoronary bypass graft; Z79.02 Long term (current) use of antithrombotics/antiplatelets; Z79.82 Long term (current) use of aspirin; E78.5 Hyperlipidemia, unspecified; N17.9 Acute kidney failure, unspecified; R74.01 Elevation of levels of liver transaminase levels; E11.65 Type 2 diabetes mellitus with hyperglycemia

== ENCOUNTER 2025-03-09 09:19 | Inpatient (IN) ==
--- NOTE | 2025-03-09 10:08 | Emergency Department Note ---
ED Visit Note I was consulted by the Advanced Practice Provider, MADI Cerrato. I personally made/approved the management plan and take responsibility for the patient management. I performed a substantive portion of the visit. This includes the aspects of: -History/Physical/Personally seeing the patient -MDM .
[2025-03-09] MEDS ORDERED: VANCOMYCIN CONSULT ACTIVE PRN (10:10)
[2025-03-09] MEDS: SODIUM CHLORIDE 0.9% 1,000 ML IV ONE (10:13)
--- NOTE | 2025-03-09 10:17 | Emergency Department Note ---
Impression & Plan Diabetic peripheral neuropathy associated with type 2 diabetes mellitus, Leukocytosis, Lactic acidemia, Diabetic foot infection, Loss of protective sensation of skin of foot ED Provider Note CHIEF COMPLAINT: Right foot infection, right calf pain HISTORY OF PRESENTING ILLNESS: Patient is a 79-year-old male who presents to the emergency department today for complaints of injury to the right foot with possible infection and right calf pain. He has a significant medical history of CKD, diabetes type 2, hypertension, hypothyroidism, abdominal aortic aneurysm without rupture, liver lesion, CAD, COPD, and others see below. He reports on March 06 he had stepped on some kind of bracket causing 2 puncture wounds to the inferior part of the right foot. On March 07 when he woke up he noticed the right fourth toe was significantly black and blue. After looking at the 2 puncture wounds he noted an ulcer between the 4th and 5th toe as well. He also has a warm red area to the superior part of the foot that is growing bigger. He does have very poor sensation in his bilateral feet due to diabetic neuropathy. He does not believe he has had any fevers but he has had chills upon waking. He reports recently stopping his Plavix 1 to 2 weeks ago and today noticed right calf pain. He does continue to take his aspirin. He denies chest pain, sob, breathing difficulties, abdominal pain, headache, blood in stool or urine, any recent illness, or any recent travel. REVIEW OF SYSTEMS: See HPI for pertinent positives and pertinent negatives. ALLERGIES: See below MEDICATIONS: See below PAST MEDICAL HISTORY: See below PHYSICAL EXAM: VITAL SIGNS - Vital signs and nursing notes were reviewed. GENERAL -79-year-old male appearing his stated age who is in no acute distress. Communicates well with provider and answers questions appropriately. SKIN -2 puncture wounds noted to the inferior part of the right foot. Ulcer with a small amount of drainage noted between the 4th and 5th toe. Warm reddened area to the superior part of the right foot. Right fourth toe is black and blue in appearance. Skin is without rashes otherwise. HEAD - NC/AT. EYES - PERRL with EOMI bilaterally. Sclera anicteric. Palpebral conjunctiva pink and moist with no injection noted. MOUTH/OROPHARYNX - Without perioral cyanosis. Buccal mucosa pink and moist and without leukoplakia. Tongue midline with equal elevation of palate bilaterally. No tonsillar hypertrophy, erythema, or exudates noted. Good dentition noted. NECK - Neck with FROM. Supple to palpation. No lymphadenopathy noted. No nuchal rigidity. LUNGS - Chest wall symmetric without accessory muscle use, intercostals retractions, or central cyanosis. Normal vesicular breath sounds CTA B/L. No wheezes, rales, or rhonchi appreciated. CARDIAC - RRR with S1/S2. No murmur, rubs, or gallops appreciated. ABDOMEN - Abdominal contour is without pulsations or visible masses. BS normoactive all four quadrants. No tenderness, palpable masses, hepatosplenomegaly, or ascites noted. EXTREMITIES - No clubbing or peripheral cyanosis. No pretibial edema present. Bilateral +3/5 radial and left dorsalis pedis pulses palpated throughout. Difficulty obtaining the right. +5/5 strength noted in UE/LE bilaterally. NEUROLOGIC -poor sensation noted in the bilateral lower extremities patient reports is his baseline. PSYCH - A&Ox3 and cooperates fully with examiner. Pt is very pleasant and interacts well with examiner. DIFFERENTIAL DIAGNOSIS: Trauma, puncture wound, ulceration, infection, sepsis, osteomyelitis, necrosis, fracture, tendon or ligament injury, cellulitis, among others. ED COURSE AND MEDICAL DECISION MAKING: HISTORY FROM INDEPENDENT HISTORIAN: History was provided by the patient. MEDICATIONS GIVEN: An IV lock was placed. The patient was given 3 L of sodium chloride per sepsis protocol, vancomycin, Zosyn. I considered the use of narcotics on this patient but the patient did deny any pain to the right lower extremity. MONITOR: Continuous ekg monitor tech: Order was placed for continuous ekg monitor tech. Patient was placed on the ekg monitor tech and continuous pulse ox. Patient was noted to be in normal sinus rhythm at an initial rate of 85 bpm per my interpretation. EKG: EKG was interpreted by myself as normal sinus rhythm with a right bundle branch block and possible inferior infarct age undetermined. Rate of 72 bpm. INTERPRETATION OF LABS: I interpreted the labs with full lab results as below in the lab section of this note. Laboratory results pertinent to the emergent complaint are discussed in the MDM section below. The patient was advised to follow up with their PCP and/or specialist(s) for further outpatient monitoring and management of any abnormal results. INTERPRETATION OF IMAGING: Imaging studies were interpreted by myself and read by radiology as per the imaging section of this note. The patient was advised to follow up with their PCP and/or specialist(s) for further outpatient management of any non-emergent abnormal findings. EXTERNAL RECORDS REVIEWED: Patient's family medicine notes, urology. CHRONIC MEDICAL/SOCIAL CONDITIONS AFFECTING CARE: No social concerns were identified as barriers to patients care. ESCALATION OF CARE CONSIDERED: I considered admission on this patient due to possible sepsis and significant infection. CONSULTATIONS: I had a meaningful discussion about this patient with Dr. Kohli who agrees with my assessment and the treatment plan. I also consulted with the hospitalist Dr. Swanson who accepts the patient for admission. SUMMARY: I examined the patient for complaints of right calf pain, right foot infection, right foot puncture wounds and ulcer. A physical exam and history were performed. Nursing notes, EMR, and medication list were personally reviewed. CBC showed a WBC count of 15.72, hbg of 12.8, no thrombocytopenia. PT/INR was normal. CMP showed Na+ 132, Cl 96, BUN 38, creatinine 1.8, glucose 355, lactic acid 2.6 with repeat of 2.9. Troponin 67. Procal 0.52. Urinalysis was pending on admission. EKG showed a normal sinus rhythm with a right bundle branch block and possible inferior infarct age undetermined. Doppler was negative for DVT. CT scan of right foot showed no fractures or osteomyelitis but did show soft tissue swelling. The patient was given sepsis fluid resuscitation of 3L NSS in the ED. He was started on Vancomycin and Zosyn. I consulted with Dr. Swanson who accepts the patient for admission to the hospital. DIAGNOSIS: Diabetic foot infection, elevated lactic acid, leukocytosis, elevated troponin TREATMENT PLAN/DISCHARGE INSTRUCTIONS: Admit to hospitalist services. Past Med/Surg History Problem List (Updated 03/10/25 @ 21:53 by MADI Tucker) Encounter for pre-operative examination Lactic acidemia (Acute) Leukocytosis (Acute) Diabetic foot infection (Acute) Weak urine stream Lower urinary tract symptoms (LUTS) SUKHJINDER (acute kidney injury) (Acute) Chemotherapy adverse reaction Diabetes type 2, controlled Liver lesion Obesity (Chronic) Loss of protective sensation of skin of foot (Chronic) Dysesthesia (Chronic) Diabetic peripheral neuropathy associated with type 2 diabetes mellitus (Chronic) Diabetic nephropathy associated with type 2 diabetes mellitus (Chronic) Albuminuria (Chronic) History of colon polyps Medical History (Updated 03/10/25 @ 21:53 by MADI Tucker) Chronic kidney disease, stage I Dyslipidemia Hypertension Hypothyroidism AAA (abdominal aortic aneurysm) without rupture CAD (coronary artery disease) Cardiomyopathy Chronic obstructive pulmonary disease Hepatocellular carcinoma Transaminitis Acute osteomyelitis of right foot Uncontrolled diabetes mellitus with hyperglycemia, with long-term current use of insulin GERD (gastroesophageal reflux disease) Vitamin D deficiency Surgical History History of cataract surgery RT H/O colonoscopy with polypectomy History of AAA (abdominal aortic aneurysm) repair H/O hernia repair History of tooth extraction History of tonsillectomy History of cardiac cath + 30 YEARS AGO/NO STENTS Hx of cholecystectomy Hx of CABG 3 VESSELS 30+ YEARS AGO AT [facility] Hx of appendectomy Family History Mother Diabetes Hypertension Father Diabetes Heart disease Hypertension Grandfather (Paternal) Heart disease Other No family history of adverse response to anesthesia Social History Smoking Status: Former smoker Tobacco Type: Cigarettes Cigarettes Per Day: 45+ YEARS AGO; Second Hand Exposure: No; Do You Dip or Chew Tobacco: No; Hx Alcohol Use: Yes Alcohol type: beer Hx Substance Use: No Preferred Language: Chinese Communication Ability: Effective Employee Health Rn Required: No Beliefs That Will Affect Care: None marital status: Current Living Situation: Alone current occupational status: retired current occupation: Retired Feels Safe at Home: Yes Assistive Devices: None Allergies Allergies Allergy/AdvReac Type Severity Reaction Status Date / Time canagliflozin [From Invokana] Allergy Mild rash Verified 02/10/25 09:50 semaglutide [From Ozempic] AdvReac Mild Altered Verified 02/10/25 09:50 Sense of Taste Home Meds Home Medications Medication Instructions Recorded Confirmed aspirin 81 mg tablet,delayed 81 mg PO QAM 05/08/19 03/09/25 release cyanocobalamin (vitamin B-12) 1,000 mcg PO DAILY 05/08/19 03/09/25 1,000 mcg tablet,extended release fluticasone propionate 50 2 sprays intranasal DAILY 05/08/19 03/09/25 mcg/actuation nasal spray,suspension omeprazole 20 mg capsule,delayed 20 mg PO QAM 05/08/19 03/09/25 release cholecalciferol (vitamin D3) 125 2,500 unit PO DAILY 05/11/23 03/09/25 mcg (5,000 unit) capsule insulin regular hum U-500 conc 500 See Rx Instructions .Route .COMPLEX 02/10/25 03/09/25 unit/mL(3 mL) subcut pen (Humulin R U-500 (Conc) Insulin Kwikpen) metoprolol succinate 25 mg 25 mg PO BID 02/10/25 03/09/25 tablet,extended release 24 hr (Toprol XL) levothyroxine 125 mcg tablet 125 mcg PO DAILY 03/09/25 03/09/25 lisinopril 20 1 tab PO HS 03/09/25 03/09/25 mg-hydrochlorothiazide 12.5 mg tablet spironolactone 25 mg tablet 25 mg PO DAILY 03/09/25 03/09/25 (Aldactone) Previous Rx's Medication Instructions Recorded blood sugar diagnostic (Prodigy No #200 ea 07/11/21 Coding strips) pen needle, diabetic 31 gauge x #100 ea 10/02/2209/06" (Comfort EZ Pen [place]) metformin 1,000 mg tablet 1,000 mg PO BID 30 days #60 tabs 11/12/24 fenofibrate micronized 134 mg 134 mg PO DAILY 30 days #30 caps 01/19/25 capsule Results & Data (ED) Vital Signs Vital Signs - 24 hr 03/09/25 09:29 03/09/25 09:46 03/09/25 09:51 Temperature 36.6 C Temperature Source Oral Pulse Rate 80 85 Pulse Rate [Apical] 75 Respiratory Rate 20 18 Respiratory Effort / Characteristics Non-Labored Spontaneous Non-Labored Spontaneous Respiratory Depth Normal Normal Respiratory Pattern Regular Blood Pressure 94/61 L Blood Pressure [Right Arm] 95/55 L Blood Pressure Mean 72 Blood Pressure Mean [Right Arm] 68 Blood Pressure Position [Right Arm] Sitting Pulse Oximetry 94 96 Oxygen Delivery Method Room Air Room Air Sepsis Recent Fever Within 48 Hours No Sepsis New/Unexplained Change in Mental Status N/A Sepsis Action Taken by Nursing No Action Required 03/09/25 10:03 03/09/25 11:04 Temperature Temperature Source Pulse Rate Pulse Rate [Apical] 71 Respiratory Rate 18 Respiratory Effort / Characteristics Non-Labored Spontaneous Respiratory Depth Normal Respiratory Pattern Regular Blood Pressure Blood Pressure [Right Arm] 132/70 Blood Pressure Mean Blood Pressure Mean [Right Arm] 90 Blood Pressure Position [Right Arm] Sitting Pulse Oximetry 98 98 Oxygen Delivery Method Room Air Room Air Sepsis Recent Fever Within 48 Hours Sepsis New/Unexplained Change in Mental Status Sepsis Action Taken by Nursing Laboratory Data 03/10/25 08:11 03/10/25 08:11 Lab Results 03/09/25 Range/Units 09:50 WBC 15.72 H (4.8-10.8) K/ul RBC 4.95 (4.70-6.10) M/uL Hgb 12.8 L (14.0-18.0) g/dl Hct 40.2 L (42.0-52.0) % MCV 81.2 (80.0-100.0) fL MCH 25.9 (25.0-34.0) pg MCHC 31.8 L (32.0-36.0) g/dL RDW Std Deviation 42.3 (36.4-46.3) fL RDW Coeff of Isaac 14.5 (11.5-14.5) % Plt Count 247 (130-400) K/uL MPV 12.7 H (9.4-12.4) fL Immature Gran % (Auto) 1.3 % Neut % (Auto) 83.0 % Lymph % (Auto) 5.1 % [place] % (Auto) 9.2 % Eos % (Auto) 0.9 % Baso % (Auto) 0.5 % Neut # (Auto) 13.05 H (1.40-6.50) K/uL Lymph # (Auto) 0.80 L (1.20-3.40) K/uL [place] # (Auto) 1.44 H (0.11-0.59) K/uL Eos # (Auto) 0.14 (0.00-0.50) K/uL Baso # (Auto) 0.08 (0.00-0.20) K/uL Immature Gran # (Auto) 0.21 H (0.01-0.20) K/uL PT 11.5 (9.0-12.0) Seconds INR 1.1 (0.9-1.1) APTT 31 (21-31) Seconds PTT Ratio 1.2 Sodium 132 L (136-145) mmol/L Potassium 4.2 (3.5-5.1) mmol/L Chloride 96 L (98-107) mmol/L Carbon Dioxide 24 (21-32) mmol/L Anion Gap 12 H (3-11) BUN 38 H (6-23) mg/dl Creatinine 1.87 H (0.6-1.4) mg/dl Est Cr Clr Drug Dosing 41.3 ml/min eGFR 36.58 BUN/Creatinine Ratio 20.3 H (10-20) Glucose 355 H* (70-99(Fasting)) mg/dl Lactate 2.6 H* (0.4-2.0) mmol/L Calcium 9.7 (8.6-10.3) mg/dl Magnesium 1.8 (1.7-2.4) mg/dl Total Bilirubin 0.7 (0.2-1.0) mg/dl AST 16 (13-39) U/L ALT 10 (7-52) U/L Alkaline Phosphatase 70 (34-104) U/L Troponin I High Sens 67.7 H* (0-20) pg/ml Total Protein 7.3 (6.0-8.3) gm/dl Albumin 3.6 (3.4-5.0) gm/dl Globulin 3.7 (2.5-4.0) gm/dl Albumin/Globulin Ratio 1.0 (0.9-2) Procalcitonin 0.52 H (0-0.5) ng/ml Administered Medications Aspirin (Aspirin 81 Mg Ectab) [facility] [place]: 04/09/25 08:59 Last Admin: 03/10/25 10:05 Dose: 81 mg Documented By: HEIDI Atorvastatin Calcium (Atorvastatin 40 Mg Tab) 40 mg PO DAILY [facility] Stop: 04/09/25 08:59 Last Admin: 03/10/25 10:05 Dose: 40 mg Documented By: HEIDI Cyanocobalamin (Cyanocobalamin (B-12) 500 Mcg Tablet) 1,000 mcg PO DAILY [facility]ELYN Stop: 04/09/25 08:59 Last Admin: 03/10/25 10:05 Dose: 1,000 mcg Documented By: HEIDI Fenofibrate (Fenofibrate Nanocrystallized 145 Mg Tablet) 145 mg PO DAILY [facility] Stop: 04/09/25 08:59 Last Admin: 03/10/25 10:05 Dose: 145 mg Documented By: HEIDI Fluticasone Propionate (Fluticasone Propionate Na Spr 16 Gm Btl) 1 sprays NA DAILY [facility]ELYN Stop: 04/09/25 08:59 Last Admin: 03/10/25 10:04 Dose: 1 sprays Documented By: HEIDI Piperacillin Sod/Tazobactam Sod (Zosyn) 4.5 gm in 100 mls @ 25 mls/hr IV Q8H EVELYN; Protocol Stop: 03/16/25 14:59 Last Admin: 03/10/25 21:38 Dose: 25 mls/hr Documented By: Admin: 03/10/25 16:32 Dose: Not Given Documented By: Infusion: 03/10/25 11:50 Dose: Infused Documented By: Admin: 03/10/25 07:20 Dose: 25 mls/hr Documented By: Infusion: 03/10/25 02:52 Dose: Infused Documented By: Admin: 03/09/25 22:50 Dose: 25 mls/hr Documented By: Infusion: 03/09/25 20:07 Dose: Infused Documented By: Admin: 03/09/25 16:03 Dose: 25 mls/hr Documented By: MINDI Vancomycin HCl (Vancomycin Hcl) 1,000 mg in 270 mls @ 200 mls/hr IV Q24H [facility]ELYN Stop: 03/17/25 06:29 Last Infusion: 03/10/25 07:19 Dose: Infused Documented By: Admin: 03/10/25 05:41 Dose: 200 mls/hr Documented By: JAKUB Lactated Ringer's (Lr) 1,000 mls @ 15 mls/hr IV .Q24H EVELYN Stop: 03/13/25 13:44 Last Infusion: 03/10/25 14:03 Dose: Infused Documented By: Admin: 03/10/25 13:45 Dose: 15 mls/hr Documented By: CHAKA Insulin Aspart (Insulin Aspart Per Unit Charge) 0 units SC ACHS EVELYN Stop: 04/09/25 16:34 Last Admin: 03/10/25 21:35 Dose: 5 units Documented By: MARILYNN Co-signed By: KRISTIE Admin: 03/10/25 17:36 Dose: 10 units Documented By: HEIDI Co-signed By: KIKA Insulin Glargine (Lantus Per Unit Charge) 0 units SQ HS EVELYN; Protocol Stop: 04/08/25 20:59 Last Admin: 03/10/25 21:34 Dose: 20 units Documented By: MARILYNN Co-signed By: KRISTIE Admin: 03/09/25 20:45 Dose: 20 units Documented By: JAKUB Co-signed By: PRISCILLA Levothyroxine Sodium (Levothyroxine Sodium 125 Mcg Tablet) 125 mcg PO DAILYBB [facility] Stop: 04/09/25 06:29 Last Admin: 03/10/25 05:38 Dose: 125 mcg Documented By: JAKUB Metoprolol Succinate (Metoprolol Succ 25mg Ext Rel Tab) 25 mg PO BID EVELYN Stop: 04/08/25 20:59 Last Admin: 03/10/25 21:33 Dose: 25 mg Documented By: Admin: 03/10/25 10:05 Dose: 25 mg Documented By: Admin: 03/09/25 20:41 Dose: 25 mg Documented By: JAKUB Pantoprazole Sodium (Pantoprazole 40 Mg Tab) 40 mg PO QAM [facility] Stop: 04/09/25 08:59 Last Admin: 03/10/25 10:05 Dose: 40 mg Documented By: HEIDI Vitamin D (Cholecalciferol 125 Mcg (5,000 Units) Tab) 125 mcg PO DAILY [facility]N Stop: 04/09/25 08:59 Last Admin: 03/10/25 10:05 Dose: 125 mcg Documented By: HEIDI Discontinued Medications Bupivacaine HCl (Bupivacaine 0.25% Pf 30 Ml Vial) Confirm Administered Dose 30 ml .ROUTE .STK-MED ONE Stop: 03/10/25 12:48 Last Admin: 03/10/25 14:39 Dose: 10 ml Documented By: [id number] Diphtheria/Pertussis/Tetanus Vacc (Diphther/Tetan/Pertus Vaccine (Tdap, Adol/Adult) 0.5ml) 0.5 ml IM .ONCE ONE Stop: 03/09/25 11:34 Last Admin: 03/09/25 12:30 Dose: 0.5 ml Documented By: INES Sodium Chloride (Nss) 1,000 mls @ 999 mls/hr IV .Q1H1M ONE Stop: 03/09/25 10:56 Last Infusion: 03/09/25 10:33 Dose: Infused Documented By: Admin: 03/09/25 10:13 Dose: 999 mls/hr Documented By: ABDULLAHI Vancomycin HCl 2,750 mg/ (Sodium Chloride) 555 mls @ 200 mls/hr IV NOW ONE Stop: 03/09/25 12:56 Last Infusion: 03/09/25 16:00 Dose: Infused Documented By: Admin: 03/09/25 12:30 Dose: 200 mls/hr Documented By: INES Piperacillin Sod/Tazobactam Sod (Zosyn) 4.5 gm in 100 mls @ 200 mls/hr IV NOW ONE; Protocol Stop: 03/09/25 10:39 Last Infusion: 03/09/25 12:06 Dose: Infused Documented By: Infusion: 03/09/25 10:41 Dose: 200 mls/hr Documented By: Admin: 03/09/25 10:33 Dose: 200 mls/hr Documented By: ABDULLAHI Sodium Chloride (Nss) 1,000 mls @ 999 mls/hr IV .Q1H1M EVELYN Stop: 03/09/25 11:30 Last Infusion: 03/09/25 12:07 Dose: Infused Documented By: Admin: 03/09/25 10:34 Dose: 999 mls/hr Documented By: ABDULLAHI Lactated Ringer's (Lr) 1,000 mls @ 999 mls/hr IV .Q1H1M ONE Stop: 03/09/25 13:57 Last Infusion: 03/09/25 15:00 Dose: Infused Documented By: Admin: 03/09/25 13:28 Dose: 999 mls/hr Documented By: BENEDICT Insulin Aspart (Insulin Aspart Per Unit Charge) 0 units SC ACHS [facility] Stop: 04/08/25 16:29 Last Admin: 03/10/25 08:12 Dose: Not Given Documented By: Admin: 03/09/25 20:45 Dose: 8 units Documented By: JAKUB Co-signed By: PRISCILLA Admin: 03/09/25 16:54 Dose: 18 units Documented By: MINDI Co-signed By: GRETCHEN Insulin Aspart (Insulin Aspart Per Unit Charge) 0 units SC Q6 [facility] Stop: 04/09/25 07:59 Last Admin: 03/10/25 13:16 Dose: 4 units Documented By: HEIDI Co-signed By: GRETCHEN Admin: 03/10/25 08:37 Dose: 7 units Documented By: HEIDI Co-signed By: KIKA Insulin Glargine (Lantus Per Unit Charge) 8 units SQ ONE ONE Stop: 03/09/25 14:21 Last Admin: 03/09/25 16:35 Dose: 8 units Documented By: MINDI Co-signed By: GRETCHEN Insulin Glargine (Lantus Per Unit Charge) 20 units SC ONE ONE Stop: 03/10/25 08:01 Last Admin: 03/10/25 08:37 Dose: 20 units Documented By: HEIDI Co-signed By: KIKA Ioversol (Optiray 320 100ml) 93 ml IV ONCE ONE Stop: 03/09/25 11:26 Last Admin: 03/09/25 11:25 Dose: 93 ml Documented By: ABS Imaging Data Radiologist's Impression: Foot CT 03/09/25 09:[address] WITH CONTRAST CLINICAL HISTORY: Puncture injury, severe neuropathy, infection. COMPARISON STUDY: No previous studies for comparison. TECHNIQUE: Axial images of the right foot were obtained following intravenous injection of 94 cc of Optiray 320 IV. Sagittal and coronal reformats were viewed. A dose lowering technique was utilized adhering to the principles of ALARA. FINDINGS: Alignment of the right foot is anatomic. Tarsometatarsal joints are intact. Moderate sized posterior and plantar calcaneal spurs are present. There is an os trigonum. There are no fractures within the right foot. No areas of bony erosion are identified. There is no soft tissue gas. Subcutaneous soft tissue swelling along the plantar aspects of the right fourth and fifth metatarsophalangeal joints is present. There are no associated radiopaque foreign bodies. There is no rim-enhancing fluid collection. Extensive vascular calcification is noted. IMPRESSION: 1. No fractures within the right foot. No CT evidence for acute osteomyelitis. 2. Subcutaneous soft tissue swelling along the plantar aspects of the right fourth and fifth metatarsophalangeal joints. This may be traumatic and represent a contusion however cellulitis could appear similar. No rim-enhancing fluid collection to suggest abscess. No radiopaque foreign bodies. ACT 112: Negative or not required by law. Electronically signed by: Raulito Edouard M.D. 03/09/2025 11:49 AM Venous Doppler Study 03/09/25 09:56 US venous doppler LE RT HISTORY: 79 years-old Male calf pain, stopped plavix acute pain of the lower legs COMPARISON: None TECHNIQUE: Multiple real-time sonographic images of the right lower extremity deep venous structures were obtained assessing grayscale appearance, color and spectral flow. FINDINGS: Normal flow, compressibility, phasicity and augmentation. IMPRESSION: No sonographic evidence of deep venous thrombosis. ACT 112: Negative or not required by law. The above report was generated using voice recognition software. It may contain grammatical, syntax or spelling errors. Electronically signed by: Grant Snyder M.D. 03/09/2025 11:52 AM Discharge Plan Visit Data Chief Complaint: Infection Stated Complaint: STEPPED ON SOMETHING IN R FOOT ED Provider: Rito Kohli ED Midlevel Provider: Betty Browning Discharge Problem: Diabetic peripheral neuropathy associated with type 2 diabetes mellitus, Leukocytosis, Lactic acidemia, Diabetic foot infection, Loss of protective sensation of skin of foot Patient Disposition: Admitted As Inpatient Condition: Good Discharge Instructions Interventions: ED Discharge Assessment Last Done: 03/09/25 14:26 Discharge Problem: Leukocytosis Qualifiers: Leukocytosis type: unspecified Qualified Code(s): D72.829 - Elevated white blood cell count, unspecified
[2025-03-09 10:24] LABS: Hematocrit (blood only) 40.2 % (42.0-52.0); Hemoglobin 12.8 g/dl (14.0-18.0); Immature Granulocytes # (auto) 0.21 K/uL (0.01-0.20); Immature Granulocytes % (auto) 1.3 %; Mean Corpuscular Hemoglobin 25.9 pg (25.0-34.0); Mean Corpuscular Volume 81.2 fL (80.0-100.0); Platelet Count 247 K/uL (130-400); RDW Standard Deviation 42.3 fL (36.4-46.3); Red Blood Count 4.95 M/uL (4.70-6.10); White Blood Count 15.72 K/ul (4.8-10.8)
[2025-03-09] MEDS: PIPERACILLIN/TAZOBACTAM 4.5 GM/100 ML BAG IV ONE (10:33)
[2025-03-09] MEDS: SODIUM CHLORIDE 0.9% 1,000 ML IV SCH (10:34)
[2025-03-09 10:47] LABS: Alanine Aminotransferase 10.0 U/L (7-52); Albumin Globulin Ratio 1.0 (0.9-2); Alkaline Phosphatase 70.0 U/L (34-104); Anion Gap 12.0 (3-11); Bilirubin,Total 0.7 mg/dl (0.2-1.0); Blood Urea Nitrogen 38.0 mg/dl (6-23); Calcium 9.7 mg/dl (8.6-10.3); Carbon Dioxide 24.0 mmol/L (21-32); Chloride 96.0 mmol/L (98-107); Creatinine Clr Calc Pharmacy 41.3 ml/min; Globulin 3.7 gm/dl (2.5-4.0); Glucose 355.0 mg/dl (70-99(Fasting)); Magnesium 1.8 mg/dl (1.7-2.4); Potassium 4.2 mmol/L (3.5-5.1); Sodium 132.0 mmol/L (136-145); Total Protein 7.3 gm/dl (6.0-8.3)
[2025-03-09 10:53] LABS: INR 1.1 (0.9-1.1); Partial Thromboplastin Time 31 Seconds (21-31); Prothrombin Time 11.5 Seconds (9.0-12.0)
[2025-03-09] MEDS: OPTIRAY 320 100ml IV ONE (11:25)
--- NOTE | 2025-03-09 11:51 | CT Scan Report ---
RIGHT FOOT CT WITH CONTRAST CLINICAL HISTORY: Puncture injury, severe neuropathy, infection. COMPARISON STUDY: No previous studies for comparison. TECHNIQUE: Axial images of the right foot were obtained following intravenous injection of 94 cc of O ptiray 320 IV. Sagittal and coronal reformats were viewed. A dose lowering technique was utilized adh ering to the principles of ALARA. FINDINGS: Alignment of the right foot is anatomic. Tarsometatarsal joints are intact. Moderate sized posterior and plantar calcaneal spurs are present. There is an os trigonum. There are no fractures wi thin the right foot. No areas of bony erosion are identified. There is no soft tissue gas. Subcutaneo us soft tissue swelling along the plantar aspects of the right fourth and fifth metatarsophalangeal j oints is present. There are no associated radiopaque foreign bodies. There is no rim-enhancing fluid collection. Extensive vascular calcification is noted. IMPRESSION: 1. No fractures within the right foot. No CT evidence for acute osteomyelitis. 2. Subcutaneous soft tissue swelling along the plantar aspects of the right fourth and fifth metatars ophalangeal joints. This may be traumatic and represent a contusion however cellulitis could appear s imilar. No rim-enhancing fluid collection to suggest abscess. No radiopaque foreign bodies. ACT 112: Negative or not required by law. Electronically signed by: Raulito Edouard M.D. 03/09/2025 11:49 AM
--- NOTE | 2025-03-09 11:53 | Ultrasound Report ---
US venous doppler LE RT HISTORY: 79 years-old Male calf pain, stopped plavix acute pain of the lower legs COMPARISON: None TECHNIQUE: Multiple real-time sonographic images of the right lower extremity deep venous structures were obtained assessing grayscale appearance, color and spectral flow. FINDINGS: Normal flow, compressibility, phasicity and augmentation. IMPRESSION: No sonographic evidence of deep venous thrombosis. ACT 112: Negative or not required by law. The above report was generated using voice recognition software. It may contain grammatical, syntax o r spelling errors. Electronically signed by: Grant Snyder M.D. 03/09/2025 11:52 AM
[2025-03-09] MEDS: VANCOMYCIN HCL 2,750 MG in SODIUM CHLORIDE 0.9% 500 ML IV ONE (12:30)
[2025-03-09] MEDS: DIPHTHER/TETAN/PERTUS Vaccine (Tdap, Adol/Adult) 0.5mL IM ONE (12:30)
--- NOTE | 2025-03-09 12:59 | History & Physical Report ---
Date of Service March 09, 2025 Assessment & Plan (1) Diabetic foot infection: (2) Leukocytosis: (3) Lactic acidemia: (4) Elevated troponin: (5) Uncontrolled diabetes mellitus with hyperglycemia, with long-term current use of insulin: (6) Hypertension: (7) Diabetic nephropathy associated with type 2 diabetes mellitus: (8) Diabetic peripheral neuropathy associated with type 2 diabetes mellitus: Plan #Diabetic Foot Infection d/t puncture wound/Diabetic neuropathy w/ leukocytosis and lactic acidemia - Admit to med/surg - Diabetic diet ordered - VS per unit protocol - ABIs just completed 02/[address] Milton and were normal b/l - CT w/o evidence of retained foreign body or osteo, however, MRI more sensitive and may be of benefit, will defer to podiatry's expertise - railroad car loader consult, appreciate assistance - Continue empiric Vancomycin and Zosyn for now - Wound culture collected at bedside - Repeat lactate s/p 2L of NSS - Tdap ordered and administered in ED - Blood cultures ordered x2 - Repeat labs in AM including cbc and bmp - Consult podiatry, appreciate assistance, anticipate requires debridement, ?amputation of 4th toe #Uncontrolled T2DM with nephropathy/neuropathy - Hold U500 and change to basal/bolus - AC and HS blood sugar checks (does have a continuous glucose monitor) - Last a1c 8.3% in Jul 2024, update a1c - Hold Metformin - Continue Jardiance #Mild SUKHJINDER on CKD - S/P 2L of NSS - Hold Spironolactone & lisinopril + hctz today, may be able to resume tomorrow 03/10 - Repeat labs in AM #CAD/CHF with mild detectable trop - likely secondary to myocardial demand ischemia - Continue Metoprolol Succ, ASA, and Jardiance - Repeat HS trop level pending - Echo 02/26 - LVEF 45-50%, mild inferolateral hypokinesis w/ grade II diastolic dysfunction, mild concentric LVH, aortic sclerosis #Hypothyroidism - Continue levothyroxine #GERD - Continue PPI #Dyslipidemia - Continue fenofibrate and Atorvastatin VTE ppx will be covered with Lovenox to start 7/8 in AM. This can be held if podiatry plans to proceed with debridement. AM labs have been ordered. Above plan of care has been d/w Dr. Mcrae who will also see and evaluate this patient. Further orders will be implemented as clinically warranted. History of Present Illness Chief Complaint: Food wound Primary Care Provider: Jonathan Swanson MD Sage Cope is a 79 yo M with a pmhx of DMT2 complicated by nephropathy and peripheral neuropathy as well as CAD, CHF, HTN, GERD, and DLD who presents to the ER today c/o right foot wound. Patient reports that his daughters is assisting him in selling his house and they have been "taking things off of the [place] left and right." He believes that he stepped on a tack or some other similar type of metallic item in his home on the 06 of March but did not feel any pain from it due to his severe neuropathy. He reportedly had 2 other puncture wounds but doesn't recall exactly when those occurred, but believes it was around the same time. He was wearing his house slippers. He noticed any area of blood on the floor and realized he should probably be evaluated and subsequently sought care today. He reports chills but no documented fever. He does have discoloration of his right 4th toe. He was seeing a services delivery driver but then he states he "got in trouble." He denies having a recent diabetic foot exam at his last PCP visit. He was just seen by Dr. Milton and had arterial dopplers performed and was told the results of those were good. His w/u today included labs that demonstrated a leukocytosis with left shift, hyperglycemia, and mild SUKHJINDER on CKD, an elevated lactate of 2.6 and a PCT of 0.52. HS trop was mildly elevated at 67 but he denies cp or dyspnea. EKG is nonacute. He just had an echo performed on 02/25 which showed mildly reduced systolic LVF at 45-50%. He has been medicated with a dose of Zosyn and Vancomycin. Venous doppler performed as well as CT foot. No evidence of osteo noted on CT. He has received 2L of NSS and an updated Tdap and has been referred to the hospital medicine team for admission. Allergies Allergy/AdvReac Type Severity Reaction Status Date / Time canagliflozin [From Invokana] Allergy Mild rash Verified 02/10/25 09:50 semaglutide [From Ozempic] AdvReac Mild Altered Verified 02/10/25 09:50 Sense of Taste Home Medications Medication Instructions Recorded Confirmed Type aspirin 81 mg tablet,delayed 81 mg PO QAM 05/08/19 03/09/25 History release cyanocobalamin (vitamin B-12) 1,000 mcg PO DAILY 05/08/19 03/09/25 History 1,000 mcg tablet,extended release fluticasone propionate 50 2 sprays intranasal DAILY 05/08/19 03/09/25 History mcg/actuation nasal spray,suspension omeprazole 20 mg capsule,delayed 20 mg PO QAM 05/08/19 03/09/25 History release blood sugar diagnostic (Prodigy No #200 ea 07/11/21 02/10/25 Rx Coding strips) pen needle, diabetic 31 gauge x #100 ea 10/02/22 02/10/25 Rx 1/4" (Comfort EZ Pen [place]) cholecalciferol (vitamin D3) 125 2,500 unit PO DAILY 05/11/23 03/09/25 History mcg (5,000 unit) capsule metformin 1,000 mg tablet 1,000 mg PO BID 30 days #60 tabs 11/12/24 03/09/25 Rx fenofibrate micronized 134 mg 134 mg PO DAILY 30 days #30 caps 01/19/25 03/09/25 Rx capsule insulin regular hum U-500 conc 500 See Rx Instructions .Route .COMPLEX 02/10/25 03/09/25 History unit/mL(3 mL) subcut pen (Humulin R U-500 (Conc) Insulin Kwikpen) metoprolol succinate 25 mg 25 mg PO BID 02/10/25 03/09/25 History tablet,extended release 24 hr (Toprol XL) levothyroxine 125 mcg tablet 125 mcg PO DAILY 03/09/25 03/09/25 History lisinopril 20 1 tab PO HS 03/09/25 03/09/25 History mg-hydrochlorothiazide 12.5 mg tablet spironolactone 25 mg tablet 25 mg PO DAILY 03/09/25 03/09/25 History (Aldactone) Past Med/Surg History Problem List (Updated 03/09/25 @ 12:46 by Latricia Heredia PA-C) Uncontrolled diabetes mellitus with hyperglycemia, with long-term current use of insulin Lactic acidemia Leukocytosis Diabetic foot infection Weak urine stream Lower urinary tract symptoms (LUTS) Transaminitis SUKHJINDER (acute kidney injury) (Acute) Chemotherapy adverse reaction Hepatocellular carcinoma Chronic obstructive pulmonary disease Diabetes type 2, controlled CAD (coronary artery disease) Cardiomyopathy Liver lesion AAA (abdominal aortic aneurysm) without rupture (Chronic) Obesity (Chronic) Loss of protective sensation of skin of foot (Chronic) Hypothyroidism (Chronic) Hypertension (Chronic) Dyslipidemia (Chronic) Dysesthesia (Chronic) Diabetic peripheral neuropathy associated with type 2 diabetes mellitus (Chronic) Diabetic nephropathy associated with type 2 diabetes mellitus (Chronic) Chronic kidney disease, stage I (Chronic) Albuminuria (Chronic) History of colon polyps Medical History GERD (gastroesophageal reflux disease) Vitamin D deficiency Surgical History History of cataract surgery RT H/O colonoscopy with polypectomy History of AAA (abdominal aortic aneurysm) repair H/O hernia repair History of tooth extraction History of tonsillectomy History of cardiac cath + 30 YEARS AGO/NO STENTS Hx of cholecystectomy Hx of CABG 3 VESSELS 30+ YEARS AGO AT [place] Hx of appendectomy Family History Mother Diabetes Hypertension Father Diabetes Heart disease Hypertension Grandfather (Paternal) Heart disease Other No family history of adverse response to anesthesia Social History Smoking Status: Never smoker Tobacco Type: Cigarettes Cigarettes Per Day: 45+ YEARS AGO; Second Hand Exposure: No; Do You Dip or Chew Tobacco: No; Hx Alcohol Use: No Hx Substance Use: No Preferred Language: Slovenian Communication Ability: Effective Gas Operation Manager Required: No Beliefs That Will Affect Care: None marital status: Current Living Situation: Alone current occupational status: retired current occupation: Retired Feels Safe at Home: Yes Assistive Devices: Cane and Walker Review of Systems 2 Review of Systems: All systems reviewed and are unremarkable except as noted in HPI and below. Denies fever, chills, fatigue, headache, nasal congestion, sore throat, cough, chest pain, shortness of breath, palpitations, orthopnea, PND, abdominal pain, n/v/d, constipation, dysuria, hematuria, frequency, back pain, joint pain or swelling, easy bruising or bleeding, skin lesions or rashes. Physical Exam 2 Physical Exam: GENERAL: 79 yo obese elderly WM. Awake, alert, oriented x3. No distress. LUNGS: Clear to auscultation bilaterally. No accessory muscle use. No W/R/R. CARDIOVASCULAR: Regular rate and rhythm. No JVD. ABDOMEN: Soft, non-tender and non-distended. BS normoactive x 4 quad. EXTREMITIES: R dorsum of foot noted with erythema that is noted somewhat faintly on anterior hodges. No edema. Non-tender. DP pulse faint but palpable. SKIN: Cyanosis and cool temperature of right 4th digit. Maceration and skin breakdown between 4th and 5th toe. At least 2 puncture wounds visible on palmar surface of foot, able to extract purulent drainage with expression. Results & Data Results & Data Vital Signs (Past 12 Hours) Vital Signs Temp Pulse Pulse Resp BP BP Pulse Ox 03/09/25 11:04 71 18 132/70 98 03/09/25 10:03 98 03/09/25 09:51 85 03/09/25 09:46 75 18 95/55 L 96 03/09/25 09:29 36.6 C 80 20 94/61 L 94 O2 Del Method 03/09/25 11:04 Room Air 03/09/25 10:03 Room Air 03/09/25 09:51 03/09/25 09:46 Room Air 03/09/25 09:29 Room Air Laboratory Results 03/09/25 09:50 03/09/25 09:[address] 03/09/25 09:[address] WITH CONTRAST CLINICAL HISTORY: Puncture injury, severe neuropathy, infection. COMPARISON STUDY: No previous studies for comparison. TECHNIQUE: Axial images of the right foot were obtained following intravenous injection of 94 cc of Optiray 320 IV. Sagittal and coronal reformats were viewed. A dose lowering technique was utilized adhering to the principles of ALARA. FINDINGS: Alignment of the right foot is anatomic. Tarsometatarsal joints are intact. Moderate sized posterior and plantar calcaneal spurs are present. There is an os trigonum. There are no fractures within the right foot. No areas of bony erosion are identified. There is no soft tissue gas. Subcutaneous soft tissue swelling along the plantar aspects of the right fourth and fifth metatarsophalangeal joints is present. There are no associated radiopaque foreign bodies. There is no rim-enhancing fluid collection. Extensive vascular calcification is noted. IMPRESSION: 1. No fractures within the right foot. No CT evidence for acute osteomyelitis. 2. Subcutaneous soft tissue swelling along the plantar aspects of the right fourth and fifth metatarsophalangeal joints. This may be traumatic and represent a contusion however cellulitis could appear similar. No rim-enhancing fluid collection to suggest abscess. No radiopaque foreign bodies. ACT 112: Negative or not required by law. Electronically signed by: Raulito Edouard M.D. 03/09/2025 11:49 AM Venous Doppler Study 03/09/25 09:56 US venous doppler LE RT HISTORY: 79 years-old Male calf pain, stopped plavix acute pain of the lower legs COMPARISON: None TECHNIQUE: Multiple real-time sonographic images of the right lower extremity deep venous structures were obtained assessing grayscale appearance, color and spectral flow. FINDINGS: Normal flow, compressibility, phasicity and augmentation. IMPRESSION: No sonographic evidence of deep venous thrombosis. ACT 112: Negative or not required by law. The above report was generated using voice recognition software. It may contain grammatical, syntax or spelling errors. Electronically signed by: Grant Snyder M.D. 03/09/2025 11:52 AM ECG Additional Comments: NSR, RBBB Code Status & VTE Plan Code Status DNI - per patient after discussion at bedside. Agreeable to other noninvasive measures of resuscitation. VTE Prophylaxis Plan VTE Prophylaxis will be ordered: Yes Supervising Physician Co-Signing Physician Notes Patient was seen and examined independently I discussed the case with Zehra Heredia PA-C I reviewed pertinent past medical social family history and also the plan of care and agree with the plan of care. He 79-year-old male with history of diabetes, coronary artery disease, COPD, hypertension, dyslipidemia, hypothyroidism, hepatocellular carcinoma and cirrhosis. Status post TACE (Transarterial Chemoembolization) procedure at [place]. Who presents after stepping on a sharp object with erythema to his right foot. The patient has a blackened right fourth toe. Patient has diabetic neuropathy. Patient had ankle-brachial indexes in the recent past which were okay. Patient has an open macerated area in the webspace between the 4th and 5th toe with some active bleeding Patient is being mated for diabetic foot infection possible gangrenous toe imaging is not suggesting osteomyelitis at this time Physical exam is as per the HPI with but appears to be possibly gangrenous fourth toe open macerated area erythema and boggy swelling to foot consistent with cellulitis or deep tissue infection Plan send to be vancomycin and Zosyn therapy podiatry evaluation for possible surgical intervention. Uncontrolled diabetes with high blood sugars requiring additional bolus of basal insulin and sliding scale insulin Coronary artery disease/hypertension continue antihypertensive medications Any exceptions will be noted below PG Care Time/CCT Total # of Minutes Spent Total Time Spent with Patient: Total time spent is greater than 50% in coordination of care (as documented) at patient's floor/unit and/or counseling patient: 77 minutes Coding Level of Care Code 50624 INT INP/OBS CARE 3/75MIN Diagnoses Diabetic foot infection E11.628; L08.9 Leukocytosis D72.829 Lactic acidemia E87.20 Elevated troponin R79.89 Uncontrolled diabetes mellitus with hyperglycemia, with long-term current use of insulin E11.65; Z79.4 Hypertension I10 Diabetic nephropathy associated with type 2 diabetes mellitus E11.21 Diabetic peripheral neuropathy associated with type 2 diabetes mellitus E11.42
[2025-03-09] MEDS: LACTATED RINGER'S 1,000 ML IV ONE (13:28)
[2025-03-09] MEDS ORDERED: CARBOHYDRATES FOR HYPOGLYCEMIA PO PRN ×2 (14:19→14:47)
[2025-03-09] MEDS ORDERED: GLUCOSE 10 TAB/TUBE PO PRN ×2 (14:19→14:47)
[2025-03-09] MEDS ORDERED: DEXTROSE 50% 50 ML SYRINGE IV PRN ×2 (14:19→14:47)
[2025-03-09] MEDS ORDERED: GLUCOSE 40% GEL 15 GM TUBE PO PRN ×2 (14:19→14:47)
[2025-03-09] MEDS ORDERED: GLUCAGON FOR INJ 1 MG VIAL SQ PRN ×2 (14:19→14:47)
[2025-03-09 14:36] LABS: Appearance Urine Clear (Clear); Bacteria Urine Automated None Seen (None Seen); Cast Urine Automated 0-2 /lpf (0-2); Epithelial Cell Urine Auto 0-2 /hpf (0-2); Glucose Urine UA 3+ (Negative); RBC Urine Automated 0-2 /hpf (0-2)
[2025-03-09] MEDS ORDERED: PHARMACY GLYCEMIC MGMT CONSULT PRN (14:47)
[2025-03-09] MEDS ORDERED: MAGNESIUM HYDROXIDE SUSP 30 ML UDC PO PRN (14:47)
[2025-03-09] MEDS ORDERED: POLYETHYLENE (MIRALAX) 17 GM PACK PO PRN (14:47)
[2025-03-09] MEDS ORDERED: ONDANSETRON INJ 2 MG/ML 2 ML VIAL IV PRN (14:47)
[2025-03-09] MEDS ORDERED: ALUMINUM/MAGNESIUM SUSP 30 ML UDC PO PRN (14:47)
[2025-03-09] MEDS ORDERED: ACETAMINOPHEN 325 MG TAB PO PRN (14:47)
[2025-03-09] MEDS: PIPERACILLIN/TAZOBACTAM 4.5 GM/100 ML BAG IV SCH (16:03)
[2025-03-09] MEDS ORDERED: INSULIN ASPART PER UNIT CHARGE SC SCH (16:30)
[2025-03-09] MEDS: LANTUS PER UNIT CHARGE SQ ONE (16:35)
[2025-03-09] MEDS: INSULIN ASPART PER UNIT CHARGE SC SCH (16:54)
--- NOTE | 2025-03-09 18:32 | Electrocardiogram Report ---
Test Reason : Blood Pressure : */* mmHG Vent. Rate : 72 BPM Atrial Rate : 72 BPM P-R Int : 162 ms QRS Dur : 146 ms QT Int : 438 ms P-R-T Axes : * 270 26 degrees QTcB Int : 479 ms Normal sinus rhythm Right bundle branch block Abnormal ECG When compared with ECG of 17-Apr-2024 11:14, No significant change was found Confirmed by Elias Aquino ([id number]) on 03/09/2025 6:32:09 PM Referred By: REFERRED SELF Confirmed By: Elias Aquino
[2025-03-09] MEDS: METOPROLOL SUCC 25MG EXT REL TAB PO SCH (20:41)
[2025-03-09] MEDS: LANTUS PER UNIT CHARGE SQ SCH (20:45)
--- NOTE | 2025-03-09 21:42 | Podiatry Consultation ---
Date of Consultation March 09, 2025 Assessment & Plan (1) Uncontrolled diabetes mellitus with hyperglycemia, with long-term current use of insulin: (2) Diabetic foot infection: (3) Diabetic peripheral neuropathy associated with type 2 diabetes mellitus: (4) Acute osteomyelitis of right foot: Plan Patient examined and evaluated. We discussed at length etiology and treatment of his right fourth toe infection. Based on the CT, he does likely have underlying OM but an MRI would be helpful in confirming this, as well as the extent of any abscess formation and any presence of radiolucent foreign body. This order was placed for preoperative planning. We will work on adding him to the OR schedule tomorrow, pending the MRI. We discussed this could be a digital amputation if OM is confirmed on MRI or an I&D if the bone appears more viable on the MRI. He is amenable to whatever is suggested. We discussed postoperative care and planning, without residential need for IV antibiotics if clean margins are obtained. Patient understands and will sign consent preoperatively. Continue IV antibiotics and clean/dry dressings until surgery. Thank you for the consult. We are always happy to help when possible. History of Present Illness Reason for Consultation: Right fourth toe gangrene Attending Physician: Krunal Mcrae MD History of Present Illness Patient seen at bedside. He is known to our service, seeing him on a regular basis outpatient for diabetic foot care and at-risk care for the last couple of years. At his most recent visit, in January 2025, he was noted to have no new concerns and simple nail debridement was performed. He has a history of venous ulcerations, venous insufficiency, and peripheral arterial disease requiring these nail debridements. Now, he states that he stepped on some construction material in his home in the last week or two and noted increasing color changes and concerns to the right fourth toe over that time. He states that his blood sugar has been more well controlled recently, aside from with the onset of this foot infection. He is feeling better with antibiotics since admission. He denies current pain or systemic signs of infection. He is amenable to surgery if needed, at this point, given the rapid progression of the changes to his toe. Allergies Allergy/AdvReac Type Severity Reaction Status Date / Time canagliflozin [From Invokana] Allergy Mild rash Verified 02/10/25 09:50 semaglutide [From Ozempic] AdvReac Mild Altered Verified 02/10/25 09:50 Sense of Taste Home Medications Medication Instructions Recorded Confirmed Type aspirin 81 mg tablet,delayed 81 mg PO QAM 05/08/19 03/09/25 History release cyanocobalamin (vitamin B-12) 1,000 mcg PO DAILY 05/08/19 03/09/25 History 1,000 mcg tablet,extended release fluticasone propionate 50 2 sprays intranasal DAILY 05/08/19 03/09/25 History mcg/actuation nasal spray,suspension omeprazole 20 mg capsule,delayed 20 mg PO QAM 05/08/19 03/09/25 History release blood sugar diagnostic (Prodigy No #200 ea 07/11/21 02/10/25 Rx Coding strips) pen needle, diabetic 31 gauge x #100 ea 10/02/22 02/10/25 Rx 1/4" (Comfort EZ Pen [place]) cholecalciferol (vitamin D3) 125 2,500 unit PO DAILY 05/11/23 03/09/25 History mcg (5,000 unit) capsule metformin 1,000 mg tablet 1,000 mg PO BID 30 days #60 tabs 11/12/24 03/09/25 Rx fenofibrate micronized 134 mg 134 mg PO DAILY 30 days #30 caps 01/19/25 03/09/25 Rx capsule insulin regular hum U-500 conc 500 See Rx Instructions .Route .COMPLEX 02/10/25 03/09/25 History unit/mL(3 mL) subcut pen (Humulin R U-500 (Conc) Insulin Kwikpen) metoprolol succinate 25 mg 25 mg PO BID 02/10/25 03/09/25 History tablet,extended release 24 hr (Toprol XL) levothyroxine 125 mcg tablet 125 mcg PO DAILY 03/09/25 03/09/25 History lisinopril 20 1 tab PO HS 03/09/25 03/09/25 History mg-hydrochlorothiazide 12.5 mg tablet spironolactone 25 mg tablet 25 mg PO DAILY 03/09/25 03/09/25 History (Aldactone) Patient History Medical History GERD (gastroesophageal reflux disease) Vitamin D deficiency Surgical History History of cataract surgery RT H/O colonoscopy with polypectomy History of AAA (abdominal aortic aneurysm) repair H/O hernia repair History of tooth extraction History of tonsillectomy History of cardiac cath + 30 YEARS AGO/NO STENTS Hx of cholecystectomy Hx of CABG 3 VESSELS 30+ YEARS AGO AT [place] Hx of appendectomy Family History Mother Diabetes Hypertension Father Diabetes Heart disease Hypertension Grandfather (Paternal) Heart disease Other No family history of adverse response to anesthesia Social History Smoking Status: Former smoker Tobacco Type: Cigarettes Cigarettes Per Day: 45+ YEARS AGO; Second Hand Exposure: No; Do You Dip or Chew Tobacco: No; Hx Alcohol Use: Yes Alcohol type: beer Hx Substance Use: No Preferred Language: Moldovan Communication Ability: Effective Animal Laboratory Helper Required: No Beliefs That Will Affect Care: None marital status: Current Living Situation: Alone current occupational status: retired current occupation: Retired Feels Safe at Home: Yes Assistive Devices: None Review of Systems Review of Systems: All systems reviewed & are unremarkable except as noted in HPI & below Constitutional: no fever, no chills and no fatigue Eyes: no problem reported Ear, Nose, Mouth, Throat: no problem reported Respiratory: no problem reported Cardiovascular: + edema; no problem reported Gastrointestinal: no nausea, no vomiting and no problem reported Musculoskeletal: no problem reported Integumentary: + skin ulcer, + wounds and + erythema Neurologic: + loss of sensation, + numbness and + pa resthesia; no generalized weakness Psychiatric: no problem reported Physical Exam Physical Exam: Lower extremity focused exam: DP/PT pulses non-palpable. Advanced trophic changes noted with thinned skin, distal hair loss, cooling proximal to distal, with local calor to clinically infected right fourth toe. There is an ulceration noted to the lateral aspect of the toe within the interspace and potential for remote foreign body plantar to the fourth MTPJ, though this is age indeterminate and possibly unrelated to the acute infection. The toe is dusky distal to the PIPJ with malodor and purulent drainage to the interspace ulceration. CT does reveal potential abscess formation to the plantar fourth toe as well as erosions and proliferations to the middle phalanx, which are suggestive of OM. Protective sensation is absent to the bilateral plantar feet. Cellulitis is noted ascending from the fourth toe, all confined distal to the previously marked proximal extent. Constitutional: WD/WN, vitals as above + ill appearing and + morbidly obese; no acute distress Eyes: PERRL, conjunctivae normal, anicteric sclerae ENMT: external ear and nose normal, oropharynx normal Neck: trachea midline, no thyromegaly normal visual inspection Respiratory: normal respiratory effort; no respiratory distress Cardiovascular: Rate/Rhythm: regular rate and regular rhythm Vessels: + posterior tibial pulses abnormal and + dorsalis pedis pulses abnormal Chest (Breasts): Chest: normal inspection of chest Gastrointestinal (Abdomen): Inspection/Auscultation: abdomen normal to inspection Percussion/Palpation: + abdomen tender and abdomen soft Musculoskeletal: no cyanosis or clubbing, extremities motor strength 5/5 Head/Neck/Chest: normocephalic and head atraumatic Extremities: extremities normal to inspection Skin: + ulcer, + wound, + skin atrophy, + ecch ymosis, + erythema and + nails dystrophic Neurologic: awake; no focal motor deficits Psychiatric: A+Ox3, euthymic affect Results & Data Vital Signs (Past 12 Hours) Vital Signs Temp Pulse Pulse Resp BP Pulse Ox O2 Del Method 03/09/25 20:11 37.4 C 87 18 130/64 94 Room Air 03/09/25 19:45 Room Air 03/09/25 14:40 36.8 C 80 16 136/65 97 Room Air 03/09/25 14:18 36.9 C 78 16 135/56 L 96 Room Air 03/09/25 12:36 37.3 C 70 20 116/49 L 97 Room Air 03/09/25 11:04 71 18 132/70 98 Room Air 03/09/25 10:03 98 Room Air 03/09/25 09:51 85 03/09/25 09:46 75 18 95/55 L 96 Room Air
[2025-03-10] MEDS: LEVOTHYROXINE SODIUM 125 MCG TABLET PO SCH (05:38)
[2025-03-10] MEDS: VANCOMYCIN HCL 1,000 MG/270 ML BAG IV SCH (05:41)
--- NOTE | 2025-03-10 07:36 | Hospitalist Progress Note ---
Date of Service March 10, 2025 Assessment & Plan (1) Diabetic foot infection: (2) Leukocytosis: (3) Lactic acidemia: (4) Elevated troponin: (5) Uncontrolled diabetes mellitus with hyperglycemia, with long-term current use of insulin: (6) Diabetic nephropathy associated with type 2 diabetes mellitus: (7) Diabetic peripheral neuropathy associated with type 2 diabetes mellitus: Plan 79-year-old male history of diabetes with peripheral neuropathy presents after stepping on a sharp object sustaining a puncture wound to the plantar aspect now with cellulitis to his foot and a gangrenous right fourth toe. Patient's blood glucoses are under control being elevated pending an A1c. Patient previously has seen Dr. Milton with circulation evaluation felt to be appropriate he is on vancomycin and Zosyn therapy #Diabetic Foot Infection d/t puncture wound/Diabetic neuropathy w/ leukocytosis and lactic acidemia - ABIs just completed 02/[address] Milton and were normal b/l - CT w/o evidence of retained foreign body or osteo, concern for clinical gangrene to 4th toe - Vancomycin and Zosyn for now - Wound culture collected at bedside - Tdap ordered and administered in ED - Blood cultures ordered x2 -Podiatry planning on amputation 03/10/2025 of the right fourth toe #Uncontrolled T2DM with nephropathy/neuropathy - Hold U500 and change to basal/bolus adjustment of sliding scale in 03/10/2025 - AC and HS blood sugar checks (does have a continuous glucose monitor) - Last a1c 8.3% in Jul 2024, update a1c - Hold Metformin - Continue Jardiance #Mild SUKHJINDER on CKD persists despite fluid resuscitation -Continue to hold Spironolactone & lisinopril + hctz bp stable off these meds at this time #CAD/CHF with mild detectable trop - likely secondary to myocardial demand ischemia - Continue Metoprolol Succ,, - Repeat HS trop level stable - Echo 02/26 - LVEF 45-50%, mild inferolateral hypokinesis w/ grade II diastolic dysfunction, mild concentric LVH, aortic sclerosis #Hypothyroidism - Continue levothyroxine #GERD - Continue PPI #Dyslipidemia - Continue fenofibrate and Atorvastatin VTE ppx eventual chemoprophylaxis postoperatively Admission and Anticipated Discharge Date Admission Date: March 09, 2025 Subjective pt is feeling better, erythema has improved but toe appears worse, some sloughing of skin Physical Exam Physical Exam: cardiac is regular lungs are clear right foot with gangrene and maceration at webspace between 4/5 toes and on dorsum of 4th toe Results & Data Results & Data Vital Signs (Past 12 Hours) Vital Signs Temp Pulse Resp BP Pulse Ox O2 Del Method 03/10/25 07:32 98.2 F 99 H 16 131/67 96 Room Air 03/09/25 20:11 99.3 F 87 18 130/64 94 Room Air 03/09/25 19:45 Room Air Laboratory Results review cbc review chemistry PG Care Time/CCT Total # of Minutes Spent Total Time Spent with Patient: Total time spent is greater than 50% in coordination of care (as documented) at patient's floor/unit and/or counseling patient: Coding Level of Care Code 38873 SUB INP/OBS CARE 3/50MIN Diagnoses Diabetic foot infection E11.628; L08.9 Leukocytosis D72.829 Lactic acidemia E87.20 Elevated troponin R79.89 Uncontrolled diabetes mellitus with hyperglycemia, with long-term current use of insulin E11.65; Z79.4 Diabetic nephropathy associated with type 2 diabetes mellitus E11.21 Diabetic peripheral neuropathy associated with type 2 diabetes mellitus E11.42
[2025-03-10] MEDS ORDERED: Nursing to Pharmacy Communication SCH ×2 (08:00→16:45)
[2025-03-10 08:28] LABS: Hematocrit (blood only) 32.9 % (42.0-52.0); Hemoglobin 11.0 g/dl (14.0-18.0); Immature Granulocytes # (auto) 0.14 K/uL (0.01-0.20); Immature Granulocytes % (auto) 1.4 %; Mean Corpuscular Hemoglobin 27.0 pg (25.0-34.0); Mean Corpuscular Volume 80.8 fL (80.0-100.0); Platelet Count 157 K/uL (130-400); RDW Standard Deviation 42.1 fL (36.4-46.3); Red Blood Count 4.07 M/uL (4.70-6.10); White Blood Count 10.37 K/ul (4.8-10.8)
[2025-03-10] MEDS: INSULIN ASPART PER UNIT CHARGE SC SCH ×2 (08:37→17:36)
[2025-03-10] MEDS: LANTUS PER UNIT CHARGE SC ONE (08:37)
[2025-03-10] MEDS ORDERED: ENOXAPARIN INJ 40 MG/0.4 ML SYR SQ SCH (09:00)
[2025-03-10 09:04] LABS: Hemoglobin A1C 9.4 % (4.5-5.6)
[2025-03-10 09:25] LABS: Anion Gap 9.0 (3-11); Blood Urea Nitrogen 27.0 mg/dl (6-23); Calcium 8.8 mg/dl (8.6-10.3); Carbon Dioxide 23.0 mmol/L (21-32); Chloride 104.0 mmol/L (98-107); Creatinine Clr Calc Pharmacy 50.8 ml/min; Glucose 229.0 mg/dl (70-99(Fasting)); Potassium 4.4 mmol/L (3.5-5.1); Sodium 136.0 mmol/L (136-145)
--- NOTE | 2025-03-10 09:45 | Pharmacy Report ---
Pharmacy Glycemic Short Note 2 - Date of Service March 10, 2025 - Glycemic Short BSG Results (Last 24 hours): 03/09/25 03/09/25 03/09/25 09:50 13:35 16:30 Glucose 355 H* POC Glucose 300 H 324 H* 03/09/25 03/10/25 03/10/25 20:20 05:38 08:11 Glucose 229 H POC Glucose 292 H 265 H 03/10/25 08:12 Glucose POC Glucose 241 H OUTPATIENT ANTIDIABETIC REGIMEN: * Humulin R U-500--prescribed 200 units SQ with breakfast, 100 units with lunch, 70 units with dinner (patient reportedly takes as more like a sliding scale) * Jardiance 10mg po daily * metformin 1000mg po BID HbA1c: 9.4% on 03/10/28 ASSESSMENT: * Sage is a 79 year old male who was admitted 03/09 due to a diabetic foot infection. Pharmacy was consulted for glycemic management while he is admitted. * BSG on admit was 355mg/dL. Provider ordered 8 units of Lantus SC x 1 at that time. * Dinner BSG was 324mg/dL . A weight based bolus insulin regimen with a stress of 2 was started. A Lantus scale (0, 10 , or 20 units depending on BSG) was added for HS. * Fasting BSG was 265mg/dL this morning. Plan is to transition Sage to NPH insulin. However, he is NPO for surgery this morning so Lantus 20 units SQ x 1 was ordered and the CF of the bolus insulin was tightened. Once he is ordered a diet he will be changed to NPH insulin for easier transition back to his home U-500 at discharge. PLAN FOR INPATIENT GLYCEMIC CONTROL: * Hold outpatient diabetes medications * Basal insulin * 28 units total of Lantus give 03/09. 03/10 Lantus 20 units SQ x 1 ordered in the AM with probable transition to NPH insulin once a diet is started. * Bolus insulin * NovoLog per scale ACHS or Q6hrs while NPO * Goal Range: Low 110 mg/dL - High 140 mg/dL * Correction Factor: 15 mg/dL/unit * Nutritional / Prandial insulin per carb ratio of 1 unit per 7 grams CHO consumed
[2025-03-10] MEDS: FLUTICASONE PROPIONATE NA SPR 16 GM BTL SCH (10:04)
[2025-03-10] MEDS: FENOFIBRATE NANOCRYSTALLIZED 145 MG TABLET PO SCH (10:05)
[2025-03-10] MEDS: ASPIRIN 81 MG ECTAB PO SCH (10:05)
[2025-03-10] MEDS: CYANOCOBALAMIN (B-12) 500 MCG TABLET PO SCH (10:05)
[2025-03-10] MEDS: ATORVASTATIN 40 MG TAB PO SCH (10:05)
[2025-03-10] MEDS: CHOLECALCIFEROL 125 MCG (5,000 UNITS) TAB PO SCH (10:05)
--- NOTE | 2025-03-10 11:39 | Pharmacy Report ---
Pharmacy PK ABX Note - Date of Service March 10, 2025 - Assessment and Plan Assessment 79 year old M receiving vancomycin and Zosyn for treatment of a diabetic foot infection/cellulitis/gangrenous right fourth toe secondary to a puncture wound to the plantar aspect from stepping on a sharp object. CT shows no evidence of acute osteomyelitis. Podiatry to take to OR tomorrow for digital amputation vs I&D (depending on MRI results). * Pertinent microbiologic data includes: Preliminary 03/09 Right foot culture growing K. pneumoniae and S. aureus. Urine and blood cultures from 03/09 are pending * He presented with an SUKHJINDER, but renal function is improving (SCr is 1.5 today). Day # 2 of antimicrobial therapy. Plan Vancomycin * Loading dose: 2750 mg IV x 1 * Maintenance dose: 1000 mg IV every 24 hours * Regimen is predicted to achieve target AUC/JUANY of 400-600 mg/L.hr * Random level ordered for: 03/12 with AM labs Zosyn 4.5gm iv q 8 hours Pharmacy will continue to follow and will adjust dose/frequency as necessary. Thank you. Pharmacy has transitioned to AUC monitoring for vancomycin. AUC/JUANY is the preferred PK/PD target and is associated with decreased risk of nephrotoxicity compared to traditional trough targets.
--- NOTE | 2025-03-10 11:41 | Anesthesiology Consultation ---
Date of Service March 10, 2025 Assessment & Plan (1) Encounter for pre-operative examination: Chart Review Chart Review: Acceptable Risk for Surgery History Surgery Operation Date: 03/10/25 11:10 Proposed Procedures p Right 4th Toe Amputation - Kecia Pierre DPM Height/Weight Height: 5 ft 10 in Weight: 111 kg Allergies Allergy/AdvReac Type Severity Reaction Status Date / Time canagliflozin [From Invokana] Allergy Mild rash Verified 02/10/25 09:50 semaglutide [From Ozempic] AdvReac Mild Altered Verified 02/10/25 09:50 Sense of Taste Medications Home Medications Medication Instructions Recorded Confirmed Last Taken aspirin 81 mg tablet,delayed 81 mg PO QAM 05/08/19 03/09/25 03/09/25 release cyanocobalamin (vitamin B-12) 1,000 mcg PO DAILY 05/08/19 03/09/25 03/09/25 1,000 mcg tablet,extended release fluticasone propionate 50 2 sprays intranasal DAILY 05/08/19 03/09/25 03/09/25 mcg/actuation nasal spray,suspension omeprazole 20 mg capsule,delayed 20 mg PO QAM 05/08/19 03/09/25 03/09/25 release blood sugar diagnostic (Prodigy No #200 ea 07/11/21 02/10/25 07/31/22 Coding strips) pen needle, diabetic 31 gauge x #100 ea 10/02/22 02/10/25 Unknown 1/4" (Comfort EZ Pen [place]) cholecalciferol (vitamin D3) 125 2,500 unit PO DAILY 05/11/23 03/09/25 03/09/25 mcg (5,000 unit) capsule metformin 1,000 mg tablet 1,000 mg PO BID 30 days #60 tabs 11/12/24 03/09/25 03/09/25 fenofibrate micronized 134 mg 134 mg PO DAILY 30 days #30 caps 01/19/25 03/09/25 03/09/25 capsule insulin regular hum U-500 conc 500 See Rx Instructions .Route .COMPLEX 02/10/25 03/09/25 Unknown unit/mL(3 mL) subcut pen (Humulin R U-500 (Conc) Insulin Kwikpen) metoprolol succinate 25 mg 25 mg PO BID 02/10/25 03/09/25 03/09/25 tablet,extended release 24 hr (Toprol XL) levothyroxine 125 mcg tablet 125 mcg PO DAILY 03/09/25 03/09/25 03/09/25 lisinopril 20 1 tab PO HS 03/09/25 03/09/25 Unknown mg-hydrochlorothiazide 12.5 mg tablet spironolactone 25 mg tablet 25 mg PO DAILY 03/09/25 03/09/25 03/09/25 (Aldactone) Active Medications Generic Name Dose Route Start Last Admin Trade Name Manish PRN Reason Stop Dose Admin Aspirin 81 mg 03/10/25 09:00 03/10/25 10:05 Aspirin 81 Mg Ectab PO 04/09/25 08:59 81 mg QAM EVELYN Administration Atorvastatin Calcium 40 mg 03/10/25 09:00 03/10/25 10:05 Atorvastatin 40 Mg Tab PO 04/09/25 08:59 40 mg DAILY EVELYN Administration Cyanocobalamin 1,000 mcg 03/10/25 09:00 03/10/25 10:05 Cyanocobalamin (B-12) 500 Mcg Tablet PO 04/09/25 08:59 1,000 mcg DAILY EVELYN Administration Fenofibrate 145 mg 03/10/25 09:00 03/10/25 10:05 Fenofibrate Nanocrystallized 145 Mg Tablet PO 04/09/25 08:59 145 mg DAILY EVELYN Administration Fluticasone Propionate 1 sprays 03/10/25 09:00 03/10/25 10:04 Fluticasone Propionate Na Spr 16 Gm Btl NA 04/09/25 08:59 1 sprays DAILY EVELYN Administration Piperacillin Sod/Tazobactam Sod 4.5 gm in 100 mls @ 25 mls/hr 03/09/25 15:00 03/10/25 07:20 Zosyn IV 03/16/25 14:59 25 mls/hr Q8H EVELYN Administration Protocol Vancomycin HCl 1,000 mg in 270 mls @ 200 mls/hr 03/10/25 06:30 03/10/25 07:19 Vancomycin Hcl IV 03/17/25 06:29 Infused Q24H EVELYN Infusion Insulin Aspart 0 units 03/10/25 08:00 03/10/25 08:37 Insulin Aspart Per Unit Charge SC 04/09/25 07:59 7 units Q6 EVELYN Administration Insulin Glargine 0 units 03/09/25 21:00 03/09/25 20:45 Lantus Per Unit Charge SQ 04/08/25 20:59 20 units HS EVELYN Administration Protocol Levothyroxine Sodium 125 mcg 03/10/25 06:30 03/10/25 05:38 Levothyroxine Sodium 125 Mcg Tablet PO 04/09/25 06:29 125 mcg DAILYBB EVELYN Administration Metoprolol Succinate 25 mg 03/09/25 21:00 03/10/25 10:05 Metoprolol Succ 25mg Ext Rel Tab PO 04/08/25 20:59 25 mg BID EVELYN Administration Pantoprazole Sodium 40 mg 03/10/25 09:00 03/10/25 10:05 Pantoprazole 40 Mg Tab PO 04/09/25 08:59 40 mg QAM EVELYN Administration Vitamin D 125 mcg 03/10/25 09:00 03/10/25 10:05 Cholecalciferol 125 Mcg (5,000 Units) Tab PO 04/09/25 08:59 125 mcg DAILY EVELYN Administration Past Medical History Medical History (Updated 03/10/25 @ 11:40 by Carlitos Bryan MD) Chronic kidney disease, stage I Dyslipidemia Hypertension Hypothyroidism AAA (abdominal aortic aneurysm) without rupture CAD (coronary artery disease) Cardiomyopathy Chronic obstructive pulmonary disease Hepatocellular carcinoma Transaminitis Acute osteomyelitis of right foot Uncontrolled diabetes mellitus with hyperglycemia, with long-term current use of insulin GERD (gastroesophageal reflux disease) Vitamin D deficiency Past Family History Family History Mother Diabetes Hypertension Father Diabetes Heart disease Hypertension Grandfather (Paternal) Heart disease Other No family history of adverse response to anesthesia Past Surgical History Surgical History History of cataract surgery RT H/O colonoscopy with polypectomy History of AAA (abdominal aortic aneurysm) repair H/O hernia repair History of tooth extraction History of tonsillectomy History of cardiac cath + 30 YEARS AGO/NO STENTS Hx of cholecystectomy Hx of CABG 3 VESSELS 30+ YEARS AGO AT [place] Hx of appendectomy Social History Smoking Status: Former smoker tobacco type: cigarettes Smoking cigarettes per day: 45+ YEARS AGO Do You Dip or Chew Tobacco: No Hx Alcohol Use: Yes Alcohol type: beer alcohol intake frequency: holidays/special occasions only Hx Substance Use: No substance use type: does not use Physical Exam Vital Signs Last Vital Signs Temp 36.8 C 03/10/25 07:32 Pulse 74 03/10/25 10:02 Resp 18 03/10/25 10:02 BP 121/68 03/10/25 10:02 Pulse Ox 94 03/10/25 10:02 O2 Del Method Room Air 03/10/25 10:02 Testing Laboratory Results 03/10/25 08:11 03/10/25 08:11 PT 11.5 Seconds (9.0-12.0) 03/09/25 09:50 INR 1.1 (0.9-1.1) 03/09/25 09:50 APTT 31 Seconds (21-31) 03/09/25 09:50 Hemoglobin A1c 9.4 % (4.5-5.6) H 03/10/25 08:11 Urine Color Yellow 03/09/25 13:56 Urine Appearance Clear (Clear) 03/09/25 13:56 Urine pH 5.0 (4.5-7.5) 03/09/25 13:56 Ur Specific [place] 1.043 (1.000-1.030) H 03/09/25 13:56 Urine Protein Negative (Negative) 03/09/25 13:56 Urine Glucose (UA) 3+ (Negative) H 03/09/25 13:56 Urine Ketones Negative (Negative) 03/09/25 13:56 Urine Nitrite Negative (Negative) 03/09/25 13:56 Ur Leukocyte Esterase 1+ (Negative) H 03/09/25 13:56 Urine WBC (Auto) 11-20 /hpf (0-5) H 03/09/25 13:56 Urine RBC (Auto) 0-2 /hpf (0-2) 03/09/25 13:56 U Hyaline Cast (Auto) 0-2 /lpf (0-2) 03/09/25 13:56 U Epithel Cells (Auto) 0-2 /hpf (0-2) 03/09/25 13:56 Urine Bacteria (Auto) None Seen (None Seen) 03/09/25 13:56 03/09/25 09:50 Aerobic Blood Culture - Preliminary Blood No growth in Aerobic bottle after 24 hours. Anaerobic Blood Culture - Preliminary No growth in Anaerobic bottle after 24 hours. 03/09/25 Unknown Gram Stain - Final Foot,Right Wound Culture - Preliminary Klebsiella pneumoniae Staphylococcus aureus 03/10/25 03/10/25 08:12 05:38 POC Glucose 241 H 265 H Electrocardiogram Date: 03/09/25 Findings: + NSR @ (72) and + RBBB Echocardiogram Date: 02/26/25 EF: 45-50% Other Findings: + diastolic dysfunction Valvular Disease: + no significant valvular disease
[2025-03-10] MEDS ORDERED: ONDANSETRON INJ 2 MG/ML 2 ML VIAL ONE (13:18)
[2025-03-10] MEDS ORDERED: PROPOFOL IV EMULSION 10 MG/ML 20 ML VIAL IV ONE (13:18)
[2025-03-10] MEDS ORDERED: LIDOCAINE 2% 2 ML VIAL/AMP(20MG/ML) INFIL ONE (13:18)
[2025-03-10] MEDS: LACTATED RINGER'S 1,000 ML IV SCH (13:45)
[2025-03-10] MEDS ORDERED: ATROPINE SULFATE 0.1 MG/ML 10ML SYR IV PRN (13:53)
[2025-03-10] MEDS ORDERED: ONDANSETRON INJ 2 MG/ML 2 ML VIAL IV PRN (13:53)
--- NOTE | 2025-03-10 13:55 | History & Physical Bridge Note ---
Date of Service March 10, 2025 History & Physical Bridge Note I have examined the patient, reviewed the History & Physical and in the interval since the performance of the History & Physical I have noted the following changes of clinical significance: worsening infection involving right 5th toe. Surgical plan right fourth toe and right fifth toe amputation.
[2025-03-10] MEDS: BUPIVACAINE 0.25% PF 30 ML VIAL ONE (14:39)
--- NOTE | 2025-03-10 15:06 | Post Operative Brief Note ---
Immediate Post Op Note Date of Surgery March 10, 2025 Pre & Post Diagnosis Operation Date: 03/10/25 11:10 Pre-Op Diagnosis: Diabetic Foot Ulcer Post-Op Diagnosis: Diabetic Foot Ulcer, right foot osteomyelitis, right foot abscess I identified the patient and participated in the time-out.: Yes Procedure Operation Date: 03/10/25 11:10 Actual Procedures p Right 4th and 5th Partial Ray Resection(Right) - Kecia Pierre DPM Surgeon Kecia Pierre DPM Coding Quality Coordinator none Estimated Blood Loss 30 Findings Consistent with Post-Op Diagnosis Specimens right 4th metatarsal head bone sent to pathology right 5th metatarsal head bone sent to pathology right 4th and 5th toes sent to pathology right foot swab culture right 2nd toe tissue culture Anesthesia Type MAC Complications none Disposition Accompanied Patient To Recovery: Yes
--- NOTE | 2025-03-10 15:43 | Anesthesiology Progress Note ---
Date of Service March 10, 2025 Anesthesia Post Procedure Vital Signs Vital Signs: Temp Pulse Pulse Resp BP Pulse Ox O2 Del Method 03/10/25 15:35 37.6 C H 75 21 127/59 L 92 Room Air 03/10/25 15:25 76 19 108/70 94 Room Air 03/10/25 15:15 80 21 126/60 94 Oxymask 03/10/25 15:07 36 C L 83 23 128/62 97 Oxymask 03/10/25 13:44 37.5 C 81 20 128/61 95 Room Air 03/10/25 10:02 74 18 121/68 94 Room Air 03/10/25 07:32 36.8 C 99 H 16 131/67 96 Room Air 03/09/25 20:11 37.4 C 87 18 130/64 94 Room Air 03/09/25 19:45 Room Air O2 Flow Rate 03/10/25 15:35 03/10/25 15:25 03/10/25 15:15 4 03/10/25 15:07 4 03/10/25 13:44 03/10/25 10:02 03/10/25 07:32 03/09/25 20:11 03/09/25 19:45 Pain Intensity Right Foot: Pain Intensity: 2 Transfer of Care Handoff Completed per policy Notes Mental Status: alert / awake / arousable Patient Amnestic to Procedure: Yes Nausea / Vomiting: adequately controlled Pain: adequately controlled Airway Patency, RR, SpO2: stable & adequate BP & HR: stable & adequate Hydration State: stable & adequate Anesthetic Complications: no major complications apparent
[2025-03-10] MEDS ORDERED: INSULIN ASPART PER UNIT CHARGE SC SCH (21:00)
[2025-03-11 06:47] LABS: Creatinine Clr Calc Pharmacy 62.2 ml/min
--- NOTE | 2025-03-11 08:10 | Hospitalist Progress Note ---
Date of Service March 11, 2025 Assessment & Plan (1) Diabetic foot infection: (2) Leukocytosis: (3) Lactic acidemia: (4) Elevated troponin: (5) Uncontrolled diabetes mellitus with hyperglycemia, with long-term current use of insulin: (6) Diabetic nephropathy associated with type 2 diabetes mellitus: (7) Diabetic peripheral neuropathy associated with type 2 diabetes mellitus: Plan 79-year-old male history of diabetes with peripheral neuropathy presents after stepping on a sharp object sustaining a puncture wound to the plantar aspect now with cellulitis to his foot and a gangrenous right fourth toe. Patient's blood glucoses are under control being elevated pending an A1c. Patient previously has seen Dr. Milton with circulation evaluation felt to be appropriate he is on vancomycin and Zosyn therapy #Diabetic Foot Infection d/t puncture wound/Diabetic neuropathy w/ leukocytosis and lactic acidemia - ABIs just completed 02/[address] Milton and were normal b/l - CT w/o evidence of retained foreign body or osteo, concern for clinical gangrene to 4th toe - Cefazolin and vancomycin per infectious disease , clinically surgeon described osteomyelitis further culture results may determine if short course or long course antibiotics required ID consult to determine choice and duration, once further information is returned - Tdap ordered and administered in ED - Blood cultures Negative to date -Podiatry s/p amputation 03/10/2025 of the right fourth fifth toe and metatarsals #Uncontrolled T2DM with nephropathy/neuropathy - Hold U500 and change to basal/bolus adjustment of sliding scale in 03/10/2025 - Last a1c 8.3% in Jul 2024, update a1c - Hold Metformin - Continue Jardiance #Mild SUKHJINDER on CKD persists despite fluid resuscitation -Continue to hold Spironolactone & lisinopril + hctz bp stable off these meds at this time #CAD/CHF with mild detectable trop - likely secondary to myocardial demand ischemia - Continue Metoprolol Succ,, - Repeat HS trop level stable - Echo 02/26 - LVEF 45-50%, mild inferolateral hypokinesis w/ grade II diastolic dysfunction, mild concentric LVH, aortic sclerosis #Hypothyroidism - Continue levothyroxine #GERD - Continue PPI #Dyslipidemia - Continue fenofibrate and Atorvastatin VTE ppx chemoprophylaxis postoperatively Admission and Anticipated Discharge Date Admission Date: March 09, 2025 Subjective Patient seen postop of a postop shoe pain is in good control he has been ambulating short distances Infectious disease consultation has been achieved Physical Exam Physical Exam: Pleasant conversant upbeat Card exam is regular lungs are clear As mentioned in postop shoe in place Results & Data Results & Data Vital Signs (Past 12 Hours) Vital Signs Temp Pulse Resp BP Pulse Ox O2 Del Method 03/11/25 07:23 98.2 F 69 16 127/65 92 Room Air 03/10/25 21:32 97.5 F L 78 18 114/60 93 Room Air Laboratory Results Reviewed CBC reviewed chemistry PG Care Time/CCT Total # of Minutes Spent Total Time Spent with Patient: Total time spent is greater than 50% in coordination of care (as documented) at patient's floor/unit and/or counseling patient: Coding Level of Care Code 43001 SUB INP/OBS CARE 350MIN Diagnoses Diabetic foot infection E11.628; L08.9 Leukocytosis D72.829 Leukocytosis type: unspecified Lactic acidemia E87.20 Elevated troponin R79.89 Uncontrolled diabetes mellitus with hyperglycemia, with long-term current use of insulin E11.65; Z79.4 Diabetic nephropathy associated with type 2 diabetes mellitus E11.21 Diabetic peripheral neuropathy associated with type 2 diabetes mellitus E11.42 (2) Leukocytosis Leukocytosis type: unspecified Qualified Code(s): D72.829 - Elevated white blood cell count, unspecified
[2025-03-11 08:49] LABS: Hematocrit (blood only) 33.2 % (42.0-52.0); Hemoglobin 10.8 g/dl (14.0-18.0); Mean Corpuscular Hemoglobin 26.4 pg (25.0-34.0); Mean Corpuscular Volume 81.2 fL (80.0-100.0); Platelet Count 183 K/uL (130-400); RDW Standard Deviation 42.5 fL (36.4-46.3); Red Blood Count 4.09 M/uL (4.70-6.10); White Blood Count 9.66 K/ul (4.8-10.8)
[2025-03-11] MEDS: EMPAGLIFLOZIN 10 MG TAB PO SCH (08:57)
[2025-03-11] MEDS: INSULIN HUMAN NPH SC SCH ×2 (09:07→17:37)
[2025-03-11 10:04] LABS: Anion Gap 12.0 (3-11); Calcium 8.9 mg/dl (8.6-10.3); Carbon Dioxide 21.0 mmol/L (21-32); Chloride 103.0 mmol/L (98-107); Potassium 4.0 mmol/L (3.5-5.1); Sodium 136.0 mmol/L (136-145)
[2025-03-11 10:10] LABS: Blood Urea Nitrogen 22.0 mg/dl (6-23); Glucose 169.0 mg/dl (70-99(Fasting))
--- NOTE | 2025-03-11 10:21 | Pharmacy Report ---
Pharmacy PK ABX Note - Date of Service March 11, 2025 - Assessment and Plan Assessment 03/11: * Renal function improved (SCr 1.24 today) and predicted AUC is < 400mg/L.hr so increased vancomycin to 1500mg iv q 24 hours. Vanco level still ordered for tomorrow to guide further dosing. * Right foot culture grew MRSA + K.pneumonia; Preliminary left 4th toe culture grew S. aureus. ID was consulted. 03/10: 79 year old M receiving vancomycin and Zosyn for treatment of a diabetic foot in fection/cellulitis/gangrenous right fourth toe secondary to a puncture wound to the plantar aspect from stepping on a sharp object. CT shows no evidence of acute osteomyelitis. Podiatry to take to OR tomorrow for digital amputation vs I&D (depending on MRI results). * Pertinent microbiologic data includes: Preliminary 03/09 Right foot culture growing K. pneumoniae and S. aureus. Urine and blood cultures from 03/09 are pending * He presented with an SUKHJINDER, but renal function is improving (SCr is 1.5 today). Day # 2 of antimicrobial therapy. Plan Vancomycin * Loading dose: 2750 mg IV x 1 * Increased maintenance dose: 1500 mg IV every 24 hours * Regimen is predicted to achieve target AUC/JUANY of 400-600 mg/L.hr * Random level ordered for: 03/12 with AM labs Zosyn 4.5gm iv q 8 hours Pharmacy will continue to follow and will adjust dose/frequency as necessary. Thank you. Pharmacy has transitioned to AUC monitoring for vancomycin. AUC/JUANY is the preferred PK/PD target and is associated with decreased risk of nephrotoxicity compared to traditional trough targets.
--- NOTE | 2025-03-11 11:43 | Infectious Disease Consult ---
Date of Consultation March 11, 2025 Assessment & Plan (1) Diabetic foot infection: (2) Diabetes type 2, controlled: Plan Problems: #R diabetic foot infection #T2DM with peripheral neuropathy #PAD Micro: 03/10 R foot OR cx: Staph aureus 03/10 L fourth toe OR cx: Staph aureus 03/09 R foot wound cx: Kleb pneumo (S amox/clav, cefaz, cipro, erta, levo, TMP/SMX. I amp/sul), MRSA (S tetra, TMP/SMX, vanc) Abx: Vanc 03/09 - present Pip-tazo 03/09 - present 79 yo M with T2DM c/b nephropathy and peripheral neuropathy, CAD, PAD, CHF, HTN who presented on 03/09 with a R foot wound. Pt thinks he stepped on a tack or some other metallic item in his home on 03/06, but did not feel any pain due to his neuropathy. He had 2 other puncture wounds and doesn't recall exactly when those occurred, but believes it was around the same time. Noted increasing color changes and concerns to his R 4th toe. On presentation, pt was afebrile, HR 80, BP 94/61. Labs showed WBC 15.72, Cr 1.87, lactate 2.6. CT R foot with contrast showed no fractures, no CT evidence for acute osteo, and subcutaneous soft tissue swelling along the plantar aspects of the R fourth and fifth metatarsophalangeal joints. Pt was started on vanc and Zosyn. A wound culture was obtained, which grew Kleb pneumo and MRSA. Podiatry was consulted and noted an ulceration to the lateral aspect of the R 4th toe within the interspace, potential for remote foreign body plantar to fourth MTPJ. Toe was dusky distal to PIPJ with malodor and purulent drainage. Podiatry was concerned for underlying osteomyelitis and recommended MRI. Pt was taken to the OR on 03/10 for R 4th and 5th partial ray resections. OR cx growing MRSA. Leukocytosis resolved. Recommendations: -Stopped pip-tazo. Narrowed to cefazolin 2 g IV q8h for Kleb pneumo coverage -Continue vanc for MRSA coverage -Will discuss further with podiatry. If concerned for osteomyelitis and surgical cure was achieved, can transition to a short course of PO antibiotics for any residual skin/soft tissue infection. If there is residual osteomyelitis, would recommend a 6 week course of IV antibiotics. Will continue to follow. Consultation Information This patient recommendation is based on a telemedicine consult request which was completed asynchronously through chart review and information provided by the primary physician. The patient was not seen or examined today. The evaluation is consultative in nature and all patient care and treatment decisions can either be accepted or rejected by the patient's primary hospital-based treating physici an using their own independent medical judgment for their patient. 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 (Phone Number For Physician Use Only) Time Spent Reviewing Chart: 31+ minutes History of Present Illness Reason for Consultation: Diabetic foot infection Attending Physician: Krunal Mcrae MD History of Present Illness 79 yo M with T2DM c/b nephropathy and peripheral neuropathy, CAD, PAD, CHF, HTN who presented on 03/09 with a R foot wound. Pt thinks he stepped on a tack or some other metallic item in his home on 03/06, but did not feel any pain due to his neuropathy. He had 2 other puncture wounds and doesn't recall exactly when those occurred, but believes it was around the same time. Noted increasing color estuardo nges and concerns to his R 4th toe. On presentation, pt was afebrile, HR 80, BP 94/61. Labs showed WBC 15.72, Cr 1.87, lactate 2.6. CT R foot with contrast showed no fractures, no CT evidence for acute osteo, and subcutaneous soft tissue swelling along the plantar aspects of the R fourth and fifth metatarsophalangeal joints. Pt was started on vanc and Zosyn. A wound culture was obtained, which grew Kleb pneumo and MRSA. Podiatry was consulted and noted an ulceration to the lateral aspect of the R 4th toe within the interspace, potential for remote foreign body plantar to fourth MTPJ. Toe was dusky distal to PIPJ with malodor and purulent drainage. Podiatry was concerned for underlying osteomyelitis and recommended MRI. Pt was taken to the OR on 03/10 for R 4th and 5th partial ray resections. OR cx growing MRSA. Allergies Allergy/AdvReac Type Severity Reaction Status Date / Time canagliflozin [From Invokana] Allergy Mild rash Verified 02/10/25 09:50 semaglutide [From Ozempic] AdvReac Mild Altered Verified 02/10/25 09:50 Sense of Taste Home Medications Medication Instructions Recorded Confirmed Type aspirin 81 mg tablet,delayed 81 mg PO QAM 05/08/19 03/09/25 History release cyanocobalamin (vitamin B-12) 1,000 mcg PO DAILY 05/08/19 03/09/25 History 1,000 mcg tablet,extended release fluticasone propionate 50 2 sprays intranasal DAILY 05/08/19 03/09/25 History mcg/actuation nasal spray,suspension omeprazole 20 mg capsule,delayed 20 mg PO QAM 05/08/19 03/09/25 History release blood sugar diagnostic (Prodigy No #200 ea 07/11/21 02/10/25 Rx Coding strips) pen needle, diabetic 31 gauge x #100 ea 10/02/22 02/10/25 Rx 1/4" (Comfort EZ [place]) cholecalciferol (vitamin D3) 125 2,500 unit PO DAILY 05/11/23 03/09/25 History mcg (5,000 unit) capsule metformin 1,000 mg tablet 1,000 mg PO BID 30 days #60 tabs 11/12/24 03/09/25 Rx fenofibrate micronized 134 mg 134 mg PO DAILY 30 days #30 caps 01/19/25 03/09/25 Rx capsule insulin regular hum U-500 conc 500 See Rx Instructions .Route .COMPLEX 02/10/25 03/09/25 History unit/mL(3 mL) subcut pen (Humulin R U-500 (Conc) Insulin Kwikpen) metoprolol succinate 25 mg 25 mg PO BID 02/10/25 03/09/25 History tablet,extended release 24 hr (Toprol XL) levothyroxine 125 mcg tablet 125 mcg PO DAILY 03/09/25 03/09/25 History lisinopril 20 1 tab PO HS 03/09/25 03/09/25 History mg-hydrochlorothiazide 12.5 mg tablet spironolactone 25 mg tablet 25 mg PO DAILY 03/09/25 03/09/25 History (Aldactone) Patient History Medical History (Updated 03/10/25 @ 21:53 by AMDI Tucker) Chronic kidney disease, stage I Dyslipidemia Hypertension Hypothyroidism AAA (abdominal aortic aneurysm) without rupture CAD (coronary artery disease) Cardiomyopathy Chronic obstructive pulmonary disease Hepatocellular carcinoma Transaminitis Acute osteomyelitis of right foot Uncontrolled diabetes mellitus with hyperglycemia, with long-term current use of insulin GERD (gastroesophageal reflux disease) Vitamin D deficiency Surgical History History of cataract surgery RT H/O colonoscopy with polypectomy History of AAA (abdominal aortic aneurysm) repair H/O hernia repair History of tooth extraction History of tonsillectomy History of cardiac cath + 30 YEARS AGO/NO STENTS Hx of cholecystectomy Hx of CABG 3 VESSELS 30+ YEARS AGO AT [facility] Hx of appendectomy Family History Mother Diabetes Hypertension Father Diabetes Heart disease Hypertension Grandfather (Paternal) Heart disease Other No family history of adverse response to anesthesia Social History Smoking Status: Former smoker Tobacco Type: Cigarettes Cigarettes Per Day: 45+ YEARS AGO; Second Hand Exposure: No; Do You Dip or Chew Tobacco: No; Hx Alcohol Use: Yes Alcohol type: beer Hx Substance Use: No Preferred Language: Thai Communication Ability: Effective [employer]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 Beliefs That Will Affect Care: None marital status: Current Living Situation: Alone current occupational status: retired current occupation: Retired Feels Safe at Home: Yes Assistive Devices: None Review of System Pt was not seen Physical Exam Physical Exam: Pt was not seen Results & Data Vital Signs (Past 12 Hours) Vital Signs Temp Pulse Resp BP Pulse Ox O2 Del Method 03/11/25 07:23 36.8 C 69 16 127/65 92 Room Air Laboratory Results Short CBC 03/11/25 Range/Units 05:56 WBC 9.66 (4.8-10.8) K/ul Hgb 10.8 L (14.0-18.0) g/dl Hct 33.2 L (42.0-52.0) % Plt Count 183 (130-400) K/uL BMP 03/11/25 05:52 Sodium 136 Potassium 4.0 Chloride 103 Carbon Dioxide 21 BUN 22 Creatinine 1.24 Glucose 169 H Calcium 8.[address] 03/09/25 09:[address] WITH CONTRAST CLINICAL HISTORY: Puncture injury, severe neuropathy, infection. COMPARISON STUDY: No previous studies for comparison. TECHNIQUE: Axial images of the right foot were obtained following intravenous injection of 94 cc of Optiray 320 IV. Sagittal and coronal reformats were viewed. A dose lowering technique was utilized adhering to the principles of ALARA. FINDINGS: Alignment of the right foot is anatomic. Tarsometatarsal joints are intact. Moderate sized posterior and plantar calcaneal spurs are present. There is an os trigonum. There are no fractures within the right foot. No areas of bony erosion are identified. There is no soft tissue gas. Subcutaneous soft tissue swelling along the plantar aspects of the right fourth and fifth metatarsophalangeal joints is present. There are no associated radiopaque fore ign bodies. There is no rim-enhancing fluid collection. Extensive vascular calcification is noted. IMPRESSION: 1. No fractures within the right foot. No CT evidence for acute osteomyelitis. 2. Subcutaneous soft tissue swelling along the plantar aspects of the right fourth and fifth metatarsophalangeal joints. This may be traumatic and represent a contusion however cellulitis could appear similar. No rim-enhancing fluid collection to suggest abscess. No radiopaque foreign bodies. ACT 112: Negative or not required by law. Electronically signed by: Raulito Edouard M.D. 03/09/2025 11:49 AM Venous Doppler Study 03/09/25 09:56 US venous doppler LE RT HISTORY: 79 years-old Male calf pain, stopped plavix acute pain of the lower legs COMPARISON: None TECHNIQUE: Multiple real-time sonographic images of the right lower extremity deep venous structures were obtained assessing grayscale appearance, color and spectral flow. FINDINGS: Normal flow, compressibility, phasicity and augmentation. IMPRESSION: No sonographic evidence of deep venous thrombosis. ACT 112: Negative or not required by law. The above report was generated using voice recognition software. It may contain grammatical, syntax or spelling errors. Electronically signed by: Grant Snyder M.D. 03/09/2025 11:52 AM Medications Administered Current Inpatient Medications Acetaminophen (Acetaminophen 325 Mg Tab) 650 mg PO Q4H PRN PRN Reason: pain/fever Stop: 04/08/25 14:46 Al Hydrox/Mg Hydrox/Simethicone (Aluminum/Magnesium Susp 30 Ml Udc) 30 ml PO Q6H PRN PRN Reason: Dyspepsia Stop: 04/08/25 14:46 Aspirin (Aspirin 81 Mg Ectab) 81 mg PO QAM [facility] Stop: 04/09/25 08:59 Last Admin: 03/10/25 10:05 Dose: 81 mg Atorvastatin Calcium (Atorvastatin 40 Mg Tab) 40 mg PO DAILY [facility] Stop: 04/09/25 08:59 Last Admin: 03/11/25 08:57 Dose: 40 mg Cyanocobalamin (Cyanocobalamin (B-12) 500 Mcg Tablet) 1,000 mcg PO DAILY EVELYN Stop: 04/09/25 08:59 Last Admin: 03/11/25 08:56 Dose: 1,000 mcg Dextrose (Dextrose 50% 50 Ml Syringe) 25 - 50 ml IV UD PRN; Protocol PRN Reason: Hypoglycemia Protocol Stop: 04/08/25 14:18 Empagliflozin (Empagliflozin 10 Mg Tab) 10 mg PO DAILY EVELYN Stop: 04/09/25 08:59 Last Admin: 03/11/25 08:57 Dose: 10 mg Fenofibrate (Fenofibrate Nanocrystallized 145 Mg Tablet) 145 mg PO DAILY [facility]ELYN Stop: 04/09/25 08:59 Last Admin: 03/11/25 08:56 Dose: 145 mg Fluticasone Propionate (Fluticasone Propionate Na Spr 16 Gm Btl) 1 sprays NA DAILY [facility]ELYN Stop: 04/09/25 08:59 Last Admin: 03/11/25 08:56 Dose: 1 sprays Glucagon (Glucagon For Inj 1 Mg Vial) 1 mg SQ UD PRN; Protocol PRN Reason: Hypoglycemia Protocol Stop: 04/08/25 14:18 Glucose (Glucose 40% Gel 15 Gm Tube) 15 - 30 gm PO UD PRN; Protocol PRN Reason: Hypoglycemia Protocol Stop: 04/08/25 14:18 Glucose (Glucose 10 Tab/Tube) 4 - 8 tab PO UD PRN; Protocol PRN Reason: Hypoglycemia Protocol Stop: 04/08/25 14:18 Piperacillin Sod/Tazobactam Sod (Zosyn) 4.5 gm in 100 mls @ 25 mls/hr IV Q8H EVELYN; Protocol Stop: 03/16/25 14:59 Last Infusion: 03/11/25 13:15 Dose: Infused Lactated Ringer's (Lr) 1,000 mls @ 15 mls/hr IV .Q24H [facility] Stop: 03/13/25 13:44 Last Admin: 03/11/25 12:35 Dose: Not Given Vancomycin HCl 1,500 mg/ (Sodium Chloride) 530 mls @ 200 mls/hr IV Q24H [facility] Stop: 03/19/25 04:59 Insulin Aspart (Insulin Aspart Per Unit Charge) 0 units SC ACHS [facility] Stop: 04/09/25 16:34 Last Admin: 03/11/25 12:37 Dose: 12 units Insulin Human NPH (Insulin Human Nph) 30 units SC QDB [facility] Stop: 04/10/25 08:14 Last Admin: 03/11/25 09:07 Dose: 30 units Levothyroxine Sodium (Levothyroxine Sodium 125 Mcg Tablet) 125 mcg PO DAILYBB [facility] Stop: 04/09/25 06:29 Last Admin: 03/11/25 06:14 Dose: 125 mcg Magnesium Hydroxide (Magnesium Hydroxide Susp 30 Ml Udc) 30 ml PO Q6H PRN PRN Reason: Constipation Stop: 04/08/25 14:46 Metoprolol Succinate (Metoprolol Succ 25mg Ext Rel Tab) 25 mg PO BID [facility] Stop: 04/08/25 20:59 Last Admin: 03/11/25 08:57 Dose: 25 mg Miscellaneous (Carbohydrates For Hypoglycemia ) 15 - 30 gm PO UD PRN PRN Reason: Hypoglycemia Protocol Stop: 04/08/25 14:18 Miscellaneous Information (Vancomycin Consult Active) 1 each N/A UD PRN PRN Reason: Consult Stop: 04/08/25 10:09 Miscellaneous Information (Pharmacy Glycemic Mgmt Consult) 1 each N/A UD PRN PRN Reason: Consult Stop: 04/08/25 14:46 Ondansetron HCl (Ondansetron Inj 2 Mg/Ml 2 Ml Vial) 4 mg IV Q6H PRN PRN Reason: Nausea Stop: 04/08/25 14:46 Pantoprazole Sodium (Pantoprazole 40 Mg Tab) 40 mg PO QAM [facility] Stop: 04/09/25 08:59 Last Admin: 03/11/25 08:57 Dose: 40 mg Polyethylene Glycol (Polyethylene (Miralax) 17 Gm Pack) 17 gm PO DAILY PRN PRN Reason: Constipation Stop: 04/08/25 14:46 Vitamin D (Cholecalciferol 125 Mcg (5,000 Units) Tab) 125 mcg PO DAILY [facility] Stop: 04/09/25 08:59 Last Admin: 03/11/25 08:57 Dose: 125 mcg
--- NOTE | 2025-03-11 13:57 | Pharmacy Report ---
Pharmacy Glycemic Short Note 2 - Date of Service March 11, 2025 - Glycemic Short BSG Results (Last 24 hours): 03/10/25 03/10/25 03/10/25 15:10 16:42 20:33 Glucose POC Glucose 192 H 208 H 214 H 03/11/25 03/11/25 03/11/25 05:52 07:49 11:32 Glucose 169 H POC Glucose 224 H 218 H OUTPATIENT ANTIDIABETIC REGIMEN: * Humulin R U-500--prescribed 200 units SQ with breakfast, 100 units with lunch, 70 units with dinner (patient reportedly takes as more like a sliding scale) * Jardiance 10mg po daily * metformin 1000mg po BID HbA1c: 9.4% on 03/10/28 ASSESSMENT: 03/11 * Sage received a total of 66 units of insulin yesterday (40 units were basal and 26 units were bolus). BSGs were still all above goal yesterday. * Fasting BSG was 224mg/dL this morning and a diet was started last evening. Lantus was discontinued and NPH 30 units was given at breakfast today. An NPH scale (0,10, or 15 units) was added at dinner. * CR was tightened starting will dinner for better prandial control. 03/10 * Sage is a 79 year old male who was admitted 03/09 due to a diabetic foot infection. Pharmacy was consulted for glycemic management while he is admitted. * BSG on admit was 355mg/dL. Provider ordered 8 units of Lantus SC x 1 at that time. * Dinner BSG was 324mg/dL . A weight based bolus insulin regimen with a stress of 2 was started. A Lantus scale (0, 10 , or 20 units depending on BSG) was added for HS. * Fasting BSG was 265mg/dL this morning. Plan is to transition Sage to NPH insulin. However, he is NPO for surgery this morning so Lantus 20 units SQ x 1 was ordered and the CF of the bolus insulin was tightened. Once he is ordered a diet he will be changed to NPH insulin for easier transition back to his home U-500 at discharge. PLAN FOR INPATIENT GLYCEMIC CONTROL: * Hold outpatient diabetes medications * Basal insulin * NPH 30 units SQ with breakfast and NPH scale (0, 10, or 15 units depending on BSG) was added at dinner time. * Bolus insulin * NovoLog per scale ACHS or Q6hrs while NPO * Goal Range: Low 110 mg/dL - High 140 mg/dL * Correction Factor: 15 mg/dL/unit * Nutritional / Prandial insulin per carb ratio of 1 unit per 6 grams CHO consumed
--- NOTE | 2025-03-11 17:02 | Podiatry Progress Note ---
Date of Service March 11, 2025 Assessment & Plan (1) Uncontrolled diabetes mellitus with hyperglycemia, with long-term current use of insulin: (2) Diabetic foot infection: (3) Diabetic peripheral neuropathy associated with type 2 diabetes mellitus: (4) Acute osteomyelitis of right foot: Plan Patient examined and evaluated. - Osseous margins were noted to be grossly viable during surgery, though proximal margin pathology is pending. - Would recommend 2-3 weeks oral antibiotics if these margins prove clear, 6-8 weeks IV antibiotics if they show OM - Would defer definitive abx recs to ID remediation consultant. - Once abx is determined, patient is stable for d/c. Can f/u outpatient within one week. - Plan suture removal in two weeks. - Will continue to follow while here inpatient Admission and Anticipated Discharge Date Admission Date: March 09, 2025 Subjective Patient seen at bedside POD #1. Denies any new concerns. Sitting upright in bed without pain to the feet, eating lunch. No new infectious concerns. Review of Systems Constitutional: no fever, no chills and no fatigue Eyes: no problem reported Ear, Nose, Mouth, Throat: no problem reported Respiratory: no problem reported Cardiovascular: + edema; no problem reported Gastrointestinal: no nausea, no vomiting and no problem reported Musculoskeletal: no problem reported Integumentary: + skin ulcer, + wounds and + erythema Neurologic: + loss of sensation, + numbness and + pa resthesia; no generalized weakness Psychiatric: no problem reported Physical Exam Physical Exam: Dressing clean, dry, and intact. No strikethrough/drainage to the dressing. No continued malodor. No further ascending cellulitis. Pathology remains pending at time of exam. Constitutional: WD/WN, vitals as above + ill appearing, + morbidly obese and + obese; no acute distress Eyes: PERRL, conjunctivae normal, anicteric sclerae ENMT: external ear and nose normal, oropharynx normal Neck: trachea midline, no thyromegaly normal visual inspection Respiratory: normal respiratory effort; no respiratory distress Cardiovascular: Rate/Rhythm: regular rate and regular rhythm Vessels: + posterior tibial pulses abnormal and + dorsalis pedis pulses abnormal Chest (Breasts): Chest: normal inspection of chest Gastrointestinal (Abdomen): Inspection/Auscultation: abdomen normal to inspection Percussion/Palpation: + abdomen tender and abdomen soft Musculoskeletal: no cyanosis or clubbing, extremities motor strength 5/5 Head/Neck/Chest: normocephalic and head atraumatic Extremities: extremities normal to inspection Skin: + ulcer, + wound, + skin atrophy, + ecch ymosis, + erythema and + nails dystrophic Neurologic: awake; no focal motor deficits Psychiatric: A+Ox3, euthymic affect Results & Data Results & Data Vital Signs (Past 12 Hours) Vital Signs Temp Pulse Resp BP Pulse Ox O2 Del Method 03/11/25 14:43 36.6 C 90 16 142/75 H 93 Room Air 03/11/25 07:23 36.8 C 69 16 127/65 92 Room Air
[2025-03-11] MEDS: HEPARIN SOD 5,000 UNIT/0.5 ML VIAL SQ SCH (20:32)
[2025-03-12 05:59] LABS: Hematocrit (blood only) 32.9 % (42.0-52.0); Hemoglobin 11.0 g/dl (14.0-18.0); Mean Corpuscular Hemoglobin 26.7 pg (25.0-34.0); Mean Corpuscular Volume 79.9 fL (80.0-100.0); Platelet Count 192 K/uL (130-400); RDW Standard Deviation 41.1 fL (36.4-46.3); Red Blood Count 4.12 M/uL (4.70-6.10); White Blood Count 10.34 K/ul (4.8-10.8)
[2025-03-12 06:13] LABS: Anion Gap 8.0 (3-11); Blood Urea Nitrogen 18.0 mg/dl (6-23); Calcium 8.8 mg/dl (8.6-10.3); Carbon Dioxide 25.0 mmol/L (21-32); Chloride 103.0 mmol/L (98-107); Creatine Kinase 24.0 U/L (30-223); Creatinine Clr Calc Pharmacy 58.5 ml/min; Glucose 189.0 mg/dl (70-99(Fasting)); Potassium 4.0 mmol/L (3.5-5.1); Sodium 136.0 mmol/L (136-145)
[2025-03-12] MEDS: VANCOMYCIN HCL 1,500 MG in SODIUM CHLORIDE 0.9% 500 ML IV SCH (06:24)
[2025-03-12] MEDS: VANCOMYCIN LEVEL ONE (06:24)
[2025-03-12 07:38] VITALS: RESP 16
[2025-03-12] MEDS: INSULIN HUMAN NPH SC SCH (08:27)
--- NOTE | 2025-03-12 09:28 | Pharmacy Report ---
Pharmacy PK ABX Note - Date of Service March 12, 2025 - Assessment and Plan Assessment 03/12/25: * Zosyn de-escalated to cefazolin to cover Klebsiella pneumoniae * Renal function stabilized 03/11: * Renal function improved (SCr 1.24 today) and predicted AUC is < 400mg/L.hr so increased vancomycin to 1500mg iv q 24 hours. Vanco level still ordered for tomorrow to guide further dosing. * Right foot culture grew MRSA + K.pneumonia; Preliminary left 4th toe culture grew S. aureus. ID was consulted. 03/10: 79 year old M receiving vancomycin and Zosyn for treatment of a diabetic foot infection/cellulitis/gangrenous right fourth toe secondary to a puncture wound to the plantar aspect from stepping on a sharp object. CT shows no evidence of acute osteomyelitis. Podiatry to take to OR tomorrow for digital amputation vs I&D (depending on MRI results). * Pertinent microbiologic data includes: Preliminary 03/09 Right foot culture growing K. pneumoniae and S. aureus. Urine and blood cultures from 03/09 are pending * He presented with an SUKHJINDER, but renal function is improving (SCr is 1.5 today). Day # 2 of antimicrobial therapy. Plan Vancomycin * Current regimen: 1000 mg IV q24h changed to 1500 mg IV q24h starting this morning (after level obtained) * Trough level obtained 03/12/25 resulted as 6.3 mcg/mL. This is not predicted to achieve target AUC/JUANY of 400-600 mg/L.hr * Change to 1000 mg IV every 12 hours starting at 2100 since already received 1500 mg dose * Predicted AUC at steady state: 15.1 mg/L.hr * Repeat level ordered for: 03/13/25 Pharmacy will continue to follow and will adjust dose/frequency as necessary. Thank you. Pharmacy has transitioned to AUC monitoring for vancomycin. AUC/JUANY is the preferred PK/PD target and is associated with decreased risk of nephrotoxicity compared to traditional trough targets.
--- NOTE | 2025-03-12 11:28 | Pharmacy Report ---
Pharmacy Glycemic Short Note 2 - Date of Service March 12, 2025 - Glycemic Short BSG Results (Last 24 hours): 03/11/25 03/11/25 03/11/25 11:32 16:30 20:39 Glucose POC Glucose 218 H 154 H 205 H 03/12/25 03/12/25 03/12/25 05:39 07:38 11:16 Glucose 189 H POC Glucose 257 H 197 H OUTPATIENT ANTIDIABETIC REGIMEN: * Humulin R U-500--prescribed 200 units SQ with breakfast, 100 units with lunch, 70 units with dinner (patient reportedly takes as more like a sliding scale) * Jardiance 10mg po daily * metformin 1000mg po BID HbA1c: 9.4% on 03/10/28 ASSESSMENT: 03/12/25: * Blood sugars elevated yesterday, ranging 154-224 mg/dL * Received 72 units of insulin (30 units of NPH and 42 units of prandial/correctional bolus) * Fasting blood sugar of 257 mg/dL this morning * Remains on vancomycin and cefazolin (de-escalated from Zosyn yesterday) 03/11 * Sage received a total of 66 units of insulin yesterday (40 units were basal and 26 units were bolus). BSGs were still all above goal yesterday. * Fasting BSG was 224mg/dL this morning and a diet was started last evening. Lantus was discontinued and NPH 30 units was given at breakfast today. An NPH scale (0,10, or 15 units) was added at dinner. * CR was tightened starting will dinner for better prandial control. 03/10 * Sage is a 79 year old male who was admitted 03/09 due to a diabetic foot infection. Pharmacy was consulted for glycemic management while he is admitted. * BSG on admit was 355mg/dL. Provider ordered 8 units of Lantus SC x 1 at that time. * Dinner BSG was 324mg/dL . A weight based bolus insulin regimen with a stress of 2 was started. A Lantus scale (0, 10 , or 20 units depending on BSG) was added for HS. * Fasting BSG was 265mg/dL this morning. Plan is to transition Sage to NPH insulin. However, he is NPO for surgery this morning so Lantus 20 units SQ x 1 was ordered and the CF of the bolus insulin was tightened. Once he is ordered a diet he will be changed to NPH insulin for easier transition back to his home U-500 at discharge. PLAN FOR INPATIENT GLYCEMIC CONTROL: * Empagliflozin 10 mg PO daily, hold metformin * Basal insulin - increase * NPH 45 units SC w/ breakfast * NPH 10-15-20 units SC w/ dinner * Bolus insulin * NovoLog per scale ACHS or Q6hrs while NPO * Goal Range: Low 110 mg/dL - High 140 mg/dL * Correction Factor: 15 mg/dL/unit * Nutritional / Prandial insulin per carb ratio of 1 unit per 5 grams CHO consumed
--- NOTE | 2025-03-12 15:35 | Operative Report ---
Post Operative Report Pre & Post Diagnosis Operation Date: 03/10/25 11:10 Pre-Op Diagnosis: Diabetic Foot Ulcer Post-Op Diagnosis: Diabetic Foot Ulcer I identified the patient and participated in the time-out.: Yes Procedure Operation Date: 03/10/25 11:10 Actual Procedures p Right 4th and 5th Partial Ray Resection(Right) - Kecia Pierre DPM Surgeon Kecia Pierre DPM [employer] none Estimated Blood Loss 30 Findings Consistent with Post-Op Diagnosis Specimens right 4th and 5th toes-pathology. right 4th metatarsal head proximal margin- pathology. right 5th metatarsal head proximal margin-pathology. right 4th toe soft tissue culture. swab culture of right foot. Anesthesia Type MAC Complications none Disposition Accompanied Patient To Recovery: Yes Indications Patient is a 79-year old male with right fourth toe infection with underlying suspected osteomyelitis. He is known to our service, seeing him on a regular basis outpatient for diabetic foot care and at-risk care for the last couple of years. At his most recent visit, in January 2025, he was noted to have no new concerns and simple nail debridement was performed. He has a history of venous ulcerations, venous insufficiency, and peripheral arterial disease requiring these nail debridements. Recently, he states that he stepped on some construction material in his home in the last week or two and noted increasing color changes and concerns to the right fourth toe over that time. He was admitted and started on IV antibiotics. Discussed an MRI would be beneficial to evaluate for foot abscess. He is feeling better with antibiotics since admission, but he continues to have rapid progression of the changes to his right 4th toe and now involves his right 5th toe. Discussed with the patient the recommended treatment plan of a right fourth and fifth toe amputations. Discussed the possible risks including but not limited to infection, swelling, transfer lesions, wound dehiscence, blood clots, deep venous thrombosis, pulmonary embolism, chronic pain, nerve injury, numbness, loss of toe, loss of limb, loss of life, failure of procedure and need for additional procedures. Discussed risks, benefits, and alternatives to surgery. Patient states he understands and wants to proceed. Description of Procedure The patient was brought back into the operating room and placed on the OR table in the supine position. A time was performed in order to correctly identify the patient, planned procedure, and correct side of limb. MAC was performed per the anesthesiologist. 10 cc of 0.5% marcaine plain was administered as a reverse morales block under aseptic technique. A well padded pneumatic ankle tourniquet was applied to the right ankle. The right lower extremity was scrubbed, prepped, and draped in the usual aseptic manner. The tourniquet was not inflated. Attention was then directed to the right fourth and fifth toes at the fourth and fifth metatarsophalangeal joint (MTPJ) where two semi-elliptical incisions were made with a 15 blade. The incision was deepened down to the level the MTPJ, where the right fourth and fifth toe were disarticulated at the MTPJ, and passed from the operative field to the back table. Long flexor and extensor tendons and plantar plates tissue were sharply excised and passed from the operative field. Copious amount of saline was utilized to irrigate the surgical wound. Purulent drainage was identified, and swab culture was obtained. Extensive soft tissue infection was noted, and nonviable tissue was sharply excised and passed from the operative field. The head of the fourth metatarsal head appeared soft and cartilage was solano in color. A partial distal ray resection was performed with a sagittal saw to remove the fourth metatarsal head. A partial distal ray resection was also performed for the fifth metatarsal head to maintain anatomic parabola. Each metatarsal head was sent for pathology as proximal margins. Copious amount of saline was utilized to irrigate the surgical wound. No further proximal purulence was identified. No foreign object could be identified. Deep closure was performed with 3-0 monocryl. The skin was coapted with 3-0 nylon in interrupted horizontal fashion and retention type suture fashion. The incision was dressed with betadine soaked adapatic, 4x4 gauze, kerlix, and Joni bandage. The patient tolerated the procedure and anesthesia well with all vital signs stable and vascular status intact to the right foot. Attention was then directed to the sterile back table to obtain 2 specimens: 1. Right fourth toe soft tissue for aerobic and anaerobic cultures with gram stain and 2. Right fourth toe and fifth toes for pathology. The patient was transferred to recovery for brief post operative monitoring and will be transferred back to the floor for continued medical management. Pending pathology proximal margins findings will guide antibiotic treatment. If margins are clear, I recommend the patient to be discharged on 2-3 weeks of oral antibiotics for any residual soft tissue infection. Podiatry will follow the patient while admitted and to follow up in our clinic 1 week following discharge for continued post operative care. I attest to the content of the Intraoperative Record and any orders documented therein. Any exceptions are noted below.
--- NOTE | 2025-03-12 16:01 | Hospitalist Progress Note ---
Date of Service March 12, 2025 Assessment & Plan (1) Diabetic foot infection: (2) Leukocytosis: (3) Lactic acidemia: (4) Elevated troponin: (5) Uncontrolled diabetes mellitus with hyperglycemia, with long-term current use of insulin: (6) Diabetic nephropathy associated with type 2 diabetes mellitus: (7) Diabetic peripheral neuropathy associated with type 2 diabetes mellitus: Plan 79-year-old male history of diabetes with peripheral neuropathy presents after stepping on a sharp object sustaining a puncture wound to the plantar aspect now with cellulitis to his foot and a gangrenous right fourth toe. Patient's blood glucoses are under control being elevated pending an A1c. Patient previously has seen Dr. Milton with circulation evaluation felt to be appropriate final determination of antibiotics based upon surgical pathology of bacteria or not #Diabetic Foot Infection d/t puncture wound/Diabetic neuropathy w/ leukocytosis and lactic acidemia - ABIs just completed 02/[address] Milton and were normal b/l - CT w/o evidence of retained foreign body or osteo, concern for clinical gangrene to 4th toe - Cefazolin and vancomycin per infectious disease , clinically surgeon described osteomyelitis further pathology results to determine if short course or long course antibiotics required ID consult to determine choice and duration, once further pathology is completed - Tdap ordered and administered in ED - Blood cultures Negative to date -Podiatry s/p amputation 03/10/2025 of the right fourth fifth toe and metatarsals #Uncontrolled T2DM with nephropathy/neuropathy - Hold U500 and change to basal/bolus adjustment of sliding scale in 03/10/2025 - Last a1c 8.3% in Jul 2024, update a1c - Hold Metformin - Continue Jardiance #Mild SUKHJINDER on CKD persists despite fluid resuscitation -Continue to hold Spironolactone & lisinopril + hctz bp stable off these meds at this time #CAD/CHF with mild detectable trop - likely secondary to myocardial demand ischemia - Continue Metoprolol Succ,, - Repeat HS trop level stable - Echo 02/26 - LVEF 45-50%, mild inferolateral hypokinesis w/ grade II diastolic dysfunction, mild concentric LVH, aortic sclerosis #Hypothyroidism - Continue levothyroxine #GERD - Continue PPI #Dyslipidemia - Continue fenofibrate and Atorvastatin VTE ppx chemoprophylaxis postoperatively Admission and Anticipated Discharge Date Admission Date: March 09, 2025 Subjective pt is in good spirits, understands that pathology results are going to determine next steps in treatment no pain Physical Exam Physical Exam: Pleasant conversant upbeat Card exam is regular lungs are clear As mentioned in postop shoe in place Results & Data Results & Data Vital Signs (Past 12 Hours) Vital Signs Temp Pulse Resp BP Pulse Ox O2 Del Method 03/12/25 14:59 98.4 F 73 16 113/67 97 Room Air 03/12/25 11:59 98.6 F 72 16 131/70 95 Room Air 03/12/25 07:36 98.4 F 71 16 109/62 94 Room Air Laboratory Results Reviewed CBC reviewed chemistry PG Care Time/CCT Total # of Minutes Spent Total Time Spent with Patient: Total time spent is greater than 50% in coordination of care (as documented) at patient's floor/unit and/or counseling patient: Coding Level of Care Code 00714 SUB INP/OBS CARE 3/50MIN Diagnoses Diabetic foot infection E11.628; L08.9 Leukocytosis D72.829 Leukocytosis type: unspecified Lactic acidemia E87.20 Elevated troponin R79.89 Uncontrolled diabetes mellitus with hyperglycemia, with long-term current use of insulin E11.65; Z79.4 Diabetic nephropathy associated with type 2 diabetes mellitus E11.21 Diabetic peripheral neuropathy associated with type 2 diabetes mellitus E11.42 (2) Leukocytosis Leukocytosis type: unspecified Qualified Code(s): D72.829 - Elevated white blood cell count, unspecified
[2025-03-12] MEDS: VANCOMYCIN HCL 1,000 MG/270 ML BAG IV SCH (20:48)
[2025-03-13 06:49] LABS: Creatinine Clr Calc Pharmacy 64.3 ml/min
[2025-03-13] MEDS: VANCOMYCIN LEVEL ONE (08:05)
--- NOTE | 2025-03-13 13:52 | Pharmacy Report ---
Pharmacy PK ABX Note - Date of Service March 13, 2025 - Assessment and Plan Assessment 03/13/25: * Zosyn has been de-escalated to cefazolin to cover Klebsiella pneumoniae * Renal function stabilized 03/11: * Renal function improved (SCr 1.24 today) and predicted AUC is < 400mg/L.hr so increased vancomycin to 1500mg iv q 24 hours. Vanco level still ordered for tomorrow to guide further dosing. * Right foot culture grew MRSA + K.pneumonia; Preliminary left 4th toe culture grew S. aureus. ID was consulted. 03/10: * 79 year old M receiving vancomycin and Zosyn for treatment of a diabetic foot infection/cellulitis/gangrenous right fourth toe secondary to a puncture wound to the plantar aspect from stepping on a sharp object. CT shows no evidence of acute osteomyelitis. Podiatry to take to OR tomorrow for digital amputation vs I&D (depending on MRI results). * Pertinent microbiologic data includes: Preliminary 03/09 Right foot culture growing K. pneumoniae and S. aureus. Urine and blood cultures from 03/09 are pending * He presented with an SUKHJINDER, but renal function is improving (SCr is 1.5 today). Day # 5 of antimicrobial therapy. Plan Vancomycin * Current regimen: 1000 mg IV every 12 hours * Random level obtained 03/13/25 resulted as 10.9 mcg/mL. This is predicted to achieve target AUC/JUANY of 400-600 mg/L.hr * Predicted AUC at steady state: 526 mg/L.hr * Continue 1000 mg IV every 12 hours * Repeat random level ordered for: 03/16/25 Pharmacy will continue to follow and will adjust dose/frequency as necessary. Thank you. Pharmacy has transitioned to AUC monitoring for vancomycin. AUC/JUANY is the preferred PK/PD target and is associated with decreased risk of nephrotoxicity compared to traditional trough targets.
--- NOTE | 2025-03-13 23:12 | Hospitalist Progress Note ---
Date of Service March 13, 2025 Assessment & Plan (1) Diabetic foot infection: (2) Leukocytosis: (3) Lactic acidemia: (4) Elevated troponin: (5) Uncontrolled diabetes mellitus with hyperglycemia, with long-term current use of insulin: (6) Diabetic nephropathy associated with type 2 diabetes mellitus: (7) Diabetic peripheral neuropathy associated with type 2 diabetes mellitus: Plan 79-year-old male history of diabetes with peripheral neuropathy presents after stepping on a sharp object sustaining a puncture wound to the plantar aspect now with cellulitis to his foot and a gangrenous right fourth toe. Patient's blood glucoses are under control being elevated pending an A1c. Patient previously has seen Dr. Milton with circulation evaluation felt to be appropriate final determination of antibiotics based upon surgical pathology of bacteria or not #Diabetic Foot Infection d/t puncture wound/Diabetic neuropathy w/ leukocytosis and lactic acidemia - ABIs just completed 02/[address] Milton and were normal b/l - CT w/o evidence of retained foreign body or osteo, concern for clinical gangrene to 4th toe - Cefazolin and vancomycin per infectious disease , clinically surgeon described osteomyelitis further pathology results to determine if short course or long course antibiotics required ID consult to determine choice and duration, once further pathology is completed -Pathology report pending. -Patient will likely be here over course of the weekend. - Tdap ordered and administered in ED - Blood cultures Negative to date -Podiatry s/p amputation 03/10/2025 of the right fourth fifth toe and metatarsals #Uncontrolled T2DM with nephropathy/neuropathy - Hold U500 and change to basal/bolus adjustment of sliding scale in 03/10/2025 - Last a1c 8.3% in Jul 2024, update a1c - Hold Metformin - Continue Jardiance #Mild SUKHJINDER on CKD persists despite fluid resuscitation -Continue to hold Spironolactone & lisinopril + hctz bp stable off these meds at this time #CAD/CHF with mild detectable trop - likely secondary to myocardial demand ischemia - Continue Metoprolol Succ,, - Repeat HS trop level stable - Echo 02/26 - LVEF 45-50%, mild inferolateral hypokinesis w/ grade II diastolic dysfunction, mild concentric LVH, aortic sclerosis #Hypothyroidism - Continue levothyroxine #GERD - Continue PPI #Dyslipidemia - Continue fenofibrate and Atorvastatin VTE ppx chemoprophylaxis postoperatively Admission and Anticipated Discharge Date Admission Date: March 09, 2025 Subjective Patient reports no new symptoms. Physical Exam Physical Exam: Pleasant conversant upbeat Card exam is regular lungs are clear As mentioned in postop shoe in place Results & Data Results & Data Vital Signs (Past 12 Hours) Vital Signs Temp Pulse Resp BP Pulse Ox O2 Del Method 03/13/25 19:36 37.2 C 78 16 127/68 95 Room Air 03/13/25 14:46 37.0 C 81 16 129/66 95 Room Air PG Care Time/CCT Total # of Minutes Spent Total Time Spent with Patient: Total time spent is greater than 50% in coordination of care (as documented) at patient's floor/unit and/or counseling patient: Coding Level of Care Code 33593 SUB INP/OBS CARE 3/50MIN Diagnoses Diabetic foot infection E11.628; L08.9 Leukocytosis D72.829 Leukocytosis type: unspecified Lactic acidemia E87.20 Elevated troponin R79.89 Uncontrolled diabetes mellitus with hyperglycemia, with long-term current use of insulin E11.65; Z79.4 Diabetic nephropathy associated with type 2 diabetes mellitus E11.21 Diabetic peripheral neuropathy associated with type 2 diabetes mellitus E11.42 (2) Leukocytosis Leukocytosis type: unspecified Qualified Code(s): D72.829 - Elevated white blood cell count, unspecified
[2025-03-14 06:28] LABS: Hematocrit (blood only) 31.8 % (42.0-52.0); Hemoglobin 10.4 g/dl (14.0-18.0); Mean Corpuscular Hemoglobin 26.3 pg (25.0-34.0); Mean Corpuscular Volume 80.3 fL (80.0-100.0); Platelet Count 213 K/uL (130-400); RDW Standard Deviation 41.7 fL (36.4-46.3); Red Blood Count 3.96 M/uL (4.70-6.10); White Blood Count 8.67 K/ul (4.8-10.8)
[2025-03-14 06:47] LABS: Anion Gap 8.0 (3-11); Blood Urea Nitrogen 17.0 mg/dl (6-23); Calcium 8.6 mg/dl (8.6-10.3); Carbon Dioxide 25.0 mmol/L (21-32); Chloride 106.0 mmol/L (98-107); Creatinine Clr Calc Pharmacy 66.5 ml/min; Glucose 138.0 mg/dl (70-99(Fasting)); Potassium 3.8 mmol/L (3.5-5.1); Sodium 139.0 mmol/L (136-145)
[2025-03-14 15:06] VITALS: BP 128/55; TEMP 98.2; O2SAT 97
--- NOTE | 2025-03-14 16:04 | Discharge Summary ---
Discharge Summary Date of Service March 14, 2025 Principal Dx & Hospital Course #1 = Principal Diagnosis (1) Diabetic foot infection: (2) Leukocytosis: (3) Lactic acidemia: (4) Elevated troponin: (5) Uncontrolled diabetes mellitus with hyperglycemia, with long-term current use of insulin: (6) Diabetic nephropathy associated with type 2 diabetes mellitus: (7) Diabetic peripheral neuropathy associated with type 2 diabetes mellitus: Plan 79-year-old male history of diabetes with peripheral neuropathy presents after stepping on a sharp object sustaining a puncture wound to the plantar aspect now with cellulitis to his foot and a gangrenous right fourth toe. Patient's blood glucoses are under control being elevated pending an A1c. Patient previously has seen Dr. Milton with circulation evaluation felt to be appropriate final determination of antibiotics based upon surgical pathology of bacteria or not #Diabetic Foot Infection d/t puncture wound/Diabetic neuropathy w/ leukocytosis and lactic acidemia - ABIs just completed 02/[address] Milton and were normal b/l - CT w/o evidence of retained foreign body or osteo, concern for clinical gangrene to 4th toe - Cefazolin and vancomycin per infectious disease , clinically surgeon described osteomyelitis further pathology results to determine if short course or long course antibiotics required ID consult to determine choice and duration, once further pathology is completed -Pathology report pending. -Patient will likely be here over course of the weekend. - Tdap ordered and administered in ED - Blood cultures Negative to date -Podiatry s/p amputation 03/10/2025 of the right fourth fifth toe and metatarsals #Uncontrolled T2DM with nephropathy/neuropathy - Hold U500 and change to basal/bolus adjustment of sliding scale in 03/10/2025 - Last a1c 8.3% in Jul 2024, update a1c - Hold Metformin - Continue Jardiance #Mild SUKHJINDER on CKD persists despite fluid resuscitation -Continue to hold Spironolactone & lisinopril + hctz bp stable off these meds at this time #CAD/CHF with mild detectable trop - likely secondary to myocardial demand ischemia - Continue Metoprolol Succ,, - Repeat HS trop level stable - Echo 02/26 - LVEF 45-50%, mild inferolateral hypokinesis w/ grade II diastolic dysfunction, mild concentric LVH, aortic sclerosis #Hypothyroidism - Continue levothyroxine #GERD - Continue PPI #Dyslipidemia - Continue fenofibrate and Atorvastatin VTE ppx chemoprophylaxis postoperatively Admission HPI Per Admitting Provider Sage Cope is a 79 yo M with a pmhx of DMT2 complicated by nephropathy and peripheral neuropathy as well as CAD, CHF, HTN, GERD, and DLD who presents to the ER today c/o right foot wound. Patient reports that his daughters is assisting him in selling his house and they have been "taking things off of the [place] left and right." He believes that he stepped on a tack or some other similar type of metallic item in his home on the 06 of March but did not feel any pain from it due to his severe neuropathy. He reportedly had 2 other puncture wounds but doesn't recall exactly when those occurred, but believes it was around the same time. He was wearing his house slippers. He noticed any area of blood on the floor and realized he should probably be evaluated and subsequently sought care today. He reports chills but no documented fever. He does have discoloration of his right 4th toe. He was seeing a management intern but then he states he "got in trouble." He denies having a recent diabetic foot exam at his last PCP visit. He was just seen by Dr. Milton and had arterial dopplers performed and was told the results of those were good. His w/u today included labs that demonstrated a leukocytosis with left shift, hyperglycemia, and mild SUKHJINDER on CKD, an elevated lactate of 2.6 and a PCT of 0.52. HS trop was mildly elevated at 67 but he denies cp or dyspnea. EKG is nonacute. He just had an echo performed on 02/25 which showed mildly reduced systolic LVF at 45-50%. He has been medicated with a dose of Zosyn and Vancomycin. Venous doppler performed as well as CT foot. No evidence of osteo noted on CT. He has received 2L of NSS and an updated Tdap and has been referred to the hospital medicine team for admission. 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 Pierre within one week. Plan for suture removal in 2 weeks. [phone] PAIN AND MEDICATIONS: * Following any surgery, it is common to expect varying degrees of pain. The amount of pain depends on the type of surgery and an individual person's pain tolerance. DIET: * Drink plenty of fluids * NO ALCOHOL * It is best to avoid caffeine (in coffee and many sodas). * NO SMOKING. SPECIAL CARE INSTRUCTIONS: BANDAGE CARE: * Your bandages must be kept dry. During the first day(s), it is better not to attempt to bathe or shower since the bandage could accidentally become wet and that may lead to an infection. * Even after your first post-operative visit to the office (generally within a few days), you will still need to be careful to protect the bandages, especially if you are unsteady on the foot or if you are still not allowed to put full weight on the foot. * As a reminder, when using an ice pack, be certain it is in a leak-proof bag or a light paper towel covering. BLEEDING: * Bleeding through the bandages can be frightening, however, it is not uncomm on. In fact, sometimes what appears to be blood is actually some of the medications, such as Betadine, that the gauze bandages were soaked in before they were placed on your foot. Even if there is truly bleeding, the gauze tends to absorb the blood and makes it appear to spread out and look worse than it actually is. * Nonetheless, report any bleeding to Dr. Lopez's office when we call you the night of surgery and the following day. You can also angel the boundary with a pen to be able to report its progression. Do not remove your bandages on your own. SWELLING: * Swelling (edema) can tighten a bandage excessively. NEVER remove or cut at the dressing unless instructed to do so. Elevate the foot and knee and apply ice as directed (do not let leg hang down when seated). If you are in a car, it is helpful to be in the back seat with a seat belt on and the leg up on the seat. You should not be driving! MISCELLANEOUS INSTRUCTIONS: In order for us to evaluate your condition better, we ask that you please keep track of the following: * Please keep a list of your oral temperature and times that it was taken. Oral temperature can fluctuate a lot after surgery. We want to know whenever it is above 100.5 degrees F, but even then, there may not be a reason to worry, depending on the circumstances. Do not take your temperature after drinking hot or cold liquids. * Keep a list of the time and amount of medicines you took and any unusual symptoms. * Let us know if you have any problems with urinary output or constipation. * If you have any mishaps, write down the circumstances and if there is a change in the amount of pain you have experienced. Pending Studies at Discharge: Yes Stand-Alone Forms: My [facility] [employer], Smoking Cessation Medications and DC Order Prescriptions: New sulfamethoxazole-trimethoprim [Bactrim DS] 800-160 mg tablet 2 tab PO BID 10 Days Qty: 40 0RF Rx Instructions: First dose 7 PM Continued metformin 1,000 mg tablet 1,000 mg PO BID 30 Days Qty: 60 5RF fenofibrate micronized 134 mg capsule 134 mg PO DAILY 30 Days Qty: 30 5RF Patient Comments: qam aspirin 81 mg tablet,delayed release (DR/EC) 81 mg PO QAM fluticasone propionate 50 mcg/actuation spray,suspension 2 sprays intranasal DAILY omeprazole 20 mg capsule,delayed release(DR/EC) 20 mg PO QAM cyanocobalamin (vitamin B-12) 1,000 mcg tablet extended release 1,000 mcg PO DAILY cholecalciferol (vitamin D3) 125 mcg (5,000 unit) capsule 2,500 unit PO DAILY (DME) Prodigy No Coding Strip See Rx Instructions .Route Qty: 200 0RF Rx Instructions: test 2 times daily (DME) pen needle, diabetic [Comfort EZ Pen [place]] 31 gauge x 1/4" needle See Rx Instructions .Route Qty: 100 2RF Rx Instructions: Use three times a day with insulin pen. Humulin R U-500 (Conc) Kwikpen 500 unit/mL (3 mL) insulin pen See Rx Instructions .ROUTE .COMPLEX Patient Comments: 03/09- per the pt, he does more sliding scale doses Rx Instructions: Inject 200 units sq with breakfast and 10 100 units sq with lunch and 70 units sq with dinner. metoprolol succinate [Toprol XL] 25 mg tablet extended release 24 hr 25 mg PO BID lisinopril-hydrochlorothiazide 20-12.5 mg tablet 1 tab PO HS levothyroxine 125 mcg tablet 125 mcg PO DAILY Rx Instructions: 125 mcg orally TAKE ON AN EMPTY STOMACH WITH A FULL GLASS OF WATER, WAIT 30 MINUTES TO EAT, DRINK, OR TAKE MEDICATIONS; Discontinued spironolactone [Aldactone] 25 mg tablet 25 mg PO DAILY Discharge Orders: Discharge Order (Routine); Ordered 03/14/25 Ordered By: Ramos Waddell Admission Data Admit Date/Time: 03/09/25 12:27 Attending Provider: Ramos Waddell Admit Provider: Krunal Mcrae Primary Care Provider: Jonathan Swanson Other Providers: Flaco Pierre; Jonathan Swanson; Crissy Ballesteros; Tess Xie; Joyce Camargo; Ruth Rodarte; Melanie Dominique; Katie Watts Hospital Stay Data Consultations 03/09/25 12:27 Consult Podiatry Routine 03/09/25 19:20 ED Decision to Admit Stat 03/11/25 08:06 Consult Infectious Diseases Routine Procedures Performed Operation Date: 03/10/25 11:10 Actual Procedures p Right 4th and 5th Partial Ray Resection(Right) - Kecia Pierre DPM Diagnostic Imagining Performed 03/09/25 09:56 CT foot RT w con Stat US venous doppler LE RT Stat Pending Results Patient Have Any Pending Studies at Discharge: Yes Discharge Instructions Given to Patient (Per Discharging Provider) Followup with Dr. Pierre within one week. Plan for suture removal in 2 weeks. [phone] PAIN AND MEDICATIONS: * Following any surgery, it is common to expect varying degrees of pain. The amount of pain depends on the type of surgery and an individual person's pain tolerance. DIET: * Drink plenty of fluids * NO ALCOHOL * It is best to avoid caffeine (in coffee and many sodas). * NO SMOKING. SPECIAL CARE INSTRUCTIONS: BANDAGE CARE: * Your bandages must be kept dry. During the first day(s), it is better not to attempt to bathe or shower since the bandage could accidentally become wet and that may lead to an infection. * Even after your first post-operative visit to the office (generally within a few days), you will still need to be careful to protect the bandages, especially if you are unsteady on the foot or if you are still not allowed to put full weight on the foot. * As a reminder, when using an ice pack, be certain it is in a leak-proof bag or a light paper towel covering. BLEEDING: * Bleeding through the bandages can be frightening, however, it is not uncommon. In fact, sometimes what appears to be blood is actually some of the medications, such as Betadine, that the gauze bandages were soaked in before they were placed on your foot. Even if there is truly bleeding, the gauze tends to absorb the blood and makes it appear to spread out and look worse than it actually is. * Nonetheless, report any bleeding to Dr. Lopez's office when we call you the night of surgery and the following day. You can also angel the boundary with a pen to be able to report its progression. Do not remove your bandages on your own. SWELLING: * Swelling (edema) can tighten a bandage excessively. NEVER remove or cut at the dressing unless instructed to do so. Elevate the foot and knee and apply ice as directed (do not let leg hang down when seated). If you are in a car, it is helpful to be in the back seat with a seat belt on and the leg up on the seat. You should not be driving! MISCELLANEOUS INSTRUCTIONS: In order for us to evaluate your condition better, we ask that you please keep track of the following: * Please keep a list of your oral temperature and times that it was taken. Oral temperature can fluctuate a lot after surgery. We want to know whenever it is above 100.5 degrees F, but even then, there may not be a reason to worry, depending on the circumstances. Do not take your temperature after drinking hot or cold liquids. * Keep a list of the time and amount of medicines you took and any unusual symptoms. * Let us know if you have any problems with urinary output or constipation. * If you have any mishaps, write down the circumstances and if there is a change in the amount of pain you have experienced. Coding Diagnoses Diabetic foot infection E11.628; L08.9 Leukocytosis D72.829 Leukocytosis type: unspecified Lactic acidemia E87.20 Elevated troponin R79.89 Uncontrolled diabetes mellitus with hyperglycemia, with long-term current use of insulin E11.65; Z79.4 Diabetic nephropathy associated with type 2 diabetes mellitus E11.21 Diabetic peripheral neuropathy associated with type 2 diabetes mellitus E11.42
[2025-03-14 16:23] VITALS: PULSE 89
--- NOTE | 2025-03-15 21:29 | Podiatry Progress Note ---
Date of Service Late entry - Visit on March 13, 2025 Assessment & Plan (1) Uncontrolled diabetes mellitus with hyperglycemia, with long-term current use of insulin: (2) Diabetic foot infection: (3) Diabetic peripheral neuropathy associated with type 2 diabetes mellitus: (4) Acute osteomyelitis of right foot: Plan Patient examined and evaluated. Foot cleaned, redressed with dry, sterile dressing. - Osseous margins were noted to be grossly viable during surgery, though prox imal margin pathology is pending. - Would recommend 2-3 weeks oral antibiotics if these margins prove clear, 6-8 weeks IV antibiotics if they show OM - Would defer definitive abx recs to ID managed services consultant. - Once abx is determined, patient is stable for d/c. Can f/u outpatient within one week. - Plan suture removal in two weeks. - Will continue to follow while here inpatient Admission and Anticipated Discharge Date Admission Date: March 09, 2025 Subjective Seen at bedside. No new concerns. Doing well without pain or worsening signs of infection. Waiting for results of pathology prior to discharge, otherwise feels good enough to go home. Physical Exam Physical Exam: Dressing clean, dry, and intact. No strikethrough/drainage to the dressing. Sutures intact without any bleeding, drainage, purulence. Scant blood noted to 4x4s and kerlix. No pain on dressing change or clinical exam. Constitutional: WD/WN, vitals as above + ill appearing, + morbidly obese and + obese; no acute distress Eyes: PERRL, conjunctivae normal, anicteric sclerae ENMT: external ear and nose normal, oropharynx normal Neck: trachea midline, no thyromegaly normal visual inspection Respiratory: normal respiratory effort; no respiratory distress Cardiovascular: Rate/Rhythm: regular rate and regular rhythm Vessels: + posterior tibial pulses abnormal and + dorsalis pedis pulses abnormal Chest (Breasts): Chest: normal inspection of chest Gastrointestinal (Abdomen): Inspection/Auscultation: abdomen normal to inspection Percussion/Palpation: + abdomen tender and abdomen soft Musculoskeletal: no cyanosis or clubbing, extremities motor strength 5/5 Head/Neck/Chest: normocephalic and head atraumatic Extremities: extremities normal to inspection Skin: + ulcer, + wound, + skin atrophy, + ecch ymosis, + erythema and + nails dystrophic Neurologic: awake; no focal motor deficits Psychiatric: A+Ox3, euthymic affect
[2025-03-16] MEDS ORDERED: VANCOMYCIN LEVEL ONE (08:30)
== END 2025-03-14 18:09 | disposition home or self-care (01) | DRG 617 ==
LOC: ED 09:19 → 3W 12:27 → SUATTDRO 12:27 → 3W 14:26